=== PATIENT | male | born 1950 | race Caucasian/White ===

== ENCOUNTER 2019-11-25 08:06 | Outpatient (CLI) | payer MEDICARE, OTHER, SELFPAY ==
[2019-11-25 09:06] VITALS: PULSE 99; O2SAT 94
[2019-11-25 09:07] VITALS: PULSE 102; O2SAT 94
[2019-11-25 09:08] VITALS: PULSE 112; O2SAT 95
[2019-11-25 09:14] VITALS: PULSE 98; O2SAT 94
--- NOTE | 2019-11-25 09:48 | HOMEO2EVAL ---
Home Oxygen Evaluation RC: Home Oxygen (O2) Evaluation Start: 11/25/19 09:46 Freq: Status: Active Protocol: RPE Activity Type Activity Date Activity User E-Sign Co-Sign Detail Recorded Client Recorded Date Recorded By Document 11/25/19 09:06 KRM [id number] 11/25/19 09:48 KRM Document 11/25/19 09:07 KRM [id number] 11/25/19 09:48 KRM Document 11/25/19 09:08 KRM [id number] 11/25/19 09:48 KRM Document 11/25/19 09:14 KRM [id number] 11/25/19 09:48 KRM 11/25/19 11/25/19 11/25/19 09:06 09:07 09:08 Home O2 Evaluation Test Phase Resting Exercise Exercise Oxygen Delivery Room Air Room Air Room Air Pulse Oximetry (90-100 %) 94 94 95 Pulse Rate (60-100 beats/min) 99 102 H 112 H Activity Tolerance Fair Fair Ambulation Distance (feet) 250 Home Oxygen Evaluation Comments PT. ALSO WALKED UP AN INCLINE DURING TESTING. Treatment Charges O2 Evaluation 11/25/19 09:14 Home O2 Evaluation Test Phase Resting Oxygen Delivery Room Air Pulse Oximetry (90-100 %) 94 Pulse Rate (60-100 beats/min) 98 Activity Tolerance Ambulation Distance (feet) Home Oxygen Evaluation Comments Treatment Charges
== END 2019-11-25 08:07 | disposition home or self-care (01) ==
PROVIDERS: PCP Family Medicine; Visit Provider Nurse Practitioner Family
DX: R09.02 Hypoxemia (principal)
CPT/HCPCS: 94618

== ENCOUNTER 2020-07-13 02:40 | Outpatient (CLI) | payer MEDICARE, OTHER, SELFPAY ==
[2020-07-13 16:34] LABS: SARS-CoV-2 RNA PCR Negative
== END 2020-07-13 02:41 | disposition home or self-care (01) ==
LOC: ANHCOVIDDT 02:40
PROVIDERS: PCP Family Medicine; Visit Provider Internal Medicine Gastroenterology
DX: Z01.812 Encounter for preprocedural laboratory examination (principal); Z20.828 Contact with and (suspected) exposure to other viral communicable diseases
CPT/HCPCS: 87635; C9803; U0003

== ENCOUNTER 2020-07-15 01:27 | Day surgery (SDC) | payer MEDICARE, OTHER, SELFPAY ==
[2020-07-06 12:58] VITALS: BMI 32.2
[2020-07-15 09:10] VITALS: BP 130/87; PULSE 55; RESP 20; TEMP 36.8; O2SAT 94; BMI 32.3
--- NOTE | 2020-07-15 09:19 | WPDGICN ---
Assessment and Plan Assessment and plan (1) Screen for colon cancer: Code(s): Z12.11 - Encounter for screening for malignant neoplasm of colon Status: Acute Assessment and Plan: Colonoscopy to be performed today last exam was 12 years ago. There is a family history of some unknown intestinal cancer identified in the sister. Colonoscopy report follow separately. (2) Chronic obstructive pulmonary disease: Qualifiers: COPD type: emphysema Emphysema type: other Qualified Code(s): J43.8 - Other emphysema Code(s): J44.9 - Chronic obstructive pulmonary disease, unspecified Status: Acute (3) Constipation due to opioid therapy: Code(s): K59.03 - Drug induced constipation; T40.2X5A - Adverse effect of other opioids, initial encounter Status: Acute GI Consult Note Consult date/time: 07/15/20 09:19 HPI: Porter Fernandez is a 69 year old male seen in evaluation at the request of Dr Des Dupont. Patient presents for screening colon [place] copy. Family history is significant her sister had none known intestinal cancer. Patient did he underwent go colonoscopy in 2006 that was unremarkable. He states his current weight appetite bowel movements are normal. Past medical history is significant for degenerative disc in his neck. He has constipation secondary to opioid therapy. He currently has been treated for a poorly healing ulcer on his foot. Review of Systems Review of Systems: All systems reviewed & are unremarkable except as noted in HPI and below PMFSH Past Medical History Medical History Benign hypertension Changing skin lesion Constipation due to opioid therapy Degenerative, intervertebral disc, cervical Erectile dysfunction Pneumonia due to infectious organism Screen for colon cancer Upper respiratory tract hypersensitivity reaction Social History Social History (Updated 06/19/20 @ 14:33 by Julissa Nagel CMA) Smoking packs per day: 1 Smoking cigarettes per day: 20.0 Smoking status: Former smoker Tobacco type: cigarettes Smoking end date: 10/23/16 Alcohol intake: never Substance use: never Substance use type: does not use Spiritual care concerns: No Meds Home Medications and Allergies Home Medications Medication Instructions Recorded Confirmed Type albuterol sulfate 90 mcg/actuation 2 inhalation INHALATION Q4H PRN 11/13/19 07/15/20 History aerosol inhaler fluticasone fur. 100 mcg-umeclid 1 inhalation INHALATION DAILY 11/13/19 07/15/20 History 62.5 mcg-vilant 25 mcg inhalat.powder ginkgo biloba 60 mg capsule 60 mg PO DAILY 11/13/19 07/15/20 History rivaroxaban 20 mg tablet 20 mg PO DAILY 11/13/19 07/15/20 History testosterone cypionate 200 mg/mL 200 mg IM USEASDIRECTD 11/13/19 07/15/20 History intramuscular kit vitamin E (dl, acetate) 450 mg 1,000 unit PO DAILY 11/13/19 07/15/20 History (1,000 unit) capsule morphine 15 mg immediate release 15 mg PO TID PRN tablet 11/15/19 07/15/20 History tablet diltiazem HCl 360 mg capsule,24 360 mg PO DAILY 05/15/20 07/15/20 History hr,extended release furosemide 40 mg tablet 20 mg PO QAM tablet 05/15/20 07/15/20 History gabapentin 300 mg capsule 300 mg PO BID cap 05/15/20 07/15/20 History ipratropium 0.5 mg-albuterol 3 mg 3 ml INHALATION QID PRN 06/05/20 07/15/20 History (2.5 mg base)/3 mL nebulization soln Coral Calcium 1,500 mg PO BID 07/09/20 07/15/20 History Glucosamine Chondroitin 1,500 mg PO BID 07/09/20 07/15/20 History Tumeric Root Extract 500 mg PO BID 07/09/20 07/15/20 History ascorbic acid (vitamin C) 1 g PO DAILY 07/09/20 07/15/20 History linaclotide [Linzess] 290 mcg PO BID PRN 07/09/20 07/15/20 History morphine 30 mg PO BID 07/09/20 07/15/20 History siyqjhwc-qqj-EQ-lycopen-lutein 1 tablet PO DAILY 07/09/20 07/15/20 History [Centrum Silver] potassium gluconate 300 mg PO DAILY 07/09/20
[2020-07-15] MEDS: LACTATED RINGERS 1,000 ML 150 ML IV CONT (09:27)
--- NOTE | 2020-07-15 09:27 | WPDANESEPPF ---
Anes - Initial Pre Proc Eval Procedure: Operation Date: 07/15/20 09:30 Proposed Procedures p Screening Colonoscopy - Ezequiel Fermin MD Date/Time: 07/15/20 09:27 Surgeon: Ezequiel Fermin MD Pre Op Diagnosis: neoplasm screening Patient Data Age: 69 Gender: M Height: 6 ft 4 in Weight: 120.7 kg Last Vital Signs Temp 98.2 F 07/15/20 09:10 Pulse 55 L 07/15/20 09:10 Resp 20 07/15/20 09:10 BP 130/87 07/15/20 09:10 Pulse Ox 94 07/15/20 09:10 Allergies Allergy/AdvReac Type Severity Reaction Status Date / Time No Known Allergies Allergy Verified 07/15/20 09:03 Home Medications Medication Instructions Recorded Confirmed Type albuterol sulfate 90 mcg/actuation 2 inhalation INHALATION Q4H PRN 11/13/19 07/15/20 History aerosol inhaler fluticasone fur. 100 mcg-umeclid 1 inhalation INHALATION DAILY 11/13/19 07/15/20 History 62.5 mcg-vilant 25 mcg inhalat.powder ginkgo biloba 60 mg capsule 60 mg PO DAILY 11/13/19 07/15/20 History rivaroxaban 20 mg tablet 20 mg PO DAILY 11/13/19 07/15/20 History testosterone cypionate 200 mg/mL 200 mg IM USEASDIRECTD 11/13/19 07/15/20 History intramuscular kit vitamin E (dl, acetate) 450 mg 1,000 unit PO DAILY 11/13/19 07/15/20 History (1,000 unit) capsule morphine 15 mg immediate release 15 mg PO TID PRN tablet 11/15/19 07/15/20 History tablet diltiazem HCl 360 mg capsule,24 360 mg PO DAILY 05/15/20 07/15/20 History hr,extended release furosemide 40 mg tablet 20 mg PO QAM tablet 05/15/20 07/15/20 History gabapentin 300 mg capsule 300 mg PO BID cap 05/15/20 07/15/20 History ipratropium 0.5 mg-albuterol 3 mg 3 ml INHALATION QID PRN 06/05/20 07/15/20 History (2.5 mg base)/3 mL nebulization soln Coral Calcium 1,500 mg PO BID 07/09/20 07/15/20 History Glucosamine Chondroitin 1,500 mg PO BID 07/09/20 07/15/20 History Tumeric Root Extract 500 mg PO BID 07/09/20 07/15/20 History ascorbic acid (vitamin C) 1 g PO DAILY 07/09/20 07/15/20 History linaclotide [Linzess] 290 mcg PO BID PRN 07/09/20 07/15/20 History morphine 30 mg PO BID 07/09/20 07/15/20 History puqbxjze-yyb-DI-lycopen-lutein 1 tablet PO DAILY 07/09/20 07/15/20 History [Centrum Silver] potassium gluconate 300 mg PO DAILY 07/09/20 07/15/20 History tizanidine 4 mg PO BID 07/09/20 07/15/20 History zinc gluconate 25 mg PO DAILY 07/09/20 07/15/20 History Patient hx anesthesia problems: none Family hx anesthesia problems: none PMFSH Past Medical History Medical History Benign hypertension Changing skin lesion Constipation due to opioid therapy Degenerative, intervertebral disc, cervical Erectile dysfunction Pneumonia due to infectious organism Screen for colon cancer Upper respiratory tract hypersensitivity reaction Social History Social History (Updated 06/19/20 @ 14:33 by Julissa Nagel CMA) Smoking packs per day: 1 Smoking cigarettes per day: 20.0 Smoking status: Former smoker Tobacco type: cigarettes Smoking end date: 10/23/16 Alcohol intake: never Substance use: never Substance use type: does not use Spiritual care concerns: No Anes - Eval Final PreProcedure Day of Procedure 07/15/20 09:27 Patient weight: overweight Heart: regular rate and rhythm Lungs: clear to auscultation Airway: Mallampati scale class II Neurological: alert and oriented Last oral intake: >/= 8 hours ASA classification: III Emergent: no Anesthetic plan: proceed Anesthesia type and monitoring: general GIVS and standard monitoring Informed Consent: The patient's anesthetic plan and its attendant risks and benefits were discussed with the patient/family/POA. Questions were solicited and answers provided to the satisfaction of the patient/family/POA.
[2020-07-15 09:52] VITALS: BP 104/70; PULSE 98; RESP 19; O2SAT 92
[2020-07-15 10:02] VITALS: BP 102/63; PULSE 84; RESP 16; O2SAT 92
[2020-07-15 10:11] VITALS: BP 113/66; PULSE 90; RESP 16; O2SAT 93
== END 2020-07-15 10:20 | disposition home or self-care (01) ==
PROVIDERS: PCP Family Medicine; Visit Provider Internal Medicine Gastroenterology
PROC: 0DJD8ZZ Inspection of Lower Intestinal Tract, Via Natural or Artificial Opening Endoscopic (ICD-10-PCS; CPT 45378; principal; 2020-07-15 09:30)
DX: Z12.11 Encounter for screening for malignant neoplasm of colon (principal); K64.8 Other hemorrhoids; J44.9 Chronic obstructive pulmonary disease, unspecified; K59.03 Drug induced constipation; T40.2X5A Adverse effect of other opioids, initial encounter; I10 Essential (primary) hypertension; M50.30 Other cervical disc degeneration, unspecified cervical region; Z87.891 Personal history of nicotine dependence; Z79.01 Long term (current) use of anticoagulants
CPT/HCPCS: G0121; J2001; J2704; J7120

== ENCOUNTER 2020-08-05 01:00 | Outpatient (CLI) | payer MEDICARE, OTHER, SELFPAY ==
[2020-08-05 18:39] LABS: SARS-CoV-2 RNA PCR Negative
== END 2020-08-05 01:01 | disposition home or self-care (01) ==
LOC: ANHCOVIDDT 01:00
PROVIDERS: PCP Family Medicine; Visit Provider Internal Medicine Cardiovascular Disease
DX: Z01.812 Encounter for preprocedural laboratory examination (principal); Z20.828 Contact with and (suspected) exposure to other viral communicable diseases
CPT/HCPCS: 87635; C9803; U0003

== ENCOUNTER 2020-08-07 01:05 | Day surgery (SDC) | payer MEDICARE, OTHER, SELFPAY ==
[2020-08-06 11:45] VITALS: BMI 32.2
[2020-08-07] VITALS (9 sets, daily range): BP systolic 110–129; BP diastolic 62–84; PULSE 71–95; RESP 9–20; TEMP 36.5; O2SAT 89–95; BMI 33.0
--- NOTE | 2020-08-07 06:49 | ECG_ITS ---
Measurements Intervals [place] Rate: 93 P: PA: 0 QRS: 38 QRSD: 106 T: 45 QT: 354 QTc: 441 Interpretive Statements ATRIAL FIBRILLATION CANNOT RULE OUT SEPTAL INFARCT, AGE INDETERMINATE BASELINE WANDER- V4 ABNORMAL ECG Electronically Signed On 08-07-2020 8:24:54 CDT by Kishan Zamora D.O.
--- NOTE | 2020-08-07 07:30 | SUR.PREOP ---
ARRIVES TO [facility] 7 VIA WC W/ CANE AND AT SIDE FOR SCHEDULED CARDIOVERSION W/ DR. LEON. ORIENTED TO ROOM, PLAN OF CARE, PROCEDURE. QUESTIONS ANSWERED. PRE PROCEDURE EKG COMPLETED: SHOWS AFIB. IV STARTED, LABS SENT, VS OBTAINED, CONSENT SIGNED, MEDICATIONS REVIEWED. STATES TOOK XARELTO THIS AM. WILL MONITOR.
[2020-08-07 08:38] LABS: Anion Gap 3 mmol/L (8-16); Blood Urea Nitrogen 17 mg/dL (9-20); Calcium 9.1 mg/dL (8.4-10.2); Carbon Dioxide 34 mmol/L (22-30); Chloride 101 mmol/L (98-107); Estimated CRCL calculation 144 ml/min; Estimated Glomerular Filt Rate > 60; Glucose 106 mg/dL (75-110); Potassium 4.4 mmol/L (3.4-5.0); Sodium 138 mmol/L (137-145)
--- NOTE | 2020-08-07 09:02 | WPDMODSED ---
Moderate Sedation Note-Pt Data Patient Data Diagnosis: Atrial fibrillation Present Complaint: atrial fibrillation Procedure to be performed/Plan: electrical cardioversion Moderate sedation Allergies Allergy/AdvReac Type Severity Reaction Status Date / Time No Known Allergies Allergy Verified 08/07/20 08:29 Home Medications Medication Instructions Recorded Confirmed Type albuterol sulfate 90 mcg/actuation 2 inhalation INHALATION Q4H PRN 11/13/19 08/07/20 History aerosol inhaler fluticasone fur. 100 mcg-umeclid 1 inhalation INHALATION DAILY 11/13/19 08/07/20 History 62.5 mcg-vilant 25 mcg inhalat.powder ginkgo biloba 60 mg capsule 60 mg PO DAILY 11/13/19 08/07/20 History rivaroxaban 20 mg tablet 20 mg PO DAILY 11/13/19 08/07/20 History testosterone cypionate 200 mg/mL 200 mg IM USEASDIRECTD 11/13/19 08/07/20 History intramuscular kit vitamin E (dl, acetate) 450 mg 1,000 unit PO DAILY 11/13/19 08/07/20 History (1,000 unit) capsule morphine 15 mg immediate release 15 mg PO TID PRN tablet 11/15/19 08/07/20 History tablet diltiazem HCl 360 mg capsule,24 360 mg PO DAILY 05/15/20 08/07/20 History hr,extended release furosemide 40 mg tablet 20 mg PO QAM tablet 05/15/20 08/07/20 History gabapentin 300 mg capsule 300 mg PO BID cap 05/15/20 08/07/20 History ipratropium 0.5 mg-albuterol 3 mg 3 ml INHALATION QID PRN 06/05/20 08/07/20 History (2.5 mg base)/3 mL nebulization soln Coral Calcium 1,500 mg PO BID 07/09/20 08/07/20 History Glucosamine Chondroitin 1,500 mg PO BID 07/09/20 08/07/20 History Tumeric Root Extract 500 mg PO BID 07/09/20 08/07/20 History ascorbic acid (vitamin C) 1 g PO DAILY 07/09/20 08/07/20 History linaclotide [Linzess] 290 mcg PO BID PRN 07/09/20 08/07/20 History morphine 30 mg PO BID 07/09/20 08/07/20 History nnxcjydf-hxj-VU-lycopen-lutein 1 tablet PO DAILY 07/09/20 08/07/20 History [Centrum Silver] potassium gluconate 300 mg PO DAILY 07/09/20 08/07/20 History tizanidine 1 mg PO TID 07/09/20 08/07/20 History zinc gluconate 25 mg PO DAILY 07/09/20 08/07/20 History flecainide 100 mg PO Q12H 08/07/20 08/07/20 History Current Medications: Active Medications Sodium Chloride (Normal Saline Iv) 1,000 mls @ 30 mls/hr IV CONT .Q24H LU Sedation/Anesthesia: No previous sedation/anesthesia problems (including family history). [facility] Past Medical History Medical History Benign hypertension Changing skin lesion Constipation due to opioid therapy Degenerative, intervertebral disc, cervical Erectile dysfunction Pneumonia due to infectious organism Screen for colon cancer Upper respiratory tract hypersensitivity reaction Social History Social History Smoking packs per day: 1 Smoking cigarettes per day: 20.0 Smoking status: Former smoker Tobacco type: cigarettes Smoking end date: 10/23/16 Alcohol intake: never Substance use: never Substance use type: does not use Last use: 10/23/2016 Living arrangements: with family Gender identity (if verbalized by the patient): Male Spiritual care concerns: No Mod Sed Physical Exam Physical Exam Pre Procedural Exam: Normal: Appearance, Eyes, Ears, Nose, Neck, Throat, Airway, Lungs, Heart Size, Heart Rate, Neuro Exam and Abdomen and Variation: Heart Rhythm ( irregular irregular) and Skin ( chronic stasis changes noted) Hours since solid foods: 12 Hours since liquid intake: 12 Internal Medicine - PN: Obj Da Vital Signs Vital Signs: Vital Signs - 24 hr 08/07/20 08:00 Temperature 36.5 C Pulse Rate 95 Respiratory Rate 20 Blood Pressure 115/71 Pulse Oximetry 92 Meds/Results Medications: Active Medications Generic Name Dose Route Start Last Admin Trade Name Freq PRN Reason Stop Dose Admin Sodium Chloride 1,000 mls @ 30 mls/hr 08/07/20 06:50 Normal Saline Iv IV CONT .Q24H LU
--- NOTE | 2020-08-07 09:03 | WPDHPUPDATE1 ---
History and Physical Update Update Date/Time: 08/07/20 09:03 patient remains in atrial fibrillation. he has not missed any doses of Xarelto over the past several weeks (greater than 3). He denies any chest pain or shortness of breath. Objective: Irregular irregular rhythm Assessment: Atrial fibrillation Plan: Electrical cardioversion, moderate sedation History and Physical has been reviewed, including an updated exam of the patient. There are NO changes in the patient's condition. Risks, benefits, and alternatives have been discussed and questions answered. Patient agrees to proceed with procedure.
--- NOTE | 2020-08-07 09:20 | WPDCARDVER ---
Cardioversion Cardioversion Date of procedure: 08/07/20 Procedure: electrical cardioversion Moderate sedation Pre-op diagnosis: atrial fibrillation Post-op diagnosis: same Indications: atrial fibrillation Description of procedure: after discussing the risks, benefits alternatives of the procedure the patient agreeable via verbal and written informed consent. Risks discussed included skin irritation or burn, shocking into more problematic heart rhythm, adverse reaction to anesthesia, . Stroke was also discussed as a potential risk. Patient has not missed any doses of Xarelto over the past 3+ weeks. After time-out was taken sedation was initiated. Start time 9:09 a.m. Stop time 9:17 a.m. Complications: None Blood loss: None Medications were administered and patient was monitored by Naomi Alberts RN Sedation: 3 mg of Versed and 25 mcg of fentanyl were given in divided dosages. Findings: Two shocks were needed. First shock was using 125 joules of biphasic synchronized energywhich did not convert AFib. Second shock was using 200 joules of biphasic synchronized energy which did convert atrial fibrillation to sinus rhythm with heart rate in the 70s to 80s. Conclusion: 1. Successful nondenominational of sinus rhythm from atrial fibrillation using 200 joules of synchronized biphasic energy 2. Moderate sedation
--- NOTE | 2020-08-07 09:30 | ECG_ITS ---
Measurements Intervals [place] Rate: 68 P: 59 GA: 211 QRS: 27 QRSD: 115 T: 49 QT: 398 QTc: 425 Interpretive Statements SINUS RHYTHM WITH SINUS ARRHYTHMIA WITH FIRST DEGREE AV BLOCK INTRAVENTRICULAR CONDUCTION DELAY ABNORMAL ECG Electronically Signed On 08-07-2020 9:33:06 CDT by Kishan Zamora D.O.
--- NOTE | 2020-08-07 10:50 | SUR.PHASEII ---
MONITOR REMAINS SR POST CARDIOVERSION. FULLY AWAKE AND ALERT. AT SIDE. REVIEWED DISCHARGE INSTRUCTIONS W/ PT. AND AND FOLLOW UP CARE. QUESTIONS ANSWERED. VOICED UNDERSTANDING OF ALL. COPY OF DISCHARGE INSTRUCTIONS GIVEN. DISCHARGED HOME, OUT VIA WC TO 'S WAITING CAR WITH ALL PERSONAL BELONGINGS AND DISCHARGE PACKET. NO DISTRESS NOTED.
== END 2020-08-07 10:50 | disposition home or self-care (01) ==
PROVIDERS: PCP Family Medicine; Visit Provider Internal Medicine Cardiovascular Disease
PROC: 5A2204Z Restoration of Cardiac Rhythm, Single (ICD-10-PCS; principal; 2020-08-07 08:30)
DX: I48.91 Unspecified atrial fibrillation (principal); I10 Essential (primary) hypertension; Z79.01 Long term (current) use of anticoagulants; Z87.891 Personal history of nicotine dependence
CPT/HCPCS: 36415; 80048; 83735; 92960; 93005; J2250; J3010; J7040

== ENCOUNTER 2020-08-10 10:40 | Outpatient (CLI) | payer MEDICARE, OTHER, SELFPAY ==
--- NOTE | ~2020-08-10 | CT_ITS ---
EXAMINATION:CT lung screening DATE: 08/10/2020 11:14 INDICATION: Personal history of tobacco dependence. Smoker who quit 3 years ago with 50 pack year his tory. TECHNIQUE: Computed tomography (CT) of the chest was performed without intravenous contrast. Automate d exposure control and iterative reconstruction technique were employed. The dose-length product (DLP ) was 308.09 mGy-cm. COMPARISON: Chest CT 07/25/2019 FINDINGS: There is moderate emphysema. There is mild atelectasis bilaterally. Calcified right lung no dules are consistent with old granulomatous disease. No pleural effusion. The heart size is normal. T here are coronary artery calcifications. No pericardial effusion. There is chronic mild mediastinal l ymphadenopathy, likely reactive. There is mild bilateral gynecomastia. There are changes of anterior fusion procedure in cervical spine. There is moderate thoracic spondylosis. IMPRESSION: 1. Lung-RADS category 1: Negative. Continue annual screening with noncontrast low-dose chest CT in 12 months. Reviewed, dictated and finalized at location A. IMPRESSION: 1. Lung-RADS category 1: Negative. Continue annual screening with noncontrast l ow-dose chest CT in 12 months.
== END 2020-08-10 10:41 | disposition home or self-care (01) ==
PROVIDERS: PCP Family Medicine; Visit Provider Nurse Practitioner Family
DX: Z12.2 Encounter for screening for malignant neoplasm of respiratory organs (principal); Z87.891 Personal history of nicotine dependence
CPT/HCPCS: G0297

== ENCOUNTER 2020-09-11 00:30 | Outpatient (CLI) | payer MEDICARE, OTHER, SELFPAY ==
[2020-09-11 19:24] LABS: SARS-CoV-2 RNA PCR Negative
== END 2020-09-11 00:31 | disposition home or self-care (01) ==
LOC: ANHCOVIDDT 00:31
PROVIDERS: PCP Family Medicine; Visit Provider Internal Medicine Cardiovascular Disease
DX: Z20.828 Contact with and (suspected) exposure to other viral communicable diseases (principal)
CPT/HCPCS: 87635; C9803; U0003

== ENCOUNTER 2020-09-14 05:29 | Day surgery (SDC) | payer MEDICARE, OTHER, SELFPAY ==
[2020-09-11 14:30] VITALS: BMI 32.2
[2020-09-14] VITALS (8 sets, daily range): BP systolic 107–150; BP diastolic 60–90; PULSE 63–86; RESP 13–19; TEMP 36.1–36.3; O2SAT 90–100; BMI 30.2
--- NOTE | 2020-09-14 07:00 | ECG_ITS ---
Measurements Intervals [place] Rate: 95 P: NM: 0 QRS: 2 QRSD: 102 T: 44 QT: 344 QTc: 433 Interpretive Statements ATRIAL FIBRILLATION CANNOT RULE OUT SEPTAL INFARCT, AGE INDETERMINATE BASELINE ARTIFACT- V1-V6 ABNORMAL ECG Electronically Signed On 09-14-2020 8:18:34 DOG BEAUTICIAN by Kishan Zamora D.O.
[2020-09-14 08:09] LABS: Anion Gap 5 mmol/L (8-16); Blood Urea Nitrogen 18 mg/dL (9-20); Calcium 9.3 mg/dL (8.4-10.2); Carbon Dioxide 33 mmol/L (22-30); Chloride 101 mmol/L (98-107); Estimated CRCL calculation 107 ml/min; Estimated Glomerular Filt Rate > 60; Glucose 107 mg/dL (75-110); Magnesium 1.9 mg/dL (1.6-2.3); Potassium 4.2 mmol/L (3.4-5.0); Sodium 139 mmol/L (137-145)
--- NOTE | 2020-09-14 08:40 | ECG_ITS ---
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
--- NOTE | 2020-09-14 08:41 | P.HPUP_ITS ---
History and Physical Update Update Date/Time: 09/14/20 08:41 Subjective: Still in atrial fibrillation. No chest pain or shortness Objective: AFib irregular irregular Assessment: AFib Plan: Cardioversion History and Physical has been reviewed, including an updated exam of the patient . There are NO changes in the patient's condition. Risks, benefits, and alternatives have been discussed and questions answered. Patient agrees to proceed with procedure.
--- NOTE | 2020-09-14 08:42 | WPDMODSED ---
Moderate Sedation Note-Pt Data Patient Data Diagnosis: Atrial fibrillation Present Complaint: atrial fibrillation Procedure to be performed/Plan: 1. Electrical cardioversion 2. Moderate sedation Allergies Allergy/AdvReac Type Severity Reaction Status Date / Time No Known Allergies Allergy Verified 09/11/20 14:45 Home Medications Medication Instructions Recorded Confirmed Type albuterol sulfate 90 mcg/actuation 2 inhalation INHALATION Q4H PRN 11/13/19 09/11/20 History aerosol inhaler fluticasone fur. 100 mcg-umeclid 1 inhalation INHALATION DAILY 11/13/19 09/11/20 History 62.5 mcg-vilant 25 mcg inhalat.powder ginkgo biloba 60 mg capsule 60 mg PO DAILY 11/13/19 09/11/20 History rivaroxaban 20 mg tablet 20 mg PO DAILY 11/13/19 09/14/20 History testosterone cypionate 200 mg/mL 200 mg IM USEASDIRECTD 11/13/19 09/11/20 History intramuscular kit vitamin E (dl, acetate) 450 mg 1,000 unit PO DAILY 11/13/19 09/11/20 History (1,000 unit) capsule morphine 15 mg immediate release 15 mg PO TID PRN tablet 11/15/19 09/11/20 History tablet diltiazem HCl 360 mg capsule,24 360 mg PO DAILY 05/15/20 09/11/20 History hr,extended release furosemide 40 mg tablet 20 mg PO QAM tablet 05/15/20 09/11/20 History gabapentin 300 mg capsule 300 mg PO BID cap 05/15/20 09/11/20 History ipratropium 0.5 mg-albuterol 3 mg 3 ml INHALATION QID PRN 06/05/20 09/11/20 History (2.5 mg base)/3 mL nebulization soln Centrum Silver 1 tablet PO DAILY 07/09/20 09/11/20 History Coral Calcium 1,500 mg PO BID 07/09/20 09/11/20 History Glucosamine Chondroitin 1,500 mg PO BID 07/09/20 09/11/20 History Linzess 290 mcg PO BID PRN 07/09/20 09/11/20 History Tumeric Root Extract 500 mg PO BID 07/09/20 09/11/20 History ascorbic acid (vitamin C) 1 g PO DAILY 07/09/20 09/11/20 History morphine 30 mg PO BID 07/09/20 09/11/20 History potassium gluconate 300 mg PO DAILY 07/09/20 09/11/20 History tizanidine 1 mg PO TID 07/09/20 09/11/20 History zinc gluconate 50 mg PO DAILY 07/09/20 09/11/20 History flecainide 100 mg PO Q12H 08/07/20 09/11/20 History sotalol 80 mg PO DAILY 09/11/20 09/14/20 History Current Medications: Active Medications Sodium Chloride (Normal Saline Iv) 1,000 mls @ 30 mls/hr IV CONT .Q24H LU Sedation/Anesthesia: No previous sedation/anesthesia problems (including family history). [facility] Past Medical History Medical History Benign hypertension Changing skin lesion Constipation due to opioid therapy Degenerative, intervertebral disc, cervical Erectile dysfunction Pneumonia due to infectious organism Screen for colon cancer Upper respiratory tract hypersensitivity reaction Social History Social History Smoking packs per day: 1.5 Smoking cigarettes per day: 30.0 Years smoked: 45 Smoking pack-years: 67.50 Smoking status: Former smoker Tobacco type: cigarettes Second hand tobacco smoke exposure: No Smoking end date: 05/30/17 Alcohol intake: unknown Substance use: never Substance use type: does not use Last use: 10/23/2016 Living arrangements: with family Gender identity (if verbalized by the patient): Male Sexual Orientation (if Verbalized by the Patient): Straight or Heterosexual Spiritual care concerns: No Mod Sed Physical Exam Physical Exam Pre Procedural Exam: Normal: Appearance, Eyes, Ears, Nose, Neck, Throat, Airway, Lungs, Heart Size, Heart Rate, Neuro Exam, Abdomen, Extremities and Skin and Variation: Heart Rhythm (Irregular irregular) Hours since solid foods: 12 Hours since liquid intake: 12 Internal Medicine - PN: Obj Da Vital Signs Vital Signs: Vital Signs - 24 hr 09/14/20 07:45 Temperature 36.3 C L Pulse Rate 81 Respiratory Rate 19 Blood Pressure 119/68 Pulse Oximetry 96 Meds/Results Medications: Active Medications Generic Name Dose Route Start Last
--- NOTE | 2020-09-14 08:52 | P.PCNCVR_ITS ---
Cardioversion Cardioversion Date of procedure: 09/14/20 Procedure: 1. Electrical cardioversion 2. Moderate sedation Pre-op diagnosis: Atrial fibrillation Post-op diagnosis: same Indications: AFib Description of procedure: After discussing risks, benefits alternatives of the procedure the patient agreeable via verbal and written informed consent. Risks discussed included stroke, skin irritation or burn, shocking into a more problematic heart rhythm, adverse reaction to anesthesia, . After establishing continuous telemetry monitoring, pulse oxygenation and serial blood pressure assessments, time-out was taken and procedure started. Procedure start time 8:46 a.m. Procedure stop time 8:51 a.m. Medications were administered and patient was monitored by Bernardino Crisostomo RN Blood loss: None Complications: None Sedation: A total 2 mg of Versed and 25 mcg of fentanyl given in divided d osages. Findings: 1. Successful pentecostalism of sinus rhythm from atrial fibrillation using 175 joules of synchronized biphasic energy Conclusion: 1. Successful electrical cardioversion using 175 joules of synchronized biphasic energy 2. Moderate sedation
--- NOTE | 2020-09-14 10:16 | SUR.PHASEII ---
1000-pt given D/C orders and instructions. Questions answered and verbalized understanding. AOx4. PIV removed intact. Taken via wheelchair to waiting vehicle. No distress noted or verbalized at time of departure.
== END 2020-09-14 10:15 | disposition home or self-care (01) ==
PROVIDERS: PCP Family Medicine; Visit Provider Internal Medicine Cardiovascular Disease
PROC: 5A2204Z Restoration of Cardiac Rhythm, Single (ICD-10-PCS; principal; 2020-09-14 08:30)
DX: I48.91 Unspecified atrial fibrillation (principal); I10 Essential (primary) hypertension; N52.9 Male erectile dysfunction, unspecified; Z87.891 Personal history of nicotine dependence
CPT/HCPCS: 36415; 80048; 83735; 92960; 93005; J2250; J3010; J7040

== ENCOUNTER 2021-05-06 14:10 | Outpatient (CLI) | payer MEDICARE, OTHER, SELFPAY ==
--- NOTE | ~2021-05-06 | US_ITS ---
EXAMINATION: US art doppler w marisela URIOSTEGUI EXAM DATE: 05/06/2021 15:01 INDICATION: Discoloration of the skin, calves. Leg edema. TECHNIQUE: Segmental pressures and plethysmographic and Doppler waveforms of the brachial and lower e xtremity arteries were obtained. There is no prior study for comparison. FINDINGS: Right and left brachial artery pressures of 118 mm Hg and 125 mm Hg, respectively, are concordant (no rmal difference <= 30 mmHg). The right and left thigh-brachial pressure indices are XXXRIGHTLEFTLLLL , respectively (normal > 1.2). RIGHT LEG: The ankle-brachial index (YAJAIRA) is 1.26 (normal >= 0.9-1). The great toe-brachial index (TBI) is 1.26 (normal >= 0.65). The lower extremity ratios, segmental pressure gradients as follows; Proximal superficial femoral artery:- Could not obtain ( mmHg). Distal superficial femoral artery: ----- 1.53 (191 mmHg). Popliteal: 1.15 (144 mmHg). Dorsalis pedis: 0.98 (122 mmHg). Posterior tibial: 1.26 (158 mmHg). (Normal gradients <= 20-30 mmHg between adjacent levels on the same leg or the same levels on the two legs). Arterial waveforms are biphasic through popliteal, monophas ic below. LEFT LEG: The ankle-brachial index (YAJAIRA) is 0.92 (normal >= 0.9-1). The great toe-brachial index (TBI) is 0.82 (normal >= 0.65). The lower extremity ratios, segmental pressure gradients as follows; Proximal superficial femoral artery:- Could not obtain ( mmHg). Distal superficial femoral artery: ----- 1.30 (163 mmHg). Popliteal: 0.93 (116 mmHg). Dorsalis pedis: 0.92 (115 mmHg). Posterior tibial: 0.79 (99 mmHg). (Normal gradients <= 20-30 mmHg between adjacent levels on the same leg or the same levels on the two legs). Arterial waveforms are monophasic. IMPRESSION: 1. Right ankle-brachial index 1.26, normal. 2. Left ankle-brachial index 0.92, normal. 3. Segmental pressures as above. Reviewed, dictated and finalized at location B.
== END 2021-05-06 14:11 | disposition home or self-care (01) ==
PROVIDERS: PCP Family Medicine; Visit Provider Internal Medicine Cardiovascular Disease
DX: R60.0 Localized edema (principal); I73.9 Peripheral vascular disease, unspecified
CPT/HCPCS: 93923

== ENCOUNTER 2021-08-18 11:06 | Outpatient (CLI) | payer MEDICARE, OTHER, SELFPAY ==
--- NOTE | ~2021-08-18 | XR_ITS ---
EXAMINATION: XR chest 2V EXAM DATE: 08/18/2021 11:28 INDICATION: R05.9 - Cough, unspecified, HX: HTN. TECHNIQUE: Frontal and lateral projections of the chest obtained and reviewed. Comparison is made to prior examination from 12/31/2018. FINDINGS: The lungs are clear. There are no pleural effusions. The cardiomediastinal silhouette is within normal limits. There is no pneumothorax suspected. The bones and soft tissues are unremarkab le. Cervical fusion hardware. There is no significant interval change. IMPRESSION: No acute cardiopulmonary findings. Reviewed, dictated and finalized at location B.
== END 2021-08-18 11:07 | disposition home or self-care (01) ==
LOC: ANHIMG 11:11
PROVIDERS: PCP Family Medicine; Visit Provider Nurse Practitioner Family
DX: R05.9 Cough, unspecified (principal); I10 Essential (primary) hypertension; F17.200 Nicotine dependence, unspecified, uncomplicated
CPT/HCPCS: 71046

== ENCOUNTER 2021-08-18 11:32 | Outpatient (CLI) | payer MEDICARE, OTHER, SELFPAY ==
[2021-08-18 12:20] LABS: Basophils Absolute Auto 0.1 K/mm3 (0.0-0.1); Basophils Percent Auto 0.7 % (0.2-1.2); Eosinophils Absolute Auto 0.2 K/mm3 (0-0.3); Eosinophils Percent Auto 2.2 % (0-4.4); Hematocrit 51.3 % (42.0-52.0); Immature Granulocyte Absolute 0.04 K/mm3 (0.00-0.031); Immature Granulocyte Percent A 0.4 % (0-0.5); Lymphocytes Absolute Auto 2.75 K/mm3 (0.9-3.2); Lymphocytes Percent Auto 28.6 % (18.3-44.2); Mean Corpuscular HGB Conc 33.1 g/dl (32-36); Mean Corpuscular Hemoglobin 31.4 pg (26-34); Mean Corpuscular Volume 94.8 fl (80-100); Mean Platelet Volume 10.3 fl (7.4-10.4); Monocytes Absolute Auto 0.8 K/mm3 (0.1-0.6); Monocytes Percent Auto 8.5 % (2.6-8.5); Neutrophils Absolute Auto 5.7 K/mm3 (1.3-6.7); Neutrophils Percent Auto 59.6 % (45.5-73.1); Platelet Count Result 182 k/mm3 (150-375); Red Blood Count 5.41 M/mm3 (4.6-6.20); Red Cell Distribution Width 13.2 % (11.5-14.5); White Blood Count 9.6 K/mm3 (4.5-10.0)
[2021-08-18 15:14] LABS: Alanine Aminotransferase 19 U/L (4-50); Alkaline Phosphatase 83 U/L (38-126); Anion Gap 6 mmol/L (8-16); Aspartate Amino Transferase 34 U/L (17-59); Bilirubin,Total 0.4 mg/dL (0.2-1.3); Blood Urea Nitrogen 18 mg/dL (9-20); Calcium 9.2 mg/dL (8.4-10.2); Carbon Dioxide 33 mmol/L (22-30); Chloride 97 mmol/L (98-107); Estimated Glomerular Filt Rate > 60; Glucose 93 mg/dL (65-110); Sodium 136 mmol/L (137-145)
== END 2021-08-18 11:33 | disposition home or self-care (01) ==
LOC: ANHLAB 11:36
PROVIDERS: PCP Family Medicine; Visit Provider Nurse Practitioner Family
DX: E78.5 Hyperlipidemia, unspecified (principal); J20.9 Acute bronchitis, unspecified; R05.9 Cough, unspecified
CPT/HCPCS: 36415; 71046; 80053; 85025

== ENCOUNTER 2021-11-05 08:23 | Outpatient (CLI) | payer MEDICARE, OTHER, SELFPAY ==
--- NOTE | ~2021-11-05 | CT_ITS ---
EXAMINATION: CT lung screening EXAM DATE: 11/05/2021 08:41 INDICATION: Z87.891 - Personal history of nicotine dependence. TECHNIQUE: Spiral low dose CT of the chest without contrast. Axial, coronal and sagittal images were reviewed. The dose-length product (DLP) for this examination was 321.32 mGy-cm. The exposure was t ailored according to patient size (auto mA exposure control), and iterative reconstruction (ASIR) was used as additional dose reduction technique. Comparison is made to prior examination from 08/10/2020 . FINDINGS: Moderate emphysema. Tracheobronchial tree is patent. There is no mediastinal, hilar or axillary lymphadenopathy. There are no pleural or pericardial effusions. There is no pneumothorax . Heart normal in size. There is moderate coronary arterial calcification, arterial sclerosis. Up per abdomen is unremarkable. There is thoracic spondylosis without osteoblastic or osteolytic lesio ns identified. IMPRESSION: Lung-RADS category 1, negative (<1%chance of malignancy); recommend continued LDCT screen ing in 1 year. > Reviewed, dictated and finalized at location A. YOLOGY PROFESSOR IMPRESSION: Lung-RADS category 1, negative (<1%chance of malignancy); recommend continued LDCT screening in 1 year. >
== END 2021-11-05 08:24 | disposition home or self-care (01) ==
LOC: ANHIMG 08:25
PROVIDERS: PCP Family Medicine; Visit Provider Physician Assistant
DX: Z87.891 Personal history of nicotine dependence (principal)
CPT/HCPCS: 71271

== ENCOUNTER 2022-04-22 11:27 | Emergency (ER) | payer MEDICARE, OTHER, SELFPAY ==
--- NOTE | ~2022-04-22 | XR_ITS ---
EXAMINATION: XR chest 2V DATE: 04/22/2022 13:17 INDICATION: Shortness of breath, bilateral lower limb edema TECHNIQUE: AP and lateral views of the chest are obtained. COMPARISON: 08/18/2021 FINDINGS: The lungs are free of acute opacities. No pleural effusion or pneumothorax. The cardiomedia stinal silhouette is normal. There is moderate thoracic spondylosis. IMPRESSION: 1. No acute cardiopulmonary abnormality. Reviewed, dictated and finalized at location F.
[2022-04-22 11:32] VITALS: BP 135/86; PULSE 87; RESP 19; O2SAT 94
[2022-04-22 11:50] LABS: Basophils Absolute Auto 0.1 K/mm3 (0.0-0.1); Basophils Percent Auto 0.6 % (0.2-1.2); Eosinophils Absolute Auto 0.1 K/mm3 (0-0.3); Hematocrit 55.1 % (42.0-52.0); Hemoglobin 18.2 g/dL (14.0-18.0); Immature Granulocyte Absolute 0.11 K/mm3 (0.00-0.031); Immature Granulocyte Percent A 0.9 % (0-0.5); Lymphocytes Absolute Auto 2.74 K/mm3 (0.9-3.2); Lymphocytes Percent Auto 23.4 % (18.3-44.2); Mean Corpuscular Hemoglobin 30.6 pg (26-34); Mean Corpuscular Volume 92.6 fl (80-100); Mean Platelet Volume 9.7 fl (7.4-10.4); Monocytes Absolute Auto 0.9 K/mm3 (0.1-0.6); Neutrophils Absolute Auto 7.7 K/mm3 (1.3-6.7); Neutrophils Percent Auto 66.1 % (45.5-73.1); Platelet Count Result 172 k/mm3 (150-375); Red Blood Count 5.95 M/mm3 (4.6-6.20); Red Cell Distribution Width 15.1 % (11.5-14.5); White Blood Count 11.7 K/mm3 (4.5-10.0)
[2022-04-22 11:59] LABS: INR 1.8; Prothrombin Time 19.9 Seconds (11.1-14.7)
[2022-04-22 12:00] LABS: Partial Thromboplastin Time 42.6 SECONDS (22.3-36.8)
[2022-04-22 12:01] LABS: Alanine Aminotransferase 24 U/L (6-50); Alkaline Phosphatase 77 U/L (38-126); Anion Gap 5 mmol/L (8-16); Aspartate Amino Transferase 29 U/L (17-59); Bilirubin,Total 0.8 mg/dL (0.2-1.3); Blood Urea Nitrogen 22 mg/dL (9-20); Carbon Dioxide 32 mmol/L (22-30); Chloride 97 mmol/L (98-107); Estimated CRCL calculation 121 ml/min; Estimated Glomerular Filt Rate > 60; Glucose 82 mg/dL (65-110); Lipase 106 U/L (23-300); Sodium 134 mmol/L (137-145)
[2022-04-22 12:11] LABS: NT Pro B Type Natriuretic Pept 518 pg/mL (5-100)
[2022-04-22 12:13] LABS: Troponin I < 0.012 ng/mL (0.000-0.034)
[2022-04-22 13:04] LABS: Alveolar/Arterial O2 Gradient 53.9 mmHg; Base Excess ABG 4.2 mEq/l (+/-2.0); Carboxyhemoglobin 6.3 % THb (0-2.0); Fractional Inspired Oxygen 21 %; HCO3 ABG 28.1 mEq/l (22.0-26.0); Methemoglobin ABG 0.3 %THb (0-1.5); Oxygen Content ABG 21.3 %vol (16.0-22.0); PCO2 ABG 39.8 mmHg (35.0-45.0); Reduced Hemoglobin 11.5 %THb (0-5.0); Total Hemoglobin 18.6 g/dL (12.0-18.0); pH ABG 7.467 (7.350-7.450)
[2022-04-22 13:06] LABS: PO2 ABG 48.2 mmHg (80.0-100.0)
[2022-04-22 13:10] LABS: Modified Allen's Test Pass; Oxygen Saturation ABG 86.4 % (95.0-100.0); Oxyhemoglobin 81.9 % THb (90.0-100.0); Site Drawn RIGHT RADIAL
[2022-04-22 13:11] LABS: Device ROOM AIR
--- NOTE | 2022-04-22 13:13 | ED.EXTPRO ---
HPI - Extremity Problem General Chief complaint: Extremity Problem,Nontraumatic Stated complaint: Edema to legs Time Seen by Provider: 04/22/22 12:03 History of Present Illness HPI Narrative: Patient is a 71-year-old male who presents ER with lower extremity edema. Ongoing over the last few days. Reports he began taking increased amounts of Lasix and metolazone. Contacted his surgical specialist Dr. Morillo yesterday to inform him of the issue. He recommended the patient come to the ER to be evaluated and receive IV Lasix. Patient reports today that edema has decreased. Reports he used to have swelling the size of a baseball over the anterior aspect of his right ankle which is no longer present. He has no pain in his lower extremities. No fevers or chills. He did have increased weeping that has since decreased. Of note patient also had bilateral knee injections yesterday and is having no new pain or swelling or redness in those areas. Patient has no new dyspnea. He wears 5 L of oxygen chronically at home but arrived to the ER not wearing any and is currently satting in the upper 80s and low 90s. No chest pain or chest pressure. Denies orthopnea. No new cough. Patient does have compression stockings at home that he is not wearing. Related Data Home Medications Medication Instructions Recorded Confirmed ginkgo biloba 60 mg capsule 60 mg PO DAILY 11/13/19 10/26/21 rivaroxaban 20 mg tablet (Xarelto) 20 mg PO DAILY 11/13/19 10/26/21 testosterone cypionate 200 mg/mL 200 mg IM USEASDIRECTD 11/13/19 10/26/21 intramuscular kit (TestYOHO CIK) vitamin E (dl, acetate) 450 mg 1,000 unit PO DAILY 11/13/19 10/26/21 (1,000 unit) capsule morphine 15 mg immediate release 15 mg PO TID PRN Breakthrough Pain 11/15/19 10/26/21 tablet diltiazem HCl 360 mg capsule,24 360 mg PO DAILY 05/15/20 10/26/21 hr,extended release furosemide 40 mg tablet 20 mg PO QAM 05/15/20 10/26/21 gabapentin 300 mg capsule 300 mg PO BID 05/15/20 10/26/21 Glucosamine Chondroitin 1,500 mg PO BID 07/09/20 10/26/21 ascorbic acid (vitamin C) 1,000 mg 1 g PO DAILY 07/09/20 10/26/21 tablet morphine 30 mg tablet,extended 30 mg PO BID 07/09/20 10/26/21 release gxvxbujv-jws-jonof acid 0.4 1 tablet PO DAILY 07/09/20 10/26/21 mg-lycopene 300 mcg-lutein 250 mcg tablet (Centrum Silver) potassium gluconate 300 mg PO DAILY 07/09/20 10/26/21 tizanidine 4 mg tablet 1 mg PO TID 07/09/20 10/26/21 metoprolol tartrate 25 mg tablet 25 mg PO DAILY 11/23/20 10/26/21 metolazone 5 mg tablet 5 mg PO DAILY 02/25/22 Allergies Allergy/AdvReac Type Severity Reaction Status Date / Time No Known Allergies Allergy Verified 04/07/22 09:30 Review of Systems Review of Systems: All systems reviewed & are unremarkable except as noted in HPI and below Constitutional: Constitutional: Denies chills and Denies fever(s) Cardiovascular: Cardiovascular: Denies chest pain, Denies rapid heart rate and Denies radiating jaw, neck or arm pain Respiratory: Respiratory: Denies cough, Denies dyspnea and Denies wheezing Gastrointestinal: Gastrointestinal: Denies abdominal pain, Denies nausea and Denies vomiting Musculoskeletal: Musculoskeletal: Denies back pain, Denies arthralgias and Denies joint swelling Integumentary/Breasts: Skin/Breast: Denies erythema and Denies rash Comments: Weeping of the lower extremities from edema. [facility] Past Medical History Medical History (Updated 04/22/22 @ 14:05 by Brice Leyva MD) Afib Benign hypertension Changing skin lesion Chronic obstructive pulmonary disease Chronically O2 dependent 5 L Constipation due to opioid therapy Degenerative, intervertebral disc, cervical Erectile dysfunction Hyperlipidemia JULIANNA (obstructive sleep apnea) Tobacco abuse Surgical History Surgical History H/O cervical spine surgery Family History Family History (Reviewed 04/07/22 @ 09:35 by Lluvia Hansen
[2022-04-22 13:25] VITALS: O2SAT 89; O2SAT 97
[2022-04-22 13:26] VITALS: BP 112/73; PULSE 87; RESP 13; O2SAT 97
[2022-04-22 14:23] VITALS: BP 135/86; PULSE 78; RESP 16; O2SAT 97
== END 2022-04-22 14:26 | disposition home or self-care (01) ==
PROVIDERS: Emergency Medicine; Emergency Provider Emergency Medicine; PCP Family Medicine
DX: R60.0 Localized edema (principal); I48.91 Unspecified atrial fibrillation; J44.9 Chronic obstructive pulmonary disease, unspecified; E78.5 Hyperlipidemia, unspecified; I10 Essential (primary) hypertension; F17.290 Nicotine dependence, other tobacco product, uncomplicated; Z79.01 Long term (current) use of anticoagulants; Z99.81 Dependence on supplemental oxygen; Z79.899 Other long term (current) drug therapy
CPT/HCPCS: 36415; 36600; 71046; 80053; 82375; 82805; 83050; 83690; 83880; 84484; 85025; 85610; 85730; 99284

== ENCOUNTER 2022-11-07 09:28 | Outpatient (CLI) | payer MEDICARE, OTHER, SELFPAY ==
--- NOTE | ~2022-11-07 | CT_ITS ---
EXAMINATION: CT lung screening DATE: 11/07/2022 09:52 INDICATION: History of tobacco dependence. Lung cancer screening. TECHNIQUE: Computed tomography (CT) of the chest was performed without intravenous contrast. The dose -length product was 303.50 mGy-cm. Automated exposure control and iterative reconstruction technique were employed. COMPARISON: Comparison to multiple prior studies sequentially, with oldest reviewed study dated 07/23 FINDINGS: Stable mediastinal lymphadenopathy, likely reactive. There is atherosclerosis. Heart size n ormal. No significant pleural or pericardial effusion. There is severe emphysema. No pneumothorax. No focal airspace consolidation. No endobronchial lesions. There is a calcified granuloma of the right upper lobe. There is a small 2 mm fissural nodule on the right, unchanged there is dependent atelecta sis. Moderate thoracic spondylosis. No focal lytic or blastic lesions. IMPRESSION: 1. Lung-RADS category 2: Benign appearance or behavior. Continue annual screening with noncontrast lo w-dose chest CT in 12 months. Reviewed, dictated and finalized at location A. OACTIVITY TECHNICIAN IMPRESSION: 1. Lung-RADS category 2: Benign appearance or behavior. Continue annual screeni ng with noncontrast low-dose chest CT in 12 months.
== END 2022-11-07 09:29 | disposition home or self-care (01) ==
PROVIDERS: PCP Family Medicine; Visit Provider Nurse Practitioner Family
DX: Z12.2 Encounter for screening for malignant neoplasm of respiratory organs (principal); Z87.891 Personal history of nicotine dependence
CPT/HCPCS: 71271

== ENCOUNTER 2023-04-16 13:57 | Inpatient (IN) | payer MEDICARE, OTHER, SELFPAY ==
--- NOTE | ~2023-04-16 | XR_ITS ---
XR wrist RT min 3V DATE: 04/16/2023 14:48 INDICATION: Redness, swelling, pain of right wrist. No injury. TECHNIQUE: 4 views COMPARISON: None FINDINGS: Mild chondrocalcinosis at the wrist and triangular cartilage. No fracture, dislocation, periosteal reaction or bone destruction or erosive change is noted. IMPRESSION: Mild chondrocalcinosis Reviewed, dictated and finalized at location A. IMPRESSION: Mild chondrocalcinosis
[2023-04-16 13:58] VITALS: BP 124/58; PULSE 83; RESP 20; TEMP 36.7; O2SAT 91
[2023-04-16 14:21] LABS: Basophils Absolute Auto 0.1 K/mm3 (0.0-0.1); Basophils Percent Auto 0.4 % (0.2-1.2); Eosinophils Percent Auto 0.3 % (0-4.4); Hemoglobin 17.8 g/dL (14.0-18.0); Immature Granulocyte Absolute 0.06 K/mm3 (0.00-0.031); Immature Granulocyte Percent A 0.4 % (0-0.5); Lymphocytes Absolute Auto 1.77 K/mm3 (0.9-3.2); Lymphocytes Percent Auto 11.7 % (18.3-44.2); Mean Corpuscular Hemoglobin 29.7 pg (26-34); Mean Corpuscular Volume 90.2 fl (80-100); Mean Platelet Volume 10.1 fl (7.4-10.4); Monocytes Percent Auto 6.5 % (2.6-8.5); Neutrophils Absolute Auto 12.2 K/mm3 (1.3-6.7); Neutrophils Percent Auto 80.7 % (45.5-73.1); Platelet Count Result 208 k/mm3 (150-375); Red Blood Count 5.99 M/mm3 (4.6-6.20); Red Cell Distribution Width 14.5 % (11.5-14.5); White Blood Count 15.1 K/mm3 (4.5-10.0)
[2023-04-16 14:33] LABS: Alanine Aminotransferase 20 U/L (6-50); Albumin Level 4.1 g/dL (3.5-5.1); Alkaline Phosphatase 74 U/L (38-126); Aspartate Amino Transferase 29 U/L (17-59); Blood Urea Nitrogen 24 mg/dL (9-20); CRP 6.4 mg/dL (<1.0); Calcium 9.4 mg/dL (8.4-10.2); Carbon Dioxide > 40 mmol/L (22-30); Chloride 90 mmol/L (98-107); Estimated CRCL calculation 108 ml/min; Estimated Glomerular Filt Rate > 60; Glucose 131 mg/dL (65-110); Potassium 3.4 mmol/L (3.4-5.0); Sodium 133 mmol/L (137-145)
[2023-04-16 17:00] VITALS: BP 135/64; PULSE 74; RESP 16; O2SAT 95
--- NOTE | 2023-04-16 17:31 | ED.UPPEXIN ---
HPI - Extremity Injury (Upper) General Chief Complaint: Extremity Injury, Upper <Angeline Rowe PA-C - Last Filed: 04/16/23 19:35> Stated Complaint: hand swelling <Angeline Rowe PA-C - Last Filed: 04/16/23 19:35> Time Seen by Provider: 04/16/23 17:16 <Angeline Rowe PA-C - Last Filed: 04/16/23 19:35> History of Present Illness HPI narrative: 72-year-old male with a history of COPD here for evaluation of right wrist swelling x3 days. Patient states that the pain began about 3 days ago and has progressed in severity since onset. Today the pain acutely worsened, it is worse with any light touch and movement of the wrist, and his wrist became swollen. He denies any fevers, chills, nausea, vomiting or systemic symptoms. He takes morphine for chronic pain but states this has not been helping. <Angeline Rowe PA-C - Last Filed: 04/16/23 19:35> Related Data Home Medications: Home Medications Medication Instructions Recorded Confirmed rivaroxaban 20 mg tablet (Xarelto) 20 mg PO DAILY 11/13/19 04/16/23 morphine 15 mg immediate release 15 mg PO QID PRN Breakthrough Pain 11/15/19 04/16/23 tablet furosemide 40 mg tablet 20 mg PO BID 05/15/20 04/16/23 gabapentin 300 mg capsule 300 mg PO TID 05/15/20 04/16/23 Glucosamine Chondroitin 1,500 mg PO BID 07/09/20 04/16/23 ascorbic acid (vitamin C) 1,000 mg 1 g PO BID 07/09/20 04/16/23 tablet qjrscssb-lco-kmbxi acid 0.4 1 tablet PO DAILY 07/09/20 04/16/23 mg-lycopene 300 mcg-lutein 250 mcg tablet (Centrum Silver) tizanidine 4 mg tablet 1 mg PO TID 07/09/20 04/16/23 metoprolol tartrate 25 mg tablet 25 mg PO BID 11/23/20 04/16/23 metolazone 5 mg tablet See Rx Instructions .Route .COMPLEX 02/25/22 04/16/23 potassium chloride 20 mEq 20 meq PO BID 09/05/22 04/16/23 tablet,extended release(part/cryst) (Klor-Con M) diltiazem HCl 360 mg capsule,24 360 mg PO DAILY 04/16/23 04/16/23 hr,extended release (Tiadylt ER) morphine 15 mg tablet,extended 15 mg PO TID 04/16/23 04/16/23 release tadalafil 20 mg tablet (Cialis) 100 mg PO DAILY PRN sexual activity 04/16/23 04/16/23 trazodone 100 mg tablet 100 mg PO QHS PRN sleep 04/16/23 04/16/23 <Angeline Rowe PA-C - Last Filed: 04/16/23 19:35> Allergies/Adverse Reactions: Allergies Allergy/AdvReac Type Severity Reaction Status Date / Time No Known Allergies Allergy Verified 04/16/23 14:07 <Angeline Rowe PA-C - Last Filed: 04/16/23 19:35> Review of Systems Review of Systems: Gen.: Denies fevers or chills Eyes: Denies eye pain or visual change ENT: Denies congestion Respiratory: Denies shortness of breath or cough CV: Denies chest pain or palpitations GI: Denies abdominal pain nausea, emesis or diarrhea denies burning, urgency, frequency or hematuria Musculoskeletal: Reports right wrist pain Neuro: Denies numbness, tingling, weakness or focal weakness Skin: Denies rash Except as documented, all other systems reviewed and negative <Angeline Rowe PA-C - Last Filed: 04/16/23 19:35> [facility] Past Medical History Medical History: Medical History Afib Benign hypertension Changing skin lesion Chronic obstructive pulmonary disease Chronically O2 dependent 5 L Constipation due to opioid therapy Degenerative, intervertebral disc, cervical Erectile dysfunction Erectile dysfunction Fatigue Hyperlipidemia Hypersomnia Hypoxemia JULIANNA (obstructive sleep apnea) Screening for prostate cancer Tobacco abuse <Angeline Rowe PA-C - Last Filed: 04/16/23 19:35> Surgical History Surgical History: Surgical History H/O cervical spine surgery <Angeline Rowe PA-C - Last Filed: 04/16/23 19:35> Family History Family History: Family History
[2023-04-16] MEDS: INDOMETHACIN 25 MG CAPSULE 50 MG PO (17:59)
[2023-04-16 18:00] VITALS: BP 117/62; PULSE 74; RESP 16; O2SAT 95
[2023-04-16] MEDS: ceFAZolin 1 GM/NS 50 ML 1 GM/50 ML BAG IVPB (19:11)
[2023-04-16 19:15] VITALS: BP 124/68; PULSE 68; RESP 16; O2SAT 94
[2023-04-16 20:00] VITALS: O2SAT 92
[2023-04-16 20:24] VITALS: BP 137/60; PULSE 82; RESP 18; TEMP 37.2; O2SAT 89; BMI 33.5
[2023-04-16] MEDS: VANCOMYCIN 1,250 MG/NS 250 ML 1,250 MG/250 ML BAG 166.67 MG IVPB ×2 (20:24→21:29)
[2023-04-16] MEDS: MORPHINE SULFATE (*CRX) 15 MG TAB IR PO (20:45)
--- NOTE | 2023-04-16 21:40 | PM.IMHP ---
H&P: HPI History of Present Illness Date/Time: 04/16/23 21:40 Chief Complaint: Right hand infection Narrative: This is a 72-year-old male patient who does have a history of COPD and has been complained of having right wrist swelling for 3 days. The patient stated he has had this occur before. The patient stated he felt like maybe he slept on it wrong. The patient's redness and swelling increased over the last 3 days. The patient has pain with minimal touch. His right wrist is swollen. The patient denied any fever chills or any nausea vomiting. The patient takes morphine for chronic pain but it is not been working. The patient was given Indocin, Ancef, vancomycin, and morphine. His white count was 15.1. Sodium 133. Chloride 90 carbon dioxide greater than 40. BUN 24 creatinine is normal. Glucose is 131. Right wrist x-ray shows mild chondrocalcinosis. I assessed the patient the patient had no redness and he just had edema to his right hand. The patient had been resting quietly in his room and was diaphoretic. The patient is being admitted to observation status on the date of service of 04/16/2023. Review of Systems Review of Systems: All systems reviewed & are unremarkable except as noted in HPI and below Constitutional: Constitutional: Reports as per HPI and Reports no additional constitutional complaints Eyes: Eyes: Reports as per HPI and Reports no additional eye complaints ENT: Reports system reviewed and no additional complaints, except as documented and Reports Normal hearing present Cardiovascular: Cardiovascular: Reports no additional cardiovascular complaints Respiratory: Respiratory: Reports no additional respiratory complaints and Reports no additional respiratory complaints Gastrointestinal: Gastrointestinal: Reports as per HPI and Reports no additional gastrointestinal complaints Musculoskeletal: Musculoskeletal: Reports no additional musculoskeletal complaints Integumentary/Breasts: Skin/Breast: Reports system reviewed and no additional complaints, except as docu and Reports as per HPI Neurologic: Reports system reviewed and no additional complaints, except as documented, Reports as per HPI and Reports Normal hearing present Psychiatric: Psychiatric: Reports no additional psychiatric complaints and Reports as per HPI Endocrine: Endocrine: Reports no additional endocrine complaints Hematologic/Lymphatic: Hematologic/Lymphatic: Reports no additional hematologic/lymphatic complaints Allergic/Immunologic: Allergic/Immunologic: Reports no additional allergic/immunologic complaints [facility] Past Medical History Medical History (Updated 04/17/23 @ 00:27 by Glory A. Benhoff, BLANK[employer] CUTTER HAND) Afib Benign hypertension Changing skin lesion Chronic obstructive pulmonary disease Chronically O2 dependent 5 L Constipation due to opioid therapy Degenerative, intervertebral disc, cervical Erectile dysfunction Erectile dysfunction Fatigue Hyperlipidemia Hypersomnia Hypoxemia JULIANNA (obstructive sleep apnea) Screening for prostate cancer Tobacco abuse Surgical History Surgical History (Updated 04/17/23 @ 00:18 by Glory Mena NP) H/O cervical spine surgery History of tonsillectomy and adenoidectomy Family History Family History Mother Depression COVID-19 Sibling Intestinal cancer Thyroid disorder Sibling Depression Heart problem Father No problems noted. Social History Social History (Updated 04/17/23 @ 00:20 by Glory Mena NP) Social History: Smokes 4-5 [employer]/day. Quit cigarettes 2016. He is and lives with his . The patient is retired from [employer]. His is the durable power regulatory attorney for healthcare. Code status full code Years smoked: 45 Smoking status: Current some day smoker Tobacco type: cigars Second hand tobacco smoke exposure: No Smoking end date: 05/30/17 Alc
[2023-04-17] VITALS (9 sets, daily range): BP systolic 116–119; BP diastolic 60–61; PULSE 61–91; RESP 16–18; TEMP 35.9–37.2; O2SAT 91–97; BMI 33.5
[2023-04-17] MEDS: ceFAZolin 1 GM/NS 50 ML 1 GM/50 ML BAG IVPB ×3 (02:17→17:24)
[2023-04-17 06:41] LABS: Alanine Aminotransferase 17 U/L (6-50); Albumin Level 3.4 g/dL (3.5-5.1); Alkaline Phosphatase 70 U/L (38-126); Aspartate Amino Transferase 23 U/L (17-59); Basophils Absolute Auto 0.1 K/mm3 (0.0-0.1); Basophils Percent Auto 0.5 % (0.2-1.2); Bilirubin,Total 0.7 mg/dL (0.2-1.3); Blood Urea Nitrogen 24 mg/dL (9-20); Calcium 8.5 mg/dL (8.4-10.2); Carbon Dioxide > 40 mmol/L (22-30); Chloride 92 mmol/L (98-107); Eosinophils Absolute Auto 0.1 K/mm3 (0-0.3); Eosinophils Percent Auto 1.2 % (0-4.4); Estimated CRCL calculation 122 ml/min; Estimated Glomerular Filt Rate > 60; Glucose 110 mg/dL (65-110); Hematocrit 50.8 % (42.0-52.0); Hemoglobin 16.7 g/dL (14.0-18.0); Immature Granulocyte Absolute 0.08 K/mm3 (0.00-0.031); Immature Granulocyte Percent A 0.8 % (0-0.5); Lymphocytes Absolute Auto 1.64 K/mm3 (0.9-3.2); Lymphocytes Percent Auto 15.4 % (18.3-44.2); Mean Corpuscular HGB Conc 32.9 g/dl (32-36); Mean Corpuscular Hemoglobin 29.9 pg (26-34); Mean Platelet Volume 10.1 fl (7.4-10.4); Monocytes Absolute Auto 0.9 K/mm3 (0.1-0.6); Monocytes Percent Auto 8.5 % (2.6-8.5); Neutrophils Absolute Auto 7.8 K/mm3 (1.3-6.7); Neutrophils Percent Auto 73.6 % (45.5-73.1); Platelet Count Result 175 k/mm3 (150-375); Potassium 2.9 mmol/L (3.4-5.0); Red Blood Count 5.58 M/mm3 (4.6-6.20); Red Cell Distribution Width 14.2 % (11.5-14.5); Sodium 134 mmol/L (137-145); White Blood Count 10.7 K/mm3 (4.5-10.0)
[2023-04-17] MEDS: dilTIAZem HCL CD 180 MG CAP.ER.24H 360 MG PO (08:33)
[2023-04-17] MEDS: ASCORBIC ACID 500 MG TABLET 1000 MG PO ×2 (08:33→17:23)
[2023-04-17] MEDS: MORPHINE SULFATE (*CRX) 15 MG TABCR PO ×3 (08:33→17:23)
[2023-04-17] MEDS: POTASSIUM CHLORIDE 20 MEQ ER TABLET PO (08:33)
[2023-04-17] MEDS: GABAPENTIN 300 MG CAPSULE PO ×3 (08:34→17:22)
[2023-04-17] MEDS: MULTIVITAMINS /C LUTEIN (CENTRUM SILVER) TABLET *BKC 1 TAB PO (08:34)
[2023-04-17] MEDS: FUROSEMIDE 20 MG TABLET PO ×2 (08:34→17:22)
[2023-04-17] MEDS: METOPROLOL TARTRATE 25 MG TABLET PO ×2 (08:34→20:55)
[2023-04-17] MEDS: TIZANIDINE HCL 1 MG TABLET PO ×3 (08:34→17:23)
--- NOTE | 2023-04-17 09:14 | PM.CNOR ---
Assessment and Plan Assessment and plan (1) Soft tissue swelling of wrist joint: Code(s): M25.439 - Effusion, unspecified wrist Status: Acute Assessment and Plan: 72-year-old male with pain and swelling in his right wrist. This appears to be a recurrent issue. Favor diagnosis of gout or pseudogout versus is sepsis. Did receive a dose of Indocin in the emergency room. Is also on IV antibiotics. Clinically is improving so merits observation right now. Thank you for the consultation. History of Present Illness HPI Consult date: 04/17/23 Chief complaint: R Wrist Gout vs Cellulitis Narrative: This document created with [id number] technology and is subject to counselor at law irregularities. 72-year-old male who is admitted yesterday with pain and swelling in his right wrist. Over the course of several days he developed increasing discomfort in his right wrist somewhat so that he came to emergency room. He reports having an episode like this a year ago with that eventually went away after a few days. Does not carry a diagnosis of gout at this point. X-ray obtained yesterday does show chondrocalcinosis in the wrist. No history of diabetes. He is right handed. Review of Systems Constitutional: Constitutional: Reports no additional constitutional complaints Musculoskeletal: Musculoskeletal: Reports as per [facility] Past Medical History Medical History (Updated 04/17/23 @ 00:27 by Glory Mena NP) Afib Benign hypertension Changing skin lesion Chronic obstructive pulmonary disease Chronically O2 dependent 5 L Constipation due to opioid therapy Degenerative, intervertebral disc, cervical Erectile dysfunction Erectile dysfunction Fatigue Hyperlipidemia Hypersomnia Hypoxemia JULIANNA (obstructive sleep apnea) Screening for prostate cancer Tobacco abuse Surgical History Surgical History (Updated 04/17/23 @ 00:18 by Glory Mena NP) H/O cervical spine surgery History of tonsillectomy and adenoidectomy Family History Family History Mother Depression COVID-19 Sibling Intestinal cancer Thyroid disorder Sibling Depression Heart problem Father No problems noted. Social History Social History (Updated 04/17/23 @ 00:20 by Glory Mena NP) Social History: Smokes 4-5 [employer]/day. Quit cigarettes 2016. He is and lives with his . The patient is retired from [employer]. His is the durable power civil attorney for healthcare. Code status full code Years smoked: 45 Smoking status: Current some day smoker Second hand tobacco smoke exposure: No Alcohol intake: never Alcohol use details: socially Substance use: never Substance use type: does not use Last use: 10/23/2016 Lack of Transportation: No Lack of Food: Never True Current Housing: I Have Housing Concerned About Future Housing: No Difficulty Paying Gas/Electric Bills: No Difficulty Paying for Meds: Decline to Answer Currently Unemployed: No Education: Master's Degree or Higher Difficulty w/ Childcare or Family Care: No Living arrangements: with family Occupation/Education: retired 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 Gender identity (if verbalized by the patient): Male Sexual Orientation (if Verbalized by the Patient): Straight or Heterosexual Spiritual care concerns: No Meds Home Medications and Allergies Home Medications Medication Instructions Recorded Confirmed Type rivaroxaban 20 mg tablet (Xarelto) 20 mg PO DAILY 11/13/19 04/16/23 History morphine 15 mg immediate release 15 mg PO QID PRN Breakthrough Pain 11/15/19 04/16/23 History tablet furosemide 40 mg tablet 20 mg PO BID 05/15/20 04/16/23 History gabapentin 300 mg capsule 300 mg PO TID 05/15/20 04/16/23 History Glucosamine Chondroitin 1,500 mg PO BID 07/09/20 04/16/23 History as
[2023-04-17] MEDS: POTASSIUM CHLORIDE 20 MEQ ER TABLET 40 MEQ PO ×2 (09:33→17:23)
--- NOTE | 2023-04-17 11:01 | PM.IMPN ---
Progress Note: A&P Assessment and Plan (1) Soft tissue swelling of wrist joint: Code(s): M25.439 - Effusion, unspecified wrist Status: Acute Assessment and Plan: The patient was started on cefazolin and vancomycin pharmacy to manage. Blood cultures are pending. Appreciate Orthopedic surgery input. Gout versus pseudogout suspected. recommend observation at this time. wrist x-ray - Mild chondrocalcinosis (2) Gout: Code(s): M10.9 - Gout, unspecified Status: Acute Assessment and Plan: The patient was given a dose of indomethacin in the emergency room. (3) Afib: Qualifiers: Atrial fibrillation type: paroxysmal Qualified Code(s): I48.0 - Paroxysmal atrial fibrillation Code(s): I48.91 - Unspecified atrial fibrillation Status: Acute Assessment and Plan: Patient appears to be in sinus rhythm at this time. 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 Continue with nebulizer treatments. (5) Chronic pain: Code(s): G89.29 - Other chronic pain Status: Acute Assessment and Plan: This is related to his neck surgery. Continue with his morphine and Zanaflex Subjective Date/time seen: 04/17/23 11:01 Interval history: Still has pain and tenderness in right hand Review of Systems Constitutional: Constitutional: Reports no additional constitutional complaints Musculoskeletal: Musculoskeletal: Reports as per HPI Exam Const: General: cooperative, healthy appearing, comfortable, no acute distress, well developed, alert, awake, Physically active, average body habitus and well nourished Nutritional Appearance: average body habitus and well nourished Orientation/consciousness: oriented to person, oriented to place, oriented to time and patient oriented x3 Limitations: no limitations HENMT: Head: normal to inspection, No palpable skull fracture present, normocephalic and atraumatic Ears: hearing grossly normal bilaterally and external ears normal Face/Nose/Sinus: Normal external nose present and Normal nares present Eyes: General: appearance normal, both eyes and all related structures Alignment and Position: alignment normal Periorbital: periorbital findings normal Eyelids: eyelids normal Sclera: sclerae normal Pupils: Equal, round and reactive pupils present EOM: EOMs intact bilaterally Neck: Neck: normal visual inspection, full ROM, no lymphadenopathy, trachea midline and supple Chest: Chest palpation & inspection: normal inspection of the chest Resp: Effort & Inspection: normal respiratory effort Auscultation: wheezes Cardio: Palpation: normal PMI Rate: regular rate Rhythm: regular rhythm Heart sounds: S1 normal heart sound present and S2 normal heart sound present Peripheral pulses: Peripheral pulses 2+ throughout GI: Inspection: normal to inspection Auscultation: normal bowel sounds Rectal Exam: deferred Back/Spine/Pelvis: Cervical Spine: cervical ROM normal Skin: General skin exam: normal color Lesions: no lesions Rashes: no rashes Trauma: no lacerations or abrasions Wounds: no wounds Hair: normal Nails: normal Neuro: General: oriented to person, oriented to place, oriented to time and patient oriented x3 Cranial nerves: Yes Equal, round and reactive pupils present and Yes Normal hearing present Cognition (Neuro): normal cognition Speech: normal speech Gait exam (Neuro): Normal gait present Motor exam (neuro): 5/5 motor strength present throughout Sensory Exam: normal sensation Extrem: General: normal to inspection Right upper extremity: normal to inspection and shoulder/upper arm
--- NOTE | 2023-04-17 11:16 | PCCCNOTE ---
On 04/17/23, the student, [Nela Pemberton], provided care and completed [facility] documentation on this patient. I have reviewed the student's documentation and agree with the findings.
[2023-04-17] MEDS: NICOTINE (*PBKC) 21 MG PATCH 1 PATCH TRANSDERM (12:46)
[2023-04-17] MEDS: RIVAROXABAN 20 MG TABLET PO (17:24)
[2023-04-17] MEDS: MORPHINE SULFATE (*CRX) 15 MG TAB IR PO (20:54)
[2023-04-17] MEDS: traZODone HCL 50 MG TABLET 100 MG PO (20:54)
[2023-04-18] MEDS: ceFAZolin 1 GM/NS 50 ML 1 GM/50 ML BAG IVPB (01:42)
[2023-04-18] MEDS: MORPHINE SULFATE (*CRX) 15 MG TAB IR PO (03:45)
[2023-04-18 06:00] VITALS: BP 131/48; PULSE 76; RESP 18; TEMP 35.8; O2SAT 94
[2023-04-18 07:19] LABS: Estimated CRCL calculation 165 ml/min; Estimated Glomerular Filt Rate > 60
[2023-04-18 07:36] LABS: Vancomycin Trough 11.3 ug/mL (10.0-20.0)
[2023-04-18 08:00] VITALS: O2SAT 93
[2023-04-18 08:34] VITALS: PULSE 91
[2023-04-18] MEDS: TIZANIDINE HCL 1 MG TABLET PO (08:34)
[2023-04-18] MEDS: dilTIAZem HCL CD 180 MG CAP.ER.24H 360 MG PO (08:34)
[2023-04-18] MEDS: MORPHINE SULFATE (*CRX) 15 MG TABCR PO (08:34)
[2023-04-18] MEDS: METOPROLOL TARTRATE 25 MG TABLET PO (08:34)
[2023-04-18] MEDS: metOLazone 5 MG TABLET BY MOUTH (08:34)
[2023-04-18] MEDS: ASCORBIC ACID 500 MG TABLET 1000 MG PO (08:35)
[2023-04-18] MEDS: GABAPENTIN 300 MG CAPSULE PO (08:35)
[2023-04-18] MEDS: MULTIVITAMINS /C LUTEIN (CENTRUM SILVER) TABLET *BKC 1 TAB PO (08:36)
[2023-04-18] MEDS: POTASSIUM CHLORIDE 20 MEQ ER TABLET 40 MEQ PO (08:36)
[2023-04-18] MEDS: NICOTINE (*PBKC) 21 MG PATCH 1 PATCH TRANSDERM (08:37)
[2023-04-18] MEDS: ALBUTEROL SULFATE (*SP) AEROSOL 1 PUFF 2 PUFF INHALATION (09:19)
[2023-04-18 09:23] VITALS: O2SAT 92
--- NOTE | 2023-04-18 09:32 | PM.DS ---
DS: Admitting Diagnosis Discharge Date 04/18/23 Admitting Diagnosis pseudogout cellulitis R hand DS: Discharge Diagnosis Discharge Diagnosis (1) Soft tissue swelling of wrist joint: Code(s): M25.439 - Effusion, unspecified wrist Status: Acute (2) Pseudogout: Code(s): M11.20 - Other chondrocalcinosis, unspecified site Status: Acute DS: Summary Hospital Course Hospital Course: Assessment and Plan (1) Soft tissue swelling of wrist joint: ?Code(s): M25.439 - Effusion, unspecified wrist ?Status:?Acute ?Assessment and Plan: The patient was started on cefazolin and vancomycin.? Appreciate Orthopedic surgery input.? Gout versus pseudogout suspected.? recommend observation at this time. wrist x-ray - Mild chondrocalcinosis. Swelling and pain has decreased. At this time patient is clinically stable. All his other home medications were continued. Will discharge the patient home with oral doxycycline along with colchicine for a few days to abort the attack of pseudogout. Patient advised to follow-up with the mechanical applications engineer as an outpatient. Time Spent with Patient Time attestation: Total time spent providing and/or coordinating discharge services: DS: Data Data Completed and Pending Labs on day of discharge: Labs from last 24 hours 04/18/23 07:00 Creatinine 0.50 L Estim Creat Clear Calc 165 Estimated GFR > 60 Vancomycin Trough 11.3 Preliminary micro results at discharge 04/16/23 19:04 Blood Culture - Preliminary Blood 04/16/23 19:04 Blood Culture - Preliminary Blood Discharge Plan Discharge Consulting providers: Phillip Arriaga Discharging Clinician: Trevor Barron Anticipated Discharge Date/Time: 04/18/23 09:29 Patient Disposition: Home, Self-Care Activity: no preference Diet: heart healthy Patient Instructions: Antibiotic Form, How to Stop Smoking (DC) Stand Alone Forms: General Discharge Information Follow-up/Referrals: Des Dupont MD [Primary Care Provider] - Discharge Medications: New colchicine 0.6 mg capsule 0.6 mg PO DAILY Qty: 3 0RF doxycycline hyclate 100 mg capsule 100 mg PO BID Qty: 10 0RF Continued Xarelto 20 mg tablet 20 mg PO DAILY Rx Instructions: must administer with evening meal morphine 15 mg tablet 15 mg PO QID PRN (Reason: Breakthrough Pain) furosemide 40 mg tablet 40 mg PO BID Rx Instructions: alternates every other day with metolazone. gabapentin 300 mg capsule 300 mg PO TID albuterol sulfate [Ventolin HFA] 90 mcg/actuation HFA aerosol inhaler 2 inh INHALATION Q4-6H PRN (Reason: shortness of breath or wheezing) Qty: 8.5 3RF potassium chloride [Klor-Con M20] 20 mEq tablet,ER particles/crystals 20 meq PO BID metoprolol tartrate 25 mg tablet 25 mg PO BID metolazone 5 mg tablet See Rx Instructions .ROUTE .COMPLEX Rx Instructions: 5 mg orally every other day ascorbic acid (vitamin C) 1,000 mg Tablet 1 g PO BID tizanidine 4 mg tablet 1 mg PO TID Centrum Silver 0.4-300-250 mg-mcg-mcg Tablet 1 tablet PO DAILY Glucosamine Chondroitin 1,500 mg PO BID diltiazem HCl [Tiadylt ER] 360 mg capsule,extended release 24 hr 360 mg PO DAILY morphine 15 mg tablet extended release 15 mg PO TID trazodone 100 mg tablet 100 mg PO QHS PRN (Reason: sleep) tadalafil [Cialis] 20 mg tablet 100 mg PO DAILY PRN (Reason: sexual activity) Rx Instructions: administer approximately 30min before sexual activity; do not use more than 1 dose per 24hrs albuterol sulfate 2.5 mg /3 mL (0.083 %) solution for nebulization See Rx Instructions .ROUTE .COMPLEX Qty: 120 11RF Dose Instruction: USE 1 VIAL IN NEBULIZER 4 TIMES DAILY Rx Instructions: USE 1 VIAL IN NEBULIZER QID NEEDED Date of admission: 04/17/23 18:50 Primary Care Provider: Des Dupont Ad
--- NOTE | 2023-04-19 15:13 | PC.NURSE ---
Raegan Fuad [phone] called to say that site where the iv was removed is warm, raised and painful. she states that she is waiting to hear back from Dr. Nguyen's office. I advised her to bring him to the ED to be evaluated if unable to have it looked at by Dr. Dupont today. She verbalized understanding.
== END 2023-04-18 12:15 | disposition home or self-care (01) | DRG 554 ==
LOC: ANHED 17:16 → ANH3MEDSUR 18:53
PROVIDERS: Nurse Practitioner; Preventive Medicine Aerospace Medicine; Admitting Provider Internal Medicine; Emergency Provider Physician Assistant; PCP Family Medicine; Visit Provider Hospitalist
DX: M11.231 Other chondrocalcinosis, right wrist (principal); J44.9 Chronic obstructive pulmonary disease, unspecified; G47.33 Obstructive sleep apnea (adult) (pediatric); I48.0 Paroxysmal atrial fibrillation; E78.5 Hyperlipidemia, unspecified; M50.30 Other cervical disc degeneration, unspecified cervical region; G89.29 Other chronic pain; F17.210 Nicotine dependence, cigarettes, uncomplicated; Z99.81 Dependence on supplemental oxygen
CPT/HCPCS: 36415; 73110; 80053; 80202; 82565; 83605; 83735; 84443; 84550; 85025; 86140; 87040; 94640; 96365; 96366; 96376; 99285; A9270; G0378; J0690; J3370

== ENCOUNTER 2023-04-21 23:09 | Emergency (ER) | payer MEDICARE, OTHER, SELFPAY ==
[2023-04-21 23:13] VITALS: BP 122/58; PULSE 86; RESP 18; TEMP 36.9; O2SAT 92
--- NOTE | 2023-04-21 23:59 | ED.GENADULT ---
HPI - General Adult General Chief complaint: Unspecified <PATEL Abbott Last Filed: 04/22/23 01:33> Stated complaint: brusing to forearm from picc line <PATEL Abbott Last Filed: 04/22/23 01:33> Time Seen by Provider: 04/21/23 23:32 <Jimbo Rojas PA-C - Last Filed: 04/22/23 01:33> Source: patient <PATEL Abbott Last Filed: 04/22/23 01:33> Mode of arrival: ambulatory <PATEL Abbott Last Filed: 04/22/23 01:33> Limitations: no limitations <PATEL Abbott Last Filed: 04/22/23 01:33> History of Present Illness HPI narrative: This is a 72-year-old male with PMH COPD, HLD, A-fib who presents to the ED with chief complaint of left forearm bruising and pain x3 days. Patient states that he was hospitalized recently for cellulitis versus gout of the right wrist. He was discharged 3 days ago and had his PICC line pulled at that time. Reports that he subsequently had bruising the next day and has started to have some pain in the area. States he has been taking his doxycycline as prescribed. He also was given and colchicine prescription for to abort any possible pseudogout. States his symptoms in the right forearm have resolved. Denies fevers, chills, nausea, vomiting, shortness of breath, chest pain, abdominal pain. Patient states that he is on chronic anticoagulation for A-fib. Takes Xarelto daily. <PATEL Abbott Last Filed: 04/22/23 01:33> Related Data Home medications: Home Medications Medication Instructions Recorded Confirmed rivaroxaban 20 mg tablet (Xarelto) 20 mg PO DAILY 11/13/19 04/16/23 morphine 15 mg immediate release 15 mg PO QID PRN Breakthrough Pain 11/15/19 04/16/23 tablet furosemide 40 mg tablet 40 mg PO BID 05/15/20 04/17/23 gabapentin 300 mg capsule 300 mg PO TID 05/15/20 04/16/23 Glucosamine Chondroitin 1,500 mg PO BID 07/09/20 04/16/23 ascorbic acid (vitamin C) 1,000 mg 1 g PO BID 07/09/20 04/16/23 tablet dornjepx-qtr-rthfg acid 0.4 1 tablet PO DAILY 07/09/20 04/16/23 mg-lycopene 300 mcg-lutein 250 mcg tablet (Centrum Silver) tizanidine 4 mg tablet 1 mg PO TID 07/09/20 04/16/23 metoprolol tartrate 25 mg tablet 25 mg PO BID 11/23/20 04/16/23 metolazone 5 mg tablet See Rx Instructions .Route .COMPLEX 02/25/22 04/16/23 potassium chloride 20 mEq 20 meq PO BID 09/05/22 04/16/23 tablet,extended release(part/cryst) (Klor-Con M) diltiazem HCl 360 mg capsule,24 360 mg PO DAILY 04/16/23 04/16/23 hr,extended release (Tiadylt ER) morphine 15 mg tablet,extended 15 mg PO TID 04/16/23 04/16/23 release tadalafil 20 mg tablet (Cialis) 100 mg PO DAILY PRN sexual activity 04/16/23 04/16/23 trazodone 100 mg tablet 100 mg PO QHS PRN sleep 04/16/23 04/16/23 <Jimbo Rojas PA-C - Last Filed: 04/22/23 01:33> Allergies/adverse reactions: Allergies Allergy/AdvReac Type Severity Reaction Status Date / Time No Known Allergies Allergy Verified 04/21/23 23:37 <Jimbo Rojas PA-C - Last Filed: 04/22/23 01:33> [facility] Past Medical History Medical History: Medical History (Updated 04/22/23 @ 00:41 by Jimbo Rojas PA-C) Afib Benign hypertension Changing skin lesion Chronic obstructive pulmonary disease Chronically O2 dependent 5 L Constipation due to opioid therapy Degenerative, intervertebral disc, cervical Erectile dysfunction Erectile dysfunction Fatigue Hyperlipidemia Hypersomnia Hypoxemia JULIANNA (obstructive sleep apnea) Screening for prostate cancer Tobacco abuse <Jimbo Rojas PA-C - Last Filed: 04/22/23 01:33> Surgical History Surgical History: Surgical History (Updated 04/17/23 @ 00:18 by Glory Mena NP) H/O cervical spine surgery History of tonsillectomy and adenoidectomy <Jimbo Rojas PA-C - Last Filed: 04/22/23 01:33> Family History Family History: Family History Mother Depression COVID-19 Sibling
[2023-04-22 00:45] VITALS: BP 122/61; PULSE 71; RESP 15; O2SAT 98
--- NOTE | 2023-04-22 00:47 | PC.NURSE ---
Kerlex and katrina wrap were applied to the pt's left forearm by this RN.
== END 2023-04-22 00:47 | disposition home or self-care (01) ==
PROVIDERS: Emergency Provider Physician Assistant; PCP Family Medicine
DX: T80.1XXA Vascular complications following infusion, transfusion and therapeutic injection, initial encounter (principal); I80.8 Phlebitis and thrombophlebitis of other sites; J44.9 Chronic obstructive pulmonary disease, unspecified; I48.91 Unspecified atrial fibrillation; I10 Essential (primary) hypertension; E78.5 Hyperlipidemia, unspecified; M50.30 Other cervical disc degeneration, unspecified cervical region; G47.33 Obstructive sleep apnea (adult) (pediatric); F17.200 Nicotine dependence, unspecified, uncomplicated; Z99.81 Dependence on supplemental oxygen; Z79.01 Long term (current) use of anticoagulants; Y84.8 Other medical procedures as the cause of abnormal reaction of the patient, or of later complication, without mention of misadventure at the time of the procedure
CPT/HCPCS: 99281

== ENCOUNTER 2023-06-06 08:14 | Outpatient (CLI) | payer MEDICARE, OTHER, SELFPAY ==
[2023-06-06 08:44] VITALS: PULSE 93; O2SAT 91
[2023-06-06 08:47] VITALS: PULSE 102; O2SAT 87
[2023-06-06 08:47] LABS: Alveolar/Arterial O2 Gradient 47.9 mmHg; Base Excess ABG 4.2 mEq/l (+/-2.0); Carboxyhemoglobin 6.6 % THb (0-2.0); Fractional Inspired Oxygen 21 %; HCO3 ABG 28.2 mEq/l (22.0-26.0); Methemoglobin ABG 0.2 %THb (0-1.5); Oxygen Content ABG 21.9 %vol (16.0-22.0); Oxygen Saturation ABG 89.8 % (95.0-100.0); PCO2 ABG 40.1 mmHg (35.0-45.0); PO2 ABG 53.8 mmHg (80.0-100.0); PO2 FiO2 Ratio Arterial Blood 2.56 %; Total Hemoglobin 18.6 g/dL (12.0-18.0); pH ABG 7.465 (7.350-7.450)
[2023-06-06 08:48] VITALS: PULSE 103; O2SAT 88
[2023-06-06 08:50] VITALS: PULSE 100; O2SAT 90
[2023-06-06 08:59] LABS: Device ROOM AIR; Modified Allen's Test Pass; Oxyhemoglobin 84.2 % THb (90.0-100.0); Site Drawn LEFT RADIAL
--- NOTE | 2023-06-06 09:31 | HOMEO2EVAL ---
Evaluation was performed at [facility] Home Oxygen Evaluation RC: Home Oxygen (O2) Evaluation Start: 06/06/23 08:27 Freq: Status: Active Protocol: RPE Activity Type Activity Date Activity User E-sign Co-sign Detail Recorded Client Recorded Date Recorded By Document 06/06/23 08:44 KRM [id number] 06/06/23 09:31 KRM Document 06/06/23 08:47 [email or web address] [email or web address] 06/06/23 09:31 KRM Document 06/06/23 08:48 [email or web address] [email or web address] 06/06/23 09:31 KRM Document 06/06/23 08:50 [email or web address] [email or web address] 06/06/23 09:31 KRM 06/06/23 06/06/23 06/06/23 08:44 08:47 08:48 Home O2 Evaluation [Oxygen] -Test Phase Resting Exercise Exercise -Oxygen Delivery Room Air Room Air Nasal Cannula -Oxygen Flow Rate (L/min) 1 [Pulse Oximetry] -Pulse Oximetry (90-100 %) 91 87 L 88 L [Pulse Rate] -Pulse Rate (60-100 beats/min) 93 102 H 103 H [Evaluation] -Activity Tolerance Fair Fair [Exercise] -Ambulation Distance (feet) -Ambulation Distance (meters) [Comments] -Home Oxygen Evaluation Comments [Charges] -Treatment Charges 06/06/23 08:50 Home O2 Evaluation [Oxygen] -Test Phase Exercise -Oxygen Delivery Nasal Cannula -Oxygen Flow Rate (L/min) 2 [Pulse Oximetry] -Pulse Oximetry (90-100 %) 90 [Pulse Rate] -Pulse Rate (60-100 beats/min) 100 [Evaluation] -Activity Tolerance Fair [Exercise] -Ambulation Distance (feet) 300 -Ambulation Distance (meters) 91.43 [Comments] -Home Oxygen Evaluation Comments 2lpm with activity [Charges] -Treatment Charges O2 Evaluation - Outpatient
--- NOTE | 2023-06-06 11:32 | P.PCNPFT_ITS ---
PFT Procedure Performed PFT Procedure Performed Spirometry with Pre/Post Bronchodilator Plethysmography (Lung Vol) Diffusing Cap (DLCO) Flow Vol Loop PFT Interpretation This is a pulmonary function test with pre and post-bronchodilator spirometry, plethysmography, diffusing capacity, and ABG. The test was performed and results interpreted in accordance with the 2019 and 2005 ATS/ERS Task Force guidelines respectively using the Global Lung Function Initiative-2012 reference equations. Patient demonstrated good effort and cooperation. Reproducibility criteria were met. The quality of the pre bronchodilator spirometry maneuver was Grade A and post bronchodilator spirometry maneuver was Grade A. Findings: Spirometry: There is decreased maximal expiratory airflow at all lung volumes with concave expiratory flow tracing. The contour the inspiratory flow tracing is normal. The pre bronchodilator FVC is 4.12 L, 79% predicted. The pre bronchodilator FEV1 is 1.98 L, 51% predicted. The pre bronchodilator FEV1: FVC ratio is 48%. The post bronchodilator FVC is 4.29 L, representing a 4% increase. The post bronchodilator FEV1 is 2.11 L, representing a 7% increase. The post bronchodilator FEV1: FVC ratio is 49%. Plethysmography: The total lung capacity is 6.77 L, 82% predicted. The functi onal residual capacity is 4.15 L, 93% predicted. The residual volume is 2.66 L, 96% predicted. Diffusing capacity: The diffusing capacity unadjusted for hemoglobin and carboxyhemoglobinIs 15.5, 54% predicted. The diffusing capacity adjusted for alveolar volume is 3.60, 100% predicted. Rest room air blood gas: pH 7.47, PaCO2 40, PaO2 54. In comparison to previous pulmonary function testing performed on 01/31/2019 the post bronchodilator FVC is unchanged from 4.71 L to 4.29 L. The post bronchodilator FEV1 is unchanged from 2.44 L to 2.11 L. The total lung capacity is decreased from 8.04 L to 6.77 L. The functional residual capacity is decreased from 5.19 L to 4.15 L. The residual volume has decreased from 3.62 L to 2.66 L. The diffusing capacity unadjusted for hemoglobin and carboxyhemoglobin is decreased from 20.6 to 15.5. The diffusing capacity adjusted for alveolar volume is unchanged from 4.01 to 3.60. Impression: There is a moderately severe obstructive abnormality without significant improvement after inhaling a single dose of albuterol. The lung volumes are normal. The diffusing capacity unadjusted for hemoglobin and carboxyhemoglobin is moderately decreased and normalizes when adjusted for alveolar volume. The rest room air blood gas demonstrates an uncompensated metabolic alkalosis with hypoxemia. In comparison to previous pulmonary function testing on 01/31/2019 there has been a greater than anticipated time dependent decrease in the total lung capacity, functional residual capacity, residual volume and diffusing capacity unadjusted for hemoglobin and carboxyhemoglobin with no significant change in the FVC, FEV1 or diffusing capacity adjusted for alveolar volume. Clinical correlation is recommended.
== END 2023-06-06 08:15 | disposition home or self-care (01) ==
PROVIDERS: PCP Family Medicine; Visit Provider Nurse Practitioner Family
DX: J43.8 Other emphysema (principal); R06.09 Other forms of dyspnea; R94.2 Abnormal results of pulmonary function studies
CPT/HCPCS: 36600; 82375; 82805; 83050; 94060; 94618; 94726; 94729

== ENCOUNTER 2023-12-15 08:45 | Outpatient (CLI) | payer MEDICARE, OTHER, SELFPAY ==
--- NOTE | ~2023-12-15 | CT_ITS ---
CT Scan of the Chest without Contrast: Clinical Indication: Lung cancer screening, smoking history Technique: Contiguous sections were acquired throughout the chest without intravenous contrast. Dose reduction technique was used on this scan by utilizing automated exposure control and iterative recon struction technique. The dose-length product (DLP) was 312.49 mGy-cm. COMPARISON: 11/07/2022 Findings: There is no evidence of any significant mediastinal, hilar or axillary lymphadenopathy. Coronary sameer ry calcifications are present. There is no evidence of pleural or pericardial effusion. The lungs are clear. No pulmonary nodules or infiltrates are noted. Stable emphysematous change. Images through the upper abdomen reveal no abnormalities. Impression: Lung RADS 2: Benign appearance. 12 month follow-up screening CT advised. Reviewed, dictated and finalized at [facility]. ANESTHESIOLOGY Impression: Lung RADS 2: Benign appearance. 12 month follow-up screening CT advised.
== END 2023-12-15 08:46 | disposition home or self-care (01) ==
PROVIDERS: PCP Family Medicine; Visit Provider Nurse Practitioner Family
DX: Z12.2 Encounter for screening for malignant neoplasm of respiratory organs (principal); Z87.891 Personal history of nicotine dependence
CPT/HCPCS: 71271

== ENCOUNTER 2024-07-24 10:06 | Outpatient (CLI) | payer MEDICARE, OTHER, SELFPAY ==
--- NOTE | ~2024-07-24 | MR_ITS ---
MRI of the cervical spine Clinical History: Cervicalgia Technique: Axial T2-weighted and gradient images, and sagittal T1-weighted, T2-weighted, and STIR norma ges were acquired. Findings: There is anterior fusion from C6 to C7. There is reversal normal cervical lordosis. No frac ture or subluxation seen. No suspicious bone marrow signal abnormality seen. At C2-C3, there is no disc bulge or herniation. No spinal canal stenosis or cord compression. There i s right neural foraminal narrowing with bilateral facet arthropathy, right worse than left. At C3-C4, there is mild disc osteophyte complex. There is mild canal stenosis without cindy cord comp ression. There is bilateral neural foraminal narrowing with prominent bilateral facet arthropathy. At C4-C5, there is mild disc osteophyte complex with mild canal stenosis but no cindy cord compressio n. There is bilateral neural foraminal narrowing, with bilateral facet arthropathy, left worse than r ight. At C5-C6, there is degenerative disc narrowing with mild disc osteophyte complex. No canal stenosis o r cord compression. There is severe bilateral neural foraminal narrowing. At C6-C7, there is mild disc osteophyte complex. No cindy canal stenosis or cord compression. There i s severe bilateral neural foraminal narrowing. No abnormal signal seen in the spinal cord. Paravertebral soft tissues are unremarkable. Impression: Moderate to severe degenerative spondylosis, multilevel neural foraminal narrowing, as detailed above . Reversal of the normal cervical lordosis. Anterior fusion from C6 to C7. Reviewed, dictated and finalized at [facility]. Impression: Moderate to severe degenerative spondylosis, multilevel neural foraminal narrow ing, as detailed above. Reversal of the normal cervical lordosis. Anterior fusion from C6 to C7.
== END 2024-07-24 10:07 | disposition home or self-care (01) ==
LOC: MICIMG 10:07
PROVIDERS: PCP Family Medicine; Visit Provider Nurse Practitioner Family
DX: M47.892 Other spondylosis, cervical region (principal); M43.8X2 Other specified deforming dorsopathies, cervical region; Z98.1 Arthrodesis status
CPT/HCPCS: 72141

== ENCOUNTER 2024-12-16 13:28 | Outpatient (CLI) | payer MEDICARE, OTHER, SELFPAY ==
--- NOTE | ~2024-12-16 | CT_ITS ---
CT Scan of the Chest without Contrast: Clinical Indication: Lung cancer screening, nicotine dependence Technique: Contiguous sections were acquired throughout the chest without intravenous contrast. Dose reduction technique was used on this scan by utilizing automated exposure control and iterative recon struction technique. The dose-length product (DLP) was 293.05 mGy-cm. COMPARISON: 12/15/2023 Findings: There is no evidence of any significant mediastinal, hilar or axillary lymphadenopathy. The mediastin al soft tissues appear normal. There is no evidence of pleural or pericardial effusion. Moderate to advanced emphysema again present. There is a new 3.7 x 3.4 cm pulmonary nodule, pleural-b ased, the left upper lobe (axial image 37). Images through the upper abdomen reveal no abnormalities. There is degenerative spondylosis in the sp ine. Impression: Lung RADS 4B: Very suspicious. Tissue sampling recommended to establish histologic diagnosis regardin g the 3.7 cm left upper lobe pulmonary nodule. Case discussed with Dr. De Dios at the time of this reading. Reviewed, dictated and finalized at location . Y OPERATOR Impression: Lung RADS 4B: Very suspicious. Tissue sampling recommended to establish histolo gic diagnosis regarding the 3.7 cm left upper lobe pulmonary nodule. Case discussed with Dr. De Dios at the time of this reading.
--- OUTSIDE RECORDS SUMMARY | 2024-12-16 15:27 | XMS_ITS | Referral Summary ---
Author Organization [facility] [address] [facility] [address] Address [address] [place] [address] Care Team Providers Care News Commentator Name Role Phone Des Dupont MD Primary Care Provider [phone] Encounters Date Type Department Care Team Description 10/08/2024 10:30 AM HVAC PROJECT MANAGER Office Visit [facility] Cardiology [address] [place] [address] [address] [place] [address] Yoly Jones NP Persistent atrial fibrillation (HCC) (Primary Dx); Chronic anticoagulation; HTN (hypertension), benign; Bilateral lower extremity edema from Last 3 Months Allergies No known active allergies Medications morphine (MSIR) 15 mg tablet Take 1 tablet (15 mg total) by mouth 3 (three) times a day as needed for pain 06/28/20 17 Active gabapentin (NEURONTIN) 300 mg capsule Take 1 capsule (300 mg total) by mouth 2 (two) times a day 06/28/20 17 Active GLUCOSAMINE/CHOND ROITIN SULF A (GLUCOSAMINE-KESHAWN DROITIN ORAL) Take 1 Caplet by mouth 2 (two) times a day Active CALCIUM CARBONATE (CORAL CALCIUM ORAL) Take 1,500 mg by mouth 2 (two) times a day Active ascorbic acid (VITAMIN C) 1,000 mg tablet Take 1 tablet (1,000 mg total) by mouth daily Active turmeric root extract 500 mg capsule Take 1 capsule by mouth 2 (two) times a day Active fluticasone-umecl idin-vilanter (TRELEGY ELLIPTA) 100-62.5-25 mcg inhaler Inhale 1 puff daily Active ipratropium-albut marianna (DUO-NEB) 0.5-2.5 mg/3 mL nebulizer solutionIndicatio ns:Chronic Obstructive Pulmonary Disease with Bronchospasms Take by nebulization every 6 (six) hours Active albuterol HFA (PROVENTIL HFA,VENTOLIN HFA,PROAIR HFA) 90 mcg/actuation inhaler Inhale 2 puffs 4 (four) times a day as needed for wheezing (pt. uses when nebulizer is not available) Active testosterone cypionate (DEPO-TESTOTERONE ) 200 mg/mL injection 0 06/27/20 19 Active tiZANidine (ZANAFLEX) 4 mg tablet 0.5 tablets (2 mg total) 01/22/20 20 Active morphine ER (MS CONTIN) 30 mg 12 hr tablet Take 1 tablet (30 mg total) by mouth 2 (two) times a day 05/13/20 20 Active psyllium, aspartame, SF (METAMUCIL SF) 3.4 gram packet Take 1 packet by mouth daily Active Xarelto 20 mg tablet TAKE 1 TABLET BY MOUTH EVERY DAY 90 tablet 1 02/08/20 22 Active metOLazone (ZAROXOLYN) 2.5 mg tabletIndications :PAF (paroxysmal atrial fibrillation) (CMS/HCC) ([facility]) TAKE 1 TABLET BY MOUTH EVERY DAY 30 tablet 1 06/15/20 22 Active traZODone (DESYREL) 100 mg tablet Take 1 tablet (100 mg total) by mouth nightly 03/07/20 23 Active Klor-Con M20 20 mEq CR tablet TAKE 4 TABLETS BY MOUTH TODAY, THEN 2 TABLETS DAILY THERE AFTER 184 tablet 4 11/10/19 24 Active Additional Information Patient taking differently: 20 mEq oral 2 times daily, Reported on 10/08/2024 Tiadylt ER 360 mg 24 hr capsuleIndication s:PAF (paroxysmal atrial fibrillation) (CMS/HCC) ([facility]) TAKE 1 CAPSULE BY MOUTH EVERY DAY 90 capsule 3 01/22/20 24 Active furosemide (LASIX) 40 mg tablet TAKE 1 TABLET BY MOUTH TWICE A DAY 180 tablet 3 07/15/20 24 Active metoprolol tartrate (LOPRESSOR) 25 mg immediate release tablet TAKE 1 TABLET BY MOUTH TWICE A DAY 180 tablet 3 10/21/20 24 Active Active Problems Problem Noted Date Diagnosed Date Nonrheumatic aortic valve stenosis 11/04/2022 Bilateral lower extremity edema 04/28/2021 Claudication 04/28/2021 Atrial flutter ([facility]) 02/28/2019 Overview (02/28/2019): Added automatically from request for surgery [id number] PAF (paroxysmal atrial fibrillation) ([facility]/HCC) 0 10/25/2017 PFO (patent foramen ovale) 10/25/2017 Chronic anticoagulation 10/25/2017 HTN (hypertension), benign 10/25/2017 Resolved Problems Problem Noted Date Diagnosed Date Resolved Date Chronic obstructive pulmonary disease 10/25/2017 04/28/2021 Social History Tobacco Use Types Packs/Day Years Used Date Smoking Tobacco: Former Cigarettes 1.5 45 0 05/30/1972 - 05/30/2017 Smokeless Tobacco: Never Tobacco Cessation:Counseling Given: Not Answered Comments:smoked occasionally Alcohol Use Standard Drinks/Week Comments Yes 0 (1 standard drink = 0.6 oz pur e alcohol) ocassionally AUDIT-C Answer Date Recorded Q1: How often do you have a drink containing alc ohol? Never 09/20/2021 Average Number of Drinks Not on file 021 Frequency of Binge Drinking Not on file 08/24 Sex and Gender Information Value Date Recorded Sex Assigned at Not on file Legal Sex Male 1:56 PM CDT Gender Identity Not on file Sexual Orientation Not on file Last Filed Vital Signs Vital Sign Reading Time Taken Comments Blood Pressure 104/54 10/08/2024 10:44 AM HVAC PROJECT MANAGER Pulse 69 10/08/2024 10:44 AM HVAC PROJECT MANAGER Temperature 35.9 C (96.6 F) 09/20/2021 1:23 PM HVAC PROJECT MANAGER Respiratory Rate 24 04/01/2019 12:1 7 PM CDT Simultaneous filing. User may not have seen previous data. Oxygen Saturation 88% 10/08/2024 10: 44 AM HVAC PROJECT MANAGER Inhaled Oxygen Concentration - - Weight 120.7 kg (266 lb) 10/08/2024 10: 44 AM HVAC PROJECT MANAGER Height 193 cm (6' 4 ) 10/08/2024 10:44 AM HVAC PROJECT MANAGER Body Mass Index 32.38 10/08/2024 10:44 AM HVAC PROJECT MANAGER Plan of Treatment Not on file Insurance [employer] MEDICARE MEDICARE [employer] MEDICARE PHYSICIANS [facility] INS [place] Care Teams News Commentator Relationship Specialty Start Date End Date Des Dupont MD [address] [place] [address] PCP - General Family Medicine 04/23/24
--- OUTSIDE RECORDS SUMMARY | 2024-12-16 15:27 | XMS_ITS | Continuity of Care Document ---
Author Organization [email or web address] Address [address] [place] [address] Phone Care Team Providers Care Affiliate Marketing Specialist Name Role Phone Ronald John MD Unavailable Unavailable Advance Directives Directive Yes / No Effective Date File Name No Information Encounters Encounter Description Practice Location Reason(s) For Visit Diagnoses Date Provider Providers Copied on Encounter [email or web address], [address], [place], [place], [id number], [place] tel:[phone] No Information Alvaro Cardenas. [address] [place] [address], [id number], [place]. tel:[phone] Family History Family Member Type Diagnosis Age At Onset No Information Payers Payer name Insurance type Covered republican ID Authorjovania sarah(s) MEDICARE [id number] [employer] [id number] Social History Type Description Quantity Date Captured Comments Sex Male Smoking Status No Information Chief Complaint And Reason For Visit No Information Reason For Referral Reason For Referral No Information History Of Present Illness Encounter Date Complaint History Of Prese nt Illness No Information Functional Status Date Functional Assessmen t No Information Instructions Date Instruction Additional Infor mation No Information Assessments Type Assessment Date No Information Patient Care Teams Name Effective Dates (start - stop) Status Members No Information
--- OUTSIDE RECORDS SUMMARY | 2024-12-16 15:27 | XMS_ITS | Patient Health Summary ---
Author Organization [facility] Address [address] [place] [address] Care Team Providers Care Saxophone Teacher Name Role Phone Unavailable Primary Care Provider Unavailabl e Note from [facility],non-owned Affiliates and Associated Physician Practices is amultiple site organization consisting of ambulatory clinics and hospital sitesin [place], [place], [place] and [place]. This disclosure is being madepursuant to the Care Everywhere program and may not contain all information available regarding this patient. Last updated 18.[facility] Social History Tobacco Use Types Packs/Day Years Used Date Smoking Tobacco: Never Assessed Sex and Gender Information Value Date Recorded Sex Assigned at Not on file Gender Identity Not on file Sexual Orientation Not on file Procedures * DERMATOPATHOLOGY(Performed 08/29/2023) * DERMATOPATHOLOGY(Performed 09/24/2020) * DERMATOPATHOLOGY(Performed 07/16/2020) Results * DERMATOPATHOLOGY (08/29/2023 12:00 AM RESOLUTION SPECIALIST) Only the most recent of3 resultswithin the time period is included. Case Report Dermatopathology Report Case: [id number] Authorizing Provider: Naga Boswell MD Collected: 08/29/2023 12:00 AM Ordering Location: [facility] DermPath Lab Received: 08/30/2023 07:05 AM Pathologist: Hernesto Sargent MD Specimen: Skin, right thigh 3 3:45 PM RESOLUTION SPECIALIST DERMATOPATHOLOGY LABORATORY Final Diagnosis Specimen A. SKIN, right thigh: BENIGN VERRUCOUS KERATOSIS, INFLAMED (L82.1) 3 3:45 PM RESOLUTION SPECIALIST DERMATOPATHOLOGY LABORATORY Clinical History Prurigo vs BCC vs SCC. Path#[id number] 3 3:45 PM RESOLUTION SPECIALIST DERMATOPATHOLOGY LABORATORY Gross Description Specimen A: Received is one formalin filled container labeled with the patient's name and designated right thigh. The specimen consists of a shave biopsy measuring 7x6x1 mm. Jar 0. 3:45 PM [facility] DERMATOPATHOLOGY LABORATORY Microscopic Description Specimen A. SKIN, right thigh: Sections show hyperkeratosis, papillomatosis, hypergranulosis, and acanthosis. Inflammatory cells are present within the dermis. These histological findings can be seen in a verruca vulgaris or a seborrheic keratosis. 3 3:45 PM [facility] DERMATOPATHOLOGY LABORATORY Disclaimer An external and internal positive and negative controls are appropriate for the histochemical, immunohistochemical and immunofluorescence stain(s) in this case (if any), except where stated explicitly. The performance characteristics of the stain(s) cited in this report were developed and its performance characteristic determined by the Dermatopathology Laboratory at [facility], directed by Dr. Hodan Sargent. These tests need not be, and therefore are not, approved by the [place] Food and Drug Administration. The tests are used for clinical purposes. Billing Codes Specimen Charges Stain Charges 09319 1 3 3:45 PM [facility] DERMATOPATHOLOGY LABORATORY Embedded Images 3 3:45 PM [facility] DERMATOPATHOLOGY LABORATORY Pathology/Cytolog y TISSUE SPECIMEN FROM SKIN / Unknown 08/29/2023 08/30/2023 7:05 AM [facility] Naga Boswell MD LAB - PATHOLOGY/CYTO LOGY ORDERABLES DERMATOPATHOLOGY LABORATORY [facility] - Department of Dermatology [address] [phone]
--- OUTSIDE RECORDS SUMMARY | 2024-12-16 15:27 | XMS_ITS | Clinical Summary ---
Author Organization [facility] Address [address] [place] [address] Care Team Providers Care Nurse Intern Name Role Phone Unavailable Primary Care Provider Unavailabl e Source Comments [facility],non-owned Affiliates and Associated Physician Practices is amultiple site organization consisting of ambulatory clinics and hospital sitesin [place], [place], [place] and [place]. This disclosure is being madepursuant to the Care Everywhere program and may not contain all information available regarding this patient. Last updated 18.[facility] Social History Tobacco Use Types Packs/Day Years Used Date Smoking Tobacco: Never Assessed Sex and Gender Information Value Date Recorded Sex Assigned at Not on file Gender Identity Not on file Sexual Orientation Not on file Plan of Treatment Health Maintenance Due Date Last Done Comments COLOGUARD (AGES 45-75) - COL ON CA SCREENING 1952 COLON MONITORING 1952 COLONOSCOPY - COLON CA SCREENING 1952 CT COLONOGRAPHY - COLON CA SCREENING 1952 Colorectal Cancer Screening 1952 FIT - COLON CA SCREENING 1952 FLEX SIG - COLON CA SCREENING 1952 LIPID TESTING 1952 MEDICARE AWV 12 MONTHS 1952 HEPATITIS C SCREENING 10/10/1970 DTAP/TDAP/TD VACCINES (1 - Tdap) 1971 PNEUMOCOCCAL VACCINE 50+ (1 of 1 - PCV) 2002 ZOSTER VACCINE (1 of 2) 2002 COVID-19 VACCINE ( - 2023-2 5 season) 2024 INFLUENZA VACCINE (#1) 2024 DEPRESSION SCREENING 10/23/2024 Respiratory Syncytial Virus (RSV) Vaccine Pt: or over 60 yrs (1 - 1-dose 75+ series) 2027 HEPATITIS B VACCINE Aged Out No longe r eligible based on patient's age to complete this topic HIB VACCINE Aged Out No longer eligi ble based on patient's age to complete this topic HPV VACCINE Aged Out No longer eligi ble based on patient's age to complete this topic MENINGOCOCCAL (Group B) VACCINE Aged Out No longer eligible based on patient's age to complete this topic MENINGOCOCCAL VACCINE Aged Out No alan reg eligible based on patient's age to complete this topic
--- OUTSIDE RECORDS SUMMARY | 2024-12-16 15:27 | XMS_ITS | Clinical Summary ---
Author Organization [facility] Address [address] [facility] [place] [address] Phone Care Team Providers Care Oven Worker Name Role Phone Des Dupont MD Primary Care Provider [phone] Allergies No known active allergies Medications albuterol 108 (90 Base) MCG/ACT Aerosol Solution take 2 Puffs by inhalation. Active dilTIAZem HCl (DILT-XR PO) 360 mg. 0 Active furosemide (LASIX) 40 MG Tablet Take 40 mg by mouth daily. 0 Active gabapentin (NEURONTIN) 300 MG Capsule TAKE 1 CAPSULE BY MOUTH 3 TIMES A DAY 0 Active ipratropium-albu terol (DUO-NEB) 0.5-2.5 (3) MG/3ML Solution take by inhalation. Active linaclotide (LINZESS) 290 MCG Capsule Take 290 mcg by mouth. 0 Active morphine IMMEDIATE RELEASE (MS IR) 15 MG Tablet Take 15 mg by mouth. 7 Active morphine (MS CONTIN) 30 MG Tablet Controlled Release TAKE 1 TABLET BY MOUTH TWICE A DAY 0 Active testosterone cypionate (DEPO-TESTOSTERO NE) 200 MG/ML Solution INJECT 1ML EVERY 2 WEEKS 0 Active tiZANidine (ZANAFLEX) 4 MG Tablet TAKE 1 TABLET BY MOUTH TWICE A DAY 0 Active Fluticasone-Umec lidin-Vilant 100-62.5-25 MCG/INH AEROSOL POWDER, BREATH ACTIVATED take 1 Puff by inhalation. Active rivaroxaban (Xarelto) 20 MG Tablet TAKE 1 TABLET BY MOUTH EVERY DAY 10/16/201 9 Active Multiple Vitamins-Mineral s (CENTRUM SILVER 50+MEN PO) Take 1 Tab by mouth. Active calcium carbonate (OS-DAYTON) 1250 (500 Ca) MG Tablet Take 1,500 mg by mouth. Active Ginkgo Biloba Extract (Ginkgo Biloba Memory Enhancer) 60 MG Capsule Take 120 mg by mouth. Active Potassium Gluconate 550 MG Tablet Take 550 mg by mouth. Active Turmeric Curcumin 500 MG Capsule Take 1 Cap by mouth. Active Ascorbic Acid (Vitamin C) 1000 MG Tablet Take 1,000 mg by mouth. Active vitamin E (TOCOPHEROL) 1000 UNIT Capsule Take 1,000 Units by mouth. Active zinc gluconate 50 MG Tablet Take 50 mg by mouth. Active OXYGEN CONCENTRATOR by Does not apply route. Use as directed Active flecainide (TAMBOCOR) 100 MG Tablet 0 Active Glucosamine-Vidal droit-Vit C-Mn (GLUCOSAMINE CHONDR 1500 COMPLX PO) Take by mouth. Acti ve Psyllium (METAMUCIL PO) Take by mouth. Active clobetasol (TEMOVATE) 0.05 % Ointment APPLY TO AFFECTED AREA ON LEGS DAILY DIRECTED 1 Active fluticasone (FLONASE) 50 MCG/ACT Suspension USE 2 SPRAYS IN EACH NOSTRIL EVERY 12 HOURS 1 Active Senexon-S 8.6-50 MG Tablet TAKE 1 2 TABLETS BY MOUTH EVERY 4 6 HOURS NEEDED FOR CONSTIPATION 1 Active ketorolac, ophth, (ACULAR) 0.5 % Solution 1 Active Active Problems No known active problems Immunizations Immunization Administration Dates Next Due Covid-19, Mrna, Lnp-s, PF, 1 00 mcg/0.5 mL Dose (Moderna) 01/11/2021 Influenza Vaccine greater than 3 yrs 08/15/2020 Influenza, Seasonal, Injectable, Undefined 08/15 Influenza, high-dose, trivalent, PF 08/15/2020,1 11/05/2017 Pneumococcal Vaccine - 13 Valent 09/05/2018 Pneumococcal Vaccine Adult - 23 Valent 0 Family History Medical History Relation Name Comments Diabetes Mother Cancer Sister Relation Name Status Comments Mother Sister Social History Tobacco Use Types Packs/Day Years Used Date Smoking Tobacco: Former Cigarettes Q uit: 2017 Smokeless Tobacco: Never Tobacco Cessation:Counseling Given: No Alcohol Use Standard Drinks/Week Comments Not Currently 0 (1 standard drink = 0.6 oz pur e alcohol) Sexually Active Control Partners Comments Not Currently Sex and Gender Information Value Date Recorded Sex Assigned at Not on file Legal Sex Male 1:05 PM CDT Gender Identity Not on file Sexual Orientation Not on file Last Filed Vital Signs Vital Sign Reading Time Taken Comments Blood Pressure 120/70 06/17/2021 9:28 AM CDT Pulse 84 06/17/2021 9:28 AM CDT Temperature 36.7 C (98.1 F) 06/17/2021 9:28 AM CDT Respiratory Rate 16 06/17/2021 9:28 AM CDT Oxygen Saturation 94% 06/17/2021 9:28 AM CDT Inhaled Oxygen Concentration - - Weight 132.5 kg (292 lb) 06/17/2021 9:28 AM CDT Height 193 cm (6' 4 ) 06/17/2021 9:28 AM CDT Body Mass Index 35.54 06/17/2021 9:28 AM CDT Plan of Treatment Health Maintenance Due Date Last Done Comments Hepatitis C Virus (HCV) Screening 1952 TdaP Immunization 1952 Colonoscopy 1997 Colorectal Cancer Screening 1997 Cologuard 2002 Immunochemical Fecal Occult Blood 2002 Zoster Immunization (1 of 2) 2002 Influenza Immunization (#1) 06/23/202407/24, 08/15/2020, 09/05/2018 SARS-COV-2 Immunization ( season) 2024 01/25/2022, 09/04/2021, 01/11/2021, Additional history exists Respiratory Syncytial Virus (RSV) Immunization (Adult) (1 - 1-dose 75+ series) 2027 Pneumococcal Immunization (50+ years) Completed 08/15/2020, 09/05/2018 Pneumococcal Immunization Combined Discontinued 08/15/2020, 09/05/2018 Hepatitis B Immunization Aged Out No longer eligible based on patient's age to complete this topic Meningococcal Immunization (ACWY) Aged Out No longer eligible based on patient's age to complete this topic Rotavirus Immunization Aged Out No lo nger eligible based on patient's age to complete this topic Insurance MEDICARE [employer] Care Teams Oven Worker Relationship Specialty Start Date End Date Des Dupont MD [address] [address] PCP - General Family Medicine 05/07/20
--- OUTSIDE RECORDS SUMMARY | 2024-12-16 15:27 | XMS_ITS | Encounter Summary ---
Author Organization [facility] Address [address] [place] [address] Care Team Providers Care Veterinary Practice Manager Name Role Phone Unavailable Primary Care Provider Unavailabl e Encounter Details Date Type Department Care Team (Late st Contact Info) Description 08/29/[address] [facility] - DermPath Lab [address] [place] [phone] Naga Boswell MD [address] [place] [address] Social History Tobacco Use Types Packs/Day Years Used Date Smoking Tobacco: Never Assessed Sex and Gender Information Value Date Recorded Sex Assigned at Not on file Gender Identity Not on file Sexual Orientation Not on file documented as of this encounter Plan of Treatment Not on file documented as of this encounter Procedures Procedure Name Priority Date/Time Associated Diagnosis Comments DERMATOPATHOLOGY Routine 08/29/2023 12:0 0 AM SUPERVISOR SILVERING DEPARTMENT documented in this encounter Results * DERMATOPATHOLOGY (08/29/2023 12:00 AM SUPERVISOR SILVERING DEPARTMENT) Case Report Dermatopathology Report Case: [id number] Authorizing Provider: Naga Boswell MD Collected: 08/29/2023 12:00 AM Ordering Location: [facility] DermPath Lab Received: 08/30/2023 07:05 AM Pathologist: Hernesto Sargent MD Specimen: Skin, right thigh 3 3:45 PM SUPERVISOR SILVERING DEPARTMENT DERMATOPATHOLOGY LABORATORY Final Diagnosis Specimen A. SKIN, right thigh: BENIGN VERRUCOUS KERATOSIS, INFLAMED (L82.1) 3 3:45 PM SUPERVISOR SILVERING DEPARTMENT DERMATOPATHOLOGY LABORATORY Clinical History Prurigo vs BCC vs SCC. Path#[id number] 3 3:45 PM [facility] DERMATOPATHOLOGY LABORATORY Gross Description Specimen A: Received is one formalin filled container labeled with the patient's name and designated right thigh. The specimen consists of a shave biopsy measuring 7x6x1 mm. Jar 0. 3:45 PM [facility] DERMATOPATHOLOGY LABORATORY Microscopic Description Specimen A. SKIN, right thigh: Sections show hyperkeratosis, papillomatosis, hypergranulosis, and acanthosis. Inflammatory cells are present within the dermis. These histological findings can be seen in a verruca vulgaris or a seborrheic keratosis. 3 3:45 PM [facility] DERMATOPATHOLOGY LABORATORY Disclaimer An external and internal positive and negative controls are appropriate for the histochemical, immunohistochemical and immunofluorescence stain(s) in this case (if any), except where stated explicitly. The performance characteristics of the stain(s) cited in this report were developed and its performance characteristic determined by the Dermatopathology Laboratory at [facility], directed by Dr. Hodan Sargent. These tests need not be, and therefore are not, approved by the [place] Food and Drug Administration. The tests are used for clinical purposes. Billing Codes Specimen Charges Stain Charges 87077 1 3 3:45 PM [facility] DERMATOPATHOLOGY LABORATORY Embedded Images 3 3:45 PM [facility] DERMATOPATHOLOGY LABORATORY Pathology/Cytolog y TISSUE SPECIMEN FROM SKIN / Unknown 08/29/2023 08/30/2023 7:05 AM SUPERVISOR SILVERING DEPARTMENT Naga Boswell MD LAB - PATHOLOGY/CYTO LOGY ORDERABLES DERMATOPATHOLOGY LABORATORY [facility] - Department of Dermatology [address] [phone] documented in this encounter Visit Diagnoses Not on filedocumented in this encounter
--- OUTSIDE RECORDS SUMMARY | 2024-12-16 15:27 | XMS_ITS | Clinical Summary ---
Author Organization [facility] Address [address] [place] [address] Care Team Providers Care Pneudraulic Systems Mechanic Name Role Phone Unavailable Primary Care Provider Unavailabl e Social History Tobacco Use Types Packs/Day Years Used Date Smoking Tobacco: Never Assessed Sex and Gender Information Value Date Recorded Sex Assigned at Not on file Legal Sex Male 7:24 PM SPECIALTY COOK Gender Identity Not on file Sexual Orientation Not on file Plan of Treatment Health Maintenance Due Date Last Done Comments DTAP/TDAP/TD VACCINES (1 - Tdap) 1971 COLORECTAL SCREENING 1997 Colorectal Cancer Screening 1997 FIT-DNA Q 3 years 1997 FIT/FOBT Q 1 year 1997 Flex Sig/CT Colonography Q 5 years 1997 RSV VACCINE (60+ or ) (1 - Risk 60-74 years 1-dose series) 2012 INFLUENZA VACCINE (#1) 2024 , 08/15/2020, 09/05/2018 COVID-19 Vaccine (6 - 2023-2 5 season) 2024 07/10/2022, 01/25/2022, 09/04/2021, Additional history exists PNEUMOCOCCAL VACCINE 65+ YEARS Completed 08/15/2020 , 09/05/2018 ZOSTER VACCINE Completed 09/06/2022, 06/02/2022 Insurance MEDICARE PART A AND B GENERIC PAYOR
--- OUTSIDE RECORDS SUMMARY | 2024-12-16 15:27 | XMS_ITS | Encounter Summary ---
Author Organization [facility] Address [address] [facility] [place] [address] Care Team Providers Care Cabin Cleaner Name Role Phone Unavailable Primary Care Provider Unavailabl e Encounter Details Date Type Department Care Team (Late st Contact Info) Description 07/20/2020 Lab Requisition [facility] DermPath Lab [address] [facility] [facility], [place] [id number] Naga Boswell MD [address] [place] [address] Social History Tobacco Use Types Packs/Day Years Used Date Smoking Tobacco: Never Assessed Sex and Gender Information Value Date Recorded Sex Assigned at Not on file Gender Identity Not on file Sexual Orientation Not on file documented as of this encounter Plan of Treatment Not on file documented as of this encounter Procedures Procedure Name Priority Date/Time Associated Diagnosis Comments DERMATOPATHOLOGY Routine 07/16/2020 12:0 0 AM CDT documented in this encounter Results * DERMATOPATHOLOGY (07/16/2020 12:00 AM CDT) Case Report Dermatopathology Report Case: [id number] Authorizing Provider: Naga Boswell MD Collected: 07/16/2020 12:00 AM Ordering Location: [facility] DermPath Lab Received: 07/20/2020 06:35 AM Pathologist: Hernesto Sargent MD Specimen: Skin, left abdomen 0 1:38 PM CDT DERMATOPATHOLOGY LABORATORY Final Diagnosis Specimen A. SKIN, left abdomen: LICHEN PLANUS-LIKE KERATOSIS (BENIGN LICHENOID KERATOSIS) (L82.1) 0 1:38 PM CDT DERMATOPATHOLOGY LABORATORY Clinical History BCCA vs SCCA vs SK. 0 1:38 PM CDT DERMATOPATHOLOGY LABORATORY Gross Description Specimen A: Received is one formalin filled container labeled with the patient's name and designated left abdomen. The specimen consists of a shave biopsy measuring [id number]. Jar 0. 0 1:38 PM CDT DERMATOPATHOLOGY LABORATORY Microscopic Description Specimen A. SKIN, left abdomen: The epidermis is mildly acanthotic. There is a lichenoid infiltrate with vacuolar changes of basilar keratinocytes and scattered necrotic keratinocytes. 0 1:38 PM CDT DERMATOPATHOLOGY LABORATORY Disclaimer An external and internal positive and negative controls are appropriate for the histochemical, immunohistochemical and immunofluorescence stain(s) in this case (if any), except where stated explicitly. The performance characteristics of the stain(s) cited in this report were developed and its performance characteristic determined by the Dermatopathology Laboratory at [facility], directed by Dr. Hodan Sargent. These tests need not be, and therefore are not, approved by the [place] Food and Drug Administration. The tests are used for clinical purposes. Billing Codes Specimen Charges Stain Charges 41157 1 0 1:38 PM CDT DERMATOPATHOLOGY LABORATORY Embedded Images 0 1:38 PM CDT DERMATOPATHOLOGY LABORATORY Pathology/Cytolog y TISSUE SPECIMEN FROM SKIN / Unknown 07/16/2020 07/20/2020 6:35 AM CDT Naga Boswell MD LAB - PATHOLOGY/CYTO LOGY ORDERABLES DERMATOPATHOLOGY LABORATORY [facility] - Department of Dermatology [address] Floor [address] [phone] documented in this encounter Visit Diagnoses Not on filedocumented in this encounter
--- OUTSIDE RECORDS SUMMARY | 2024-12-16 15:27 | XMS_ITS | Encounter Summary ---
Author Organization [facility] Address [address] [place] [place] [address] Care Team Providers Care Enterprise Business Architect Name Role Phone Unavailable Primary Care Provider Unavailabl e Encounter Details Date Type Department Care Team (Late st Contact Info) Description 09/25/2020 Lab Requisition [facility] DermPath Lab [address] [facility] [place] [phone] Naga Boswell MD [address] [place] [address] Social History Tobacco Use Types [...] Priority Date/Time Associated Diagnosis Comments DERMATOPATHOLOGY Routine 09/24/2020 12:0 0 AM TACTICAL/MOBILE WATCH OFFICER documented in this encounter Results * DERMATOPATHOLOGY (09/24/2020 12:00 AM TACTICAL/MOBILE WATCH OFFICER) Case Report Dermatopathology Report Case: [id number] Authorizing Provider: Naga Boswell MD Collected: 09/24/2020 12:00 AM Ordering Location: [facility] DermPath Lab Received: 09/25/2020 06:41 AM Pathologist: Manju Figueroa MD Specimens: A) - Skin, right upper post auricular B) - Skin, right lower post auricular 0 1:35 PM TACTICAL/MOBILE WATCH OFFICER DERMATOPATHOLOGY LABORATORY Final Diagnosis Specimen A. SKIN, right upper post auricular: EPIDERMOID CYST (L72.0) NOT PRESENT AT SAMPLED MARGIN Specimen B. SKIN, right lower post auricular: EPIDERMOID CYST (L72.0) NOT PRESENT AT SAMPLED MARGIN 0 1:35 PM TACTICAL/MOBILE WATCH OFFICER DERMATOPATHOLOGY LABORATORY Clinical History A: E cyst. Path # [id number]. Check margins. B: E cyst. Path # [id number]. 0 1:35 PM [facility] DERMATOPATHOLOGY LABORATORY Gross Description Specimen A: Received is one formalin filled container labeled with the patient's name and designated right upper post auricular. The specimen consists of a [id number] excision, bisected. The margin is inked green. Jar 0. Specimen B: Received is one formalin filled container labeled with the patient's name and designated right lower post auricular. The specimen consists of a [id number] excision, bisected. The margin is inked green. Jar 0. 0 1:35 PM [facility] DERMATOPATHOLOGY LABORATORY Microscopic Description Specimen A. SKIN, right upper post auricular: Within the dermis, there is a space lined by epithelium that resembles normal epidermis and the infundibular portion of the hair follicle. This lesion is not present at the sampled margin of the specimen. Specimen B. SKIN, right lower post auricular: Within the dermis, there is a space lined by epithelium that resembles normal epidermis and the infundibular portion of the hair follicle. This lesion is not present at the sampled margin of the specimen. 0 1:35 PM [facility] DERMATOPATHOLOGY LABORATORY Disclaimer An external and internal positive and negative controls are appropriate for the histochemical, immunohistochemical and immunofluorescence stain(s) in this case (if any), except where stated explicitly. The performance characteristics of the stain(s) cited in this report were developed and its performance characteristic determined by the Dermatopathology Laboratory at [facility], directed by Dr. Hodan Sargent. These tests need not be, and therefore are not, approved by the [place] Food and Drug Administration. The tests are used for clinical purposes. Billing Codes Specimen Charges Stain Charges 04876 98113 1 1 0 1:35 PM [facility] DERMATOPATHOLOGY LABORATORY Embedded Images 0 1:35 PM [facility] DERMATOPATHOLOGY LABORATORY Pathology/Cytology TISSUE SPECIMEN FROM SKIN / Unknown 09/24/2020 09/25/2020 6:41 AM TACTICAL/MOBILE WATCH OFFICER Miscellaneous samples (specimen) TISSUE SPECIMEN FROM SKIN / Unknown 09/24/2020 09/25/2020 6:41 AM TACTICAL/MOBILE WATCH OFFICER Naga Boswell MD LAB - PATHOLOGY/CYTO LOGY ORDERABLES DERMATOPATHOLOGY LABORATORY [facility] - Department of Dermatology [facility] Medicine [address] [place] [address], [address] Floor [address] [phone] documented in this encounter Visit Diagnoses Not on filedocumented in this encounter
--- OUTSIDE RECORDS SUMMARY | 2024-12-16 15:27 | XMS_ITS | Clinical Summary ---
Author Organization [facility] [address] Address [address] [place] [address] Care Team Providers Care Route Delivery Clerk Name Role Phone Des Dupont MD Primary Care Provider [phone] Allergies No known active allergies Medications morphine [...] mg tabletIndications :PAF (paroxysmal atrial fibrillation) (CMS/HCC) ([facility]) TAKE 1 TABLET BY MOUTH EVERY DAY [...] hr capsuleIndication s:PAF (paroxysmal atrial fibrillation) (CMS/HCC) ([facility]) TAKE 1 CAPSULE BY MOUTH EVERY DAY [...] extremity edema 04/28/2021 Claudication 04/28/2021 Atrial flutter (CMS/HCC) 02/28/2019 Overview (02/28/2019): Added automatically from request for surgery [id number] PAF (paroxysmal atrial fibrillation) (CMS/HCC) 0 10/25/2017 PFO (patent foramen ovale) 10/25/2017 Chronic anticoagulation 10/25/2017 HTN (hypertension), benign 10/25/2017 Resolved Problems Problem Noted Date Diagnosed Date Resolved Date Chronic obstructive pulmonary disease 10/25/2017 04/28/2021 Encounters Date Type Department Care Team Description 10/08/2024 10:30 AM TRANSLATOR INTERPRETER Office Visit [facility] Cardiology [address] [place] [address] Yoly Jones NP Persistent atrial fibrillation (HCC) (Primary Dx); Chronic anticoagulation; HTN (hypertension), benign; Bilateral lower extremity edema from Last 3 Months Surgical History Surgery Date Site/Laterality Comments NECK SURGERY TONSILLECTOMY Medical History Medical History Date Comments Atrial fibrillation (CMS/HCC) (HCC) Sleep apnea Shortness of breath Family History Medical History Relation Name Comments Heart attack Brother Cancer Sister Relation Name Status Comments Brother Father Mother Alive Sister Social History Tobacco Use Types Packs/Day [...] on file Sexual Orientation Not on file Obstetrics History Last Filed Vital Signs Vital Sign Reading Time Taken Comments Blood Pressure 104/54 10/08/2024 10:44 AM TRANSLATOR INTERPRETER Pulse 69 10/08/2024 10:44 AM TRANSLATOR INTERPRETER Temperature 35.9 C (96.6 F) 09/20/2021 1:23 PM TRANSLATOR INTERPRETER Respiratory Rate 24 04/01/2019 12:1 7 PM CDT Simultaneous filing. User may not have seen previous data. Oxygen Saturation 88% 10/08/2024 10: 44 AM TRANSLATOR INTERPRETER Inhaled Oxygen Concentration - - Weight 120.7 kg (266 lb) 10/08/2024 10: 44 AM TRANSLATOR INTERPRETER Height 193 cm (6' 4 ) 10/08/2024 10:44 AM TRANSLATOR INTERPRETER Body Mass Index 32.38 10/08/2024 10:44 AM TRANSLATOR INTERPRETER Plan of Treatment Health Maintenance Due Date Last Done Comments Colon Cancer Screening-Colonoscopy 1950 Depression Screening 1950 Hepatitis C Screening 1950 DTaP/Tdap/Td Vaccine (1 - Tdap) 1963 Hepatitis B Screening 1970 Lung Cancer Screening 2002 Zoster Vaccine (1 of 2) 2002 Abdominal Aortic Aneurysm (AAA) Screen 2017 Well Visit 65+ 2017 Fall Risk Assessment 07/31/2021 07/31/2020, 03/26/20 20 Covid-19 Vaccine ( - season) 2024 Influenza Vaccine (#1) 2024 08/15/2020, 2017 Pneumococcal vaccine 65+ Completed 08/15/2020, 08/23 Insurance [employer] [facility] [place] MEDICARE MEDICARE [employer] MEDICARE [employer] Care Teams Route Delivery Clerk Relationship Specialty Start Date End Date Des Dupont MD [address] [address] PCP - General Family Medicine 04/23/24
--- OUTSIDE RECORDS SUMMARY | 2024-12-16 15:27 | XMS_ITS | CONTINUITY OF CARE DOCUMENT ---
Author Name austyn zaman Address Unknown Organization [facility] Address [address] [address] Phone [phone] Care Team Providers Care Forms Builder Name Role Phone Johanne LEYVA, Angel Unavailable [phone] Jagjit Romero DPM Unavailable LOLA LEYVA, ROCÍO Christel Unavailable [phone] PROBLEMS Condition Status Date Provider Notes Cardiology examination active Anegl Whiting MD AFIB active Angel Whiting MD Venous insufficiency, chronic active Angel Whiting MD Foot pain, left active Angel Whiting MD ENCOUNTERS Date Type Provider Location Encounter Diag nosis - In-person encounter Office Visit Angel Whiting MD [facility] Cardiology examinationAFIBVenous insufficiency, chronicFoot pain, left VITAL SIGNS Date Observation Value Provider Body Mass Index (Ratio) 33.98 kg/m2 Bereket Whiting MD blood pressure, diastolic 70 mm[Hg] Linda nkLogteressa blood pressure, systolic 107 mm[Hg] Berna Jacobs pulse rate 91 /min Roxy Mendez blood pressure, cuff size large Ta balwinder Mendez respiratory rate E&M 18 /min Roxy Mendez oxygen saturation, oximetry 98 % Royx Mendez blood pressure, diastolic 70 mm[Hg] Bran britt Andrea blood pressure, systolic 107 mm[Hg] Jr curran Andrea weight E&M 279.2 [lb_av] Roxy Andrea height E&M 76 [in_i] Roxy Andrea HISTORY OF MEDICATION USE Medication Status Instructions Dates Provider Indications Com ments metoprolol tartrate 25 mg tablet active Angel Whiting MD Xarelto 20 mg tablet active Angel Whiting MD furosemide 40 mg tablet active Angel Whiting MD gabapentin 300 mg capsule active Angel Whiting MD SOCIAL HISTORY Date Observation Value Provider social history E&M S moking History: Lori oswald is a former smoker. Angel Whiting MD social history reviewed E&M revi ewed - no changes required Angel Whiting MD smoking history, total pack/day 1.5 Roxy Mendez smoking, year quit 2016 Roxy aldrich cigarette use yes Roxy Andrea smoking status Former smoker Roxy Andrea INSURANCE PROVIDERS Payer name Policy type / Coverage type [employer] party ID [employer] Other 1 [id number] [place] Medicare [id number] ADVANCE DIRECTIVES Name Date DISCUSSED - NO DECISION MADE TREATMENT PLAN Date Name Performer [id number],S, Angel Whiting MD [id number],C,Manage by Dr. Morillo. Angel Whiting MD [id number],C,W ill check YAJAIRA, Sensilase, for the obvious venous insufficiency will be checking a standing venous. Angel Whiting MD Cardiology Angel Whiting MD Cardiology:Manage by Dr. Morillo. Angel Whiting MD Cardiology:Will chec k YAJAIRA, Sensilase, for the obvious venous insufficiency will be checking a standing venous. Angel Whiting MD Date Name Arterial Duplex Bi-L ower EX Venous Doppler Bilat eral LE - Reflux Arterial - SENSILASE HISTORY OF PROCEDURES Procedure Date Procedure Name Provider Procedure Notes S tatus EKG Angel Whiting MD completed
--- OUTSIDE RECORDS SUMMARY | 2024-12-16 15:27 | XMS_ITS | Referral Summary ---
Author Organization [facility] Address [address] [facility] [place] [address] Care Team Providers Care Gas Scrubber Operator Name Role Phone Unavailable Primary Care Provider Unavailabl e Source Comments [facility],non-owned Affiliates and Associated Physician Practices is amultiple site organization consisting of ambulatory clinics and hospital sitesin [place], [place], [place] and [place]. This disclosure is being madepursuant to the Care Everywhere program and may not contain all information available regarding this patient. Last updated 18.[facility] Social History Tobacco Use Types Packs/Day Years Used Date Smoking Tobacco: Never Assessed Sex and Gender Information Value Date Recorded Sex Assigned at Not on file Gender Identity Not on file Sexual Orientation Not on file Plan of Treatment Not on file
--- OUTSIDE RECORDS SUMMARY | 2024-12-16 15:27 | XMS_ITS | Encounter Summary ---
Author Organization [facility] Healthcare Address [address] [place] [address] Care Team Providers Care Technical Illustrations Map Inker Name Role Phone Des Dupont MD Primary Care Provider [phone] Tessa Pantoja MD Primary Care Provider [phone] Des Dupont MD Primary Care Provider + [phone] Encounter Details Date Type Department Care Team (Late st Contact Info) Description 12/30/2017 Orders Only [facility] Health Information Management [address] [place] [address] Scanning, Provider Social History Tobacco Use Types Packs/Day Years Used Date Smoking Tobacco: Light Smoker Smokeless Tobacco: Never Comments:smoked occasionally Alcohol Use Standard Drinks/Week Comments Yes 0 (1 standard drink = 0.6 oz pur e alcohol) ocassionally Sex and Gender Information Value Date Recorded Sex Assigned at Not on file Legal Sex Male 1:56 PM CDT Gender Identity Not on file Sexual Orientation Not on file documented as of this encounter Plan of Treatment Not on file documented as of this encounter Procedures Procedure Name Priority Date/Time Associated Diagnosis Comments SCAN - LABS 12/30/2017 1:20 AM AUTOMOTIVE SERVICE PORTER documented in this encounter Results * SCAN - LABS (12/30/2017 1:20 AM AUTOMOTIVE SERVICE PORTER) us Provider Scanning Final Result documented in this encounter Visit Diagnoses Not on filedocumented in this encounter Care Teams Technical Illustrations Map Inker Relationship Specialty Start Date End Date Des Dupont MD PCP - General Family Medicine 07/13/17 08/17/23 Tessa Pantoja MD [address] [place] [address] PCP - General Family Medicine 08/18/23 04/22/24 Des Dupont MD [address] [place] [address] PCP - General Family Medicine 04/23/24 documented as of this encounter
== END 2024-12-16 13:29 | disposition home or self-care (01) ==
PROVIDERS: PCP Family Medicine; Visit Provider Nurse Practitioner Family
DX: Z12.2 Encounter for screening for malignant neoplasm of respiratory organs (principal); Z87.891 Personal history of nicotine dependence; R91.8 Other nonspecific abnormal finding of lung field
CPT/HCPCS: 71271

== ENCOUNTER 2025-01-19 13:45 | Emergency (ER) | payer MEDICARE, OTHER, SELFPAY ==
[2025-01-19] VITALS (49 sets, daily range): BP systolic 98–116; BP diastolic 43–87; PULSE 56–93; RESP 12–23; TEMP 36.4–36.8; O2SAT 82–100
--- NOTE | ~2025-01-19 | CT_ITS ---
EXAMINATION: CTA chest PE abdomen pel DATE: 01/19/2025 20:59 INDICATION: sob, hypoxia, recent lung CA dx TECHNIQUE: Computed tomography angiography (CTA) of the chest was performed with 100 mL Omnipaque-350 intravenous contrast timed to evaluate the pulmonary arteries, followed by portal venous phase imagi ng of the abdomen and pelvis. Coronal maximum intensity projection 3D-reconstructions were created by the technologist. The dose-length product (DLP) was 2479.75 mGy-cm. Automated exposure control and i terative reconstruction technique were employed. COMPARISON: CT lung screening 12/16/2024. FINDINGS: CHEST: Lung parenchyma and airways: Bibasilar dependent atelectasis/consolidation. Lobulated 5.2 cm left upp er lobe mass. Emphysematous change. 5 mm right upper lobe nodule. Airway debris in right lower lobe b ronchi.. Pleura: Unremarkable. Thoracic inlet, axillae and chest wall: No thyroid or soft tissue mass. Thoracic aorta: No significant dilation. No dissection. Mild atherosclerotic calcification. Mediastinum: Enlarged bilateral hilar, pretracheal, and AP window nodes. Heart and pericardium: Cardiomegaly. Aortic valve and mitral calcification. Coronary artery calcifications: Moderate. Thoracic bones: No acute osseous finding. Pulmonary arteries: Study quality: Adequate. No pulmonary emboli detected. ABDOMEN/PELVIS: Liver: Normal. Biliary/Gallbladder: Gallbladder is normal. No bile duct dilation. Pancreas: No mass or duct dilation. Spleen: Normal. Adrenals:No mass. Kidneys: No suspicious mass, obstructing stone, or hydronephrosis. GI tract: No small or large bowel dilation. Normal appendix. Mesentery/Peritoneum: No mass or free air. There is hyperdense heterogeneous perihepatic fluid, with a small focus of hyperdense blush along the surface of the right lobe of the liver likely representin g active extravasation (axial 42-44/245). Small volume hyperdense perisplenic fluid with fluid tracki ng down the bilateral paracolic gutters. Retroperitoneum: No mass. Atherosclerotic calcifications of intra-abdominal arterial vessels. Pelvis: Distended urinary bladder, without wall thickening. Normal sized prostate. Small volume free pelvic fluid.. Soft Tissues: Soft tissues and body wall unremarkable. Abdominopelvic bones: No acute osseous finding. IMPRESSION: No CT evidence of acute pulmonary embolus. 5.2 cm left upper lobe mass. New 5 mm right upper lobe pulmonary nodule. The additional nodular opacities and apparent pleural thickening present in the prior radiograph were artifactual. Airway debris in right lower lobe bronchi may be secondary to mucous plugging or aspiration. Mediastinal and bilateral hilar lymphadenopathy. Small focus of active venous extravasation from the surface of the liver. Multiple heterogeneously enhancing liver masses, likely represent hepatic metastases. Moderate volume hemoperitoneum. Results reported telephonically to Sweta Vegas PA-C by Dr. Mendoza at 9:50 PM on 01/19/2025. Reviewed, dictated and finalized at location K. IMPRESSION: No CT evidence of acute pulmonary embolus. 5.2 cm left upper lobe mass. New 5 mm right upper lobe pulmonary nodule. The additional nodular opacities and apparent pleural thickening present in the prior radiograph were artifactual. Airway debris in right lower lobe bronchi may be secondary to mucous plugging o r aspiration. Mediastinal and bilateral hilar lymphadenopathy. Small focus of active venous extravasation from the surface of the liver. Multiple heterogeneously enhancing liver masses, likely represent hepatic metas tases. Moderate volume hemoperitoneum. Results reported telephonically to Sweta Vegas PA-C by Dr. Mendoza at 9:5 0 PM on 01/19/2025.
--- NOTE | ~2025-01-19 | XR_ITS ---
EXAMINATION: XR chest 1V portable Exam Date/Time: 01/19/2025 18:55 CDT HISTORY: sob Comparison: 04/22/2022; CT lung screening 12/16/2024. RESULT: Lines, tubes, and devices: Partially visualized cervical hardware. Lungs and pleura: Emphysematous change. Left basilar scar/atelectasis. Multiple nodular opacities in the left hemithorax, measuring up to 5.7 cm. Soft tissue density thickening peripherally on the left , may represent pleural thickening Mild left costophrenic angle blunting. Cardiomediastinal silhouette: Stable. Other: No acute osseous or upper abdominal finding. IMPRESSION: Multiple left nodules/masses, measuring up to 5.7 cm. Apparent left pleural thickening and possible small left pleural effusion. Chronic emphysematous change with left basilar atelectasis/scarring. Reviewed, dictated and finalized at [facility].
--- OUTSIDE RECORDS SUMMARY | 2025-01-19 13:48 | XMS_ITS | Referral Summary ---
Author Organization [facility] [address] [facility] [address] Address [address] [place] [address] Care Team Providers Care Graining Press Operator Name Role Phone Des Dupont MD Primary Care Provider [phone] Encounters Date Type Department Care Team Description 12/27/2024 Telephone [facility] Medical Group Cardiology [address] [facility] [address] [place] [address] Bartolo Morillo MD from Last 3 Months Allergies No known [...] 2.5 mg tabletIndications :PAF (paroxysmal atrial fibrillation) ([facility]) TAKE 1 TABLET BY MOUTH EVERY DAY [...] 24 hr capsuleIndication s:PAF (paroxysmal atrial fibrillation) (HCC) TAKE 1 CAPSULE BY MOUTH EVERY DAY [...] extremity edema 04/28/2021 Claudication 04/28/2021 Atrial flutter 02/28/2019 Overview (02/28/2019): Added automatically from request for surgery [id number] PAF (paroxysmal atrial fibrillation) 10/25/2017 PFO (patent foramen ovale) 10/25/2017 Chronic [...] Comments Blood Pressure 104/54 10/08/2024 10:44 AM INSTALLER INSPECTOR FINAL Pulse 69 10/08/2024 10:44 AM INSTALLER INSPECTOR FINAL Temperature 35.9 C (96.6 F) 09/20/2021 1:23 PM INSTALLER INSPECTOR FINAL Respiratory Rate 24 04/01/2019 12:1 7 PM CDT Simultaneous filing. User may not have seen previous data. Oxygen Saturation 88% 10/08/2024 10: 44 AM INSTALLER INSPECTOR FINAL Inhaled Oxygen Concentration - - Weight 120.7 kg (266 lb) 10/08/2024 10: 44 AM INSTALLER INSPECTOR FINAL Height 193 cm (6' 4 ) 10/08/2024 10:44 AM INSTALLER INSPECTOR FINAL Body Mass Index 32.38 10/08/2024 10:44 AM INSTALLER INSPECTOR FINAL Plan of Treatment Not on file Insurance [employer] MEDICARE MEDICARE [facility] MEDICARE [facility] [facility] [employer] Care Teams Graining Press Operator Relationship Specialty Start Date End Date Des Dupont MD [address] [place] [address] PCP - General Family Medicine 04/23/24
--- OUTSIDE RECORDS SUMMARY | 2025-01-19 13:48 | XMS_ITS | Clinical Summary ---
Author Organization [facility] Address [address] [facility] [place] [address] Phone Care Team Providers Care House Sitter Name Role Phone Des Dupont MD Primary Care Provider [phone] Allergies No known active allergies Medications albuterol [...] 2) 2002 Influenza Immunization (#1) 06/23/202407/24, 08/15/2020, 08/15/2020, Additional history exists SARS-COV-2 Immunization ( season) 2024 01/25/2022, 09/04/2021, [...] topic Insurance MEDICARE [employer] Care Teams House Sitter Relationship Specialty Start Date End Date Des Dupont MD [address] [address] PCP - General Family Medicine 05/07/20
--- OUTSIDE RECORDS SUMMARY | 2025-01-19 13:48 | XMS_ITS | Encounter Summary ---
Author Organization [facility] Healthcare Address [address] [place] [address] Care Team Providers Care Centerpuncher Name Role Phone Des Dupont MD Primary Care Provider Encounter Details Date Type Department Care Team (Late st Contact Info) Description 12/27/2024 Telephone [facility] Medical Group Cardiology [address] [place] [address] Bartolo Morillo MD [address] [place] [id number] Social History Tobacco Use Types Packs/Day Years Used Date Smoking Tobacco: Former Cigarettes 1.5 45 0 05/30/1972 - 05/30/2017 Smokeless Tobacco: Never Comments:smoked occasionally Alcohol Use [...] on file documented as of this encounter Miscellaneous Notes * Telephone Encounter - Ann Stanley RN - 12/27/2024 10:20 AM NUCLEAR OFFICER Spoke with pt, requested he have the surgeon fax us clearance for provider to address. Provided ourfax number. EAR OFFICER * Telephone Encounter - Sal[place] Ting - 12/27/2024 10:14 AM CST Pt is scheduled for a biopsy at [facility] on 01/02. He is wanting to know if he needs to hold any meds. States he is unsure if they faxed a cardiac clearance request. Contact: EAR OFFICER documented in this encounter Plan of Treatment Not on file documented as of this encounter Visit Diagnoses Not on filedocumented in this encounter Care Teams Centerpuncher Relationship Specialty Start Date End Date Des Dupont MD [address] [place] [address] PCP - General Family Medicine 04/23/24 documented as of this encounter
--- OUTSIDE RECORDS SUMMARY | 2025-01-19 13:48 | XMS_ITS | Clinical Summary ---
Author Organization [facility] Address [address] [place] [address] Care Team Providers Care Patient Services Representative Name Role Phone Des Dupont MD Primary Care Provider [phone] Allergies No known active allergies Medications rivaroxaban (XARELTO) 20 mg Tablet Take 20 mg by mouth daily with supper. Active dilTIAZem (CARDIZEM CD) 360 mg Controlled Delivery 24 hour capsule Take 360 mg by mouth daily. Active morphine (MS IR) 15 mg tablet Take 15 mg by mouth every 6 hours as needed for Pain. Active morphine (MS CONTIN) 15 mg Controlled Release tablet Take 15 mg by mouth 3 times daily. Active metoprolol tartrate (LOPRESSOR) 25 mg tablet Take 25 mg by mouth 2 times daily. Active tiZANidine (ZANAFLEX) 4 mg Tablet Take 4 mg by mouth every 12 hours. Active gabapentin (NEURONTIN) 300 mg capsule Take 300 mg by mouth 3 times daily. Active furosemide (LASIX) 40 mg tablet Take 40 mg by mouth daily. 2 times every other day, and 1 time a day other days Active metOLazone (ZAROXOLYN) 2.5 mg tablet Take 2.5 mg by mouth daily. Every other day Active potassium CHLORIDE (KLOR-CON M20) 20 mEq Extended Release tablet Take 40 mEq by mouth daily. Active sennosides-docus ate sodium (Senexon-S) 8.6-50 mg tablet Take 1 Tablet by mouth every 6 hours. Active Active Problems No known active problems Encounters Date Type Department Care Team Description 01/17/2025 7:48 AM CDT - 01/17/2025 11:59 PM CDT Hospital Encounter [facility] Pulmonary Function [facility] [place] [address] [place] [address] [place] [phone] Kenny Khalil MD Discharge Disposition: Home or Self Care 01/14/2025 9:30 AM CDT Office Visit [facility] [address] [place] [phone] Kenny Khalil MD Malignant neoplasm of upper lobe of left lung (CMS/HCC) (Primary Dx) 01/07/2025 External Device Data STL ABSTRACTION Provider, Abstract 01/07/2025 Chart Note [facility] Oncology Patient Navigation [address] [place] [address] Meg Ridley RN Nurse Navigation (Establish Care) 01/02/2025 9:01 AM CDT - 01/02/2025 1:53 PM CDT [facility] [address] [place] [address] Robinson De Dios NP 6, [facility] [address] Lung mass Discharge Disposition: Home or Self Care from Last 3 Months Family History Medical History Relation Name Comments No Known Problems Brother 1 No Known Problems Brother 2 No Known Problems Brother 3 No Known Problems Brother 4 No Known Problems Father No Known Problems Mother Colon Cancer Sister 1 Pt stated inte stinal cancer No Known Problems Sister 2 No Known Problems Son Relation Name Status Comments Brother 1 Brother 2 Alive Brother 3 Alive Brother 4 Alive Father Mother Sister 1 Sister 2 Alive Son Alive Social History Tobacco Use Types Packs/Day Years Used Date Smoking Tobacco: Some Days Cigarettes Cigars Smokeless Tobacco: Never Tobacco Cessation:Ready to Q uit: Not Asked; Counseling Given: Not Answered Alcohol Use Standard Drinks/Week Comments Not Currently 0 (1 standard drink = 0.6 oz pur e alcohol) Sex and Gender Information Value Date Recorded Sex Assigned at Not on file 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 Gender Identity Not on file Sexual Orientation Not on file Last Filed Vital Signs Vital Sign Reading Time Taken Comments Blood Pressure 105/54 01/14/2025 9:35 AM CDT Pulse 76 01/14/2025 9:35 AM CDT Temperature 36 C (96.8 F) 01/14/2025 9:35 AM CDT Respiratory Rate 14 01/14/2025 9:35 AM CDT Oxygen Saturation 88% 01/14/2025 9:35 AM CDT Inhaled Oxygen Concentration - - Weight 119.5 kg (263 lb 6.4 oz) 01/14/2025 9:35 AM CDT Height 188 cm (6' 2 ) 01/14/2025 9:35 AM CDT Body Mass Index 33.82 01/14/2025 9:35 AM CDT Plan of Treatment Upcoming Encounters Date Type Department Care Team (Late st Contact Info) Description 01/22/2025 9:45 AM CDT Appointment [facility] Nuclear Medicine [address] [place] [phone] [id number] Kenny Khalil MD [address] [place] [phone] 01/24/2025 12:30 PM CDT Office Visit [facility] at [facility] [address] [facility] [id number] [place] [address] Wesley Kwok MD [address] [facility] [address] [place] [address] 01/24/2025 2:15 PM CDT Appointment [facility] [address] [facility] [address] [place] [phone] 02/04/2025 4:00 PM CDT Telephone Check Up [facility] - [place] [address] [facility] [address] [place] [address] Kenny Khalil MD [address] [place] [phone] Health Maintenance Due Date Last Done Comments DTAP/TDAP/TD VACCINES (1 - Tdap) 1971 Traditional Medicare (ACO) A nnual Wellness Visit 1971 COLORECTAL SCREENING 1997 Colorectal Cancer Screening 1997 FIT-DNA Q 3 years 1997 FIT/FOBT Q 1 year 1997 Flex Sig/CT Colonography Q 5 years 1997 RSV VACCINE (60+ or ) (1 - Risk 60-74 years 1-dose series) 2012 Abdominal Aortic Aneurysm (A AA) Screening 2017 INFLUENZA VACCINE (#1) 2024 , 08/15/2020, 09/05/2018 COVID-19 Vaccine ( - 2023-2 5 season) 2024 07/10/2022, 01/25/2022, 09/04/2021, Additional history exists PNEUMOCOCCAL VACCINE 50+ YEARS Completed 08/15/2020 , 09/05/2018 ZOSTER VACCINE Completed 09/06/2022, 06/02/2022 Procedures Procedure Name Priority Date/Time Associated Diagnosis Comments PULMONARY FUNCTION TEST Routine 01/17/2025 8:11 AM CDT Procedure Note - 01/17/2025 8:11 AM CDTThis note is in progress. 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 No pneumothorax. 2. Left upper lobe lung mass with adjacent small amount of postbiopsy hemorrhage. DICTATION LOCATION: Location [address] [place] [address] Narrative 01/02/2025 1:55 PM CDT EXAM: XR CHEST PA OR AP 1 VW DATE: 01/02/2025 1:48 PM HISTORY: Left upper lobe lung mass biopsy COMPARISON: Outside hospital chest CT dated 12/16/2024 FINDINGS: No pneumothorax. Known left upper lobe lung mass is redemonstrated and better evaluated on prior chest CT. Adjacent airspace opacities inferior to the mass likely representing small volume postbiopsy hemorrhage. Severe emphysema. No pleural effusion. Aortic atherosclerosis. Normal heart size. Cervical spinal fusion hardware. Procedure Note Kushal Dominguez MD - 01/02/2025 EXAM: XR CHEST PA OR AP 1 VW DATE: 01/02/2025 1:48 PM HISTORY: Left upper lobe lung mass biopsy COMPARISON: Outside hospital chest CT dated 12/16/2024 FINDINGS: No pneumothorax. Known left upper lobe lung mass is redemonstrated and better evaluated on prior chest CT. Adjacent airspace opacities inferior to the mass likely representing small volume postbiopsy hemorrhage. Severe emphysema. No pleural effusion. Aortic atherosclerosis. Normal heart size. Cervical spinal fusion hardware. IMPRESSION: 1. No pneumothorax. 2. Left upper lobe lung mass with adjacent small amount of postbiopsy hemorrhage. DICTATION LOCATION: Location [address] [place] [address] [place] Kushal Dominguez MD DIAGNOSTIC IMAGING ORDERABLES F inal Result * CT BIOPSY LUNG LEFT (01/02/2025 11:28 AM CDT) Anatomical Region Laterality Modality Chest Computed Tomogra phy 01/02/2025 11:0 3 AM CDT Impressions 01/02/2025 4:10 PM CDT Impression: CT-guided biopsy of a left upper lobe lung mass, as described above. DICTATION LOCATION: Location 1 - [facility] Narrative 01/02/2025 4:10 PM CDT Procedure: CT-guided biopsy of left upper lobe lung mass History: 74-year-old male with 3.6 cm left upper lobe lung mass IR: Kushal Dominguez MD Anesthesia: Local Procedure in detail: The procedure and possible complications were explained to the patient in detail, and informed consent was obtained. The patient was placed in a supine position on the CT table. Limited non-contrast CT examination of the chest demonstrated the known left upper lobe lung mass. A site was marked in the left lateral chest. The marked site and skin around the region was prepped and draped in a sterile fashion. Local anesthesia was provided with 1% Lidocaine. A 19 gauge co-axial needle system was advanced to the left upper lobe lung mass under CT guidance. Subsequently, multiple core samples were acquired with a 20 gauge biopsy device. As the needle was removed, small volume of Gelfoam slurry was injected along the biopsy tract. A dressing was applied. Final post-biopsy imaging did not show any immediate complication. The patient tolerated the procedure well and was transferred to the holding area in stable condition. Procedure Note Kushal Dominguez MD - 01/02/2025 Procedure: CT-guided biopsy of left upper lobe lung mass History: 74-year-old male with 3.6 cm left upper lobe lung mass IR: Kushal Dominguez MD Anesthesia: Local Procedure in detail: The procedure and possible complications were explained to the patient in detail, and informed consent was obtained. The patient was placed in a supine position on the CT table. Limited non-contrast CT examination of the chest demonstrated the known left upper lobe lung mass. A site was marked in the left lateral chest. The marked site and skin around the region was prepped and draped in a sterile fashion. Local anesthesia was provided with 1% Lidocaine. A 19 gauge co-axial needle system was advanced to the left upper lobe lung mass under CT guidance. Subsequently, multiple core samples were acquired with a 20 gauge biopsy device. As the needle was removed, small volume of Gelfoam slurry was injected along the biopsy tract. A dressing was applied. Final post-biopsy imaging did not show any immediate complication. The patient tolerated the procedure well and was transferred to the holding area in stable condition. Impression: CT-guided biopsy of a left upper lobe lung mass, as described above. DICTATION LOCATION: Location 1 - [facility] Robinson De Dios WELD[employer] [address] ORDERABLES Final Result * PATHOLOGY (01/02/2025 11:19 AM CDT) CASE REPORT Surgical Pathology Report Case: [id number] Authorizing Provider: Kushal Dominguez MD Collected: 01/02/2025 11:19 AM Ordering Location: [facility] Received: 01/02/2025 01:07 PM Francis Pathologist: Ashley Cho MD Specimen: Lung, left 4:41 PM T [facility] FINAL DIAGNOSIS Lung, left lung mass, biopsy: - Non-small cell carcinoma, poorly differentiated, favor squamous cell carcinoma. 4:41 PM [facility] at 1641 CDT DIAGNOSIS COMMENT Ancillary testing will be performed upon request. 4:41 PM [facility] GROSS DESCRIPTION Received in one container labeled Kushal Fernandez and left lung are 9 pieces of pink-feng tissue ranging from 0.1 to 0.5 cm in length and each measuring less than 0.1 cm in diameter. The tissue is entirely submitted in cassettes A1 and A2. [facility] 4:41 PM [facility] MICROSCOPIC DESCRIPTION The slides are labeled [id number] and Kushal Fernandez. Sections of the left lung biopsy reveal a poorly differentiated non-small cell carcinoma. The tumor cells display marked pleomorphism, characterized by large, irregular nuclei and prominent nucleoli. Frequent mitotic figures are noted, along with areas of tumor necrosis. Immunohistochemical staining of the lesional cells shows the following profile: Positive: CK7, p40. Negative: CK5/6, TTF-1, Synaptophysin, Chromogranin. The immunohistochemical profile supports the above diagnosis. 4:41 PM T [facility] [employer] [facility] CLINICAL INFORMATION No Dx found. 4:41 PM [facility] COMMENT Special stain, immunohistochemical, and/or in situ hybridization results are interpreted with controls that demonstrate appropriate staining reactions. Note on use of immunohistochemistry reagents and in situ hybridization probes: These tests were developed and their performance characteristics determined by [facility] Department of Laboratory Medicine. It has not been cleared or approved by the U.S. Food and Drug Administration. The FDA has determined that such clearance or approval is not necessary. The test is used for clinical purposes. It should not be regarded as investigational or for research. This laboratory is certified to perform high complexity testing. Frozen section/operating room consultation, gross examination and dissection, and case sign out may have been performed in part or completely in the following laboratories: [facility], CLIA #[id number] [address] [place] [address] [facility], CLIA #[id number] [address] [place] [address] [facility], CLIA #[id number] [address] [place] [address] This report was created with the [email or web address] voice-activated dictation system. Inherent to this system is the possibility of syntax, grammar, punctuation and other errors that could impact the interpretation of the report. If there are interpretative questions about aspects of this report, please contact the performing pathologist. 4:41 PM CDT [facility] Tissue SPECIMEN FROM LUNG / Unknown Collection / Unknown 01/02/2025 11:19 AM CDT 01/02/2025 1:07 PM CDT Kushal Dominguez MD PATHOLOGY/CYTOLOGY ORDERABLES F inal Result [facility] CLIA# [id number] [facility] [place] [address] * (ABNORMAL) CBC WITH DIFFERENTIAL (01/02/2025 9:20 AM CDT) WBC 10.3(H) 4.0 - 9.8 K/uL 01/02/2025 9:57 AM CDT [facility] RBC 6.27(H) 4.50 - 5.40 M/uL 01/02/2025 9:57 AM CDT [facility] - [facility] HEMOGLOBIN 17.3(H) 13.6 - 16.5 g/dL 01/02/2025 9:57 AM CDT [facility] - . [facility] HEMATOCRIT 54.2(H) 40.0 - 48.0 % 01/02/2025 9:57 AM CDT [facility] - . [facility] MCV 86.4 82.0 - 99.0 fL 01/02/2025 9:57 AM CDT [facility] - . [facility] MCH 27.6 27.2 - 32.6 pg 01/02/2025 9:57 AM CDT [facility] - . [facility] MCHC 31.9 31.5 - 35.5 g/dL 01/02/2025 9:57 AM CDT [facility] - . [facility] RDW 19.2(H) 11.5 - 14.5 % 01/02/2025 9:57 AM CDT [facility] - [facility] RDW-STDEV 56.7(H) 37.1 - 48.7 fL 01/02/2025 9:57 AM CDT [facility] - [facility] PLATELETS 207 140 - 350 K/uL 01/02/2025 9:57 AM CDT [facility] - . [facility] MPV 10.2 9.3 - 12.4 fL 01/02/2025 9:57 AM CDT [facility] - . [facility] NEUTROPHILS 67 % 01/02/2025 9:57 AM CDT [facility] - . [facility] LYMPHOCYTES 23 % 01/02/2025 9:57 AM CDT [facility] - . [facility] MONOCYTES 8 % 01/02/2025 9:57 AM CDT [facility] - . [facility] EOSINOPHILS 1 % 01/02/2025 9:57 AM CDT [facility] - . [facility] BASOPHILS 1 % 01/02/2025 9:57 AM CDT [facility] - . [facility] IMMATURE GRANULOCYTES 1 % 01/02/2025 9:57 AM CDT [facility] - . [facility] Comment:IG (Immature Granulo cyte) count includes Metamyelocytes, Myelocytes, and Promyelocytes NEUTROPHIL ABSOLUTE 6.93 1.90 - 7.00 K/uL 01/02/2025 9:57 AM CDT [facility] - [facility] LYMPHOCYTE ABSOLUTE 2.34 0.70 - 4.50 K/uL 01/02/2025 9:57 AM CDT [facility] MONOCYTE ABSOLUTE 0.82 0.10 - 1.30 K/uL 01/02/2025 9:57 AM CDT [facility] . [facility] EOSINOPHIL ABSOLUTE 0.09 0.00 - 0.70 K/uL 01/02/2025 9:57 AM CDT [facility] - . [facility] BASOPHILS ABSOLUTE 0.06 0.00 - 0.20 K/uL 01/02/2025 9:57 AM CDT [facility] - . [facility] IMMATURE GRANULOCYTES ABSOLUTE 0.06(H) 0.00 - 0.03 K/uL 01/02/2025 9:57 AM CDT [facility] - [facility] Blood Venipuncture / Unknown 01/02/2025 9:20 AM CDT 01/02/2025 9:38 AM CDT us Anthony Fraser MD HEMATOLOGY ORDERABLES F inal Result [facility] CLIA# [id number] [address] [facility] [place] [address] from Last 3 Months Insurance MEDICARE PART A AND B GENERIC PAYOR MEDICARE PART A AND B GENERIC PAYOR MEDICARE PART A AND B GENERIC PAYOR Care Teams Patient Services Representative Relationship Specialty Start Date End Date Des Dupont MD [address] [place] [phone] PCP - General Family Practice 01/14/25
--- OUTSIDE RECORDS SUMMARY | 2025-01-19 13:48 | XMS_ITS | Clinical Summary ---
Author Organization [facility] [employer] Address [address] [place] [address] Care Team Providers Care Environmental Manager Name Role Phone Unavailable Primary Care Provider Unavailabl e Source Comments [facility] [employer],non-owned Affiliates and Associated Physician Practices is amultiple site organization consisting of ambulatory clinics and hospital sitesin [place], [place], [place] and [place]. This disclosure is being madepursuant to the Care Everywhere program and may not contain all information available regarding this patient. Last updated 18.[facility] [employer] Social History Tobacco Use Types Packs/Day Years [...] to complete this topic MENINGOCOCCAL (Group B) VACC INE SHARED DECISION-MAKING Aged Out No longer eligibl e based on patient's age to complete this topic MENINGOCOCCAL GROUPS A/C/Y/W VACCINE Aged Out No longer eligible b ased on patient's age to complete this topic
--- OUTSIDE RECORDS SUMMARY | 2025-01-19 13:48 | XMS_ITS | Encounter Summary ---
Author Organization [facility] Address [address] [place] [address] Care Team Providers Care Senior Principal Process Engineer Name Role Phone Des Dupont MD Primary Care Provider Reason for Visit * Respiratory (Routine) - Closed Specialty Diagnoses / Procedures Referred By Contac t Referred To Contact Diagnoses Malignant neoplasm of upper lobe of left lung (CMS/HCC) Procedures PULMONARY FUNCTION TEST DE SPMTRY W/VC EXPIRATORY CLIVE W/WO MXML VOL VNTJ DE CO DIFFUSING CAPACITY DE PLETHYSMOGRAPHY LUNG VOLUMES W/WO AIRWAY RESIST Kenny Khalil MD [address] [place] [phone] Phone: tel: fax: [facility] Pulmonary Function [facility] A [address] [facility] [address] [place] [phone] Phone: tel: fax: Referral ID Status Reason Start Date Expiration Date V isits Requested Visits Authorized [id number] Closed CRS to Schedule 01/14/2025 02/14/2026 1 1 Encounter Details Date Type Department Care Team (Late st Contact Info) Description 01/17/2025 7:48 AM CDT - 01/17/2025 11:59 PM CDT Hospital Encounter [facility] Pulmonary Function [facility] A [address] [facility] [address] [place] [phone] Kenny Khalil MD [address] [facility] [address] [place] [phone] Discharge Disposition: Home or Self Care Social History Tobacco Use Types Packs/Day Years Used Date Smoking Tobacco: Some Days Cigarettes Cigars Smokeless Tobacco: Never Alcohol Use Standard Drinks/Week Comments Not Currently 0 (1 standard drink = 0.6 oz pur e alcohol) Sex and Gender Information Value Date Recorded Sex Assigned at Not on file Legal Sex Male 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 dilTIAZem (CARDIZEM CD) 360 mg Controlled Delivery 24 hour capsule Take 360 mg by mouth daily. morphine (MS IR) 15 mg tablet Take 15 mg by mouth every 6 hours as needed for Pain. morphine (MS CONTIN) 15 mg Controlled Release tablet Take 15 mg by mouth 3 times daily. metoprolol tartrate (LOPRESSOR) 25 mg tablet Take 25 mg by mouth 2 times daily. tiZANidine (ZANAFLEX) 4 mg Tablet Take 4 mg by mouth every 12 hours. gabapentin (NEURONTIN) 300 mg capsule Take 300 mg by mouth 3 times daily. furosemide (LASIX) 40 mg tablet Take 40 mg by mouth daily. 2 times every other day, and 1 time a day other days metOLazone (ZAROXOLYN) 2.5 mg tablet Take 2.5 mg by mouth daily. Every other day potassium CHLORIDE (KLOR-CON M20) 20 mEq Extended Release tablet Take 40 mEq by mouth daily. sennosides-docusa te sodium (Senexon-S) 8.6-50 mg tablet Take 1 Tablet by mouth every 6 hours. documented as of this encounter Progress Notes * Opal Ellington, INFORMATION TECHNOLOGY SECURITY ANALYST - 01/17/2025 8:45 AM CDT Images from the original note were not included. STL PFT Albuterol or Levalbuteral Protocol [facility] Approved by: [facility] - Medical Executive Committee Approval Date: 05/09/2024 ORDERS ARE ENTERED ???PER PROTOCOL?? Enter the protocol in the patient's electronic health record using smartphrase: .pulmonaryfunctionlabuseofalbuterolorlevalbuterolprotocol Respiratory Therapy Orders: Patients must meet one of the criteria outlined below for administration. If the patient meets criteria, the credentialed Respiratory Therapist will enter an order for albuterol or levalbuterol into the EHR. Order from credentialed provider specifying bronchodilation during pulmonary function testing. If the order is in script form, the order will be scanned into EHR. All initial diagnostic pulmonary function testing, defined as the absence of any previously documented PFT in the EHR. According to the results of PFT testing FEV1/FVC <= LLN (lower limit of normal) AND/OR RV >= ULN (upper limit of normal) IN CASE OF RESPIRATORY DISTRESS: ALLERGIC REACTION Place a 911 and 'Code Blue' call. When transfer is advisable, patient is transported to the emergency room. Notify the patient's primary provider. Medication Orders: Administer albuterol 0.5 mL (2.5 mg) in 2.5 mL 0.9% sodium chloride or equivalent albuterol unit dose (2.5 mg/3 mL) by inhalation via nebulizer one time only Levalbuterol may be substituted if patient has current home order for levalbuterol or substituted by a melter operator on a dtdf-ds-bhjp basis. If so, administer levalbuterol 0.5 mL (1.25 mg) in 2.5 mL0.9% sodium chloride or equivalent levalbuterol unit dose (1.25 mg/3 mL) by inhalation via nebulizer one time only. * Opal Ellington RCP - 01/17/2025 8:45 AM CDT Images from the original note were not included. STL PFT Hemoglobin Determination Protocol [facility] Approved by: [facility] - Medical Executive Committee Approval Date: 04/11/2024 ORDERS ARE ENTERED ??? PER PROTOCOL?? Enter the protocol in the patient's electronic health record using smartphrase: .pulmonaryfunctionvenousblooddrawhgbprotocol Respiratory Therapy Orders: Diffusion Capacity (DLCO) TESTING: If a current serum hemoglobin is available, within 3 months of testing and without history of active bleeding, the serum hemoglobin is used. If a current serum hemoglobin is not available, hemoglobin is obtained indirectly through pulse technology. If the perfusion index of the measurement is acceptable (PI>1.0), and if the SpHb = 10 gm/dl or greater, but not greater than 15 gm/dl, the indirect measurement is used. If the above criteria are not met, or there is any question of the accuracy of the measurement, a fingerstick will be performed and hemoglobin will be measured with the HemoCue HB 201 Analyzer, as outlined in the [facility] policy: [facility] HemoCue Hemoglobin Procedure documented in this encounter Plan of Treatment Upcoming Encounters Date Type Department Care Team (Late st Contact Info) Description 01/22/2025 9:45 AM CDT Appointment [facility] Nuclear Medicine [address] [place] [phone] Kenny Khalil MD [address] [facility] [address] [place] [address] 01/24/2025 12:30 PM CDT Office Visit [facility] Cardiovas and Thor Surg at [facility] Heart Hosp [address] [facility] [address] [place] [address] Wesley Kwok MD [address] [facility] [address] [place] [address] 01/24/2025 2:15 PM CDT Appointment [facility] [address] [place] [phone] 02/04/2025 4:00 PM CDT Telephone Check Up [facility] Oncology and Hematology - [place] [address] [facility] [address] [place] [address] Kenny Khalil MD [address] [place] [phone] Pending Results Name Type Priority Associated Diagnoses Date /Time PULMONARY FUNCTION TEST PFT Routine 0 01/17/2025 8:11 AM CDT documented as of this encounter Procedures Procedure Name Priority Date/Time Associated Diagnosis Comments PULMONARY FUNCTION TEST Routine 01/17/2025 8:11 AM CDT Procedure Note - 01/17/2025 8:11 AM CDTThis note is in progress. [facility] [address] [facility], [place] [address] Test Date: 2025-01-17 Pat Name: KUSHAL ABEL Department: Room: Gender: Male Hazardous Materials Analyst: : 1950 Requested By: KENNY Eric Order Number: [id number] Salvatore MD: Interpretive Statements 4.19 documented in this encounter Visit Diagnoses Not on filedocumented in this encounter Administered Medications Inactive Administered Medications - up to 3 most recent administrations Medication Order MAR Action Action Date Dose Rate Site albuterol (PROVENTIL,VENTOLIN) 2.5 mg /3 mL (0.083 %) inhalation solution 2.5 mg 2.5 mg, Inhalation, ONE TIME ONLY RESPIRATORY, 1 dose, On Mon01/17/25 at 0915, Routine Given 01/17/2025 9:15 AM CDT 2.5 mg documented in this encounter Care Teams Senior Principal Process Engineer Relationship Specialty Start Date End Date Des Dupont MD [address] [place] [phone] PCP - General Family Practice 01/14/25 documented as of this encounter
--- OUTSIDE RECORDS SUMMARY | 2025-01-19 13:48 | XMS_ITS | Encounter Summary ---
Author Organization [facility] Address [address] [facility] [place] [address] Care Team Providers Care Bore Miner Operator Name Role Phone Unavailable Primary Care Provider Unavailabl e Encounter Details Date Type Department Care Team (Late st Contact Info) Description 08/29/2023 Lab Requisition [facility] - DermPath Lab [address] [facility] [place] [phone] Naga Boswell MD [address] [address] Social History Tobacco Use Types Packs/Day Years [...] Comments DERMATOPATHOLOGY Routine 08/29/2023 12:0 0 AM DRAFTING TEACHER documented in this encounter Results * DERMATOPATHOLOGY (08/29/2023 12:00 AM DRAFTING TEACHER) Case Report Dermatopathology Report Case: [id number] Authorizing Provider: Naga Boswell MD Collected: 08/29/2023 12:00 AM Ordering Location: [facility] DermPath Lab Received: 08/30/2023 07:05 AM Pathologist: Hernesto Sargent MD Specimen: Skin, right thigh 3 3:45 PM DRAFTING TEACHER DERMATOPATHOLOGY LABORATORY Final Diagnosis Specimen A. SKIN, right thigh: BENIGN VERRUCOUS KERATOSIS, INFLAMED (L82.1) 3 3:45 PM DRAFTING TEACHER DERMATOPATHOLOGY LABORATORY Clinical History Prurigo vs BCC vs SCC. Path#[id number] 3 3:45 PM [facility] DERMATOPATHOLOGY LABORATORY Gross Description Specimen A: Received is one formalin filled container labeled with the patient's name and designated right thigh. The specimen consists of a shave biopsy measuring 7x6x1 mm. Jar 0. 3:45 PM [facility] DERMATOPATHOLOGY LABORATORY Microscopic Description Specimen A. SKIN, right thigh: Sections show hyperkeratosis, papillomatosis, hypergranulosis, and acanthosis. Inflammatory cells are present within the dermis. These histological findings can be seen in a verruca vulgaris or a seborrheic keratosis. 3 3:45 PM [facility] DERMATOPATHOLOGY LABORATORY Disclaimer An external and internal positive and negative controls are appropriate for the histochemical, immunohistochemical and immunofluorescence stain(s) in this case (if any), except where stated explicitly. The performance characteristics of the stain(s) cited in this report were developed and its performance characteristic determined by the Dermatopathology Laboratory at [facility], directed by Dr. Hodan Sargent. These tests need not be, and therefore are not, approved by the [place] Food and Drug Administration. The tests are used for clinical purposes. Billing Codes Specimen Charges Stain Charges 53077 1 3 3:45 PM [facility] DERMATOPATHOLOGY LABORATORY Embedded Images 3 3:45 PM [facility] DERMATOPATHOLOGY LABORATORY Pathology/Cytolog y TISSUE SPECIMEN FROM SKIN / Unknown 08/29/2023 08/30/2023 7:05 AM DRAFTING TEACHER Naga Boswell MD LAB - PATHOLOGY/CYTO LOGY ORDERABLES DERMATOPATHOLOGY LABORATORY [facility] - Department of Dermatology [address], [address] [phone] documented in this encounter Visit Diagnoses Not on filedocumented in this encounter
--- OUTSIDE RECORDS SUMMARY | 2025-01-19 13:48 | XMS_ITS | CONTINUITY OF CARE DOCUMENT ---
Author Name austyn zaman Address Unknown Organization [facility] Address [address] [address] Phone [phone] Care Team Providers Care Drug Enforcement Agent Name Role Phone Johanne LEYVA, Angel Unavailable [phone] Jagjit Romero DPM Unavailable LOLA LEYVA, ROCÍO Christel Unavailable PROBLEMS Condition Status Date Provider Notes Cardiology examination active Angel Whiting MD AFIB active Angel Whiting MD Venous insufficiency, chronic active Angel Whiting MD Foot pain, left active Angel Whiting MD ENCOUNTERS Date Type Provider Location Encounter Diag nosis - In-person encounter Office Visit Angel Whiting MD [facility] Cardiology examinationAFIBVenous insufficiency, chronicFoot pain, left VITAL SIGNS Date Observation Value Provider Body Mass Index (Ratio) 33.98 kg/m2 Bereket Whiting MD blood pressure, diastolic 70 mm[Hg] Linda nkLogteressa blood pressure, systolic 107 mm[Hg] Berna Jacobs pulse rate 91 /min Roxy Mendez blood pressure, cuff size large Ta balwinder Mendez respiratory rate E&M 18 /min Roxy Mendez oxygen saturation, oximetry 98 % Roxy Mendez blood pressure, diastolic 70 mm[Hg] Bran [...] Payer name Policy type / Coverage type [place] [employer] party ID [employer] Other 1 [id number] [place] Medicare [id number] ADVANCE DIRECTIVES Name Date DISCUSSED - NO DECISION MADE TREATMENT PLAN Date Name Performer [id number],S, Angel Whiting MD [id number],C,Manage by Dr. Morillo. Angel Whiting MD [id number],C,W ill check YAJAIRA, Sensilase, for the obvious [...]
--- OUTSIDE RECORDS SUMMARY | 2025-01-19 13:48 | XMS_ITS | Encounter Summary ---
Author Organization [facility] Address [address] [facility] [place] [address] Care Team Providers Care Information Receptionist Name Role Phone Unavailable Primary Care Provider Unavailabl e Encounter Details Date Type Department Care Team (Late st Contact Info) Description 09/25/2020 Lab Requisition [facility] DermPath Lab [address] [place] [phone] Naga Boswell MD [address] [place] [address] Social History Tobacco Use Types [...] Comments DERMATOPATHOLOGY Routine 09/24/2020 12:0 0 AM PUBLIC HEALTH DIETITIAN documented in this encounter Results * DERMATOPATHOLOGY (09/24/2020 12:00 AM PUBLIC HEALTH DIETITIAN) Case Report Dermatopathology Report Case: [id number] Authorizing Provider: Naga Boswell MD Collected: 09/24/2020 12:00 AM Ordering Location: [facility] DermPath Lab Received: 09/25/2020 06:41 AM Pathologist: Manju Figueroa MD Specimens: A) - Skin, right upper post auricular B) - Skin, right lower post auricular 0 1:35 PM PUBLIC HEALTH DIETITIAN DERMATOPATHOLOGY LABORATORY Final Diagnosis Specimen A. SKIN, right upper post auricular: EPIDERMOID CYST (L72.0) NOT PRESENT AT SAMPLED MARGIN Specimen B. SKIN, right lower post auricular: EPIDERMOID CYST (L72.0) NOT PRESENT AT SAMPLED MARGIN 0 1:35 PM PUBLIC HEALTH DIETITIAN DERMATOPATHOLOGY LABORATORY Clinical History A: E cyst. Path # [id number]. Check margins. B: E cyst. Path # [id number]. 0 1:35 PM [facility] DERMATOPATHOLOGY LABORATORY Gross Description Specimen A: Received is one formalin filled container labeled with the patient's name and designated right upper post auricular. The specimen consists of a 38y1r7bw excision, bisected. The margin is inked green. Jar 0. Specimen B: Received is one formalin filled container labeled with the patient's name and designated right lower post auricular. The specimen consists of a 31x4v8ov excision, bisected. The margin is inked green. Jar 0. 0 1:35 PM [facility] DERMATOPATHOLOGY LABORATORY Microscopic Description Specimen A. SKIN, [...] margin of the specimen. 0 1:35 PM [facility] DERMATOPATHOLOGY LABORATORY Disclaimer An external and internal positive and negative controls are appropriate for the histochemical, immunohistochemical and immunofluorescence stain(s) in this case (if any), except where stated explicitly. The performance characteristics of the stain(s) cited in this report were developed and its performance characteristic determined by the Dermatopathology Laboratory at [facility], directed by Dr. Hodan Sargent. These tests need not be, and therefore are not, approved by the [place] Food and Drug Administration. The tests are used for clinical purposes. Billing Codes Specimen Charges Stain Charges 79836 53186 1 1 0 1:35 PM [facility] DERMATOPATHOLOGY LABORATORY Embedded Images 0 1:35 PM [facility] DERMATOPATHOLOGY LABORATORY Pathology/Cytology TISSUE SPECIMEN FROM SKIN / Unknown 09/24/2020 09/25/2020 6:41 AM PUBLIC HEALTH DIETITIAN Miscellaneous samples (specimen) TISSUE SPECIMEN FROM SKIN / Unknown 09/24/2020 09/25/2020 6:41 AM PUBLIC HEALTH DIETITIAN Naga Boswell MD LAB - PATHOLOGY/CYTO LOGY ORDERABLES DERMATOPATHOLOGY LABORATORY [facility] - Department of Dermatology [facility] Medicine [address] [place] [address], [address] [phone] documented in this encounter Visit Diagnoses Not on filedocumented in this encounter
--- OUTSIDE RECORDS SUMMARY | 2025-01-19 13:48 | XMS_ITS | Encounter Summary ---
Author Organization [facility] Address [address] [place] [address] Care Team Providers Care Type Bar And Segment Assembler Name Role Phone Des Dupont MD Primary Care Provider [phone] Tessa Pantoja MD Primary Care Provider [phone] Des Dupont MD Primary Care Provider + [phone] Encounter Details Date Type Department Care Team (Late st Contact Info) Description 12/30/2017 Orders Only [facility] Health Information Management [address] [place] [address] Scanning, Provider Social History Tobacco Use [...] Comments SCAN - LABS 12/30/2017 1:20 AM FOAM MOLDER documented in this encounter Results * SCAN - LABS (12/30/2017 1:20 AM FOAM MOLDER) us Provider Scanning Final Result documented in this encounter Visit Diagnoses Not on filedocumented in this encounter Care Teams Type Bar And Segment Assembler Relationship Specialty Start Date End Date Des Dupont MD PCP - General Family Medicine 07/13/17 08/17/23 Tessa Pantoja MD [address] [place] [address] PCP - General Family Medicine 08/18/23 04/22/24 Des Dupont MD [address] [place] [address] PCP - General Family Medicine 04/23/24 documented as of this encounter
--- OUTSIDE RECORDS SUMMARY | 2025-01-19 13:48 | XMS_ITS | Clinical Summary ---
Author Organization [facility] [address] Address [address] [place] [address] Care Team Providers Care Precinct Police Lieutenant Name Role Phone Des Dupont MD Primary Care Provider [phone] Allergies No known active allergies Medications morphine [...] tablet 0.5 tablets (2 mg total) 01/22/20 Active morphine ER (MS CONTIN) 30 mg [...] 2.5 mg tabletIndications :PAF (paroxysmal atrial fibrillation) ([facility]) TAKE 1 TABLET BY MOUTH EVERY DAY [...] 24 hr capsuleIndication s:PAF (paroxysmal atrial fibrillation) ([facility]) TAKE 1 CAPSULE BY MOUTH EVERY DAY [...] (02/28/2019): Added automatically from request for surgery [id number] PAF (paroxysmal atrial fibrillation) 10/25/2017 PFO (patent foramen ovale) 10/25/2017 Chronic anticoagulation 10/25/2017 HTN (hypertension), benign 10/25/2017 Resolved Problems Problem Noted Date Diagnosed Date Resolved Date Chronic obstructive pulmonary disease 10/25/2017 04/28/2021 Encounters Date Type Department Care Team Description 12/27/2024 Telephone [facility] Cardiology [address] [place] [address] Bartolo Morillo MD from Last 3 Months Surgical History Surgery Date Site/Laterality Comments NECK SURGERY TONSILLECTOMY Medical History Medical History Date Comments Atrial fibrillation (HCC) Sleep apnea Shortness of breath Family [...] Comments Blood Pressure 104/54 10/08/2024 10:44 AM ANESTHESIA ASSISTANT Pulse 69 10/08/2024 10:44 AM ANESTHESIA ASSISTANT Temperature 35.9 C (96.6 F) 09/20/2021 1:23 PM ANESTHESIA ASSISTANT Respiratory Rate 24 04/01/2019 12:1 7 PM CDT Simultaneous filing. User may not have seen previous data. Oxygen Saturation 88% 10/08/2024 10: 44 AM ANESTHESIA ASSISTANT Inhaled Oxygen Concentration - - Weight 120.7 kg (266 lb) 10/08/2024 10: 44 AM ANESTHESIA ASSISTANT Height 193 cm (6' 4 ) 10/08/2024 10:44 AM ANESTHESIA ASSISTANT Body Mass Index 32.38 10/08/2024 10:44 AM ANESTHESIA ASSISTANT Plan of Treatment Health Maintenance Due Date Last Done Comments Colon Cancer Screening-Colonoscopy 1950 Depression Screening 1950 Hepatitis C Screening 1950 DTaP/Tdap/Td Vaccine (1 - Tdap) 1963 Hepatitis B Screening 1970 Lung Cancer Screening 2002 Zoster Vaccine (1 of 2) 2002 Abdominal Aortic Aneurysm (AAA) Screen 2017 Well Visit 65+ 2017 Fall Risk Assessment 07/31/2021 07/31/2020, 03/26/20 20 Covid-19 Vaccine (2 - season) 2024 Influenza Vaccine (#1) 2024 08/15/2020, 2017 Pneumococcal vaccine 65+ Completed 08/15/2020, 08/23 Insurance [employer] [facility] MEDICARE MEDICARE [employer] [place] MEDICARE [employer] Care Teams Precinct Police Lieutenant Relationship Specialty Start Date End Date Des Dupont MD [address] [place] [address] PCP - General Family Medicine 04/23/24
--- OUTSIDE RECORDS SUMMARY | 2025-01-19 13:48 | XMS_ITS | Encounter Summary ---
Author Organization [facility] Address [address] [facility] [place] [address] Care Team Providers Care Odd Job Worker Name Role Phone Unavailable Primary Care Provider Unavailabl e Encounter Details Date Type Department Care Team (Late st Contact Info) Description 07/20/2020 Lab Requisition [facility] DermPath Lab [address] [facility] [place] [phone] Naga Boswell MD [address] [place] [address] Social History Tobacco Use Types [...] AM CDT) Case Report Dermatopathology Report Case: [id number] Authorizing Provider: Naga Boswell MD Collected: 07/16/2020 12:00 AM Ordering Location: [facility] DermPath Lab Received: 07/20/2020 06:35 AM [...] specimen consists of a shave biopsy measuring 1x6j5hc. Jar 0. 0 1:38 PM CDT DERMATOPATHOLOGY [...] characteristic determined by the Dermatopathology Laboratory at [facility], directed by Dr. Hodan Sargent. These tests need not be, and therefore are not, approved by the [place] Food and Drug Administration. The tests are used for clinical purposes. Billing Codes Specimen Charges Stain Charges 53273 1 0 1:38 PM CDT DERMATOPATHOLOGY LABORATORY Embedded Images 0 1:38 PM CDT DERMATOPATHOLOGY LABORATORY Pathology/Cytolog y TISSUE SPECIMEN FROM SKIN / Unknown 07/16/2020 07/20/2020 6:35 AM CDT Naga Boswell MD LAB - PATHOLOGY/CYTO LOGY ORDERABLES DERMATOPATHOLOGY LABORATORY [facility] - Department of Dermatology [address] [phone] documented in this encounter Visit Diagnoses Not on filedocumented in this encounter
--- OUTSIDE RECORDS SUMMARY | 2025-01-19 16:31 | XMS_ITS | Referral Summary ---
Author Organization [facility] [address] [facility] [address] Address [address] [place] [address] Care Team Providers Care Medical Record Transcriber Name Role Phone Des Dupont MD Primary Care Provider Encounters Date Type Department Care Team Description 12/27/2024 Telephone [facility] Medical [facility] Cardiology [address] [facility] [address] [place] [address] Bartolo Morillo MD from Last [...] 2.5 mg tabletIndications :PAF (paroxysmal atrial fibrillation) (FORMERLY [facility]) TAKE 1 TABLET BY MOUTH EVERY DAY [...] (02/28/2019): Added automatically from request for surgery [id number] PAF (paroxysmal atrial fibrillation) 10/25/2017 PFO (patent [...] Comments Blood Pressure 104/54 10/08/2024 10:44 AM TIP SCOURER Pulse 69 10/08/2024 10:44 AM TIP SCOURER Temperature 35.9 C (96.6 F) 09/20/2021 1:23 PM TIP SCOURER Respiratory Rate 24 04/01/2019 12:1 7 PM CDT Simultaneous filing. User may not have seen previous data. Oxygen Saturation 88% 10/08/2024 10: 44 AM TIP SCOURER Inhaled Oxygen Concentration - - Weight 120.7 kg (266 lb) 10/08/2024 10: 44 AM TIP SCOURER Height 193 cm (6' 4 ) 10/08/2024 10:44 AM TIP SCOURER Body Mass Index 32.38 10/08/2024 10:44 AM TIP SCOURER Plan of Treatment Not on file Insurance [employer] MEDICARE MEDICARE PHYSICIANS [facility] INS CO MEDICARE PHYSICIANS [facility] INS CO Care Teams Medical Record Transcriber Relationship Specialty Start Date End Date Des Dupont MD [address] [place] [address] PCP - General Family Medicine 04/23/24
--- OUTSIDE RECORDS SUMMARY | 2025-01-19 16:31 | XMS_ITS | CONTINUITY OF CARE DOCUMENT ---
Author Name austyn zaman Address Unknown Organization [facility] Address [address] [address] Phone [phone] Care Team Providers Care Stencil Typist Name Role Phone Johanne LEYVA, Angel Unavailable Jagjit Romero DPM Unavailable LOLA LEYVA, ROCÍO Christel Unavailable [phone] PROBLEMS Condition Status Date Provider Notes Cardiology examination active Angel Whiting MD AFIB active Angel Whiting MD Venous insufficiency, chronic active Angel Whiting MD Foot pain, left active Angel Whiting MD ENCOUNTERS Date Type Provider Location Encounter Diag nosis - In-person encounter Office Visit Angel Whiting MD [facility] Cardiology examinationAFIBVenous insufficiency, chronicFoot pain, left [...] History: Lori oswald is a former smoker. Agnel Whiting MD social history reviewed E&M revi ewed - no changes required Angel Whiting MD smoking history, total pack/day 1.5 Roxy Mendez smoking, year quit 2016 Roxy aldrich cigarette use yes Roxy Andrea smoking status Former smoker Roxy Andrea INSURANCE PROVIDERS Payer name Policy type / Coverage type [place] red democrat ID [employer] Other 1 [id number] [place] Medicare [id number] ADVANCE DIRECTIVES Name Date DISCUSSED - NO DECISION MADE TREATMENT PLAN Date Name Performer [id number],S, Angel Whiting MD [id number],C,Manage by Dr. Morillo. Angel Whiting MD [id number],C,W ill check YAJAIRA, Sensilase, for the obvious [...]
--- OUTSIDE RECORDS SUMMARY | 2025-01-19 16:31 | XMS_ITS | Clinical Summary ---
Author Organization [facility] Address [address] [place] [address] Care Team Providers Care Foundry Finisher Name Role Phone Des Dupont MD Primary Care Provider [phone] Allergies No known active allergies Medications rivaroxaban [...] - 01/17/2025 11:59 PM CDT Hospital Encounter [facility] Pulmonary Function [facility] [address] [facility] [address] [place] [address] Kenny Khalil MD Discharge Disposition: Home or Self Care 01/14/2025 9:30 AM CDT Office Visit [facility] Oncology and Hematology [facility] [address] [place] [phone] Kenny Khalil MD Malignant neoplasm of upper lobe of left lung (CMS/HCC) (Primary Dx) 01/07/2025 External Device Data STL ABSTRACTION Provider, Abstract 01/07/2025 Chart Note [facility] Oncology Patient Navigation [address] [place] [address] Meg Ridley RN Nurse Navigation (Establish Care) 01/02/2025 9:01 AM CDT - 01/02/2025 1:53 PM CDT [facility] [address] [place] [address] Robinson De Dios NP 6, [...] on file 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 Hosp [address] [facility] [address] [place] [address] Wesley Kwok MD [address] [facility] [address] [place] [address] 01/24/2025 2:15 PM CDT Appointment [facility] [address] [place] [phone] 02/04/2025 4:00 PM CDT Telephone Check Up [facility] Oncology and Hematology - [place] [address] [facility] [address] [place] [address] Kenny Khalil MD [address] [place] [address] Health Maintenance Due Date Last Done [...] 8:11 AM CDTThis note is in progress. [facility] [address] [place] [address] Test Date: 2025-01-17 Pat Name: KUSHAL FERNANDEZ Department: Room: Gender: Male Embroidery Operator: : 1950 Requested By: KENNY Eric Order Number: [id number] Salvatore MD: Interpretive Statements 4.19 XR CHEST [...] amount of postbiopsy hemorrhage. DICTATION LOCATION: Location [address] [place] [address] Narrative 01/02/2025 1:55 PM CDT EXAM: XR [...] amount of postbiopsy hemorrhage. DICTATION LOCATION: Location [address] [place] [address] us Kushal Dominguez MD DIAGNOSTIC IMAGING ORDERABLES F inal Result * CT BIOPSY LUNG LEFT (01/02/2025 11:28 AM CDT) Anatomical Region Laterality Modality Chest Computed Tomogra phy 01/02/2025 11:0 3 AM CDT Impressions 01/02/2025 4:10 PM CDT Impression: CT-guided biopsy of a left upper lobe lung mass, as described above. DICTATION LOCATION: Location 1 - [facility] Narrative 01/02/2025 4:10 PM CDT Procedure: CT-guided [...] described above. DICTATION LOCATION: Location 1 - [facility] Robinson De Dios STUNNER ANIMAL CT ORDERABLES Final Result * PATHOLOGY (01/02/2025 11:19 AM CDT) CASE REPORT Surgical Pathology Report Case: [id number] Authorizing Provider: Kushal Dominguez MD Collected: 01/02/2025 11:19 AM Ordering Location: [facility] Received: 01/02/2025 01:07 PM Francis Pathologist: Ashley Cho MD Specimen: Lung, left 4:41 PM T [facility] FINAL DIAGNOSIS Lung, left lung mass, biopsy: - Non-small cell carcinoma, poorly differentiated, favor squamous cell carcinoma. 4:41 PM [facility] at 1641 CDT DIAGNOSIS COMMENT Ancillary testing will be performed upon request. 4:41 PM [facility] GROSS DESCRIPTION Received in one container labeled Kushal Fernadnez and left lung are 9 pieces of pink-feng tissue ranging from 0.1 to 0.5 cm in length and each measuring less than 0.1 cm in diameter. The tissue is entirely submitted in cassettes A1 and A2. [facility] 4:41 PM [facility] MICROSCOPIC DESCRIPTION The slides are labeled [id number] and Kushal Fernandez. Sections of the left [...] supports the above diagnosis. 4:41 PM T [facility] spigit [facility] CLINICAL INFORMATION No Dx found. 4:41 PM [facility] COMMENT Special stain, immunohistochemical, and/or in situ hybridization results are interpreted with controls that demonstrate appropriate staining reactions. Note on use of immunohistochemistry reagents and in situ hybridization probes: These tests were developed and their performance characteristics determined by [facility] Department of Laboratory Medicine. It has not [...] part or completely in the following laboratories: [facility], CLIA #[id number] [address] [place] [address] [facility], CLIA #[id number] [address] [place] [address] [facility], CLIA #[id number] [address] [place] [address] This report was created with the [employer] voice-activated dictation system. Inherent to this system is the possibility of syntax, grammar, punctuation and other errors that could impact the interpretation of the report. If there are interpretative questions about aspects of this report, please contact the performing pathologist. 4:41 PM CDT [facility] Tissue SPECIMEN FROM LUNG / Unknown Collection / Unknown 01/02/2025 11:19 AM CDT 01/02/2025 1:07 PM CDT Kushal Dominguez MD PATHOLOGY/CYTOLOGY ORDERABLES F inal Result [facility] CLIA# [id number] [address] [facility] [place] [address] * (ABNORMAL) CBC WITH DIFFERENTIAL (01/02/2025 9:20 AM CDT) WBC 10.3(H) 4.0 - 9.8 K/uL 01/02/2025 9:57 AM CDT [facility] RBC 6.27(H) 4.50 - 5.40 M/uL 01/02/2025 9:57 AM CDT [employer] LABORATORY SERVICES - [facility] HEMOGLOBIN 17.3(H) 13.6 - 16.5 g/dL 01/02/2025 9:57 AM CDT [employer] [facility] - . [facility] HEMATOCRIT 54.2(H) 40.0 - 48.0 % 01/02/2025 9:57 AM CDT [employer] LAB[facility] SERVICES - . [facility] MCV 86.4 82.0 - 99.0 fL 01/02/2025 9:57 AM CDT [employer] LABOR[facility]ORY SERVICES - . [facility] MCH 27.6 27.2 - 32.6 pg 01/02/2025 9:57 AM CDT [employer] LABOR[facility]ORY SERVICES - . [facility] MCHC 31.9 31.5 - 35.5 g/dL 01/02/2025 9:57 AM CDT [employer] LABORATORY SERVICES - . [facility] RDW 19.2(H) 11.5 - 14.5 % 01/02/2025 9:57 AM CDT [employer] LABORATORY SERVICES - [facility] RDW-STDEV 56.7(H) 37.1 - 48.7 fL 01/02/2025 9:57 AM CDT [employer] LABORATORY SERVICES - [facility] PLATELETS 207 140 - 350 K/uL 01/02/2025 9:57 AM CDT [employer] LABORATORY SERVICES - . [facility] MPV 10.2 9.3 - 12.4 fL 01/02/2025 9:57 AM CDT [employer] LABORATORY SERVICES - . [facility] NEUTROPHILS 67 % 01/02/2025 9:57 AM CDT [employer] LABORATORY SERVICES - . [facility] LYMPHOCYTES 23 % 01/02/2025 9:57 AM CDT [employer] LABORATORY SERVICES - . [facility] MONOCYTES 8 % 01/02/2025 9:57 AM CDT [employer] [facility]ATORY SERVICES - . [facility] EOSINOPHILS 1 % 01/02/2025 9:57 AM CDT [employer] [facility]ATORY SERVICES - . [facility] BASOPHILS 1 % 01/02/2025 9:57 AM CDT [employer] LABORATORY SERVICES - . [facility] IMMATURE GRANULOCYTES 1 % 01/02/2025 9:57 AM CDT [employer] LABORATORY SERVICES - . [facility] Comment:IG (Immature Granulo cyte) count includes Metamyelocytes, Myelocytes, and Promyelocytes NEUTROPHIL ABSOLUTE 6.93 1.90 - 7.00 K/uL 01/02/2025 9:57 AM CDT [employer] [facility] - [facility] LYMPHOCYTE ABSOLUTE 2.34 0.70 - 4.50 K/uL 01/02/2025 9:57 AM CDT [facility] - . [facility] MONOCYTE ABSOLUTE 0.82 0.10 - 1.30 K/uL 01/02/2025 9:57 AM CDT [facility] . [facility] EOSINOPHIL ABSOLUTE 0.09 0.00 - 0.70 K/uL 01/02/2025 9:57 AM CDT [facility] - . [facility] BASOPHILS ABSOLUTE 0.06 0.00 - 0.20 K/uL 01/02/2025 9:57 AM CDT [employer] [facility]ORY SERVICES - . [facility] IMMATURE GRANULOCYTES ABSOLUTE 0.06(H) 0.00 - 0.03 K/uL 01/02/2025 9:57 AM CDT [employer] LABORATORY SERVICES - [facility] Blood Venipuncture / Unknown 01/02/2025 9:20 AM CDT 01/02/2025 9:38 AM CDT us Anthony Fraser MD HEMATOLOGY ORDERABLES F inal Result [facility] LABORATORY SERVICES [facility] CLIA# [id number] [address] [facility] [place] [address] from Last 3 Months Insurance MEDICARE PART A AND B GENERIC PAYOR MEDICARE PART A AND B GENERIC PAYOR MEDICARE PART A AND B GENERIC PAYOR Care Teams Foundry Finisher Relationship Specialty Start Date End Date Des Dupont MD [address] [place] [phone] PCP - General Family Practice 01/14/25
--- OUTSIDE RECORDS SUMMARY | 2025-01-19 16:31 | XMS_ITS | Encounter Summary ---
Author Organization [facility] Address [address] [place] [address] Care Team Providers Care Power Generation Technician Name Role Phone Des Dupont MD Primary Care Provider [phone] Reason for Visit * Respiratory (Routine) - Closed Specialty Diagnoses / Procedures Referred By Contac t Referred To Contact Diagnoses Malignant neoplasm of upper lobe of left lung (CMS/HCC) Procedures PULMONARY FUNCTION TEST VA SPMTRY W/VC EXPIRATORY CLIVE W/WO MXML VOL VNTJ VA CO DIFFUSING CAPACITY VA PLETHYSMOGRAPHY LUNG VOLUMES W/WO AIRWAY RESIST Kenny Khalil MD [address] [place] [address] Phone: tel: fax: [facility] Pulmonary Function [facility] A [address] [facility] [address] [place] [address] Phone: tel: fax: Referral ID Status Reason Start Date Expiration Date V isits Requested Visits Authorized [id number] Closed CRS to Schedule 01/14/2025 02/14/2026 1 1 Encounter Details Date Type Department Care Team (Late st Contact Info) Description 01/17/2025 7:48 AM CDT - 01/17/2025 11:59 PM CDT Hospital Encounter [facility] Pulmonary Function [facility] A [address] [facility] [address] [place] [address] Kenny Khalil MD [address] 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 [facility] PFT Albuterol or Levalbuteral Protocol [facility] Approved by: [facility] - Medical Executive Committee Approval Date: 05/09/2024 [...] order for levalbuterol or substituted by a warehouse traffic supervisor on a cnqm-up-nofn basis. If so, administer levalbuterol 0.5 mL (1.25 mg) in 2.5 mL0.9% sodium chloride or equivalent levalbuterol unit dose (1.25 mg/3 mL) by inhalation via nebulizer one time only. * Opal Ellington RCP - 01/17/2025 8:45 AM CDT Images from the original note were not included. STL PFT Hemoglobin Determination Protocol [facility] Approved by: [facility] - Medical Executive Committee Approval Date: 04/11/2024 [...] HB 201 Analyzer, as outlined in the [facility] policy: [facility] HemoCue Hemoglobin Procedure documented in this encounter Plan of Treatment Upcoming Encounters Date Type Department Care Team (Late st Contact Info) Description 01/22/2025 9:45 AM CDT Appointment [facility] Nuclear Medicine [address] [place] [phone] [id number] Kenny Khalil MD [address] [facility] [address] [place] [address] 01/24/2025 12:30 PM CDT Office Visit [facility] Cardiovas and Thor Surg at [facility] Heart Hosp [address] [facility] [address] [place] [address] Wesley Kwok MD [address] [facility] [address] [place] [address] 01/24/2025 2:15 PM CDT Appointment [facility] [address] [place] [phone] 02/04/2025 4:00 PM CDT Telephone Check Up [facility] Oncology and Hematology - [place] [address] [facility] [address] [place] [address] Kenny Khalil MD [address] [place] [address] Pending Results Name Type Priority Associated Diagnoses Date /Time PULMONARY FUNCTION TEST PFT Routine 0 01/17/2025 8:11 AM CDT documented as of this encounter Procedures Procedure Name Priority Date/Time Associated Diagnosis Comments PULMONARY FUNCTION TEST Routine 01/17/2025 8:11 AM CDT Procedure Note - 01/17/2025 8:11 AM CDTThis note is in progress. 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 [address] PCP - General Family Practice 01/14/25 documented as of this encounter
--- OUTSIDE RECORDS SUMMARY | 2025-01-19 16:31 | XMS_ITS | Clinical Summary ---
Author Organization [facility] [employer] Address [address] [place] [address] Care Team Providers Care Semi Conductor Assembler Name Role Phone Unavailable Primary Care Provider Unavailabl e Source Comments [facility] [employer],non-owned Affiliates and Associated Physician Practices is amultiple site organization consisting of ambulatory clinics and hospital sitesin [place], [place], [place] and [place]. This disclosure is being madepursuant to the Care Everywhere program and may not contain all information available regarding this patient. Last updated 18.[facility] [employer] Social History Tobacco Use Types Packs/Day Years [...]
--- OUTSIDE RECORDS SUMMARY | 2025-01-19 16:31 | XMS_ITS | Encounter Summary ---
Author Organization [facility] Healthcare Address [address] [place] [address] Care Team Providers Care Lockstitch Lining Maker Name Role Phone Des Dupont MD Primary Care Provider [phone] Tessa Pantoja MD Primary Care Provider [phone] Des Dupont MD Primary Care Provider [phone] Encounter Details Date Type Department Care Team (Late st Contact Info) Description 12/30/2017 Orders Only [facility] Health Information Management [address] [place] [address] Scanning, Provider Social History Tobacco Use [...] Comments SCAN - LABS 12/30/2017 1:20 AM AIR AND HYDRONIC BALANCING TECHNICIAN documented in this encounter Results * SCAN - LABS (12/30/2017 1:20 AM AIR AND HYDRONIC BALANCING TECHNICIAN) us Provider Scanning Final Result documented in this encounter Visit Diagnoses Not on filedocumented in this encounter Care Teams Lockstitch Lining Maker Relationship Specialty Start Date End Date Des Dupont MD PCP - General Family Medicine 07/13/17 08/17/23 Tessa Pantoja MD [address] [place] [address] PCP - General Family Medicine 08/18/23 04/22/24 Des Dupont MD [address] [address] PCP - General Family Medicine 04/23/24 documented as of this encounter
--- OUTSIDE RECORDS SUMMARY | 2025-01-19 16:31 | XMS_ITS | Clinical Summary ---
Author Organization [facility] [address] Address [address] [place] [address] Care Team Providers Care Drafter Name Role Phone Des Dupont MD Primary Care Provider [phone] Allergies No known active allergies Medications morphine [...] 2.5 mg tabletIndications :PAF (paroxysmal atrial fibrillation) ([facility]) TAKE 1 TABLET BY MOUTH [...] 24 hr capsuleIndication s:PAF (paroxysmal atrial fibrillation) ([facility]) TAKE 1 CAPSULE BY MOUTH [...] (02/28/2019): Added automatically from request for surgery [id number] PAF (paroxysmal atrial fibrillation) 10/25/2017 PFO (patent foramen ovale) 10/25/2017 Chronic anticoagulation 10/25/2017 HTN (hypertension), benign 10/25/2017 Resolved Problems Problem Noted Date Diagnosed Date Resolved Date Chronic obstructive pulmonary disease 10/25/2017 04/28/2021 Encounters Date Type Department Care Team Description 12/27/2024 Telephone [facility] Medical Group Cardiology [address] [place] [address] Bartolo Morillo MD from Last [...] Comments Blood Pressure 104/54 10/08/2024 10:44 AM TYPE ROLLING MACHINE OPERATOR Pulse 69 10/08/2024 10:44 AM TYPE ROLLING MACHINE OPERATOR Temperature 35.9 C (96.6 F) 09/20/2021 1:23 PM TYPE ROLLING MACHINE OPERATOR Respiratory Rate 24 04/01/2019 12:1 7 PM CDT Simultaneous filing. User may not have seen previous data. Oxygen Saturation 88% 10/08/2024 10: 44 AM TYPE ROLLING MACHINE OPERATOR Inhaled Oxygen Concentration - - Weight 120.7 kg (266 lb) 10/08/2024 10: 44 AM TYPE ROLLING MACHINE OPERATOR Height 193 cm (6' 4 ) 10/08/2024 10:44 AM TYPE ROLLING MACHINE OPERATOR Body Mass Index 32.38 10/08/2024 10:44 AM TYPE ROLLING MACHINE OPERATOR Plan of Treatment Health Maintenance Due Date [...] vaccine 65+ Completed 08/15/2020, 08/23 Insurance [facility] [place] MEDICARE MEDICARE [employer] [place] MEDICARE [employer] [place] Care Teams Drafter Relationship Specialty Start Date End Date Des Dupont MD [address] [place] [address] PCP - General Family Medicine 04/23/24
--- OUTSIDE RECORDS SUMMARY | 2025-01-19 16:31 | XMS_ITS | Encounter Summary ---
Author Organization [facility] Healthcare Address [address] [place] [address] Care Team Providers Care Die Maker Apprentice Name Role Phone Des Dupont MD Primary Care Provider Encounter Details Date Type Department Care Team (Late st Contact Info) Description 12/27/2024 Telephone [facility] Medical Group Cardiology [address] [place] [address] Bartolo Morillo MD [address] [place] [phone] Social History Tobacco Use Types Packs/Day Years [...] Ann Stanley RN - 12/27/2024 10:20 AM STAGE PRODUCER Spoke with pt, requested he have the surgeon fax us clearance for provider to address. Provided ourfax number. E PRODUCER * Telephone Encounter - [place] T[place] - 12/27/2024 10:14 AM CST Pt is scheduled for a biopsy at [facility] on 01/02. He is wanting to know if he needs to hold any meds. States he is unsure if they faxed a cardiac clearance request. Contact: E PRODUCER documented in this encounter Plan of Treatment Not on file documented as of this encounter Visit Diagnoses Not on filedocumented in this encounter Care Teams Die Maker Apprentice Relationship Specialty Start Date End Date Des Dupont MD [address] [place] [address] PCP - General Family Medicine 04/23/24 documented as of this encounter
--- OUTSIDE RECORDS SUMMARY | 2025-01-19 16:31 | XMS_ITS | Encounter Summary ---
Author Organization [facility] Address [address] [place] [address] Care Team Providers Care Labor Crew Supervisor Name Role Phone Unavailable Primary Care Provider Unavailabl e Encounter Details Date Type Department Care Team (Late st Contact Info) Description 09/25/2020 Lab Requisition [facility] DermPath Lab [address] [facility], [place] [phone] Naga Boswell MD [address] [place] [address] Social History Tobacco Use Types [...] Comments DERMATOPATHOLOGY Routine 09/24/2020 12:0 0 AM JAVA PROGRAMMER documented in this encounter Results * DERMATOPATHOLOGY (09/24/2020 12:00 AM JAVA PROGRAMMER) Case Report Dermatopathology Report Case: [id number] Authorizing Provider: Naga Boswell MD Collected: 09/24/2020 12:00 AM Ordering Location: [facility] D[facility] Received: 09/25/2020 06:41 AM Pathologist: Manju Figueroa MD Specimens: A) - Skin, right upper post auricular B) - Skin, right lower post auricular 0 1:35 PM JAVA PROGRAMMER DERMATOPATHOLOGY LABORATORY Final Diagnosis Specimen A. SKIN, right upper post auricular: EPIDERMOID CYST (L72.0) NOT PRESENT AT SAMPLED MARGIN Specimen B. SKIN, right lower post auricular: EPIDERMOID CYST (L72.0) NOT PRESENT AT SAMPLED MARGIN 0 1:35 PM JAVA PROGRAMMER DERMATOPATHOLOGY LABORATORY Clinical History A: E cyst. Path # [id number]. Check margins. B: E cyst. Path # [id number]. 0 1:35 PM [facility] DERMATOPATHOLOGY LABORATORY Gross Description Specimen A: Received is one formalin filled container labeled with the patient's name and designated right upper post auricular. The specimen consists of a [id number] excision, bisected. The margin is inked green. Jar 0. Specimen B: Received is one formalin filled container labeled with the patient's name and designated right lower post auricular. The specimen consists of a [id number] excision, bisected. The margin is inked green. Jar 0. 0 1:35 PM [facility] DERMATOPATHOLOGY LABORATORY Microscopic Description Specimen [...] margin of the specimen. 0 1:35 PM [facility] DERMATOPATHOLOGY LABORATORY Disclaimer An external and internal positive and negative controls are appropriate for the histochemical, immunohistochemical and immunofluorescence stain(s) in this case (if any), except where stated explicitly. The performance characteristics of the stain(s) cited in this report were developed and its performance characteristic determined by the Dermatopathology Laboratory at [facility], directed by Dr. Hodan Sargent. These tests need not be, and therefore are not, approved by the [place] Food and Drug Administration. The tests are used for clinical purposes. Billing Codes Specimen Charges Stain Charges 56536 97333 1 1 0 1:35 PM [facility] DERMATOPATHOLOGY LABORATORY Embedded Images 0 1:35 PM [facility] DERMATOPATHOLOGY LABORATORY Pathology/Cytology TISSUE SPECIMEN FROM SKIN / Unknown 09/24/2020 09/25/2020 6:41 AM JAVA PROGRAMMER Miscellaneous samples (specimen) TISSUE SPECIMEN FROM SKIN / Unknown 09/24/2020 09/25/2020 6:41 AM JAVA PROGRAMMER Naga Boswell MD LAB - PATHOLOGY/CYTO LOGY ORDERABLES DERMATOPATHOLOGY LABORATORY [facility] - Department of Dermatology [facility] Medicine [address] [place] [address], [address] [phone] documented in this encounter Visit Diagnoses Not on filedocumented in this encounter
--- OUTSIDE RECORDS SUMMARY | 2025-01-19 16:31 | XMS_ITS | Encounter Summary ---
Author Organization [facility] Address [address] [facility] [place] [address] Care Team Providers Care Cement Based Materials Pump Tender Name Role Phone Unavailable Primary Care Provider Unavailabl e Encounter Details Date Type Department Care Team (Late st Contact Info) Description 07/20/2020 Lab Requisition [facility] DermPath Lab [address] [facility], [place] [phone] Naga Boswell MD [address] [place] [address] Social History Tobacco Use Types [...] AM CDT) Case Report Dermatopathology Report Case: [id number] Authorizing Provider: Naga Boswell MD Collected: 07/16/2020 12:00 AM Ordering Location: [facility] DermPath Lab Received: 07/20/2020 06:35 AM [...] specimen consists of a shave biopsy measuring [id number]. Jar 0. 0 1:38 PM CDT DERMATOPATHOLOGY [...] determined by the Dermatopathology Laboratory at [facility], directed by Dr. Hodan Sargent. These tests need not be, and therefore are not, approved by the [place] Food and Drug Administration. The tests are used for clinical purposes. Billing Codes Specimen Charges Stain Charges 72520 1 0 1:38 PM CDT DERMATOPATHOLOGY LABORATORY Embedded Images 0 1:38 PM CDT DERMATOPATHOLOGY LABORATORY Pathology/Cytolog y TISSUE SPECIMEN FROM SKIN / Unknown 07/16/2020 07/20/2020 6:35 AM CDT Naga Boswell MD LAB - PATHOLOGY/CYTO LOGY ORDERABLES DERMATOPATHOLOGY LABORATORY [facility] - Department of Dermatology [address] [phone] documented in this encounter Visit Diagnoses Not on filedocumented in this encounter
--- OUTSIDE RECORDS SUMMARY | 2025-01-19 16:31 | XMS_ITS | Encounter Summary ---
Author Organization [facility] Address [address] [facility] [place] [address] Care Team Providers Care Learning Support Aide Name Role Phone Unavailable Primary Care Provider Unavailabl e Encounter Details Date Type Department Care Team (Late st Contact Info) Description 08/29/2023 Lab Requisition [facility] - DermPath Lab [address] [facility], [place] [phone] Naga Boswell MD [address] [place] [address] Social History Tobacco Use Types Packs/Day Years [...] Comments DERMATOPATHOLOGY Routine 08/29/2023 12:0 0 AM VENEER TAPING MACHINE OPERATOR documented in this encounter Results * DERMATOPATHOLOGY (08/29/2023 12:00 AM VENEER TAPING MACHINE OPERATOR) Case Report Dermatopathology Report Case: [id number] Authorizing Provider: Naga Boswell MD Collected: 08/29/2023 12:00 AM Ordering Location: [facility] Derm[facility] Lab Received: 08/30/2023 07:05 AM Pathologist: Hernesto Sargent MD Specimen: Skin, right thigh 3 3:45 PM VENEER TAPING MACHINE OPERATOR DERMATOPATHOLOGY LABORATORY Final Diagnosis Specimen A. SKIN, right thigh: BENIGN VERRUCOUS KERATOSIS, INFLAMED (L82.1) 3 3:45 PM VENEER TAPING MACHINE OPERATOR DERMATOPATHOLOGY LABORATORY Clinical History Prurigo vs BCC vs SCC. Path#[id number] 3 3:45 PM [facility] DERMATOPATHOLOGY LABORATORY Gross Description Specimen A: Received is one formalin filled container labeled with the patient's name and designated right thigh. The specimen consists of a shave biopsy measuring 7x6x1 mm. Jar 0. 3:45 PM [facility] DERMATOPATHOLOGY LABORATORY Microscopic Description Specimen A. SKIN, right thigh: Sections show hyperkeratosis, papillomatosis, hypergranulosis, and acanthosis. Inflammatory cells are present within the dermis. These histological findings can be seen in a verruca vulgaris or a seborrheic keratosis. 3 3:45 PM [facility] DERMATOPATHOLOGY LABORATORY Disclaimer An external and internal positive and negative controls are appropriate for the histochemical, immunohistochemical and immunofluorescence stain(s) in this case (if any), except where stated explicitly. The performance characteristics of the stain(s) cited in this report were developed and its performance characteristic determined by the Dermatopathology Laboratory at [facility], directed by Dr. Hodan Sargent. These tests need not be, and therefore are not, approved by the [place] Food and Drug Administration. The tests are used for clinical purposes. Billing Codes Specimen Charges Stain Charges 39044 1 3 3:45 PM [facility] DERMATOPATHOLOGY LABORATORY Embedded Images 3 3:45 PM [facility] DERMATOPATHOLOGY LABORATORY Pathology/Cytolog y TISSUE SPECIMEN FROM SKIN / Unknown 08/29/2023 08/30/2023 7:05 AM VENEER TAPING MACHINE OPERATOR Naga Boswell MD LAB - PATHOLOGY/CYTO LOGY ORDERABLES DERMATOPATHOLOGY LABORATORY [facility] - Department of Dermatology [address], [address] [phone] documented in this encounter Visit Diagnoses Not on filedocumented in this encounter
--- OUTSIDE RECORDS SUMMARY | 2025-01-19 16:31 | XMS_ITS | Clinical Summary ---
Author Organization [facility] Address [address] [facility], [place] [address] Phone Care Team Providers Care Fingerprint Clerk Name Role Phone Des Dupont MD Primary Care Provider [phone] Allergies No known active allergies Medications albuterol [...] topic Insurance [employer] Care Teams Fingerprint Clerk Relationship Specialty Start Date End Date Des Dupont MD [address] [address] PCP - General Family Medicine 05/07/20
--- NOTE | 2025-01-19 17:05 | PC.NURSE ---
Pt stating he does not want to change into gown
--- NOTE | 2025-01-19 17:54 | ECG_ITS ---
Test Date: 2025-01-19 18:12:33 Measurements Intervals [place] Rate: 66 P: 0 NM: 0 QRS: 25 QRSD: 102 T: 25 QT: 386 QTc: 405 Interpretive Statements ATRIAL FIBRILLATION ABNORMAL ECG No previous ECG available for comparison Electronically Signed On 01-20-2025 06:49:47 CDT by Bartolo Morillo M.D.
[2025-01-19] MEDS: IPRATROPIUM 0.5 MG/ALBUTEROL SULFATE 2.5 MG AMPUL.NEB 3 ML INHALATION (18:14)
--- NOTE | 2025-01-19 18:17 | PC.NURSE ---
EDP aware of pt current vitals, no new orders
[2025-01-19 18:24] LABS: Basophils Absolute Auto 0.1 K/mm3 (0.0-0.1); Basophils Percent Auto 0.4 % (0.2-1.2); Eosinophils Absolute Auto 0.1 K/mm3 (0-0.3); Hematocrit 35.3 % (42.0-52.0); Hemoglobin 11.2 g/dL (14.0-18.0); Immature Granulocyte Absolute 0.11 K/mm3 (0.00-0.031); Immature Granulocyte Percent A 0.9 % (0-0.5); Lymphocytes Percent Auto 13.9 % (18.3-44.2); Mean Corpuscular HGB Conc 31.7 g/dl (32-36); Mean Corpuscular Hemoglobin 27.4 pg (26-34); Mean Corpuscular Volume 86.3 fl (80-100); Mean Platelet Volume 10.2 fl (7.4-10.4); Monocytes Percent Auto 8.2 % (2.6-8.5); Neutrophils Absolute Auto 9.3 K/mm3 (1.3-6.7); Neutrophils Percent Auto 75.6 % (45.5-73.1); Platelet Count Result 280 k/mm3 (150-375); Red Blood Count 4.09 M/mm3 (4.6-6.20); Red Cell Distribution Width 18.7 % (11.5-14.5); White Blood Count 12.3 K/mm3 (4.5-10.0)
[2025-01-19 18:30] LABS: Lactic Acid Reflex 0.9 mmol/L (0.7-2.0)
[2025-01-19 18:31] LABS: Alanine Aminotransferase 56 U/L (6-50); Albumin Level 3.4 g/dL (3.5-5.1); Alkaline Phosphatase 97 U/L (38-126); Anion Gap 5 mmol/L (4-12); Aspartate Amino Transferase 80 U/L (17-59); Bilirubin,Total 0.8 mg/dL (0.2-1.3); Blood Urea Nitrogen 54 mg/dL (9-20); Calcium 8.8 mg/dL (8.4-10.2); Carbon Dioxide 38 mmol/L (22-30); Chloride 89 mmol/L (98-107); Estimated CRCL calculation 76 ml/min; Estimated Glomerular Filt Rate > 60; Glucose 123 mg/dL (65-110); Potassium 3.6 mmol/L (3.4-5.0); Sodium 132 mmol/L (137-145)
[2025-01-19 18:31] LABS: Add Urine Microscopic? YES; Appearance Urine Clear (Clear); Bilirubin Urine Negative (Negative); Blood Urine Negative (Negative); Color Urine Dark Yellow (Yellow); Glucose Urine UA Negative (Negative); Ketones Urine Negative (Negative); Leukocyte Esterase Ur Negative LEU/UL (Negative); Nitrate Urine Negative (Negative); Protein Urine Negative (Negative); pH Urine 5.5 (5.0-9.0)
[2025-01-19 18:35] LABS: Base Excess ABG 9.7 mEq/l (+/-2.0); Carboxyhemoglobin 4.5 % THb (0-2.0); Fractional Inspired Oxygen 40 %; HCO3 ABG 36.1 mEq/l (22.0-26.0); Methemoglobin ABG 0.2 %THb (0-1.5); Oxygen Content ABG 13.7 %vol (16.0-22.0); Oxygen Saturation ABG 88.4 % (95.0-100.0); PCO2 ABG 57.4 mmHg (35.0-45.0); PO2 ABG 55.2 mmHg (80.0-100.0); PO2 FiO2 Ratio Arterial Blood 1.38 %; Reduced Hemoglobin 11.9 %THb (0-5.0); Total Hemoglobin 11.7 g/dL (12.0-18.0); pH ABG 7.416 (7.350-7.450)
[2025-01-19 18:37] LABS: INR 3.8; Prothrombin Time 38.3 Seconds (11.1-14.7)
[2025-01-19 18:38] LABS: Partial Thromboplastin Time 61.8 Seconds (22.3-36.8)
[2025-01-19 18:40] LABS: Device NASAL CANNULA; Oxyhemoglobin 83.4 % THb (90.0-100.0); Site Drawn LEFT BRACHIAL
[2025-01-19 18:42] LABS: NT Pro B Type Natriuretic Pept 2370 pg/mL (19.9-100); Troponin I < 0.012 ng/mL (0.000-0.034)
--- NOTE | 2025-01-19 19:38 | ED.ABDPAIN ---
HPI - Abdominal Pain General Chief Complaint: Abdominal Pain Stated Complaint: Constipation x 4-5 days, OTC meds not working Time Seen by Provider: 01/19/25 16:10 Source: patient Mode of arrival: ambulatory Limitations: no limitations History of Present Illness HPI narrative: Patient is a 74-year-old male, with PMH of AFib on Xarelto, chronic opioid therapy, COPD on chronic home 5L O2, who presents to the ED with multiple complaints. Patient reports over the last 3-4 days he has been having pain in his right upper quadrant. Pain is worse with movement, deep breathing, coughing. He has been constipated. Reports he has been taking MiraLax and suppositories at home with only minimal relief. Last substantial bowel movement was several days ago. He is on chronic opioid therapy and states constipation is not uncommon for him. He also reports having increased shortness of breath. Has not required increase in his oxygen requirement. Over the last few weeks, he has been worked up for a mass in his left upper lung. He recently underwent biopsy at [facility] and was diagnosed with non-small cell lung cancer. Is scheduled to undergo PET scan this week. Is scheduled to follow-up with Dr. Khalil for oncologic care. Denies fevers. Denies chest pain. Denies cough or cold symptoms. Denies pain or swelling in legs. He also mentions having difficulty urinating, described as frequency with small void urines. Related Data Home Medications ?Medication ?Instructions ?Recorded ?Confirmed ?Last Taken ?Type rivaroxaban 20 mg tablet (Xarelto) 20 mg PO DAILY 11/13/19 12/19/24 04/16/23 History morphine 15 mg immediate release 15 mg PO QID PRN Breakthrough Pain 11/15/19 12/19/24 04/16/23 History tablet furosemide 40 mg tablet 40 mg PO BID 05/15/20 12/19/24 04/16/23 History gabapentin 300 mg capsule 300 mg PO TID 05/15/20 12/19/24 04/16/23 History ascorbic acid (vitamin C) 1,000 mg 1 g PO BID 07/09/20 12/19/24 04/16/23 History tablet rdbweqav-ysg-jdexe acid 0.4 1 tablet PO DAILY 07/09/20 12/19/24 04/16/23 History mg-lycopene 300 mcg-lutein 250 mcg tablet (Centrum Silver) metoprolol tartrate 25 mg tablet 25 mg PO BID 11/23/20 12/19/24 04/16/23 History metolazone 5 mg tablet See Rx Instructions .Route .COMPLEX 02/25/22 12/19/24 04/16/23 History potassium chloride 20 mEq 20 meq PO BID 09/05/22 12/19/24 04/16/23 History tablet,extended release(part/cryst) (Klor-Con M) diltiazem HCl 360 mg capsule,24 360 mg PO DAILY 04/16/23 12/19/24 04/16/23 History hr,extended release (Tiadylt ER) morphine 15 mg tablet,extended 15 mg PO TID 04/16/23 12/19/24 04/16/23 History release tadalafil 20 mg tablet (Cialis) 100 mg PO DAILY PRN sexual activity 04/16/23 12/19/24 Unknown History glucosamine HCl 1,500 mg tablet 1,500 mg PO DAILY 11/14/24 12/19/24 Unknown History tizanidine 4 mg tablet 4 mg PO TID 11/14/24 12/19/24 Unknown History Allergies Allergy/AdvReac Type Severity Reaction Status Date / Time No Known Allergies Allergy Verified 01/19/25 13:47 Review of Systems Review of Systems: All systems reviewed & are unremarkable except as noted in HPI. All systems reviewed & are unremarkable except as noted in HPI and below PMFSH Past Medical History Medical History Degenerative disk disease Screening for prostate cancer Fatigue Erectile dysfunction Hyperlipidemia Changing skin lesion Constipation due to opioid therapy Erectile dysfunction Degenerative, intervertebral disc, cervical Afib Benign hypertension Chronic obstructive pulmonary disease Chronically O2 dependent 5 L Hypersomnia Hypoxemia JULIANNA (obstructive sleep apnea) Tobacco abuse Surgical History Surgical History History of tonsillectomy and adenoidectomy H/O cervical spine surgery Family History Family History Mother Depression COVID-19 Sibling Intestinal cancer Thyroid disorder Sibling Depression Heart problem Father No problems noted. Social History Social History Social History: Smokes 4-5 Benjamin Sweets/day. Quit cigarettes 2017. He is and lives with his . The patient is retired from [employer]. His is the durable power privacy attorney for healthcare. Code status full code Years smoked: 45 Smoking status: Current some day smoker Tobacco type: cigars (occasional) Second hand tobacco smoke exposure: No Alcohol intake: current Alcohol use details: socially Substance use: never Substance use type: does not use Last use: 10/23/2016 Lack of Transportation: No Lack of Food: Never True Current Housing: I Have Housing Concerned About Future Housing: No Difficulty Paying Gas/Electric Bills: No Difficulty Paying for Meds: Decline to Answer Currently Unemployed: No Education: Master's Degree or Higher Difficulty w/ Childcare or Family Care: No Living arrangements: with family Occupation/Education: retired 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 HEAD: Normocephalic, atraumatic. RESPIRATORY: Airway patent, respirations mildly labored. Scattered wheezing bilaterally. Decreased lung sounds L upper lung zone. CARDIOVASCULAR: Regular rate with irregular rhythm without murmurs, rubs, or gallops. ABDOMINAL: Abdomen is somewhat protuberant, diffusely tender throughout lower abdomen, periumbilical region, and right upper quadrant. Somewhat hyperactive BS. MUSCULOSKELETAL: Moves all extremities. No gross deformities. SKIN: Warm, dry, normal color. NEURO: A&O X3. Speech clear. Cranial nerves II-XII grossly intact. Steady gait. No ataxic movements. PSYCHIATRIC: Appropriate mood and affect. Normal interaction. Course Vital Signs Vital signs: Vital Signs Temperature 98.2 F 01/19/25 14:32 Pulse Rate 82 01/19/25 14:32 Respiratory Rate 16 01/19/25 14:32 Blood Pressure 108/54 L 01/19/25 14:32 Pulse Oximetry 91 01/19/25 14:32 Oxygen Delivery Nasal Cannula 01/19/25 14:32 Oxygen Flow Rate 4 01/19/25 14:32 Temperature 97.7 F 01/20/25 01:09 Pulse Rate 96 01/20/25 01:09 Respiratory Rate 16 01/20/25 01:09 Blood Pressure 116/62 01/20/25 01:09 Pulse Oximetry 98 01/20/25 01:09 Oxygen Delivery High Flow Therapy with Nasal Cannula 01/19/25 23:00 Oxygen Flow Rate 60 01/19/25 23:00 Fraction of Inspired Oxygen 75 01/19/25 23:00 MDM - Abdominal Pain MDM Narrative Medical decision making narrative: Patient presented to ED with multiple complaints, reporting right upper quadrant abdominal pain over the last few days, constipation, increased shortness of breath, difficulty urinating. History of COPD, on chronic 5 L nasal cannula. Vital signs initially stable upon arrival, however patient's oxygen borderline on his home O2. He did fairly consistently drop his oxygen saturations down into the upper 80s on his oxygen. He does admit to noncompliance with oxygen therapy at home. ABG was obtained and does show some CO2 retention with pCO2 of 57. PH is stable at 7.416. Oxygen saturation 88% on his 5 L. Discussed with respiratory therapy placing patient on BiPAP. Patient doing much better with this. EKG showing AFib, no concerning ST changes. Patient is denying chest pain. CBC with white blood cell count of 12.3. Hemoglobin is 11.2. No recent records to compare to. Records in 2022 show hemoglobin in the 16 range. Platelets are stable. CMP fairly unremarkable. BUN elevated to 54. Creatinine stable 1.04. Lactic acid within normal range at 0.9. Minimal transaminitis. AST 80, ALT 56. Total bilirubin and alk-phos within normal range. Troponin undetectable. UA is clear. CTA of chest with abdomen/pelvis was obtained and unfortunately showing multiple liver metastases with an area of active venous extravasation from the surface of the liver causing moderate volume hemoperitoneum. No PE. There may be some mucous plugging and or aspiration in right lower lobe bronchi. Shows left upper lobe mass. Discussed lab and imaging findings with patient, serious nature of CT findings. Patient is on Xarelto. Kcentra given for reversal of anticoagulation. Coags are abnormal. PTT 38.3. INR 3.8. PTT is 61.8. Will additionally transfuse 2 units of packed red blood cells. Hemoglobin today is 11.2. This does appear to be decreased from previous records though records are from 2022 (hgb 16-17) at that time. Patient was transitioned from BiPAP to high-flow nasal cannula. Tolerating this well. Blood pressures remained stable. Overall hemodynamically stable at this time, but will need transfer for further management of intra-abdominal bleeding. Patient has had recent oncologic workup/biopsies performed at [facility]. Discussed case with [facility] transfer center who spoke to Dr. Castañeda, trauma/general surgery @ [facility], advised or transferred to [facility] or location with hepatobiliary specialist. Discussed case with Dr. Tovar, hepatobiliary @ [facility], recommended ED-ED transfer for acute care surgery service/IR. Discussed case with Dr. Agustin Keating, acute care surgery @ [facility], accepted to surgical ICU. Patient states a bed at [facility]. Transportation being arranged. Patient family are in agreement with plan and transfer. Remains hemodynamically stable at time of transport. Blood pressure 116/62. Medical Records Attestation: I reviewed the patient's medical records. Lab Data Attestation: I reviewed the patient's lab results. 01/19/25 18:13 01/19/25 18:13 Labs: Lab Results 01/19/25 01/19/25 01/19/25 Range/Units 18:13 18:13 18:13 WBC 12.3 H (4.5-10.0) K/mm3 RBC 4.09 L (4.6-6.20) M/mm3 Hgb 11.2 L D (14.0-18.0) g/dL Hct 35.3 L (42.0-52.0) % MCV 86.3 (80-100) fl MCH 27.4 (26-34) pg MCHC 31.7 L (32-36) g/dl RDW 18.7 H (11.5-14.5) % Plt Count 280 D (150-375) k/mm3 MPV 10.2 (7.4-10.4) fl Immature Gran % (Auto) 0.9 H (0-0.5) % Neut % (Auto) 75.6 H (45.5-73.1) % Lymph % (Auto) 13.9 L (18.3-44.2) % [place] % (Auto) 8.2 (2.6-8.5) % Eos % (Auto) 1.0 (0-4.4) % Baso % (Auto) 0.4 (0.2-1.2) % Lymph # (Auto) 1.70 (0.9-3.2) K/mm3 [place]a # (Auto) 1.0 H (0.1-0.6) K/mm3 Eos # (Auto) 0.1 (0-0.3) K/mm3 Baso # (Auto) 0.1 (0.0-0.1) K/mm3 Abs Immat Gran (auto) 0.11 H (0.00-0.031) K/mm3 Absolute Neuts (auto) 9.3 H (1.3-6.7) K/mm3 Absolute Nucleated RBC 0.000 (0.0-0.012) K/mm3 Nucleated RBC % 0.0 (0.0-0.2) % PT 38.3 H (11.1-14.7) Seconds INR 3.8 APTT 61.8 H (22.3-36.8) Seconds Methemoglobin (0-1.5) %THb Sodium Cancelled 132 L Potassium Cancelled 3.6 Chloride Cancelled Carbon Dioxide Anion Gap BUN Creatinine Estim Creat Clear Calc Estimated GFR Glucose Lactic Acid (0.7-2.0) mmol/L Calcium Total Bilirubin AST ALT Alkaline Phosphatase Troponin I (0.000-0.034) ng/mL NT-Pro-B Natriuret Pep (19.9-100) pg/mL Total Protein Albumin Urine Color (Yellow) Urine Appearance (Clear) Urine pH (5.0-9.0) Ur Specific [place] (1.001-1.035) Urine Protein (Negative) mg/dL Urine Glucose (UA) (Negative) mg/dL Urine Ketones (Negative) mg/dL Ur Blood (Man) (Negative) Urine Nitrate (Negative) Urine Bilirubin (Negative) Urine Urobilinogen (<2.0) mg/dL Leukocyte Esterase Rfl (Negative) DEVIKA/UL Blood Type Antibody Screen Crossmatch 01/19/25 01/19/25 01/19/25 Range/Units 18:13 18:13 18:13 WBC (4.5-10.0) K/mm3 RBC (4.6-6.20) M/mm3 Hgb (14.0-18.0) g/dL Hct (42.0-52.0) % MCV (80-100) fl MCH (26-34) pg MCHC (32-36) g/dl RDW (11.5-14.5) % Plt Count (150-375) k/mm3 MPV (7.4-10.4) fl Immature Gran % (Auto) (0-0.5) % Neut % (Auto) (45.5-73.1) % Lymph % (Auto) (18.3-44.2) % Louisa % (Auto) (2.6-8.5) % Eos % (Auto) (0-4.4) % Baso % (Auto) (0.2-1.2) % Lymph # (Auto) (0.9-3.2) K/mm3 [place]a # (Auto) (0.1-0.6) K/mm3 Eos # (Auto) (0-0.3) K/mm3 Baso # (Auto) (0.0-0.1) K/mm3 Abs Immat Gran (auto) (0.00-0.031) K/mm3 Absolute Neuts (auto) (1.3-6.7) K/mm3 Absolute Nucleated RBC (0.0-0.012) K/mm3 Nucleated RBC % (0.0-0.2) % PT (11.1-14.7) Seconds INR APTT (22.3-36.8) Seconds Methemoglobin (0-1.5) %THb Sodium Potassium Chloride 89 L Carbon Dioxide Cancelled 38 H Anion Gap Cancelled 5 BUN Cancelled Creatinine Estim Creat Clear Calc Estimated GFR Glucose Lactic Acid (0.7-2.0) mmol/L Calcium Total Bilirubin AST ALT Alkaline Phosphatase Troponin I (0.000-0.034) ng/mL NT-Pro-B Natriuret Pep (19.9-100) pg/mL Total Protein Albumin Urine Color (Yellow) Urine Appearance (Clear) Urine pH (5.0-9.0) Ur Specific [place] (1.001-1.035) Urine Protein (Negative) mg/dL Urine Glucose (UA) (Negative) mg/dL Urine Ketones (Negative) mg/dL Ur Blood (Man) (Negative) Urine Nitrate (Negative) Urine Bilirubin (Negative) Urine Urobilinogen (<2.0) mg/dL Leukocyte Esterase Rfl (Negative) DEVIKA/UL Blood Type Antibody Screen Crossmatch 01/19/25 01/19/25 01/19/25 Range/Units 18:13 18:13 18:13 WBC (4.5-10.0) K/mm3 RBC (4.6-6.20) M/mm3 Hgb (14.0-18.0) g/dL Hct (42.0-52.0) % MCV (80-100) fl MCH (26-34) pg MCHC (32-36) g/dl RDW (11.5-14.5) % Plt Count (150-375) k/mm3 MPV (7.4-10.4) fl Immature Gran % (Auto) (0-0.5) % Neut % (Auto) (45.5-73.1) % Lymph % (Auto) (18.3-44.2) % Louisa % (Auto) (2.6-8.5) % Eos % (Auto) (0-4.4) % Baso % (Auto) (0.2-1.2) % Lymph # (Auto) (0.9-3.2) K/mm3 [place] # (Auto) (0.1-0.6) K/mm3 Eos # (Auto) (0-0.3) K/mm3 Baso # (Auto) (0.0-0.1) K/mm3 Abs Immat Gran (auto) (0.00-0.031) K/mm3 Absolute Neuts (auto) (1.3-6.7) K/mm3 Absolute Nucleated RBC (0.0-0.012) K/mm3 Nucleated RBC % (0.0-0.2) % PT (11.1-14.7) Seconds INR APTT (22.3-36.8) Seconds Methemoglobin (0-1.5) %THb Sodium Potassium Chloride Carbon Dioxide Anion Gap BUN 54 H D Creatinine Cancelled 1.04 Estim Creat Clear Calc Cancelled 76 Estimated GFR Cancelled Glucose Lactic Acid (0.7-2.0) mmol/L Calcium Total Bilirubin AST ALT Alkaline Phosphatase Troponin I (0.000-0.034) ng/mL NT-Pro-B Natriuret Pep (19.9-100) pg/mL Total Protein Albumin Urine Color (Yellow) Urine Appearance (Clear) Urine pH (5.0-9.0) Ur Specific [place] (1.001-1.035) Urine Protein (Negative) mg/dL Urine Glucose (UA) (Negative) mg/dL Urine Ketones (Negative) mg/dL Ur Blood (Man) (Negative) Urine Nitrate (Negative) Urine Bilirubin (Negative) Urine Urobilinogen (<2.0) mg/dL Leukocyte Esterase Rfl (Negative) DEVIKA/UL Blood Type Antibody Screen Crossmatch 01/19/25 01/19/25 01/19/25 Range/Units 18:13 18:13 18:13 WBC (4.5-10.0) K/mm3 RBC (4.6-6.20) M/mm3 Hgb (14.0-18.0) g/dL Hct (42.0-52.0) % MCV (80-100) fl MCH (26-34) pg MCHC (32-36) g/dl RDW (11.5-14.5) % Plt Count (150-375) k/mm3 MPV (7.4-10.4) fl Immature Gran % (Auto) (0-0.5) % Neut % (Auto) (45.5-73.1) % Lymph % (Auto) (18.3-44.2) % Louisa % (Auto) (2.6-8.5) % Eos % (Auto) (0-4.4) % Baso % (Auto) (0.2-1.2) % Lymph # (Auto) (0.9-3.2) K/mm3 [place]a # (Auto) (0.1-0.6) K/mm3 Eos # (Auto) (0-0.3) K/mm3 Baso # (Auto) (0.0-0.1) K/mm3 Abs Immat Gran (auto) (0.00-0.031) K/mm3 Absolute Neuts (auto) (1.3-6.7) K/mm3 Absolute Nucleated RBC (0.0-0.012) K/mm3 Nucleated RBC % (0.0-0.2) % PT (11.1-14.7) Seconds INR APTT (22.3-36.8) Seconds Methemoglobin (0-1.5) %THb Sodium Potassium Chloride Carbon Dioxide Anion Gap BUN Creatinine Estim Creat Clear Calc Estimated GFR > 60 Glucose Cancelled 123 H Lactic Acid 0.9 (0.7-2.0) mmol/L Calcium Cancelled 8.8 Total Bilirubin Cancelled AST ALT Alkaline Phosphatase Troponin I (0.000-0.034) ng/mL NT-Pro-B Natriuret Pep (19.9-100) pg/mL Total Protein Albumin Urine Color (Yellow) Urine Appearance (Clear) Urine pH (5.0-9.0) Ur Specific [place] (1.001-1.035) Urine Protein (Negative) mg/dL Urine Glucose (UA) (Negative) mg/dL Urine Ketones (Negative) mg/dL Ur Blood (Man) (Negative) Urine Nitrate (Negative) Urine Bilirubin (Negative) Urine Urobilinogen (<2.0) mg/dL Leukocyte Esterase Rfl (Negative) DEVIKA/UL Blood Type Antibody Screen Crossmatch 01/19/25 01/19/25 01/19/25 Range/Units 18:13 18:13 18:13 WBC (4.5-10.0) K/mm3 RBC (4.6-6.20) M/mm3 Hgb (14.0-18.0) g/dL Hct (42.0-52.0) % MCV (80-100) fl MCH (26-34) pg MCHC (32-36) g/dl RDW (11.5-14.5) % Plt Count (150-375) k/mm3 MPV (7.4-10.4) fl Immature Gran % (Auto) (0-0.5) % Neut % (Auto) (45.5-73.1) % Lymph % (Auto) (18.3-44.2) % Louisa % (Auto) (2.6-8.5) % Eos % (Auto) (0-4.4) % Baso % (Auto) (0.2-1.2) % Lymph # (Auto) (0.9-3.2) K/mm3 [place] # (Auto) (0.1-0.6) K/mm3 Eos # (Auto) (0-0.3) K/mm3 Baso # (Auto) (0.0-0.1) K/mm3 Abs Immat Gran (auto) (0.00-0.031) K/mm3 Absolute Neuts (auto) (1.3-6.7) K/mm3 Absolute Nucleated RBC (0.0-0.012) K/mm3 Nucleated RBC % (0.0-0.2) % PT (11.1-14.7) Seconds INR APTT (22.3-36.8) Seconds Methemoglobin (0-1.5) %THb Sodium Potassium Chloride Carbon Dioxide Anion Gap BUN Creatinine Estim Creat Clear Calc Estimated GFR Glucose Lactic Acid (0.7-2.0) mmol/L Calcium Total Bilirubin 0.8 AST Cancelled 80 H ALT Cancelled 56 H Alkaline Phosphatase Cancelled Troponin I (0.000-0.034) ng/mL NT-Pro-B Natriuret Pep (19.9-100) pg/mL Total Protein Albumin Urine Color (Yellow) Urine Appearance (Clear) Urine pH (5.0-9.0) Ur Specific [place] (1.001-1.035) Urine Protein (Negative) mg/dL Urine Glucose (UA) (Negative) mg/dL Urine Ketones (Negative) mg/dL Ur Blood (Man) (Negative) Urine Nitrate (Negative) Urine Bilirubin (Negative) Urine Urobilinogen (<2.0) mg/dL Leukocyte Esterase Rfl (Negative) DEVIKA/UL Blood Type Antibody Screen Crossmatch 01/19/25 01/19/25 01/19/25 Range/Units 18:13 18:13 18:13 WBC (4.5-10.0) K/mm3 RBC (4.6-6.20) M/mm3 Hgb (14.0-18.0) g/dL Hct (42.0-52.0) % MCV (80-100) fl MCH (26-34) pg MCHC (32-36) g/dl RDW (11.5-14.5) % Plt Count (150-375) k/mm3 MPV (7.4-10.4) fl Immature Gran % (Auto) (0-0.5) % Neut % (Auto) (45.5-73.1) % Lymph % (Auto) (18.3-44.2) % [place] % (Auto) (2.6-8.5) % Eos % (Auto) (0-4.4) % Baso % (Auto) (0.2-1.2) % Lymph # (Auto) (0.9-3.2) K/mm3 [place] # (Auto) (0.1-0.6) K/mm3 Eos # (Auto) (0-0.3) K/mm3 Baso # (Auto) (0.0-0.1) K/mm3 Abs Immat Gran (auto) (0.00-0.031) K/mm3 Absolute Neuts (auto) (1.3-6.7) K/mm3 Absolute Nucleated RBC (0.0-0.012) K/mm3 Nucleated RBC % (0.0-0.2) % PT (11.1-14.7) Seconds INR APTT (22.3-36.8) Seconds Methemoglobin (0-1.5) %THb Sodium Potassium Chloride Carbon Dioxide Anion Gap BUN Creatinine Estim Creat Clear Calc Estimated GFR Glucose Lactic Acid (0.7-2.0) mmol/L Calcium Total Bilirubin AST ALT Alkaline Phosphatase 97 Troponin I < 0.012 (0.000-0.034) ng/mL NT-Pro-B Natriuret Pep 2370 H (19.9-100) pg/mL Total Protein Cancelled 7.0 Albumin Cancelled 3.4 L Urine Color (Yellow) Urine Appearance (Clear) Urine pH (5.0-9.0) Ur Specific [place] (1.001-1.035) Urine Protein (Negative) mg/dL Urine Glucose (UA) (Negative) mg/dL Urine Ketones (Negative) mg/dL Ur Blood (Man) (Negative) Urine Nitrate (Negative) Urine Bilirubin (Negative) Urine Urobilinogen (<2.0) mg/dL Leukocyte Esterase Rfl (Negative) DEVIKA/UL Blood Type Antibody Screen Crossmatch 01/19/25 01/19/25 01/19/25 Range/Units 18:19 18:29 22:13 WBC (4.5-10.0) K/mm3 RBC (4.6-6.20) M/mm3 Hgb (14.0-18.0) g/dL Hct (42.0-52.0) % MCV (80-100) fl MCH (26-34) pg MCHC (32-36) g/dl RDW (11.5-14.5) % Plt Count (150-375) k/mm3 MPV (7.4-10.4) fl Immature Gran % (Auto) (0-0.5) % Neut % (Auto) (45.5-73.1) % Lymph % (Auto) (18.3-44.2) % [place] % (Auto) (2.6-8.5) % Eos % (Auto) (0-4.4) % Baso % (Auto) (0.2-1.2) % Lymph # (Auto) (0.9-3.2) K/mm3 [place] # (Auto) (0.1-0.6) K/mm3 Eos # (Auto) (0-0.3) K/mm3 Baso # (Auto) (0.0-0.1) K/mm3 Abs Immat Gran (auto) (0.00-0.031) K/mm3 Absolute Neuts (auto) (1.3-6.7) K/mm3 Absolute Nucleated RBC (0.0-0.012) K/mm3 Nucleated RBC % (0.0-0.2) % PT (11.1-14.7) Seconds INR APTT (22.3-36.8) Seconds Methemoglobin 0.2 (0-1.5) %THb Sodium Potassium Chloride Carbon Dioxide Anion Gap BUN Creatinine Estim Creat Clear Calc Estimated GFR Glucose Lactic Acid (0.7-2.0) mmol/L Calcium Total Bilirubin AST ALT Alkaline Phosphatase Troponin I (0.000-0.034) ng/mL NT-Pro-B Natriuret Pep (19.9-100) pg/mL Total Protein Albumin Urine Color Dark yellow (Yellow) Urine Appearance Clear (Clear) Urine pH 5.5 (5.0-9.0) Ur Specific [place] 1.020 (1.001-1.035) Urine Protein Negative (Negative) mg/dL Urine Glucose (UA) Negative (Negative) mg/dL Urine Ketones Negative (Negative) mg/dL Ur Blood (Man) Negative (Negative) Urine Nitrate Negative (Negative) Urine Bilirubin Negative (Negative) Urine Urobilinogen 1.0 (<2.0) mg/dL Leukocyte Esterase Rfl Negative (Negative) DEVIKA/UL Blood Type B Positive Antibody Screen Negative Crossmatch See Detail 01/19/25 Range/Units 22:13 WBC (4.5-10.0) K/mm3 RBC (4.6-6.20) M/mm3 Hgb (14.0-18.0) g/dL Hct (42.0-52.0) % MCV (80-100) fl MCH (26-34) pg MCHC (32-36) g/dl RDW (11.5-14.5) % Plt Count (150-375) k/mm3 MPV (7.4-10.4) fl Immature Gran % (Auto) (0-0.5) % Neut % (Auto) (45.5-73.1) % Lymph % (Auto) (18.3-44.2) % [place] % (Auto) (2.6-8.5) % Eos % (Auto) (0-4.4) % Baso % (Auto) (0.2-1.2) % Lymph # (Auto) (0.9-3.2) K/mm3 [place] # (Auto) (0.1-0.6) K/mm3 Eos # (Auto) (0-0.3) K/mm3 Baso # (Auto) (0.0-0.1) K/mm3 Abs Immat Gran (auto) (0.00-0.031) K/mm3 Absolute Neuts (auto) (1.3-6.7) K/mm3 Absolute Nucleated RBC (0.0-0.012) K/mm3 Nucleated RBC % (0.0-0.2) % PT (11.1-14.7) Seconds INR APTT (22.3-36.8) Seconds Methemoglobin (0-1.5) %THb Sodium Potassium Chloride Carbon Dioxide Anion Gap BUN Creatinine Estim Creat Clear Calc Estimated GFR Glucose Lactic Acid (0.7-2.0) mmol/L Calcium Total Bilirubin AST ALT Alkaline Phosphatase Troponin I (0.000-0.034) ng/mL NT-Pro-B Natriuret Pep (19.9-100) pg/mL Total Protein Albumin Urine Color (Yellow) Urine Appearance (Clear) Urine pH (5.0-9.0) Ur Specific [place] (1.001-1.035) Urine Protein (Negative) mg/dL Urine Glucose (UA) (Negative) mg/dL Urine Ketones (Negative) mg/dL Ur Blood (Man) (Negative) Urine Nitrate (Negative) Urine Bilirubin (Negative) Urine Urobilinogen (<2.0) mg/dL Leukocyte Esterase Rfl (Negative) DEVIKA/UL Blood Type Antibody Screen Crossmatch See Detail ABG Data ABG results: 01/19/25 18:29 Puncture Site Left brachial ABG pH 7.416 ABG pCO2 57.4 H ABG pO2 55.2 L ABG PO2/FiO2 Ratio 1.38 ABG HCO3 36.1 H ABG O2 Saturation 88.4 L ABG O2 Content 13.7 L ABG Base Excess 9.7 A-a Gradient 164.0 Oxyhemoglobin 83.4 L* Carboxyhemoglobin 4.5 H Reduced Hemoglobin 11.9 H Total Hemoglobin 11.7 L O2 Delivery Device Nasal cannula O2 Liters/Min 5.0 FiO2 40 Attestation: I personally reviewed and interpreted this ABG as follows: Imaging Data Attestation: I personally reviewed and interpreted this imaging study as follows: Radiologist's impression: ITS Impressions Chest X-Ray 01/19/25 19:39 IMPRESSION: Multiple left nodules/masses, measuring up to 5.7 cm. Apparent left pleural thickening and possible small left pleural effusion. Chronic emphysematous change with left basilar atelectasis/scarring. Chest/Abdomen/Pelvis CTA 01/19/25 21:33 IMPRESSION: No CT evidence of acute pulmonary embolus. 5.2 cm left upper lobe mass. New 5 mm right upper lobe pulmonary nodule. The additional nodular opacities and apparent pleural thickening present in the prior radiograph were artifactual. Airway debris in right lower lobe bronchi may be secondary to mucous plugging or aspiration. Mediastinal and bilateral hilar lymphadenopathy. Small focus of active venous extravasation from the surface of the liver. Multiple heterogeneously enhancing liver masses, likely represent hepatic metastases. Moderate volume hemoperitoneum. Results reported telephonically to Sweta Vegas PA-C by Dr. Mendoza at 9:50 PM on 01/19/2025. ECG Data EKG #1: Attestation: I personally reviewed and interpreted this ECG as follows: ECG completion date: 01/19/25 ECG completion time: 18:12 normal rate (66), atrial fibrillation, non-specific ST changes and other (baseline artifact) Discharge Plan Discharge Clinical Impression: Hemoperitoneum, Non-small cell lung cancer metastatic to liver, Acute on chronic hypoxic respiratory failure, Chronic anticoagulation Patient Disposition: Acute Care Hospital Condition: Serious Patient Language: Latvian Prescriptions: No Action Xarelto 20 mg tablet 20 mg PO DAILY Rx Instructions: must administer with evening meal morphine 15 mg tablet 15 mg PO QID PRN (Reason: Breakthrough Pain) furosemide 40 mg tablet 40 mg PO BID Rx Instructions: alternates every other day with metolazone. gabapentin 300 mg capsule 300 mg PO TID albuterol sulfate [Ventolin HFA] 90 mcg/actuation HFA aerosol inhaler 2 inh INHALATION Q4-6H PRN (Reason: shortness of breath or wheezing) Qty: 8.5 3RF potassium chloride [Klor-Con M20] 20 mEq tablet,ER particles/crystals 20 meq PO BID metoprolol tartrate 25 mg tablet 25 mg PO BID metolazone 5 mg tablet See Rx Instructions .ROUTE .COMPLEX Rx Instructions: 5 mg orally every other day Stiolto Respimat 2.5-2.5 mcg/actuation mist 2 puff inhalation DAILY Qty: 4 11RF albuterol sulfate 2.5 mg /3 mL (0.083 %) solution for nebulization 2.5 mg inhalation Q6H PRN (Reason: shortness of breath or wheezing) Qty: 360 5RF glucosamine HCl 1,500 mg tablet 1,500 mg PO DAILY Rx Instructions: administer with a meal tizanidine 4 mg tablet 4 mg PO TID ascorbic acid (vitamin C) 1,000 mg Tablet 1 g PO BID Centrum Silver 0.4-300-250 mg-mcg-mcg Tablet 1 tablet PO DAILY diltiazem HCl [Tiadylt ER] 360 mg capsule,extended release 24 hr 360 mg PO DAILY morphine 15 mg tablet extended release 15 mg PO TID tadalafil [Cialis] 20 mg tablet 100 mg PO DAILY PRN (Reason: sexual activity) Rx Instructions: administer approximately 30min before sexual activity; do not use more than 1 dose per 24hrs trazodone 100 mg tablet 100 mg PO QHS PRN (Reason: sleep) Qty: 90 1RF Follow-up/Referrals: Des Dupont MD [Primary Care Provider] -
--- NOTE | 2025-01-19 22:11 | PC.NURSE ---
cassandra Sol at bedside to update pt with current results.
[2025-01-19] MEDS: HUMAN PROTHROMBIN COMPLEX(PCC) 3,000 UNITS in PREMIXIV 0 ML 504 UNITS IV CONT (22:23)
[2025-01-19] MEDS: TUBING, BLOOD SET 1 EACH XX (23:19)
[2025-01-19] MEDS: SODIUM CHLORIDE 0.9% IV 250 ML 30 ML IV CONT (23:19)
[2025-01-19] MEDS: TUBING, BLOOD PLUM PUMP TUBING 1 EACH XX (23:19)
[2025-01-19] MEDS: SODIUM CHLORIDE 0.9% IV 250 ML (23:20)
--- NOTE | 2025-01-19 23:27 | PC.NURSE ---
Spoke with transfer center and gave triage information. States they do have a bed and will call back with it once released.
[2025-01-20] VITALS (15 sets, daily range): BP systolic 100–123; BP diastolic 59–67; PULSE 79–96; RESP 13–26; TEMP 36.5; O2SAT 97–98
== END 2025-01-20 01:25 | disposition short-term general hospital (02) ==
PROVIDERS: Emergency Provider Physician Assistant; PCP Family Medicine
DX: K66.1 Hemoperitoneum (principal); C34.90 Malignant neoplasm of unspecified part of unspecified bronchus or lung; C78.7 Secondary malignant neoplasm of liver and intrahepatic bile duct; J44.9 Chronic obstructive pulmonary disease, unspecified; Z99.81 Dependence on supplemental oxygen; I48.91 Unspecified atrial fibrillation; E78.5 Hyperlipidemia, unspecified; G47.33 Obstructive sleep apnea (adult) (pediatric); J96.21 Acute and chronic respiratory failure with hypoxia; Z87.891 Personal history of nicotine dependence; Z79.01 Long term (current) use of anticoagulants; Z79.891 Long term (current) use of opiate analgesic
CPT/HCPCS: 36415; 36430; 36600; 71045; 71275; 74177; 80053; 81001; 82375; 82805; 83050; 83605; 83880; 84484; 85018; 85025; 85610; 85730; 86850; 86900; 86901; 86920; 93005; 94640; 96360; 96361; 99285; J7050; J7168; P9016; Q9967

== ENCOUNTER 2025-02-01 13:25 | Emergency (ER) | payer MEDICARE, OTHER, SELFPAY ==
--- OUTSIDE RECORDS SUMMARY | 2025-02-01 13:27 | XMS_ITS | Encounter Summary ---
Author Organization [facility] Healthcare Address [address] [place] [address] Care Team Providers Care Project Admin Name Role Phone Des Dupont MD Primary Care Provider + [phone] Stephanie Villarreal MD PhD Unavailable [phone] Encounter Details Date Type Department Care Team (Late st Contact Info) Description 01/30/2025 Telephone [facility] Cardiology [address] [place] [address] Bartolo Morillo MD [address] [id number] Social History Tobacco Use Types Packs/Day Years [...] of Binge Drinking Not on file 08/24 Personal Safety Answer Date Recorded Have you ever been in or are you currently in a harmful physical or emotional relationship or is someone making you feel afraid or unsafe? Denies 01/20/2025 Sex and Gender Information Value Date Recorded Sex Assigned at Not on file Legal Sex Male 1:56 PM CDT Gender Identity Male 01/27/2025 12:54 PM CDT Sexual Orientation Not on file documented as of this encounter Miscellaneous Notes * Telephone Encounter - Ann Stanley RN - 01/30/2025 12:52 PM CDT Spoke with pt, scheduled him for a hospital f/u appt with [facility] on Monday. * Telephone Encounter - Millicent Bauer - 01/30/2025 11:56 AM CDT Pt requesting a call back to discuss his medications. Pt was hospitalized for about a week started at and then was transferred to [facility] while at [facility] they changed his medications and took him off metOLazone (ZAROXOLYN) tablet 2.5 mg and furosemide (LASIX) tablet 40 mg which he said is causinghis legs to swell badly. Please advise. Thank you. Contact: documented in this encounter Plan of Treatment Not on file documented as of this encounter Visit Diagnoses Not on filedocumented in this encounter Care Teams Project Admin Relationship Specialty Start Date End Date Des Dupont MD [address] [place] [address] PCP - General Family Medicine 04/23/24 Stephanie Villarreal MD PhD [address] [facility] MEDICAL ONCOLOGY, [address] [place] [address] Consulting Physician Medical Oncology 01/23/25 documented as of this encounter
--- OUTSIDE RECORDS SUMMARY | 2025-02-01 13:27 | XMS_ITS ---
Author Organization [facility] [address] Address [address] [place] [address] Care Team Providers Care Mingler Operator Name Role Phone Des Dupont MD Primary Care Provider + [phone] Stephanie Villarreal MD PhD Unavailable [phone] Active Problems Problem Noted Date Diagnosed Date Chronic neck pain 01/23/2025 Assessment & Plan (01/23/2025 4:30 PM CDT): Hx of neck surgery. On chronic opioids for pain -continue pain control Acute on chronic respiratory failure with hypoxe irma 01/21/2025 Assessment & Plan (01/23/2025 4:29 PM CDT): Baseline O2 2-4L at home (tries to limit to 2-3L) in a background of COPD and a SETH SCC. Bibasilar atelectasis on chest imaging with possible mucus plugging. Increased productive cough over the last week or so. Reports taking shallow breaths due to R rib pain (which he attributes to tumor/intra-abdominal bleeding). 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 His increased oxygen requirement is likely mostly driven by his lung cancer in setting of severe underlying emphysema. Currently on 8-10L nasal cannula. On his CT, there is surrounding ground glass around the tumor which likely represents hemorrhage. There is no pulmonary embolism. There is some mild bibasilar atelectasis likely from mucus plugging. There may be some component of COPD exacerbation given his increased productive cough in the last week. Blood gas shows a compensated respiratory acidosis. Repeat RVP was negative. Recommendations: -continue scheduled duonebs, likely could be discharged on longer acting agent -Out of bed as much as possible -treated for COPD exacerbation with prednisone 40mg x 5d and azithromycin 500mg x3 days. - discussed with patient that he should wear his oxygen as prescribed at rest and with exertion. -treatement of lung cancer per oncology. Lung cancer, primary, with m etastasis from lung to other site, left 01/20/2025 Assessment & Plan (01/24/2025 1:45 PM CDT): Had been getting workup at OSH ([facility]). Would like to transfer care to [facility] system. Metastatic disease to liver. -MRI brain negative for brain mets -PET scan: left upper lobe necrotic lung mass, multiple necrotic hepatic Mets. - Oncology c/s, plan for outpatient follow up to determine treatment plan Intra abdominal hemorrhage 01/20/2025 Assessment & Plan (01/23/2025 4:28 PM CDT): Related to metastatic disease in the liver, with associated RUQ/R lower anterior chest wall pain. Liver enzymes stably elevated. Hgb stable at 11-12 - Hold therapeutic anticoagulation; seems to be OK with Lovenox ppx for now - Trend H/H - Pain contro as followsl: - Sharps 10-325 q4 PRN (with additional dose available for uncontrolled pain - IV Dilaudid 0.5 mg q3 PRN - Zanaflex 2 mg TID PRN - Gabapentin 300 mg TID - Lidocaine patch - Heat/ice PRN Assessment & Plan (01/21/2025 1:40 PM CDT): # CTA with evidence of likely liver metastases with area of active extravasation and hemoperitoneum - s/p Kcentra for Afib reversal, 2U pRBCs -> HDS on arrival - 01/20: remained hemodynamically stable. No need for IVF boluses or pressors overnight. H.6 (11.2). Holding DVT PPX and home xarelto. Received 1x KCENTRA this AM. Transfer to medicine recommended given no plan for OR from surgery perspective. Consider consulting IR for embolization if Hg drop/signs of bleeding - 01/21: H.5 (10.8) Diet: RD Bowel regimen: miralax, senna, docusate Nonrheumatic aortic valve stenosis 11/04/2022 Bilateral lower extremity edema 04/28/2021 Claudication 04/28/2021 Atrial flutter 02/28/2019 Overview (02/28/2019): Added automatically from request for surgery [id number] PAF (paroxysmal atrial fibrillation) 10/25/2017 Assessment & Plan (01/24/2025 1:43 PM CDT): Home Xarelto on hold given intra-abd hemorrhage. Appears stable on lovenox ppx - Hold home Xarelto: Discussed risk versus benefits of Xarelto. Patient has been on Xarelto for many years. He had abdominal bleed requiring blood transfusion and anticoagulation reversal. He agrees to stop xarelto at this time given high bleed risk. Will follow up pcp outpatient to consider anticoagulation in the future. - continue vte ppx - Continue metoprolol tartrate 25 BID with hold parameters - Continue home diltiazem 90 mg QID PFO (patent foramen ovale) 10/25/2017 Chronic anticoagulation 10/25/2017 HTN (hypertension), benign 10/25/2017 Assessment & Plan (01/22/2025 6:14 PM CDT): At home takes lasix, metoprolol, metolazone, dilt - Hold metolazone given low-normal BP currently - Diuresis described elsewhere - Metop and dilt discussed under afib COPD (chronic obstructive pulmonary disease) 12/2017 Assessment & Plan (01/24/2025 1:45 PM CDT): VBG 7.42/60, calculated HCO3 40 consistent with chronic respiratory acidosis with metabolic compensation + possible additional primary metabolic alkalosis. - pulmonary following PLan - pred 40 x 5d, azithro 500 x 3d for possible COPD exacerbation - goal saturation > 88%, wean o2 - walk test today. Was on home o2 NC 3-4L Assessment & Plan (01/21/2025 1:40 PM CDT): #Acute Respiratory Failure #COPD - duo nebs - SPO2>88 - at home with chronic 5L NC - 01/20: on 8L NC this AM, satting well. - 01/21: Increased O2 requirements, on 12L HFNC Current Treatment and Therapy Plans No current plan information found. Past Treatment and Therapy Plans No past plan information found. Lifetime Dose Tracking * Chemical Lifetime Dose Automatic Entry Manual Entr y Air kerma at the reference point (Ka,r) 41 mGy 0 mGy 41 mGy
--- OUTSIDE RECORDS SUMMARY | 2025-02-01 13:27 | XMS_ITS | Encounter Summary ---
Author Organization [facility] Address [address] [place] [address] Phone Care Team Providers Care Firebrick And Refractory Tile Repairer Name Role Phone Des Dupont MD Primary Care Provider + [phone] Stephanie Villarreal MD PhD Unavailable [phone] Lisa Barrow RN Unavailable [phone] Encounter Details Date Type Department Care Team (Late st Contact Info) Description 01/27/2025 Orders Only [facility] Pulmonary [address] [facility] 8th [place] [address] [place] [address] Phillip Nick Social History Tobacco Use Types Packs/Day Years [...] on filedocumented in this encounter Care Teams Firebrick And Refractory Tile Repairer Relationship Specialty Start Date End Date Des Dupont MD [address] [place] [address] PCP - General Family Medicine 04/23/24 Stephanie Villarreal MD PhD [address] [facility], [address] [place] [address] Consulting Physician Medical Oncology 01/23/25 Lisa Barrow, RN [address] [facility] [address] [place] [address] SHOP Outpatient Label Printing Machinist 01/27/25 01/29/25 documented as of this encounter
--- OUTSIDE RECORDS SUMMARY | 2025-02-01 13:28 | XMS_ITS | Encounter Summary ---
Author Organization [facility] Address [address] [facility] [place] [address] Care Team Providers Care Finish Repair Worker Name Role Phone Unavailable Primary Care Provider Unavailabl e Encounter Details Date Type Department Care Team (Late st Contact Info) Description 09/25/2020 Lab Requisition [facility] DermPath Lab [address] [facility] [place] [address] Naga Boswell MD [address] [place] [address] Social History Tobacco Use Types Packs/Day Years Used Date Smoking Tobacco: Never Assessed Sex and Gender Information Value Date Recorded Sex Assigned at Not on file Legal Sex Male 3:24 PM CDT Gender Identity Not on file Sexual Orientation Not on file documented as of this encounter Plan of Treatment Not on file documented as of this encounter Procedures Procedure Name Priority Date/Time Associated Diagnosis Comments DERMATOPATHOLOGY Routine 09/24/2020 12:0 0 AM ARROW POINT ATTACHER documented in this encounter Results * DERMATOPATHOLOGY (09/24/2020 12:00 AM ARROW POINT ATTACHER) Case Report Dermatopathology Report Case: [id number] Authorizing Provider: Naga Boswell MD Collected: 09/24/2020 12:00 AM Ordering Location: [facility] DermPath Lab Received: 09/25/2020 06:41 AM Pathologist: Manju Figueroa MD Specimens: A) - Skin, right upper post auricular B) - Skin, right lower post auricular 0 1:35 PM ARROW POINT ATTACHER DERMATOPATHOLOGY LABORATORY Final Diagnosis Specimen A. SKIN, right upper post auricular: EPIDERMOID CYST (L72.0) NOT PRESENT AT SAMPLED MARGIN Specimen B. SKIN, right lower post auricular: EPIDERMOID CYST (L72.0) NOT PRESENT AT SAMPLED MARGIN 0 1:35 PM ARROW POINT ATTACHER DERMATOPATHOLOGY LABORATORY Clinical History A: E cyst. Path # [id number]. Check margins. B: E cyst. Path # [id number]. 0 1:35 PM [facility] DERMATOPATHOLOGY LABORATORY Gross Description Specimen A: Received is one formalin filled container labeled with the patient's name and designated right upper post auricular. The specimen consists of a [id number] excision, bisected. The margin is inked green. Jar 0. Specimen B: Received is one formalin filled container labeled with the patient's name and designated right lower post auricular. The specimen consists of a [id number] excision, bisected. The margin is inked green. Jar 0. 0 1:35 PM [facility] DERMATOPATHOLOGY LABORATORY Microscopic Description Specimen A. [...] margin of the specimen. 0 1:35 PM [facility] DERMATOPATHOLOGY LABORATORY Disclaimer An external and internal positive and negative controls are appropriate for the histochemical, immunohistochemical and immunofluorescence stain(s) in this case (if any), except where stated explicitly. The performance characteristics of the stain(s) cited in this report were developed and its performance characteristic determined by the Dermatopathology Laboratory at [facility], directed by Dr. Hodan Sargent. These tests need not be, and therefore are not, approved by the [place] Food and Drug Administration. The tests are used for clinical purposes. Billing Codes Specimen Charges Stain Charges 91412 60093 1 1 0 1:35 PM [facility] DERMATOPATHOLOGY LABORATORY Embedded Images 0 1:35 PM [facility] DERMATOPATHOLOGY LABORATORY Pathology/Cytology TISSUE SPECIMEN FROM SKIN / Unknown 09/24/2020 09/25/2020 6:41 AM [facility] Miscellaneous samples (specimen) TISSUE SPECIMEN FROM SKIN / Unknown 09/24/2020 09/25/2020 6:41 AM ARROW POINT ATTACHER us Naga Boswell MD LAB - PATHOLOGY/CYTOLOGY ORDER STEFANIE Final Result DERMATOPATHOLOGY LABORATORY [facility] - Department of Dermatology [facility] Medicine [address] [place] [address], [address]rd Floor [address] [phone] documented in this encounter Visit Diagnoses Not on filedocumented in this encounter
--- OUTSIDE RECORDS SUMMARY | 2025-02-01 13:28 | XMS_ITS | Encounter Summary ---
Author Organization [facility] Address [address] [place] [address] Phone Care Team Providers Care Forensic Anthropologist Name Role Phone Des Dupont MD Primary Care Provider [phone] Stephanie Villarreal MD PhD Unavailable [phone] Encounter Details Date Type Department Care Team (Late st Contact Info) Description 01/31/2025 Orders Only [facility] Oncology [address] [facility] [address] [place] [address] Stephanie Villarreal MD PhD [address] [place] [address] Social History Tobacco Use Types Packs/Day Years [...] on filedocumented in this encounter Care Teams Forensic Anthropologist Relationship Specialty Start Date End Date Des Dupont MD [address] [place] [address] PCP - General Family Medicine 04/23/24 Stephanie Villarreal MD PhD [address] [facility], [facility] [address] [place] [address] Consulting Physician Medical Oncology 01/23/25 documented as of this encounter
--- OUTSIDE RECORDS SUMMARY | 2025-02-01 13:28 | XMS_ITS | Encounter Summary ---
Author Organization [facility] Healthcare Address [address] [place] [address] Care Team Providers Care Family Living Educator Name Role Phone Des Dupont MD Primary Care Provider + [phone] Tessa Pantoja MD Primary Care Provider [phone] Des Dupont MD Primary Care Provider + [phone] Stephanie Villarreal MD PhD Unavailable [phone] Lisa Barrow RN Unavailable [phone] Encounter Details Date Type Department Care Team (Late st Contact Info) Description 12/30/2017 Orders Only [facility] Health Information Management [address] [place] [address] Scanning, Provider Social History Tobacco Use [...] Comments SCAN - LABS 12/30/2017 1:20 AM HR COORDINATOR documented in this encounter Results * SCAN - LABS (12/30/2017 1:20 AM HR COORDINATOR) us Provider Scanning Final Result documented in this encounter Visit Diagnoses Not on filedocumented in this encounter Additional Health Concerns Infection Onset Date Last Indicated Resolved Time Ring Surveillance Comment:This flag is used to identify patient who are in house who are being monitored by Infection Prevention. If the patient is discharged and a swab has not been collected, if patient returns to hospital within 7 days a surveillance swab is to be collected (Reach out to IP for order) Patient does NOT need isolation, patient can travel off the floor. C auris [id number] 01/23/2025 01/23/2025 01/25/2025 8:33 AM C DT documented as of this encounter Care Teams Family Living Educator Relationship Specialty Start Date End Date Des Dupont MD PCP - General Family Medicine 07/13/17 08/17/23 Tessa Pantoja MD [address] [place] [address] PCP - General Family Medicine 08/18/23 04/22/24 Des Dupont MD [address] [place] [address] PCP - General Family Medicine 04/23/24 Stephanie Villarreal MD PhD [address] [facility] IM MEDICAL ONCOLOGY, [address] [place] [address] Consulting Physician Medical Oncology 01/23/25 Lisa Barrow, RN [address] [place] [address] SHOP Outpatient Actuary Manager 01/27/25 01/29/25 documented as of this encounter
--- OUTSIDE RECORDS SUMMARY | 2025-02-01 13:28 | XMS_ITS | Referral Summary ---
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 Name Role Phone Des Dupont MD Primary Care Provider [phone] Stephanie Villarreal MD PhD Unavailable [phone] Encounters Date Type Department Care Team Description 01/31/2025 Orders Only [facility] [address] [facility] Floor 5 [place] [address] Stephanie Villarreal MD PhD 01/30/2025 SHOP/CHAP Initial Outreach [facility] OP CASE MANAGEMENT 1 [place] [id number] Lisa Barrow RN 01/30/2025 Telephone [facility] [address] [place] [phone] Ynes Hurd, YAMIL 01/30/2025 Telephone [facility] Cardiology [address] [place] [address] Bartolo Morillo MD 01/28/2025 Documentation [facility] [address] [facility] Floor 5 [place] [address] Edith Aguilar CMA 01/28/2025 Orders Only [facility] [address] [facility] Floor 5 [place] [address] Stephanie Villarreal MD PhD Lung cancer, primary, 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, left (HCC) (Primary Dx) 01/28/2025 SHOP/CHAP Initial Outreach [facility] OP CASE MANAGEMENT 1 [place] [address] Lisa Barrow RN 01/28/2025 12:15 PM CDT Lab [facility] - Lab Collection [address] [facility] Floor 5 [place] [address] Lung cancer, primary, 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, left (HCC) 01/28/2025 10:00 AM CDT Office Visit [facility] [address] [facility] Floor 5 [place] [phone] Stephanie Villarreal MD PhD Lung cancer, primary, 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, left (HCC) (Primary Dx); Cancer related pain 01/27/2025 Orders Only [facility] [address] [place] [address] 8th [place] [address] [place] [address] Arnol Lira MD COPD exacerbation (HCC) (Primary Dx) 01/27/2025 SHOP/CHAP Initial Outreach [facility] OP CASE MANAGEMENT 1 [place] [address] Lisa Barrow RN 01/27/2025 SHOP/CHAP Initial Eligibility Review [facility] OP CASE MANAGEMENT 1 [place] [address] Lisa Barrow RN 01/27/2025 Orders Only [facility] Counts include 234 beds at the [facility] Advanced Medicine 8th [place] [address] [place] [address] Jt Meredith MD COPD exacerbation (HCC) (Primary Dx) 01/27/2025 Orders Only [facility] Counts include 234 beds at the [facility] 8th [place] [address] [place] [address] Phillip Nick 01/20/2025 1:57 AM CDT - 01/24/2025 5:31 PM CDT Hospital Encounter [facility] 1 [place] [address] Agustin Okeefe MD Knittel, MD Bhavesh Saunders, Martha Ragland MD Lung cancer, primary, 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, left (HCC) (Primary Dx); PAF (paroxysmal atrial fibrillation) (HCC) Discharge Disposition: Discharge to home or self care 12/27/2024 Telephone [facility] Medical [facility] Cardiology [address] [place] [address] Bartolo Morillo MD from Last 3 Months Allergies No known active allergies Medications GLUCOSAMINE/KESHAWN DROITIN SULF A (GLUCOSAMINE-CHO NDROITIN ORAL) Take 1 Caplet by mouth 2 (two) times a day Active CALCIUM CARBONATE (CORAL CALCIUM ORAL) Take 1,500 mg by mouth 2 (two) times a day Active ascorbic acid (VITAMIN C) 1,000 mg tablet Take 1 tablet (1,000 mg total) by mouth daily Active fluticasone-umec lidin-vilanter (TRELEGY ELLIPTA) 100-62.5-25 mcg inhaler Inhale 1 puff daily Active albuterol HFA (PROVENTIL HFA,VENTOLIN HFA,PROAIR HFA) 90 mcg/actuation inhaler Inhale 2 puffs 4 (four) times a day as needed for wheezing (pt. uses when nebulizer is not available) Active gabapentin (NEURONTIN) 300 mg capsule Take 1 capsule (300 mg total) by mouth 3 (three) times a day 90 capsule 025 2024 Active metoprolol tartrate (LOPRESSOR) 25 mg immediate release tablet Take 1 tablet (25 mg total) by mouth 2 (two) times a day 60 tablet 025 2024 Active famotidine (PEPCID) 20 mg tablet Take 1 tablet (20 mg total) by mouth daily for 5 days 5 tablet Active polyethylene glycol (MIRALAX) 17 gram packetIndication s:constipation Take 1 packet (17 g total) by mouth daily 30 packet 025 2024 Active senna-docusate (PERICOLACE) 8.6-50 mg Take 1 tablet by mouth 2 (two) times a day 60 tablet 2024 Active morphine ER (MS CONTIN) 30 mg 12 hr tablet Take 1 tablet (30 mg total) by mouth 2 (two) times a day for 7 days 14 tablet Active tiZANidine (ZANAFLEX) 2 mg tablet Take 1 tablet (2 mg total) by mouth 3 (three) times a day as needed for muscle spasms 30 tablet 2024 Active traZODone (DESYREL) 50 mg tablet Take 1 tablet (50 mg total) by mouth nightly as needed for sleep 30 tablet 2024 Active ipratropium-albu teroL (DUO-NEB) 0.5-2.5 mg/3 mL nebulizer solutionIndicati ons:disorder of respiratory system Take 3 mL by nebulization every 6 (six) hours as needed for wheezing or shortness of breath 180 mL Active naloxone (NARCAN) 4 mg/actuation spray,non-aeroso l Administer 1 spray into affected nostril(s) as needed for opioid reversal or respiratory depression Call 911. Administer a single spray in one nostril. Repeat every 3 minutes as needed if no or minimal response. 10 each 2024 Active diltiazem (Tiadylt ER) 360 mg 24 hr capsuleIndicatio ns:PAF (paroxysmal atrial fibrillation) (HCC) Take 1 capsule (360 mg total) by mouth daily 90 capsule 2024 Active docusate sodium (COLACE) 100 mg capsule Take 1 capsule (100 mg total) by mouth Active senna (SENOKOT) 8.6 mg tablet Take 1 tablet by mouth daily Active sildenafiL (VIAGRA) 100 mg tablet Take 1 tablet (100 mg total) by mouth Active lidocaine (LIDODERM) 5 %Indications:Geo g cancer, primary, 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, left (HCC),Cancer related pain Place 1 patch on the skin daily for 12 hours Remove & discard patch within 12 hours or as directed by . 30 patch 3 2024 Active morphine (MSIR) 15 mg tablet Take 1 tablet (15 mg total) by mouth 3 (three) times a day as needed for pain 017 2024 Discontinued(S top Taking at Discharge) gabapentin (NEURONTIN) 300 mg capsule Take 1 capsule (300 mg total) by mouth 2 (two) times a day 017 2024 Discontinued(S top Taking at Discharge) turmeric root extract 500 mg capsule Take 1 capsule by mouth 2 (two) times a day 2024 Discontinued(S top Taking at Discharge) ipratropium-albu terol (DUO-NEB) 0.5-2.5 mg/3 mL nebulizer solutionIndicati ons:Chronic Obstructive Pulmonary Disease with Bronchospasms Take by nebulization every 6 (six) hours 2024 Discontinued(S top Taking at Discharge) testosterone cypionate (DEPO-TESTOTERON E) 200 mg/mL injection 0 019 2024 Discontinued(S top Taking at Discharge) tiZANidine (ZANAFLEX) 4 mg tablet 0.5 tablets (2 mg total) 020 2024 Discontinued(S top Taking at Discharge) morphine ER (MS CONTIN) 30 mg 12 hr tablet Take 1 tablet (30 mg total) by mouth 2 (two) times a day 020 2024 Discontinued psyllium, aspartame, SF (METAMUCIL SF) 3.4 gram packet Take 1 packet by mouth daily 2024 Discontinued(S top Taking at Discharge) Xarelto 20 mg tablet TAKE 1 TABLET BY MOUTH EVERY DAY 90 tablet 1 022 2024 Discontinued(S top Taking at Discharge) metOLazone (ZAROXOLYN) 2.5 mg tabletIndication s:PAF (paroxysmal atrial fibrillation) ([facility]) TAKE 1 TABLET BY MOUTH EVERY DAY 30 tablet 1 022 2024 Discontinued(S top Taking at Discharge) traZODone (DESYREL) 100 mg tablet Take 1 tablet (100 mg total) by mouth nightly 023 2024 Discontinued(S top Taking at Discharge) Klor-Con M20 20 mEq CR tablet TAKE 4 TABLETS BY MOUTH TODAY, THEN 2 TABLETS DAILY THERE AFTER 184 tablet 4 024 2024 Discontinued(S top Taking at Discharge) Tiadylt ER 360 mg 24 hr capsuleIndicatio ns:PAF (paroxysmal atrial fibrillation) (HCC) TAKE 1 CAPSULE BY MOUTH EVERY DAY 90 capsule 3 024 2024 Discontinued furosemide (LASIX) 40 mg tablet TAKE 1 TABLET BY MOUTH TWICE A DAY 180 tablet 3 024 2024 Discontinued(S top Taking at Discharge) metoprolol tartrate (LOPRESSOR) 25 mg immediate release tablet TAKE 1 TABLET BY MOUTH TWICE A DAY 180 tablet 3 024 2024 Discontinued(S top Taking at Discharge) dilTIAZem (CARDIZEM) 90 mg tablet Take 1 tablet (90 mg total) by mouth 4 (four) times a day 120 tablet 025 2024 Discontinued(S top Taking at Discharge) HYDROcodone-acet aminophen (NORCO) 10-325 mg per tabletIndication s:Pain Take 1 tablet by mouth every 6 (six) hours as needed for pain for up to 5 days 20 tablet 025 2024 predniSONE (DELTASONE) 20 mg tablet Take 2 tablets (40 mg) by mouth daily for 1 dose 2 tablet 025 2024 furosemide (LASIX) 40 mg tablet Take 1 tablet (40 mg total) by mouth daily 30 tablet 025 2024 Discontinued furosemide (LASIX) 40 mg tabletIndication s:Lung cancer, primary, 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, left (HCC) Take 1 tablet (40 mg total) by mouth daily 30 tablet 025 2024 Discontinued furosemide (LASIX) 40 mg tablet Take 1 tablet (40 mg total) by mouth 2 (two) times a day 180 tablet 3 025 2024 Active Problems Problem Noted Date Diagnosed Date [...] CDT): Had been getting workup at OSH ([facility]). Would like to transfer care to [facility] system. Metastatic disease to liver. -MRI brain [...] H/H - Pain contro as followsl: - [place] 10-325 q4 PRN (with additional dose available [...] (02/28/2019): Added automatically from request for surgery [id number] PAF (paroxysmal atrial fibrillation) 10/25/2017 Assessment & [...] 01/21: Increased O2 requirements, on 12L HFNC Immunizations Immunization Administration Dates Next Due Influenza, Quadrivalent, Hig h Dose, Preservative Free, Intrr 08/15/2020 Influenza, Trivalent, High D ose, Split, Preservative Free, Intramuscular 08/15/2020,09/05/2018 Influenza, Unspecified 07/02/2023,09/02/2021 Moderna SARS-CoV-2 Monovalen t Vaccination (12+ YRS) 01/25/2022,09/04/2021,12/03/2020 Pfizer Sars-Cov-2 Bivalent V accination (12+ YRS) 07/10/2022 Pneumococcal Conjugate PCV 13 09/05/2018 Pneumococcal Polysaccharide PPV23 08/15/2020 ZOSTER Recombinant 09/06/2022,06/02/2022 Social History Tobacco Use Types Packs/Day Years [...] PM CDT Sexual Orientation Not on file Last Filed Vital Signs Vital Sign Reading Time Taken Comments Blood Pressure 117/69 01/28/2025 10:04 AM CDT Pulse 85 01/28/2025 10:04 AM CDT Temperature 36.6 C (97.8 F) 01/28/2025 10:04 AM CDT Respiratory Rate 20 01/28/2025 10:0 4 AM CDT Oxygen Saturation 92% 01/28/2025 10: 04 AM CDT Inhaled Oxygen Concentration - - Weight 123.7 kg (272 lb 9.6 oz) 025 10:04 AM CDT Height 180.2 cm (5' 10.95 ) 01/28/2025 10:04 AM CDT Body Mass Index 38.08 01/28/2025 10:04 AM CDT Plan of Treatment Not on file Procedures Procedure Name Priority Date/Time Associated Diagnosis Comments EGFR Routine 01/28/2025 12:19 PM CDT Lung cancer, primary, 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, left (HCC) COMPREHENSIVE METABOLIC PANEL Routine 01/28/2025 12:19 PM CDT Lung cancer, primary, 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, left (HCC) DIFFERENTIAL AUTO Routine 01/28/2025 12: 09 PM CDT Lung cancer, primary, 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, left (HCC) CBC WITH AUTO DIFFERENTIAL Routine 01/28/2025 12:09 PM CDT Lung cancer, primary, 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, left (HCC) PET/CT FDG WHOLE BODY IP Routine 01/24/2025 11:14 AM CDT EGFR Routine 01/23/2025 8:45 PM CDT COMPREHENSIVE METABOLIC PANEL Routine 01/23/2025 8:45 PM CDT CBC WITHOUT DIFFERENTIAL Routine 01/23/2025 8:45 PM CDT PHOSPHORUS Routine 01/23/2025 8:45 PM CDT MAGNESIUM Routine 01/23/2025 8:45 PM CDT MRI BRAIN W WO CONTRAST IP Routine 01/23/2025 3:10 PM CDT INFECTION PREVENTION CLEOPATRA AURIS PCR, SURVEILLANCE Routine 01/23/2025 1:17 PM CDT EGFR Routine 01/22/2025 11:42 PM CDT TYPE AND SCREEN Timed 01/22/2025 11:42 PM CDT COMPREHENSIVE METABOLIC PANEL Routine 01/22/2025 11:42 PM CDT CBC WITHOUT DIFFERENTIAL Routine 01/22/2025 11:42 PM CDT PHOSPHORUS Routine 01/22/2025 11:42 PM CDT MAGNESIUM Routine 01/22/2025 11:42 PM CDT XR TIBIA FIBULA RIGHT 1 VIEW IP Routine 01/22/2025 9:45 PM CDT XR TIBIA FIBULA LEFT 1 VIEW IP Routine 01/22/2025 9:45 PM CDT PEP THERAPY Routine 01/22/2025 4:00 PM CDT XR SPINE CERVICAL 2 OR 3 VIEWS IP Routine 01/22/2025 12:55 PM CDT CRITICAL CARE Routine 01/22/2025 11:06 AM CDT Lung cancer, primary, 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, left (HCC) BLOOD GAS, VENOUS Routine 01/22/2025 8:5 2 AM CDT PEP THERAPY Routine 01/22/2025 8:01 AM CDT PEP THERAPY Routine 01/22/2025 6:24 AM CDT POCT GLUCOSE DEVICE Routine 01/22/2025 3 :20 AM CDT COMPREHENSIVE METABOLIC PANEL Routine 01/21/2025 8:44 PM CDT EGFR Routine 01/21/2025 8:44 PM CDT CBC WITHOUT DIFFERENTIAL Routine 01/21/2025 8:44 PM CDT PHOSPHORUS Routine 01/21/2025 8:44 PM CDT MAGNESIUM Routine 01/21/2025 8:44 PM CDT CRITICAL CARE Routine 01/21/2025 6:32 PM CDT Lung cancer, primary, 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, left (HCC) RESPIRATORY PATHOGEN PANEL Routine 01/21/2025 4:57 PM CDT CRITICAL CARE Routine 01/21/2025 8:31 AM CDT Lung cancer, primary, 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, left (HCC) POCT GLUCOSE DEVICE Routine 01/21/2025 7 :09 AM CDT LIPID PANEL Routine 01/20/2025 8:11 PM CDT EGFR Routine 01/20/2025 8:11 PM CDT CBC WITHOUT DIFFERENTIAL Routine 01/20/2025 8:11 PM CDT PHOSPHORUS Routine 01/20/2025 8:11 PM CDT MAGNESIUM Routine 01/20/2025 8:11 PM CDT BASIC METABOLIC PANEL Routine 01/20/2025 8:11 PM CDT CRITICAL CARE Routine 01/20/2025 7:42 PM CDT Lung cancer, primary, 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, left (HCC) POCT GLUCOSE DEVICE Routine 01/20/2025 7 :22 PM CDT XR CHEST 1 VIEW IP Routine 01/20/2025 6:47 PM CDT POCT GLUCOSE DEVICE Routine 01/20/2025 2 :59 PM CDT BLOOD GAS, VENOUS Routine 01/20/2025 1:1 8 PM CDT POCT GLUCOSE DEVICE Routine 01/20/2025 1 1:27 AM CDT CRITICAL CARE Routine 01/20/2025 8:12 AM CDT Lung cancer, primary, 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, left (HCC) DIFFERENTIAL AUTO STAT 01/20/2025 8:0 7 AM CDT CBC WITH AUTO DIFFERENTIAL STAT 01/20/2025 8:07 AM CDT POCT GLUCOSE DEVICE Routine 01/20/2025 7 :10 AM CDT XR TRANSFER OF OUTSIDE FILMS Routine 01/20/2025 3:[address] BODY OUTSIDE CONSULT Routine 01/20/2025 3:55 AM CDT B CHECK SAMPLE STAT 01/20/2025 3:29 AM CDT CRITICAL RESULT CALLBACK HEMATOLOGY STAT 01/20/2025 2:37 AM CDT HEPARIN ANTI FACTOR XA ACTIVITY STAT 01/20/2025 2:37 AM CDT EGFR STAT 01/20/2025 2:37 AM CDT DIFFERENTIAL AUTO STAT 01/20/2025 2:3 7 AM CDT PROTIME-INR STAT 01/20/2025 2:37 AM CDT APTT STAT 01/20/2025 2:37 AM CDT TYPE AND SCREEN Timed 01/20/2025 2:37 AM CDT CBC WITH AUTO DIFFERENTIAL STAT 01/20/2025 2:37 AM CDT LACTATE STAT 01/20/2025 2:37 AM CDT PHOSPHORUS STAT 01/20/2025 2:37 AM CDT MAGNESIUM STAT 01/20/2025 2:37 AM CDT COMPREHENSIVE METABOLIC PANEL STAT 01/20/2025 2:37 AM CDT POCT GLUCOSE DEVICE Routine 01/20/2025 2 :15 AM CDT from Last 3 Months Results * eGFR (01/28/2025 12:19 PM CDT) eGFR >90 >=60 mL/min/1. 73 m2 Comment: Interpretive Data Reference Interval Normal >/= 90 mL/min/1.73m2 Mildly decreased* 60 - 89 mL/min/1.73m2 Mildly to moderately decreased 45 - 59 mL/min/1.73m2 Moderately to severely decreased 30 - 44 mL/min/1.73m2 Severely decreased 15 - 29 mL/min/1.73m2 Kidney Failure < 15 mL/min/1.73m2 *Relative to young adult level Estimated glomerular filtration rate is determined by the 2020 CKD-EPI equation recommended by the National Kidney Foundation (A Unifying Approach to GFR Estimation: Recommendations of the NKF-ASK Task Force on Reassessing the Inclusion of Race in Diagnosing Kidney Disease, JASN 2020). The CKD-EPI equation should not be used for patients with unstable renal function and has not been validated in children and those over 70. Current interpretive data was last reviewed 2021. Blood 01/28/2025 12:1 9 PM CDT 01/28/2025 12:25 PM CDT us Stephanie Villarreal MD PhD LAB BLOOD ORDERABLES Final Result [facility] Department [place] [address] * (ABNORMAL) Comprehensive metabolic panel (01/28/2025 12:19 PM CDT) Sodium 138 135 - 145 mmol/L Potassium, pl 4.3 3.3 - 4.9 mmol/L [facility] Chloride 99 97 - 110 mmol/L [facility] CO2 32 22 - 32 mmol/L [facility] Anion gap 7 2 - 15 mmol/L [facility] BUN 22 6 - 25 mg/dL [facility] Creatinine 0.76(L) 0.80 - 1.30 mg/dL [facility] Glucose 102 70 - 199 mg/dL [facility] Comment: Interpretive Data Fasting glucose >/= 126 mg/dl is diagnostic for diabetes. Fasting is defined as no caloric intake for at least 8 hours. Fasting glucose between 100 mg/dl to 125 mg/dl is diagnostic of prediabetes. In a patient with classic symptoms of hyperglycemia or hyperglycemic crisis, a random glucose >/= 200 mg/dl is diagnostic for diabetes. In the absence of unequivocal hyperglycemia, results should be confirmed by repeat testing. The classification and Diagnosis of Diabetes Diabetes Care 2021; 46: S19-S40. Current interpretive data was last revised 2022. Calcium 9.3 8.5 - 10.3 mg/dL [facility] Bilirubin, total 0.6 0.1 - 1.2 mg/dL [facility] Protein, pl 6.6 6.5 - 8.5 g/dL [facility] Albumin 3.2(L) 3.5 - 5.0 g/dL [facility] Alk phos 101 40 - 130 Units/L [facility] ALT 19 7 - 55 Units/L [facility] AST 29 10 - 50 Units/L [facility] Blood 01/28/2025 12:1 9 PM CDT 01/28/2025 12:25 PM CDT us Stephanie Villarreal MD PhD LAB BLOOD ORDERABLES Final Result [facility] Department [place] [address] * (ABNORMAL) Differential, auto (01/28/2025 12:09 PM CDT) Neutrophil abs 12.01(H) 1.50 - 6.50 K/cumm Comment:Testing performed by : [facility], [address] [place] [phone] Lymphocyte abs 2.50 0.80 - 3.30 K/cumm [facility] Comment:Testing performed by : [facility], [address] [place] [phone] Monocyte abs 1.10(H) 0.20 - 0.80 K/cumm [facility] Comment:Testing performed by : [facility], [address] [place] [phone] Eosinophil abs 0.18 0.00 - 0.50 K/cumm [facility] Comment:Testing performed by : [facility], [address] [place] [phone] Basophil abs 0.10 0.00 - 0.10 K/cumm [facility] Comment:Testing performed by : [facility], [address] [place] [phone] Neutrophil pct 75.6 % [facility] Comment: Interpretive Data Percent cell count reference ranges are not reported, since discordance with absolute values may lead to misinterpretation of CBC data. Current Interpretive Data was last revised on 2018. Testing performed by: [facility], [address] [place] [phone] Lymphocyte pct 15.7 % [facility] Comment: Interpretive Data Percent cell count reference ranges are not reported, since discordance with absolute values may lead to misinterpretation of CBC data. Current Interpretive Data was last revised on 2018. Testing performed by: [facility], [address] [place] [phone] Monocyte pct 6.9 % [facility] Comment: Interpretive Data Percent cell count reference ranges are not reported, since discordance with absolute values may lead to misinterpretation of CBC data. Current Interpretive Data was last revised on 2018. Testing performed by: [facility], [address] [place] [phone] Eosinophil pct 1.1 % [facility] Comment: Interpretive Data Percent cell count reference ranges are not reported, since discordance with absolute values may lead to misinterpretation of CBC data. Current Interpretive Data was last revised on 2018. Testing performed by: [facility], [address] [place] [phone] Basophil pct 0.6 % [facility] Comment: Interpretive Data Percent cell count reference ranges are not reported, since discordance with absolute values may lead to misinterpretation of CBC data. Current Interpretive Data was last revised on 2018. Testing performed by: [facility], [address] [place] [address] Blood 01/28/2025 12:0 9 PM CDT 01/28/2025 12:23 PM CDT us Stephanie Villarreal MD PhD LAB BLOOD ORDERABLES Final Result [facility] Department [place] [address] * (ABNORMAL) CBC with auto differential (01/28/2025 12:09 PM CDT) WBC 15.89(H) 3.80 - 9.90 K/cumm Comment:Testing performed by : [facility], [address] [place] [address] Hgb 12.4(L) 13.0 - 17.5 g/dL [facility] Comment:Testing performed by : [facility], [address] [place] [address] Hct 39.0 38.9 - 50.3 % [facility] Comment:Testing performed by : [facility], [address] [place] [address] Plt 409(H) 150 - 400 K/cumm CERSUGEY BJ Comment:Testing performed by : [facility], [address] [place] [address] MPV 8.0 6.8 - 10.4 fL [facility] Comment:Testing performed by : [facility], [address] [place] [address] RBC 4.70 4.30 - 5.80 M/cumm [facility]ER [facility] Comment:Testing performed by : [facility], [address] [place] [address] MCV 83.0 81.3 - 96.4 fL [facility] Comment:Testing performed by : [facility], [address] [place] [phone] MCH 26.5(L) 27.1 - 33.3 pg SUKHDEEP OSMAN Comment:Testing performed by : [facility], [address] [place], [place] [phone] MCHC 31.9(L) 32.3 - 35.7 g/dL SUKHDEEP OSMAN Comment:Testing performed by : [facility], [address] [place], [place] [phone] RDW CV 20.0(H) 11.1 - 14.9 % SUKHDEEP [facility] Comment:Testing performed by : [facility], [address] [place], [place] [phone] NRBC abs 0.00 0.00 - 0.01 K/cumm SUKHDEEP OSMAN Comment:Testing performed by : [facility], [address] [place], [place] [phone] Blood 01/28/2025 12:0 9 PM CDT 01/28/2025 12:23 PM CDT us Stephanie Villarreal MD PhD LAB BLOOD ORDERABLES Final Result SUKHDEEP [facility] Department [place] [address] * PET/CT FDG Whole Body (01/24/2025 11:14 AM CDT) Anatomical Region Laterality Modality Body N/A Positron Emissio n Tomography (PET) 01/24/2025 1:18 PM CDT Impressions 01/24/2025 1:42 PM CDT 1. Left upper lobe subpleural necrotic mass which is moderately hypermetabolic along the margins, stable in size compared to 01/19/2025. 2. Multiple necrotic hepatic metastases throughout the liver, with moderate peripheral hypermetabolism. 3. Mild FDG uptake involving mediastinal and left hilar lymph nodes, suspicious for jassi metastatic disease. 4. Indeterminate 9 mm pulmonary nodule in the right lower lobe, either infectious/inflammatory or representing a site of malignancy. Attention on follow-up imaging. 5. Markedly avid left iliac wing bone metastasis, without metastatic disease. Dictated by: Leonel Conley MD, Ph.D The radiology attending physician has personally reviewed this study, and had reviewed and/or edited this written report and agrees with it. Electronically signed by: Andrae Hill MD, Ph.D Narrative 01/24/2025 1:42 PM CDT EXAMINATION: TUMOR FDG-PET/CT IMAGING DATE OF STUDY: 01/24/2025 SCANNER: [facility] [employer] (NV1). This is a high-resolution scanner, which can result in higher SUVs (and even detection of previously unrecognized small lesions) compared to older scanners. RADIOPHARMACEUTICAL: 19.72 mCi F-18 Fluorodeoxyglucose (FDG) i.v. Injection site: Right forearm HISTORY: 74-year-old man with non-small cell lung cancer, with metastasis to the liver. The study is requested for initial staging. Initial treatment strategy. TECHNIQUE: The patient's fasting blood glucose level, measured by glucometer before injection of FDG, was 92 mg/dL. After intravenous administration of FDG, noncontrast CT images were obtained for attenuation correction and for fusion with emission PET images to allow for anatomical localization of PET findings. Emission PET images were then obtained. The study was interpreted on the [employer] workstation. The mean liver SUV (reported for design quality engineer purposes) is 2.6. The total scanned area was skull vertex to toes. Images of the body were obtained starting 52 minutes after injection of tracer. All reported SUVs are maximum SUVs, unless otherwise specified. COMPARISON: CT chest abdomen pelvis 01/19/2025 DESCRIPTORS OF LESION FDG AVIDITY: Minimal: <= blood pool Mild: > blood pool and <= liver Moderate: > liver and <= 2x SUVmax liver Moderate to marked: >2x SUVmax liver and <= 3x SUVmax liver Marked: > 3x SUVmax liver FINDINGS: Liver SUV maximum background of 3.7. Centrally photopenic 4.5 cm mass in the periphery of the left upper lobe abutting the pleura, with moderately hypermetabolic rim, SUV maximum of 7.3 (image 132). There is an additional moderately avid focus in the right lower lobe (SUV maximum of 6.0, axial image 136), with misregistration between CT and PET images, likely correlating to an 8 mm pulmonary nodule (series 4, image 140), with surrounding atelectasis. This is nonspecific and may represent an infectious/inflammatory process, additional follow-up imaging. Mild to moderately avid mediastinal and left hilar lymph nodes, including a right paratracheal lymph node with a maximum SUV of 3.8 (image 119), and a left hilar lymph node maximum SUV of 3.8 (axial image 132) There are numerous centrally photopenic lesions scattered throughout the entirety of the liver, some of which demonstrate moderate FDG avidity along the margins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 filtration rate is determined by the 2020 CKD-EPI equation recommended by the National Kidney Foundation (A Unifying Approach to GFR Estimation: Recommendations of the NKF-ASK Task Force on Reassessing the Inclusion of Race in Diagnosing Kidney Disease, JASN 2020). The CKD-EPI equation should not be used for patients with unstable renal function and has not been validated in children and those over 70. Current interpretive data was last reviewed 2021. Blood 01/21/2025 8:44 PM CDT 01/21/2025 9:59 PM CDT Agustin Okeefe MD LAB BLOOD ORDERABLES Natividad l Result Performing Organization Address [facility] Co de Phone Number [facility] [place] [address] * (ABNORMAL) CBC without differential (01/21/2025 8:44 PM CDT) WBC 14.55(H) 3.80 - 9.90 K/cumm Hgb 11.7(L) 13.0 - 17.5 g/dL [facility] Hct 36.6(L) 38.9 - 50.3 % [facility] Plt 294 150 - 400 K/cumm [facility] MPV 10.5 9.1 - 12.3 fL [facility] RBC 4.33 4.30 - 5.80 M/cumm [facility] MCV 84.5 81.3 - 96.4 fL [facility] MCH 27.0(L) 27.1 - 33.3 pg [facility] MCHC 32.0(L) 32.3 - 35.7 g/dL [facility] RDW CV 18.3(H) 11.1 - 14.9 % [facility] RDW SD 57.1(H) 35.7 - 48.1 fL [facility] NRBC abs 0.00 0.00 - 0.01 K/cumm [facility] Blood 01/21/2025 8:44 PM CDT 01/21/2025 9:56 PM CDT Christiano Ibrahim NP LAB BLOOD ORDERABLES F inal Result Performing Organization Address [facility] Co de Phone Number [facility] [place] [address] * (ABNORMAL) Phosphorus (01/21/2025 8:44 PM CDT) [facility] Phosphorus, pl 1.9(L) 2.3 - 4.5 mg/dL Blood 01/21/2025 8:44 PM CDT 01/21/2025 9:50 PM CDT Christiano Ibrahim DIRECTOR INFORMATION SECURITY LAB BLOOD ORDERABLES F inal Result Performing Organization Address [facility] de Phone Number [facility] Department [place] [address] * Magnesium (01/21/2025 8:44 PM CDT) [facility] Magnesium 1.9 1.4 - 2.5 mg/dL Blood 01/21/2025 8:44 PM CDT 01/21/2025 9:50 PM CDT Christiano Ibrahim DIRECTOR INFORMATION SECURITY LAB BLOOD ORDERABLES F inal Result Performing Organization Address [facility] de Phone Number [facility] [place] [employer] [place] [address] * (ABNORMAL) Comprehensive metabolic panel (01/21/2025 8:44 PM CDT) [facility] Sodium 136 135 - 145 mmol/L Potassium, pl 4.1 3.3 - 4.9 mmol/L [facility] Chloride 91(L) 97 - 110 mmol/L [facility] CO2 35(H) 22 - 32 mmol/L [facility] Anion gap 10 2 - 15 mmol/L [facility] BUN 24 6 - 25 mg/dL [facility] Creatinine 0.81 0.80 - 1.30 mg/dL [facility] Glucose 211(H) 70 - 199 mg/dL [facility] Comment: Interpretive Data Fasting glucose >/= 126 mg/dl is diagnostic for diabetes. Fasting is defined as no caloric intake for at least 8 hours. Fasting glucose between 100 mg/dl to 125 mg/dl is diagnostic of prediabetes. In a patient with classic symptoms of hyperglycemia or hyperglycemic crisis, a random glucose >/= 200 mg/dl is diagnostic for diabetes. In the absence of unequivocal hyperglycemia, results should be confirmed by repeat testing. The classification and Diagnosis of Diabetes Diabetes Care 202; 46: S19-S40. Current interpretive data was last revised 2022. Calcium 8.7 8.5 - 10.3 mg/dL [facility] Bilirubin, total 0.7 0.1 - 1.2 mg/dL [facility] Protein, pl 6.7 6.5 - 8.5 g/dL [facility] Albumin 2.8(L) 3.5 - 5.0 g/dL [facility] Alk phos 115 40 - 130 Units/L [facility] ALT 62(H) 7 - 55 Units/L [facility] AST 98(H) 10 - 50 Units/L [facility] Blood 01/21/2025 8:44 PM CDT 01/21/2025 9:50 PM CDT Agustin Okeefe MD LAB BLOOD ORDERABLES Natividad l Result [facility] Department [place] [address] * Critical Care (01/21/2025 6:32 PM CDT) Narrative Ezequiel Fonseca MD - 01/21/2025 6:32 PM CDT Ezequiel Fonseca MD 01/22/2025 6:21 AM Critical Care Performed by: Ezequiel Fonseca MD Authorized by: Ezequiel Fonseca MD CRITICAL CARE: Team: SICU RED Shift: PM Level of Billing: Critical Care My time spent with this patient was 30 minutes: Critical Provider Statement: I have seen and examined the patient on this day of service. I have reviewed and confirmed the history, physical exam, laboratory and radiologic data as documented in the signed ICU note. I have reviewed and discussed my treatment plan with the ICU team and other medical/systems consultant staff, making frequent assessments and decisions regarding this patient's complex medical care. Critical Care time was exclusive of time spent performing separately billed procedures, treating other patients, and teaching. This time was in addition to and separate from critical care provided by other practitioners in my group on this day of service. Critical Care was necessary to treat or prevent imminent or life-threatening deterioration of the following conditions: Ezequiel Fonseca MD IN CLINIC/BEDSIDE CODY RAYO Final Result * Respiratory pathogen panel Nasopharyngeal (01/21/2025 4:57 PM CDT) Pathologist [facility] Influenza A RNA Not Detected Not Detected Influenza B RNA Not Detected Not Detected [facility] RSV RNA Not Detected Not Detected [facility] COVID-19 RNA Not Detected Not Detected [facility] Coronavirus 229E RNA Not Detected Not Detected [facility] Coronavirus HKU1 RNA Not Detected Not Detected [facility] Coronavirus NL63 RNA Not Detected Not Detected [facility] Coronavirus OC43 RNA Not Detected Not Detected [facility] Adenovirus DNA Not Detected Not Detected [facility] Metapneumovirus RNA Not Detected Not Detected [facility] Rhinovirus/Enterov irus RNA Not Detected Not Detected [facility] Parainfluenza 1 RNA Not Detected Not Detected [facility] Parainfluenza 2 RNA Not Detected Not Detected [facility] Parainfluenza 3 RNA Not Detected Not Detected [facility] Parainfluenza 4 RNA Not Detected Not Detected [facility] B. pertussis DNA Not Detected Not Detected [facility] B. parapertussis DNA Not Detected Not Detected [facility] C. pneumoniae DNA Not Detected Not Detected [facility] M. pneumoniae DNA Not Detected Not Detected [facility] Nasopharyngeal 01/21/2025 4: 57 PM CDT 01/21/2025 5:12 PM CDT Narrative [facility] - 01/21/2025 6:18 PM CDT Is the Patient experiencing symptoms consistent with COVID?->No Surveillance testing for transplant patient?->No Interpretive Data The [employer] FilmArray Respiratory Panel (RP2.1) assay is a multiplexed real-time PCR based nucleic acid test capable of simultaneous qualitative detection and identification of multiple respiratory viral and bacterial nucleic acids, including SARS Coronavirus 2 (the causative agent of COVID-19). The following bacteria, viruses and virus subtypes can be identified using the FilmArray RP2.1 assay: Bordetella pertussis, Bordetella parapertussis, Chlamydia pneumoniae, Mycoplasma pneumoniae, Adenovirus, SARS Coronavirus 2, seasonal coronaviruses (Coronavirus HKU1, Coronavirus NL63, Coronavirus 229E, and Coronavirus OC43), Influenza A, Influenza A subtype H1, Influenza A subtype H3, Influenza A subtype 2009 H1, Influenza B, Metapneumovirus, Parainfluenza 1, Parainfluenza 2, Parainfluenza 3, Parainfluenza 4, RSV, Rhinovirus/Enterovirus. Due to the genetic similarity between human Rhinovirus and Enterovirus, the FilmArray RP2.1 assay cannot reliably differentiate them. Coronavirus OC43 may cross-react with some isolates of Coronavirus HKU1. A dual positive result may be due to cross-reactivity or may indicate a co- infection. The detection and identification of specific viral and bacterial nucleic acids from individuals exhibiting signs and symptoms of a respiratory infection aids in the diagnosis of respiratory infection if used in conjunction with other clinical and epidemiological information. The results of this test should not be used as the sole basis for diagnosis, treatment, or other management decisions. Negative results in the setting of a respiratory illness may be due to infection with pathogens that are not detected by this test. Positive results do not rule out infection/co-infection with other organisms. The agent(s) detected by the FilmArray RP2.1 may not be the definite cause of disease. Additional testing (lab, imaging, etc.) may be necessary when evaluating a patient with possible respiratory tract infection. The FilmArray RP2.1 assay has FDA clearance for testing of DIRECTOR INFORMATION SECURITY swabs. The performance of additional specimen types has been assessed by the performing laboratory. The performance characteristics of this assay have been determined by [facility]. Current interpretive data was last revised on 22. us Agustin Okeefe MD LAB MICROBIOLOGY - GENERA L ORDERABLES Final Result [facility] Department [place] [address] * Critical Care (01/21/2025 8:31 AM CDT) Mik Gaspar MD - 01/21/2025 8:31 AM CDT Mik Hearn MD 01/21/2025 3:56 PM Critical Care Performed by: Mik Hearn MD Authorized by: Mik Hearn MD CRITICAL CARE: Team: SICU RED Shift: AM Level of Billing: Critical Care My time spent with this patient was 45 minutes: Critical Provider Statement: I have seen and examined the patient on this day of service. I have reviewed and confirmed the history, physical exam, laboratory and radiologic data as documented in the signed ICU note. I have reviewed and discussed my treatment plan with the ICU team and other medical/systems consultant staff, making frequent assessments and decisions regarding this patient's complex medical care. Critical Care time was exclusive of time spent performing separately billed procedures, treating other patients, and teaching. This time was in addition to and separate from critical care provided by other practitioners in my group on this day of service. Critical Care was necessary to treat or prevent imminent or life-threatening deterioration of the following conditions: Atrial fibrillation with rapid ventricular rate Lung CA with mets COPD with acute exacerbation and Acute respiratory insufficiency This time was spent by me doing the following: Acute pain control Initiation/active titration of anti-arrhythmic or rate controlling agent Active and frequent reassessment of respiratory status and oxygen requirements, Incentive spirometry, pulmonary toilet and Frequent bronchodilator treatments Active and frequent monitoring of intake/output and volumen status I spent time reviewing and interpreting data from bedside monitors, laboratory results, and imaging, I spent time discussing the management of this critically ill patient with consultants and the medical staff and I spent time documenting in the medical record us Mik Hearn MD IN CLINIC/BEDSIDE ORDER STEFANIE Final Result * POCT glucose (01/21/2025 7:09 AM CDT) Glucose, POC 130 70 - 199 mg/dL Blood 01/21/2025 7:09 AM CDT 01/21/2025 7:09 AM CDT us Mik Hearn MD LAB POCT ORDERABLES - D EVICE Final Result [facility] Department [place] [address] * eGFR (01/20/2025 8:11 PM CDT) [facility] eGFR >90 >=60 mL/min/1. 73 m2 Comment: Interpretive Data Reference Interval Normal >/= 90 mL/min/1.73m2 Mildly decreased* 60 - 89 mL/min/1.73m2 Mildly to moderately decreased 45 - 59 mL/min/1.73m2 Moderately to severely decreased 30 - 44 mL/min/1.73m2 Severely decreased 15 - 29 mL/min/1.73m2 Kidney Failure < 15 mL/min/1.73m2 *Relative to young adult level Estimated glomerular filtration rate is determined by the 2020 CKD-EPI equation recommended by the National Kidney Foundation (A Unifying Approach to GFR Estimation: Recommendations of the NKF-ASK Task Force on Reassessing the Inclusion of Race in Diagnosing Kidney Disease, JASN 2020). The CKD-EPI equation should not be used for patients with unstable renal function and has not been validated in children and those over 70. Current interpretive data was last reviewed 2021. Blood 01/20/2025 8:11 PM CDT 01/20/2025 8:20 PM CDT Christiano Ibrahim NP LAB BLOOD ORDERABLES F inal Result [facility] Department [place] [address] * (ABNORMAL) CBC without differential (01/20/2025 8:11 PM CDT) [facility] WBC 12.1(H) 3.8 - 9.9 K/cumm Hgb 11.5(L) 13.0 - 17.5 g/dL [facility] Hct 36.1(L) 38.9 - 50.3 % [facility] Plt 275 150 - 400 K/cumm [facility] MPV 10.4 9.1 - 12.3 fL [facility] RBC 4.28(L) 4.30 - 5.80 M/cumm [facility] MCV 84.3 81.3 - 96.4 fL [facility] MCH 26.9(L) 27.1 - 33.3 pg [facility] MCHC 31.9(L) 32.3 - 35.7 g/dL [facility] RDW CV 19.0(H) 11.1 - 14.9 % [facility] RDW SD 57.2(H) 35.7 - 48.1 fL [facility] NRBC abs 0.00 0.00 - 0.01 K/cumm [facility] Blood 01/20/2025 8:11 PM CDT 01/20/2025 8:20 PM CDT Christiano Ibrahim DIRECTOR INFORMATION SECURITY LAB BLOOD ORDERABLES F inal Result Performing Organization Address [facility] de Phone Number [facility] Department [place] [address] * Phosphorus (01/20/2025 8:11 PM CDT) Phosphorus, pl 2.5 2.3 - 4.5 mg/dL Blood 01/20/2025 8:11 PM CDT 01/20/2025 8:20 PM CDT Christiano Ibrahim DIRECTOR INFORMATION SECURITY LAB BLOOD ORDERABLES F inal Result Performing Organization Address [facility] de Phone Number [facility] Department [place] [address] * Magnesium (01/20/2025 8:11 PM CDT) Magnesium 2.2 1.4 - 2.5 mg/dL Blood 01/20/2025 8:11 PM CDT 01/20/2025 8:20 PM CDT Christiano Ibrahim DIRECTOR INFORMATION SECURITY LAB BLOOD ORDERABLES F inal Result [facility] Department [place] [address] * (ABNORMAL) Lipid panel (01/20/2025 8:11 PM CDT) Cholesterol 158 30 - 199 mg/dL Comment: Interpretive Data Ages < or = 19 years Acceptable: <170 mg/dL Borderline high: 170-199 mg/dL High: >or= 200 mg/dL Ages > or = 20 years Desirable: <200 mg/dL Borderline high: 200-239 mg/dL High: >or= 240 mg/dL Literature References: 1. Expert Panel on Integrated Guidelines for Cardiovascular Health and Risk Reduction in Children and Adolescents. Pediatrics 2011;128:S213 2. NCEP Expert Panel. Circulation 2004;110:227 Current Interpretive Data was last revised on 2018. Triglycerides 100 <=149 mg/dL [facility] Comment: Interpretive Data Ages < or = 9 years Acceptable: <75 mg/dL Borderline high: 75-99 mg/dL High: >or= 100 mg/dL Ages 10 to 20 years Acceptable: <90 mg/dL Borderline high: 90-129 mg/dL High: >or= 130 mg/dL Ages > or = 20 years Desirable: <150 mg/dL Borderline high: 150-199 mg/dL High: 200-499 mg/dL Very high: >or= 499 mg/dL Literature References: 1. Expert Panel on Integrated Guidelines for Cardiovascular Health and Risk Reduction in Children and Adolescents. Pediatrics 2011;128:S213 2. NCEP Expert Panel. Circulation 2004;110:227 Current Interpretive Data was last revised on 2018. HDL 24(L) >=40 mg/dL [facility] Comment: Interpretive Data Ages < or = 19 years Acceptable: >45 mg/dL Borderline low: 40-45 mg/dL Low: <40 mg/dL Ages > or = 20 years Desirable: >or= 60 mg/dL Low: <40 mg/dL Literature References: 1. Expert Panel on Integrated Guidelines for Cardiovascular Health and Risk Reduction in Children and Adolescents. Pediatrics 2011;128:S213 2. NCEP Expert Panel. Circulation 2004;110:227 Current Interpretive Data was last revised on 2018. LDL, calculated 115 <=129 mg/dL [facility] Comment: Interpretive Data Ages < or = 19 years Acceptable: <110 mg/dL Borderline high: 110-129 mg/dL High: >or= 130 mg/dL Ages > or = 20 years Optimal: <100 mg/dL Near optimal: 100-129 mg/dL Borderline high: 130-159 mg/dL High: >160 mg/dL Calculated using the Esa LDL-C estimating equation. This equation was implemented on 2024. Prior to this date LDL-C was estimated using the Friedewald equation. Literature References: 1. Expert Panel on Integrated Guidelines for Cardiovascular Health and Risk Reduction in Children and Adolescents. Pediatrics 2011;128:S213 2. NCEP Expert Panel. Circulation 2004;110:227 3. Esa Eric et al. [employer] Cardiol. 2019February 20;5(5):540-548. doi: [email or web address] Current Interpretive Data was last revised on 2024. Non-HDL Cholesterol 134 mg/dL [facility] Comment: Interpretive Data Ages < or = 19 years Acceptable: <120 mg/dL Borderline high: 120-144 mg/dL High: >145 mg/dL Ages > or = 20 years When triglycerides are >200 mg/dL, Non-HDL cholesterol is a secondary target of therapy with treatment goals that are 30 mg/dL greater than the LDL cholesterol target. Literature References: 1. Expert Panel on Integrated Guidelines for Cardiovascular Health and Risk Reduction in Children and Adolescents. Pediatrics 2011;128:S213 2. NCEP Expert Panel. Circulation 2004;110:227 Current Interpretive Data was last revised on 2018. Chol/HDL ratio 7 [facility] Blood 01/20/2025 8:11 PM CDT 01/20/2025 8:20 PM CDT us Agustin Okeefe MD LAB BLOOD ORDERABLES Natividad madrid Result [facility] Department [place] [address] * (ABNORMAL) Basic metabolic panel (01/20/2025 8:11 PM CDT) Sodium 136 135 - 145 mmol/L Potassium, pl 4.5 3.3 - 4.9 mmol/L [facility] Comment:Hemolyzed; Potassium value may be falsely elevated by as much as 1.1-1.6 mmol/L. Suggest redraw and reanalysis. Chloride 91(L) 97 - 110 mmol/L [facility] CO2 38(H) 22 - 32 mmol/L [facility] Anion gap 7 2 - 15 mmol/L [facility] BUN 21 6 - 25 mg/dL [facility] Creatinine 0.67(L) 0.80 - 1.30 mg/dL [facility] Glucose 159 70 - 199 mg/dL [facility] Comment: Interpretive Data Fasting glucose >/= 126 mg/dl is diagnostic for diabetes. Fasting is defined as no caloric intake for at least 8 hours. Fasting glucose between 100 mg/dl to 125 mg/dl is diagnostic of prediabetes. In a patient with classic symptoms of hyperglycemia or hyperglycemic crisis, a random glucose >/= 200 mg/dl is diagnostic for diabetes. In the absence of unequivocal hyperglycemia, results should be confirmed by repeat testing. The classification and Diagnosis of Diabetes Diabetes Care 2021; 46: S19-S40. Current interpretive data was last revised 2022. Calcium 8.9 8.5 - 10.3 mg/dL [facility] Blood 01/20/2025 8:11 PM CDT 01/20/2025 8:20 PM CDT Christiano Ibrahim DIRECTOR INFORMATION SECURITY LAB BLOOD ORDERABLES F inal Result [facility] [place] [address] * Critical Care (01/20/2025 7:42 PM CDT) Narrative Ezequiel Fonseca MD - 01/20/2025 7:42 PM CDT Ezequiel Fonseca MD 01/21/2025 4:50 AM Critical Care Performed by: Ezequiel Fonseca MD Authorized by: Ezequiel Fonseca MD CRITICAL CARE: Team: SICU RED Shift: PM Level of Billing: Critical Care My time spent with this patient was 30 minutes: Critical Provider Statement: I have seen and examined the patient on this day of service. I have reviewed and confirmed the history, physical exam, laboratory and radiologic data as documented in the signed ICU note. I have reviewed and discussed my treatment plan with the ICU team and other medical/systems consultant staff, making frequent assessments and decisions regarding this patient's complex medical care. Critical Care time was exclusive of time spent performing separately billed procedures, treating other patients, and teaching. This time was in addition to and separate from critical care provided by other practitioners in my group on this day of service. Critical Care was necessary to treat or prevent imminent or life-threatening deterioration of the following conditions: us Ezequiel Fonseca MD IN CLINIC/BEDSIDE CODY GIRMA Final Result * POCT glucose (01/20/2025 7:22 PM CDT) Glucose, POC 136 70 - 199 mg/dL Blood 01/20/2025 7:22 PM CDT 01/20/2025 7:22 PM CDT us Agustin Okeefe MD LAB POCT ORDERABLES - DEV ICE Final Result [facility] Department [place] [address] * XR Chest 1 View (01/20/2025 6:47 PM CDT) Anatomical Region Laterality Modality Body, Chest N/A Computed Radiogr aphy 01/21/2025 9:16 AM CDT Impressions 01/21/2025 9:35 AM CDT Comparison is made to CT dated 01/19/2025. There is a large left upper lobe mass, better characterized on the CT, compatible with known primary lung malignancy. Changes of emphysema throughout both lungs, most prominent at the lung apices. Streaky left greater than right basilar atelectasis. No definite pleural effusion. No pneumothorax. Heart and mediastinal contours are normal. Changes of anterior cervical spinal fusion. Dictated by: Raven Espinal MD The radiology attending physician has personally reviewed this study, and had reviewed and/or edited this written report and agrees with it. Electronically signed by: Perry Raymond M.D. Narrative 01/21/2025 9:35 AM CDT EXAMINATION: 1 view chest radiograph Procedure Note Perry Raymond MD - 01/21/2025 EXAMINATION: 1 view chest radiograph IMPRESSION: Comparison is made to CT dated 01/19/2025. There is a large left upper lobe mass, better characterized on the CT, compatible with known primary lung malignancy. Changes of emphysema throughout both lungs, most prominent at the lung apices. Streaky left greater than right basilar atelectasis. No definite pleural effusion. No pneumothorax. Heart and mediastinal contours are normal. Changes of anterior cervical spinal fusion. Dictated by: Raven Espinal MD The radiology attending physician has personally reviewed this study, and had reviewed and/or edited this written report and agrees with it. Electronically signed by: Perry Raymond M.D. Agustin Okeefe MD IMG XR PROCEDURES Final R esult * POCT glucose (01/20/2025 2:59 PM CDT) Glucose, POC 102 70 - 199 mg/dL Blood 01/20/2025 2:59 PM CDT 01/20/2025 2:59 PM CDT Agustin Okeefe MD LAB POCT ORDERABLES - DEV ICE Final Result SUKHDEEP STEWART [facility] [place] [address] * (ABNORMAL) Blood gas, venous (01/20/2025 1:18 PM CDT) pH, Venous 7.40 7.32 - 7.43 PCO2, Venous 61(H) 40 - 50 mmHg [facility] PO2, Venous 41 mmHg [facility] Comment: Interpretive Data No Reference Range Established Current Interpretive Data was last revised on 2018. HCO3 Venous, Calculated 39(H) 20 - 30 mmol/L [facility] BE, venous 10 mmol/L [facility] Comment: Interpretive Data No Reference Range Established Current Interpretive Data was last revised on 2018. Blood 01/20/2025 1:18 PM CDT 01/20/2025 1:23 PM CDT Agustin Okeefe MD LAB BLOOD ORDERABLES Natividad l Result Performing Organization Address City/[facility]/ZIP Co de Phone Number [facility] Department [place] [address] * POCT glucose (01/20/2025 11:27 AM CDT) Glucose, POC 110 70 - 199 mg/dL Blood 01/20/2025 11:2 7 AM CDT 01/20/2025 11:27 AM CDT Agustin Okeefe MD LAB POCT ORDERABLES - DEV ICE Final Result Performing Organization Address [facility] Co de Phone Number [facility] Department [place] [address] * Critical Care (01/20/2025 8:12 AM CDT) Narrative Mik Hearn MD - 01/20/2025 8:12 AM CDT Mik Hearn MD 01/20/2025 4:25 PM Critical Care Performed by: Mki Hearn MD Authorized by: Mik Hearn MD CRITICAL CARE: Team: SICU RED Shift: AM Level of Billing: Critical Care My time spent with this patient was 45 minutes: Critical Provider Statement: I have seen and examined the patient on this day of service. I have reviewed and confirmed the history, physical exam, laboratory and radiologic data as documented in the signed ICU note. I have reviewed and discussed my treatment plan with the ICU team and other medical/systems consultant staff, making frequent assessments and decisions regarding this patient's complex medical care. Critical Care time was exclusive of time spent performing separately billed procedures, treating other patients, and teaching. This time was in addition to and separate from critical care provided by other practitioners in my group on this day of service. Critical Care was necessary to treat or prevent imminent or life-threatening deterioration of the following conditions: Acute pain/acute postoperative pain Lung cancer with mets Acute respiratory insufficiency Acute blood loss anemia This time was spent by me doing the following: Acute pain control Active and frequent reassessment of respiratory status and oxygen requirements and Incentive spirometry, pulmonary toilet Active and frequent monitoring of intake/output and volumen status I spent time reviewing and interpreting data from bedside monitors, laboratory results, and imaging, I spent time discussing the management of this critically ill patient with consultants and the medical staff and I spent time documenting in the medical record us Mik Hearn MD IN CLINIC/BEDSIDE ORDER STEFANIE Final Result * (ABNORMAL) Differential, auto (01/20/2025 8:07 AM CDT) Neutrophil abs 9.1(H) 1.5 - 6.5 K/cumm Imm gran abs 0.1 0.0 - 0.1 K/cumm [facility] Lymphocyte abs 1.5 0.8 - 3.3 K/cumm [facility] Monocyte abs 0.9(H) 0.2 - 0.8 K/cumm [facility] Eosinophil abs 0.1 0.0 - 0.5 K/cumm [facility] Basophil abs 0.0 0.0 - 0.1 K/cumm [facility] Neutrophil pct 78.0 % [facility] Comment: Interpretive Data Percent cell count reference ranges are not reported, since discordance with absolute values may lead to misinterpretation of CBC data. Current Interpretive Data was last revised on 2018. Imm gran pct 0.7 % [facility] Comment: Interpretive Data Percent cell count reference ranges are not reported, since discordance with absolute values may lead to misinterpretation of CBC data. Current Interpretive Data was last revised on 2018. Lymphocyte pct 12.7 % [facility] Comment: Interpretive Data Percent cell count reference ranges are not reported, since discordance with absolute values may lead to misinterpretation of CBC data. Current Interpretive Data was last revised on 2018. Monocyte pct 7.7 % [facility] Comment: Interpretive Data Percent cell count reference ranges are not reported, since discordance with absolute values may lead to misinterpretation of CBC data. Current Interpretive Data was last revised on 2018. Eosinophil pct 0.6 % [facility] Comment: Interpretive Data Percent cell count reference ranges are not reported, since discordance with absolute values may lead to misinterpretation of CBC data. Current Interpretive Data was last revised on 2018. Basophil pct 0.3 % [facility] Comment: Interpretive Data Percent cell count reference ranges are not reported, since discordance with absolute values may lead to misinterpretation of CBC data. Current Interpretive Data was last revised on 2018. Blood 01/20/2025 8:07 AM CDT 01/20/2025 8:15 AM CDT Agustin Okeefe MD LAB BLOOD ORDERABLES Natividad madrid Result [facility] Department [place] [address] * (ABNORMAL) CBC with auto differential (01/20/2025 8:07 AM CDT) WBC 11.6(H) 3.8 - 9.9 K/cumm Hgb 10.8(L) 13.0 - 17.5 g/dL [facility] Hct 33.6(L) 38.9 - 50.3 % [facility] Plt 242 150 - 400 K/cumm [facility] MPV 9.8 9.1 - 12.3 fL [facility] RBC 3.98(L) 4.30 - 5.80 M/cumm [facility] MCV 84.4 81.3 - 96.4 fL [facility] MCH 27.1 27.1 - 33.3 pg [facility] MCHC 32.1(L) 32.3 - 35.7 g/dL [facility] RDW CV 18.7(H) 11.1 - 14.9 % [facility] RDW SD 57.3(H) 35.7 - 48.1 fL [facility] NRBC abs 0.00 0.00 - 0.01 K/cumm [facility] Blood 01/20/2025 8:07 AM CDT 01/20/2025 8:15 AM CDT Agustin Okeefe MD LAB BLOOD ORDERABLES Natividad l Result Performing Organization Address [facility] Co de Phone Number [facility] Department [place] [address] * POCT glucose (01/20/2025 7:10 AM CDT) [facility] Signature Glucose, POC 118 70 - 199 mg/dL Blood 01/20/2025 7:10 AM CDT 01/20/2025 7:10 AM CDT Agustin Okeefe MD LAB POCT ORDERABLES - DEV ICE Final Result Performing Organization Address [facility] de Phone Number [facility] Department [place] [address] * XR Outside Reference (01/20/2025 3:58 AM CDT) Impressions RAD_PACS_[facility] - 01/20/2025 3:58 AM CDT These images are for Reference purposes only and have not been reviewed by [facility]. There will be no report generated by a [facility]iologist. Narrative RAD_PACS_[facility] - 01/20/2025 3:58 AM CDT EXAMINATION: Images For Reference Purposes Only Herrera Keys MD IMG XR PROCEDURES Final Result Performing Organization Address [facility] Co de Phone Number RAD_PACS_[facility] * CT Body Outside Consult (01/20/2025 3:55 AM CDT) Anatomical Region Laterality Modality Body N/A Computed Tomogra phy 01/20/2025 5:04 PM CDT Impressions 01/20/2025 6:49 PM CDT 1. No pulmonary embolism. 2. Left upper lobe mass abutting the pleura, compatible with known primary malignancy, with enlarged hilar and mediastinal nodes as well as indeterminate pulmonary nodules which are suspicious for metastatic disease. 3. Small volume hemoperitoneum likely due to rupture and hemorrhage of one of the numerous hepatic metastases. The findings, conclusions and recommendations within this report do not replace the initial findings, conclusions and recommendations made at the facility where the study was performed based upon the imaging and clinical condition at that time. Comparison with the prior report and clinical history is necessary. The provided images may or may not represent the sycuan source data set and thus may contain changes that may lower the accuracy of this second-opinion interpretation. Dictated by: Isac Ruiz M.D. The radiology attending physician has personally reviewed this study, and had reviewed and/or edited this written report and agrees with it. Electronically signed by: José José MD, PHD Narrative 01/20/2025 6:49 PM CDT EXAMINATION: RADIOLOGY CONSULTATION ON OUTSIDE IMAGING STUDY STUDY INITIALLY PERFORMED: 01/19/2025 at [facility]. TYPE OF STUDY: Multiple CT images of the chest, abdomen, and pelvis with intravenous contrast are provided at the time of this interpretation. CONTRAST ROUTE: Contrast was administered via the intravenous route. The protocol was adequate to address the clinical question. The outside final report was not available at the time of this second opinion interpretation. TYPE OF CONSULTATION: Consult on outside imaging study with images submitted through Outside Image Sharing Service DATE OF CONSULTATION: 01/20/2025 3:57 PM HISTORY: 74-year-old male with lung cancer COMPARISON: None available. FINDINGS: CHEST: No pulmonary embolism. No supraclavicular or axillary lymphadenopathy. Left hilar and mediastinal lymphadenopathy with the largest node measuring approximately 1.3 cm. Mildly enlarged heart. Coronary artery and aortic valve calcification. No pericardial effusion. The main pulmonary artery is mildly dilated measuring up to 3.3 cm. No pleural effusion or pneumothorax. There is severe centrilobular emphysema bilaterally. Bilateral lower lobe mucous plugging with atelectasis in the lung bases. A solid mass in the left upper lobe abutting the pleura measures approximately 4.8 x 4.1 cm with mild surrounding ground glass which may represent eduard-lesional hemorrhage. Solid 4 mm nodule in the right middle lobe (series 4 image 156) and a solid 4 mm nodule (series 4 image 81) in the right upper lobe are indeterminate. ABDOMEN/PELVIS: Hypoattenuating metastases throughout the liver with perihepatic blood, likely due to rupture hemorrhage of one of these metastases. No biliary ductal dilatation. The gallbladder is decompressed. The spleen, pancreas, and adrenal glands are normal. The kidneys enhance symmetrically. No hydronephrosis. Normal urinary bladder. The prostate is present. Small volume hemoperitoneum tracking along the anterior liver surface, left subphrenic space, left paracolic gutter, and pelvis. No colonic wall thickening no bowel obstruction. No retroperitoneal, mesenteric, or pelvic lymphadenopathy. Normal caliber abdominal aorta. Partially imaged anterior cervical fusion hardware. No suspicious osseous lesion. Procedure Note José José MD PhD - 01/20/2025 EXAMINATION: RADIOLOGY CONSULTATION ON OUTSIDE IMAGING STUDY STUDY INITIALLY PERFORMED: 01/19/2025 at [facility]. TYPE OF STUDY: Multiple CT images of the chest, abdomen, and pelvis with intravenous contrast are provided at the time of this interpretation. CONTRAST ROUTE: Contrast was administered via the intravenous route. The protocol was adequate to address the clinical question. The outside final report was not available at the time of this second opinion interpretation. TYPE OF CONSULTATION: Consult on outside imaging study with images submitted through Outside Image Sharing Service DATE OF CONSULTATION: 01/20/2025 3:57 PM HISTORY: 74-year-old male with lung cancer COMPARISON: None available. FINDINGS: CHEST: No pulmonary embolism. No supraclavicular or axillary lymphadenopathy. Left hilar and mediastinal lymphadenopathy with the largest node measuring approximately 1.3 cm. Mildly enlarged heart. Coronary artery and aortic valve calcification. No pericardial effusion. The main pulmonary artery is mildly dilated measuring up to 3.3 cm. No pleural effusion or pneumothorax. There is severe centrilobular emphysema bilaterally. Bilateral lower lobe mucous plugging with atelectasis in the lung bases. A solid mass in the left upper lobe abutting the pleura measures approximately 4.8 x 4.1 cm with mild surrounding ground glass which may represent eduard-lesional hemorrhage. Solid 4 mm nodule in the right middle lobe (series 4 image 156) and a solid 4 mm nodule (series 4 image 81) in the right upper lobe are indeterminate. ABDOMEN/PELVIS: Hypoattenuating metastases throughout the liver with perihepatic blood, likely due to rupture hemorrhage of one of these metastases. No biliary ductal dilatation. The gallbladder is decompressed. The spleen, pancreas, and adrenal glands are normal. The kidneys enhance symmetrically. No hydronephrosis. Normal urinary bladder. The prostate is present. Small volume hemoperitoneum tracking along the anterior liver surface, left subphrenic space, left paracolic gutter, and pelvis. No colonic wall thickening no bowel obstruction. No retroperitoneal, mesenteric, or pelvic lymphadenopathy. Normal caliber abdominal aorta. Partially imaged anterior cervical fusion hardware. No suspicious osseous lesion. IMPRESSION: 1. No pulmonary embolism. 2. Left upper lobe mass abutting the pleura, compatible with known primary malignancy, with enlarged hilar and mediastinal nodes as well as indeterminate pulmonary nodules which are suspicious for metastatic disease. 3. Small volume hemoperitoneum likely due to rupture and hemorrhage of one of the numerous hepatic metastases. The findings, conclusions and recommendations within this report do not replace the initial findings, conclusions and recommendations made at the facility where the study was performed based upon the imaging and clinical condition at that time. Comparison with the prior report and clinical history is necessary. The provided images may or may not represent the sycuan source data set and thus may contain changes that may lower the accuracy of this second-opinion interpretation. Dictated by: Isac Ruiz M.D. The radiology attending physician has personally reviewed this study, and had reviewed and/or edited this written report and agrees with it. Electronically signed by: José José MD, PHD Herrera Keys MD [facility] CT PROCEDURES Final Result * Check Sample (01/20/2025 3:29 AM CDT) ABO Rh B Positive [facility] OTHER 01/20/2025 3:29 AM CDT 01/20/2025 3:43 AM CDT Agustin Okeefe MD LAB BLOOD ORDERABLES Natividad l Result [facility] [place] [address] [facility] * Lactate (01/20/2025 2:37 AM CDT) Lactate 0.8 0.7 - 2.0 mmol/L Blood 01/20/2025 2:37 AM CDT 01/20/2025 2:52 AM CDT Agustin Okeefe MD LAB BLOOD ORDERABLES Natividad l Result Performing Organization Address [facility] de Phone Number [facility] [place] [address] * eGFR (01/20/2025 2:37 AM CDT) eGFR >90 >=60 mL/min/1. 73 m2 Comment: Interpretive Data Reference Interval Normal >/= 90 mL/min/1.73m2 Mildly decreased* 60 - 89 mL/min/1.73m2 Mildly to moderately decreased 45 - 59 mL/min/1.73m2 Moderately to severely decreased 30 - 44 mL/min/1.73m2 Severely decreased 15 - 29 mL/min/1.73m2 Kidney Failure < 15 mL/min/1.73m2 *Relative to young adult level Estimated glomerular filtration rate is determined by the 2020 CKD-EPI equation recommended by the National Kid[employer] (A Unifying Approach to GFR Estimation: Recommendations of the NKF-ASK Task Force on Reassessing the Inclusion of Race in Diagnosing Kidney Disease, JASN 2020). The CKD-EPI equation should not be used for patients with unstable renal function and has not been validated in children and those over 70. Current interpretive data was last reviewed 2021. Blood 01/20/2025 2:37 AM CDT 01/20/2025 2:52 AM CDT us Agustin Okeefe MD LAB BLOOD ORDERABLES Natividad madrid Result [facility] [place] [address] * (ABNORMAL) Differential, auto (01/20/2025 2:37 AM CDT) Neutrophil abs 10.4(H) 1.5 - 6.5 K/cumm Imm gran abs 0.1 0.0 - 0.1 K/cumm [facility] Lymphocyte abs 1.4 0.8 - 3.3 K/cumm [facility] Monocyte abs 1.0(H) 0.2 - 0.8 K/cumm [facility] Eosinophil abs 0.1 0.0 - 0.5 K/cumm [facility] Basophil abs 0.0 0.0 - 0.1 K/cumm [facility] Neutrophil pct 79.9 % [facility] Comment: Interpretive Data Percent cell count reference ranges are not reported, since discordance with absolute values may lead to misinterpretation of CBC data. Current Interpretive Data was last revised on 2018. Imm gran pct 1.0 % [facility] Comment: Interpretive Data Percent cell count reference ranges are not reported, since discordance with absolute values may lead to misinterpretation of CBC data. Current Interpretive Data was last revised on 2018. Lymphocyte pct 10.6 % [facility] Comment: Interpretive Data Percent cell count reference ranges are not reported, since discordance with absolute values may lead to misinterpretation of CBC data. Current Interpretive Data was last revised on 2018. Monocyte pct 7.7 % [facility] Comment: Interpretive Data Percent cell count reference ranges are not reported, since discordance with absolute values may lead to misinterpretation of CBC data. Current Interpretive Data was last revised on 2018. Eosinophil pct 0.6 % [facility] Comment: Interpretive Data Percent cell count reference ranges are not reported, since discordance with absolute values may lead to misinterpretation of CBC data. Current Interpretive Data was last revised on 2018. Basophil pct 0.2 % [facility] Comment: Interpretive Data Percent cell count reference ranges are not reported, since discordance with absolute values may lead to misinterpretation of CBC data. Current Interpretive Data was last revised on 2018. Blood 01/20/2025 2:37 AM CDT 01/20/2025 2:52 AM CDT Agustin Okeefe MD LAB BLOOD ORDERABLES Natividad l Result Performing Organization Address [facility] de Phone Number [facility] Department [place] [address] * Critical Result Callback Hematology (01/20/2025 2:37 AM CDT) Date Notified [id number] Time Notified 503 [address] [facility] TestName Anti Factor Xa SKUHDEEP OSMAN Called/Read Back Ban TARANGO [facility] Credentials RN SUKHDEEP [facility] Called By SUKHDEEP [facility] Blood 01/20/2025 2:37 AM CDT 01/20/2025 2:53 AM CDT Agustin Okeefe MD LAB BLOOD ORDERABLES Natividad l Result Performing Organization Address [facility] de Phone Number [facility] [place] [address] * (ABNORMAL) Heparin anti factor Xa activity (01/20/2025 2:37 AM CDT) Anti Factor Xa >2.00(C) IUnits/mL Comment: No clot detected in sample Repeated and verified - [id number] - 01/20/25, 5:00 AM Interpretive Data Enoxaparin therapeutic range (peak): VTE treatment, Q12hr dosin.60-1.00 IUnits/mL VTE treatment, Q24hr dosin.00-2.00 IUnits/mL Q24hr dosing for renal impairment (CrCl <30 mL/min): 0.60-1.00 IUnits/mL VTE prevention: 0.10-0.40 IUnits/mL - Anti-Xa therapeutic ranges apply to blood samples drawn 4 hours after last dose (peak). - Unfractionated heparin (UFH) therapeutic range: 0.30-0.70 IUnits/mL - Direct factor Xa inhibitors (rivaroxaban, apixaban): Results must be interpreted qualitatively. No activity detected suggests little anticoagulant activity. - In severe antithrombin deficiency, anti-Xa measurement may be inaccurate. - Interpretive guidelines developed in adult populations. Interpretive guidelines for pediatric patients have not been rigorously defined. - Current interpretive data was last revised on 2019. Blood 01/20/2025 2:37 AM CDT 01/20/2025 2:53 AM CDT Agustin Okeefe MD LAB BLOOD ORDERABLES Natividad madrid Result [facility] Department [place] [address] * (ABNORMAL) CBC with auto differential (01/20/2025 2:37 AM CDT) WBC 13.0(H) 3.8 - 9.9 K/cumm Hgb 11.6(L) 13.0 - 17.5 g/dL [facility] Hct 35.4(L) 38.9 - 50.3 % [facility] Plt 285 150 - 400 K/cumm [facility] MPV 10.6 9.1 - 12.3 fL [facility] RBC 4.26(L) 4.30 - 5.80 M/cumm [facility] MCV 83.1 81.3 - 96.4 fL [facility] MCH 27.2 27.1 - 33.3 pg [facility] MCHC 32.8 32.3 - 35.7 g/dL [facility] RDW CV 18.6(H) 11.1 - 14.9 % [facility] RDW SD 55.4(H) 35.7 - 48.1 fL [facility] NRBC abs 0.00 0.00 - 0.01 K/cumm [facility] Blood 01/20/2025 2:37 AM CDT 01/20/2025 2:52 AM CDT Result [facility] Agustin Okeefe MD LAB BLOOD ORDERABLES Natividad l Result Performing Organization Address [facility] Co de Phone Number [facility] [employer] [place] [address] * aPTT (01/20/2025 2:37 AM CDT) aPTT 36 28 - 38 sec Comment: Interpretive Data Heparin therapeutic range: 66.0 - 100.0 seconds. Range based on correlation with therapeutic heparin activity range of 0.3 - 0.7 Units/mL. Current interpretive data was last revised on 2023. Blood 01/20/2025 2:37 AM CDT 01/20/2025 2:53 AM CDT Result [facility] Agustin Okeefe MD LAB BLOOD ORDERABLES Natividad l Result Performing Organization Address [facility] [place] [address] * (ABNORMAL) Protime-INR (01/20/2025 2:37 AM CDT) PT 27.0(H) 9.7 - 13.0 sec INR 2.45(H) 0.90 - 1.20 [facility] Comment: Interpretive data Oral anticoagulant therapeutic ranges: Venous thromboembolism prophylaxis or treatment: 2.0-3.0 CARDIOLOGY Standard range: 2.0-3.0 High-intensity range: 2.5-3.5 Refer to indication-specific guidelines for appropriate target ranges for prosthetic heart valve replacement. Current interpretive data was last revised on 2019. Blood 01/20/2025 2:37 AM CDT 01/20/2025 2:53 AM CDT Result [facility] Agustin Okeefe MD LAB BLOOD ORDERABLES Natividad l Result Performing Organization Address [facility] [place] [address] * Type and screen (01/20/2025 2:37 AM CDT) Heather, indirect Negative ABO Rh B Positive [facility] Blood 01/20/2025 2:37 AM CDT 01/20/2025 2:58 AM CDT Narrative [facility] - 01/20/2025 4:09 AM CDT Has the patient had Daratumumab or Isatuximab in the past 6 months?->Unknown Agustin Okeefe MD LAB BLOOD BANK TEST ORDER STEFANIE Final Result Performing Organization Address [facility] [place] [address] * Phosphorus (01/20/2025 2:37 AM CDT) Phosphorus, pl 3.2 2.3 - 4.5 mg/dL Blood 01/20/2025 2:37 AM CDT 01/20/2025 2:52 AM CDT Agustin Okeefe MD LAB BLOOD ORDERABLES Natividad l Result Performing Organization Address [facility] [place] [address] * Magnesium (01/20/2025 2:37 AM CDT) Pathologist [facility] Magnesium 2.2 1.4 - 2.5 mg/dL Blood 01/20/2025 2:37 AM CDT 01/20/2025 2:52 AM CDT Agustin Okeefe MD LAB BLOOD ORDERABLES Natividad l Result [facility] Department [place] [address] * (ABNORMAL) Comprehensive metabolic panel (01/20/2025 2:37 AM CDT) Sodium 137 135 - 145 mmol/L Potassium, pl 3.4 3.3 - 4.9 mmol/L [facility] Chloride 94(L) 97 - 110 mmol/L [facility] CO2 35(H) 22 - 32 mmol/L [facility] Anion gap 8 2 - 15 mmol/L [facility] BUN 38(H) 6 - 25 mg/dL [facility] Creatinine 0.89 0.80 - 1.30 mg/dL [facility] Glucose 118 70 - 199 mg/dL [facility] Comment: Interpretive Data Fasting glucose >/= 126 mg/dl is diagnostic for diabetes. Fasting is defined as no caloric intake for at least 8 hours. Fasting glucose between 100 mg/dl to 125 mg/dl is diagnostic of prediabetes. In a patient with classic symptoms of hyperglycemia or hyperglycemic crisis, a random glucose >/= 200 mg/dl is diagnostic for diabetes. In the absence of unequivocal hyperglycemia, results should be confirmed by repeat testing. The classification and Diagnosis of Diabetes Diabetes Care 202; 46: S19-S40. Current interpretive data was last revised 2022. Calcium 9.0 8.5 - 10.3 mg/dL [facility] Bilirubin, total 1.4(H) 0.1 - 1.2 mg/dL [facility] Protein, pl 7.0 6.5 - 8.5 g/dL [facility] Albumin 3.5 3.5 - 5.0 g/dL [facility] Alk phos 92 40 - 130 Units/L [facility] ALT 55 7 - 55 Units/L [facility] AST 96(H) 10 - 50 Units/L [facility] Blood 01/20/2025 2:37 AM CDT 01/20/2025 2:52 AM CDT Agustin Okeefe MD LAB BLOOD ORDERABLES Natividad l Result SUKHDEEP OSMAN [facility] Department [place] [address] * POCT glucose (01/20/2025 2:15 AM CDT) Glucose, POC 124 70 - 199 mg/dL Blood 01/20/2025 2:15 AM CDT 01/20/2025 2:15 AM CDT us Agustin Okeefe MD LAB POCT ORDERABLES - DEV ICE Final Result Performing Organization Address [facility] Co de Phone Number SUKHDEEP [facility] [place] [address] from Last 3 Months Insurance [employer] [facility] [employer] MEDICARE MEDICARE [employer] MEDICARE [employer] Advance Directives For more information, please contact: [phone] * Full Code (Latest Code Status on File) Date Activated Date Inactivated Comments 01/20/2025 2:31 AM 01/24/2025 9:36 PM Care Teams Export Freight Specialist Relationship Specialty Start Date End Date Des Dupont MD [address] [place] [address] PCP - General Family Medicine 04/23/24 Stephanie Villarreal MD PhD [address] [place] [address] DIV MEDICAL [facility]OGY, [facility] [address], [address] [place] [address] Consulting Physician Medical Oncology 01/23/25
--- OUTSIDE RECORDS SUMMARY | 2025-02-01 13:28 | XMS_ITS | Encounter Summary ---
Author Organization [facility] Address [address] [place] [address] Phone Care Team Providers Care Tank Welder Name Role Phone Des Dupont MD Primary Care Provider + [phone] Stephanie Villarreal MD PhD Unavailable [phone] Lisa Barrow RN Unavailable [phone] Encounter Details Date Type Department Care Team (Late st Contact Info) Description 01/28/2025 Orders Only [facility] On[facility] [address] [facility] Floor [address] [place] [address] Stephanie Villarreal MD PhD [address] [place] [address] Lung cancer, primary, 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, left (HCC) (Primary Dx) Social History Tobacco Use Types Packs/Day Years [...] as of this encounter Plan of Treatment Scheduled Orders Name Type Priority Associated Diagnoses Orde r Schedule Surgical pathology Pathology and Cytology Routine Lung cancer, primary, 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, left (HCC) Expected: 01/28/2025, Expires: 01/28/2026 documented as of this encounter Visit Diagnoses Diagnosis Lung cancer, primary, 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, left (HCC)- Primary documented in this encounter Care Teams Tank Welder Relationship Specialty Start Date End Date Des Dupont MD [address] [place] [address] PCP - General Family Medicine 04/23/24 Stephanie Villarreal MD PhD [address] [facility] DIV MEDICAL ONCOLOGY, [address] [place] [address] Consulting Physician Medical Oncology 01/23/25 Lisa Barrow, YAMIL [address] [place] [address] [facility]OP Outpatient Unix Engineer 01/27/25 01/29/25 documented as of this encounter
--- OUTSIDE RECORDS SUMMARY | 2025-02-01 13:28 | XMS_ITS | Encounter Summary ---
Author Organization [facility] Address [address] [place] [place] [address] Care Team Providers Care Pharmacovigilance Safety Expert Name Role Phone Unavailable Primary Care Provider Unavailabl e Encounter Details Date Type Department Care Team (Late st Contact Info) Description 07/20/2020 Lab Requisition [facility] [address] [facility], [place] [id number] Naga Boswell MD [address] [place] [address] Social History Tobacco Use Types [...] AM CDT) Case Report Dermatopathology Report Case: [id number] Authorizing Provider: Naga Boswell MD Collected: 07/16/2020 12:00 AM Ordering Location: [facility] Received: 07/20/2020 06:35 AM Pathologist: [...] specimen consists of a shave biopsy measuring [id number]. Jar 0. 0 1:38 PM CDT DERMATOPATHOLOGY [...] characteristic determined by the Dermatopathology Laboratory at [facility], directed by Dr. Hodan Sargent. These tests need not be, and therefore are not, approved by the [place] Food and Drug Administration. The tests are used for clinical purposes. Billing Codes Specimen Charges Stain Charges 12705 1 0 1:38 PM CDT DERMATOPATHOLOGY LABORATORY Embedded Images 0 1:38 PM CDT DERMATOPATHOLOGY LABORATORY Pathology/Cytolog y TISSUE SPECIMEN FROM SKIN / Unknown 07/16/2020 07/20/2020 6:35 AM CDT Naga Boswell MD LAB - PATHOLOGY/CYTOLOGY ORDER STEFANIE Final Result DERMATOPATHOLOGY LABORATORY [facility] - Department of Dermatology [address], [address] [phone] documented in this encounter Visit Diagnoses Not on filedocumented in this encounter
--- OUTSIDE RECORDS SUMMARY | 2025-02-01 13:28 | XMS_ITS | CONTINUITY OF CARE DOCUMENT ---
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 Name Role Phone Johanne LEYVA, Angel Unavailable Jagjit Romero DPM Unavailable LOLA LEYVA, ROCÍO Christel Unavailable PROBLEMS Condition Status Date Provider Notes Cardiology examination active Angel Whiting MD AFIB active Angel Whiting MD Venous insufficiency, chronic active Angel Whiting MD Foot pain, left active Angel Whiting MD ENCOUNTERS Date Type Provider Location Encounter Diag nosis - In-person encounter Office Visit Angel Whiting MD [facility] Cardiology examinationAFIBVenous insufficiency, chronicFoot pain, left VITAL SIGNS Date Observation Value Provider Body Mass Index (Ratio) 33.98 kg/m2 Bereket Whiting MD blood pressure, diastolic 70 mm[Hg] Linda nkLogteressa blood pressure, systolic 107 mm[Hg] Berna Jacobs pulse rate 91 /min Rxoy Mendez blood pressure, cuff size large Ta [...] Payer name Policy type / Coverage type [employer] red green party ID [employer] Other 1 [id number] [place] Medicare [id number] ADVANCE DIRECTIVES Name Date DISCUSSED - NO DECISION MADE TREATMENT PLAN Date Name Performer [id number],S, Angel Whiting MD [id number],C,Manage by Dr. Morillo. Angel Whiting MD [id number],C,W ill check YAJAIRA, Sensilase, for the obvious [...]
--- OUTSIDE RECORDS SUMMARY | 2025-02-01 13:28 | XMS_ITS | Clinical Summary ---
Author Organization [facility] [address] Address [address] [place] [address] Care Team Providers Care Senior Web Engineer Name Role Phone Des Dupont MD Primary Care Provider + [phone] Stephanie Villarreal MD PhD Unavailable [phone] Allergies No known active allergies Medications GLUCOSAMINE/KESHAWN [...] (two) times a day 60 tablet 025 05/04/ 2025 Active famotidine (PEPCID) 20 mg tablet Take 1 tablet (20 mg total) by mouth daily for 5 days 5 tablet Active polyethylene glycol (MIRALAX) 17 gram packetIndication s:constipation Take 1 packet (17 g total) by mouth daily 30 packet 2024 Active senna-docusate (PERICOLACE) 8.6-50 mg Take [...] as directed by . 30 patch 3 025 2024 Active morphine (MSIR) 15 mg tablet [...] 2.5 mg tabletIndication s:PAF (paroxysmal atrial fibrillation) ([facility]) TAKE 1 TABLET BY MOUTH [...] 24 hr capsuleIndicatio ns:PAF (paroxysmal atrial fibrillation) ([facility]) TAKE 1 CAPSULE BY MOUTH EVERY DAY [...] CDT): Had been getting workup at OSH ([facility]). Would like to transfer care to [facility] system. Metastatic disease to liver. [...] H/H - Pain contro as followsl: - [place] 10-325 q4 PRN (with additional dose available [...] (02/28/2019): Added automatically from request for surgery [id number] PAF (paroxysmal atrial fibrillation) 10/25/2017 Assessment & [...] 8L NC this AM, satting well. - 4/1: Increased O2 requirements, on 12L HFNC Encounters Date Type Department Care Team Description 01/31/2025 Orders Only [facility] Oncology [address] [place] [address] Floor 5 [place] [address] Stephanie Villarreal MD PhD 01/30/2025 SHOP/CHAP Initial Outreach [facility] OP CASE MANAGEMENT [address] [place] [address] Lisa Barrow, YAMIL 01/30/2025 Telephone [facility] Oncology [address] [place] [address] Ynes Hurd RN 01/30/2025 Telephone [facility] Medical Group Cardiology [address] [place] [address] Bartolo Morillo MD 01/28/2025 12:15 PM CDT Lab [facility] - Lab Collection [address] [place] [address] Floor 5 [place] [address] Lung cancer, primary, 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, left (HCC) 01/28/2025 10:00 AM CDT Office Visit [facility] Oncology [address] [place] [address] 5 [place] [address] Stephanie Villarreal MD PhD Lung cancer, primary, 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, left (HCC) (Primary Dx); Cancer related pain 01/28/2025 Documentation [facility] Oncology [address] [place] [address] 5 [place] [address] Edith Aguilar CMA 01/28/2025 Orders Only [facility] Oncology [address] [place] [address] Floor 5 [place] [address] Stephanie Villarreal MD PhD Lung cancer, primary, 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, left (HCC) (Primary Dx) 01/28/2025 SHOP/CHAP Initial Outreach [facility] OP CASE MANAGEMENT [address] [place] [address] Lisa Barrow, YAMIL 01/27/2025 Orders Only [facility] Pulmonary [address] [place] [address] [place] [address] Arnol Lira MD COPD exacerbation (HCC) (Primary Dx) 01/27/2025 SHOP/CHAP Initial Outreach [facility] OP CASE MANAGEMENT [address] [place] [address] Lisa Barrow, YAMIL 01/27/2025 SHOP/CHAP Initial Eligibility Review [facility] OP CASE MANAGEMENT [address] [place] [address] Lisa Barrow, YAMIL 01/27/2025 Orders Only [facility] Pulmonary [address] [place] [address] [place] [address] Jt Meredith MD COPD exacerbation (HCC) (Primary Dx) 01/27/2025 Orders Only [facility] Pulmonary [address] [place] [address] [place] [address] Phillip Nick 01/20/2025 1:57 AM CDT - 01/24/2025 5:31 PM CDT Hospital Encounter [facility] [address] [place] [address] Agustin Okeefe MD Knittel, MD Bhavesh Saunders, Martha Ragland MD Lung cancer, primary, 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, left (HCC) (Primary Dx); PAF (paroxysmal atrial fibrillation) (HCC) Discharge Disposition: Discharge to home or self care 12/27/2024 Telephone [facility] Medical Group Cardiology [address] [place] [address] Bartolo Morillo MD from Last 3 Months Immunizations Immunization Administration Dates Next Due Influenza, Quadrivalent, Hig h Dose, Preservative Free, Intrr 08/15/2020 Influenza, Trivalent, High D ose, Split, Preservative Free, Intramuscular 08/15/2020,09/05/2018 Influenza, Unspecified 07/02/2023,09/02/2021 Moderna SARS-CoV-2 Monovalen t Vaccination (12+ YRS) 01/25/2022,09/04/2021,12/03/2020 Pfizer Sars-Cov-2 Bivalent V accination (12+ YRS) 07/10/2022 Pneumococcal Conjugate PCV 13 09/05/2018 Pneumococcal Polysaccharide PPV23 08/15/2020 ZOSTER Recombinant 09/06/2022,06/02/2022 Surgical History Surgery Date Site/Laterality Comments NECK [...] PM CDT Sexual Orientation Not on file Obstetrics History [...] 01/28/2025 10:04 AM CDT Plan of Treatment Health Maintenance Due Date Last Done Comments Colon Cancer Screening-Colonoscopy 1950 Depression Screening 1950 Hepatitis C Screening 1950 DTaP/Tdap/Td Vaccine (1 - Tdap) 1963 Hepatitis B Screening 1970 Abdominal Aortic Aneurysm (A AA) Screen 2017 Well Visit 65+ 2017 Covid-19 Vaccine (6 2023-2 5 season) 2024 07/10/2022, 01/25/2022, 09/04/2021, Additional history exists Influenza Vaccine (Season Ended) 2025 07/02/2023, 09/02/2021, 08/15/2020, Additional history exists Fall Risk Assessment 01/24/2026 01/24/2025, 07/31/2020, 03/26/2020 Pneumococcal vaccine 65+ Completed 08/15/2020, 08/23 Zoster Vaccine Completed 09/06/2022, 06/02/2022 Procedures Procedure Name Priority [...] MD PhD LAB BLOOD ORDERABLES Final Result [facility] One [facility] Department [place] [address] * (ABNORMAL) Comprehensive metabolic panel (01/28/2025 12:19 PM CDT) Sodium 138 135 - 145 mmol/L Potassium, pl 4.3 3.3 - 4.9 mmol/L [facility] Chloride 99 97 - 110 mmol/L [facility] CO2 32 22 - 32 mmol/L [facility] Anion gap 7 2 - 15 mmol/L [facility] BUN 22 6 - 25 mg/dL [facility] Creatinine 0.76(L) 0.80 - 1.30 mg/dL [facility] Glucose 102 70 - 199 mg/dL [facility] Comment: Interpretive Data Fasting glucose >/= 126 [...] 2022. Calcium 9.3 8.5 - 10.3 mg/dL [facility] Bilirubin, total 0.6 0.1 - 1.2 mg/dL [facility] Protein, pl 6.6 6.5 - 8.5 g/dL [facility] Albumin 3.2(L) 3.5 - 5.0 g/dL [facility] Alk phos 101 40 - 130 Units/L [facility] ALT 19 7 - 55 Units/L [facility] AST 29 10 - 50 Units/L [facility] Blood 01/28/2025 12:1 9 PM CDT 01/28/2025 12:25 PM CDT Stephanie Villarreal MD PhD LAB BLOOD ORDERABLES Final Result [facility] One [facility] Department [place] [address] * (ABNORMAL) Differential, auto (01/28/2025 12:09 PM CDT) Neutrophil abs 12.01(H) 1.50 - 6.50 K/cumm Comment:Testing performed by : [facility], [address] [place] [address] Lymphocyte abs 2.50 0.80 - 3.30 K/cumm [facility] Comment:Testing performed by : [facility], [address] [place] [address] Monocyte abs 1.10(H) 0.20 - 0.80 K/cumm [facility] Comment:Testing performed by : [facility], [address] [place] [address] Eosinophil abs 0.18 0.00 - 0.50 K/cumm [facility] Comment:Testing performed by : [facility], [address] [place] [address] Basophil abs 0.10 0.00 - 0.10 K/cumm [facility] Comment:Testing performed by : [facility], [address] [place] [address] Neutrophil pct 75.6 % [facility] Comment: Interpretive Data Percent cell count reference ranges are not reported, since discordance with absolute values may lead to misinterpretation of CBC data. Current Interpretive Data was last revised on 2018. Testing performed by: [facility], [address] [place], [place] [id number] Lymphocyte pct 15.7 % [facility] Comment: Interpretive Data Percent cell count reference ranges are not reported, since discordance with absolute values may lead to misinterpretation of CBC data. Current Interpretive Data was last revised on 2018. Testing performed by: [facility], [address] [place] [phone] Monocyte pct 6.9 % [facility] Comment: Interpretive Data Percent cell count reference ranges are not reported, since discordance with absolute values may lead to misinterpretation of CBC data. Current Interpretive Data was last revised on 2018. Testing performed by: [facility], [address] [place] [phone] Eosinophil pct 1.1 % [facility] Comment: Interpretive Data Percent cell count reference ranges are not reported, since discordance with absolute values may lead to misinterpretation of CBC data. Current Interpretive Data was last revised on 2018. Testing performed by: [facility], [address] [place] [phone] Basophil pct 0.6 % [facility] Comment: Interpretive Data Percent cell count reference ranges are not reported, since discordance with absolute values may lead to misinterpretation of CBC data. Current Interpretive Data was last revised on 2018. Testing performed by: [facility], [address] [place] [phone] Blood 01/28/2025 12:0 9 PM CDT 01/28/2025 12:23 PM CDT us Stephanie Villarreal MD PhD LAB BLOOD ORDERABLES Final Result [facility] One [facility] Department [place] [address] * (ABNORMAL) CBC with auto differential (01/28/2025 12:09 PM CDT) WBC 15.89(H) 3.80 - 9.90 K/cumm Comment:Testing performed by : [facility], [address] [place] [phone] Hgb 12.4(L) 13.0 - 17.5 g/dL [facility] Comment:Testing performed by : [facility], [address] [place], [place] [phone] Hct 39.0 38.9 - 50.3 % [facility] Comment:Testing performed by : [facility], [address] [place], [place] [phone] Plt 409(H) 150 - 400 K/cumm [facility] Comment:Testing performed by : [facility], [address] [place], [place] [phone] MPV 8.0 6.8 - 10.4 fL [facility] Comment:Testing performed by : [facility], [address] [place], [place] [phone] RBC 4.70 4.30 - 5.80 M/cumm [facility] Comment:Testing performed by : [facility], [address] [place], [place] [phone] MCV 83.0 81.3 - 96.4 fL [facility] Comment:Testing performed by : [facility], [address] [place], [place] [phone] MCH 26.5(L) 27.1 - 33.3 pg [facility] Comment:Testing performed by : [facility], [address] [place] [address] MCHC 31.9(L) 32.3 - 35.7 g/dL [facility] Comment:Testing performed by : [facility], [address] [place], [place] [phone] RDW CV 20.0(H) 11.1 - 14.9 % [facility] Comment:Testing performed by : [facility], [address] [place], [place] [phone] NRBC abs 0.00 0.00 - 0.01 K/cumm [facility] Comment:Testing performed by : [facility], [address] [place] [address] Blood 01/28/2025 12:0 9 PM CDT 01/28/2025 12:23 PM CDT us Stephanie Villarreal MD PhD LAB BLOOD ORDERABLES Final Result [facility] Department [place] [address] * PET/CT FDG Whole Body (01/24/2025 11:14 [...] FDG-PET/CT IMAGING DATE OF STUDY: 01/24/2025 SCANNER: [facility] N PET Vision (NV1). This is a high-resolution scanner, which [...] obtained. The study was interpreted on the [employer] workstation. The mean liver SUV (reported for senior manager quality assurance purposes) is 2.6. The total scanned area [...] FDG-PET/CT IMAGING DATE OF STUDY: 01/24/2025 SCANNER: [facility] [email or web address] (NV1). This is a high-resolution scanner, which [...] obtained. The study was interpreted on the [employer] workstation. The mean liver SUV (reported for senior manager quality assurance purposes) is 2.6. The total scanned area [...] MD LAB BLOOD ORDERABLES Natividad madrid Result [facility] One [facility] Department [place] [address] * (ABNORMAL) CBC without differential (01/23/2025 8:45 PM CDT) WBC 14.68(H) 3.80 - 9.90 K/cumm Hgb 11.9(L) 13.0 - 17.5 g/dL [facility] Hct 38.6(L) 38.9 - 50.3 % [facility] Plt 381 150 - 400 K/cumm [facility] MPV 10.4 9.1 - 12.3 fL [facility] RBC 4.46 4.30 - 5.80 M/cumm [facility] MCV 86.5 81.3 - 96.4 fL [facility] MCH 26.7(L) 27.1 - 33.3 pg [facility] MCHC 30.8(L) 32.3 - 35.7 g/dL [facility] RDW CV 18.7(H) 11.1 - 14.9 % [facility] RDW SD 58.8(H) 35.7 - 48.1 fL [facility] NRBC abs 0.00 0.00 - 0.01 K/cumm [facility] Blood 01/23/2025 8:45 PM CDT 01/23/2025 9:20 PM CDT Christiano Ibrahim ZOO CARETAKER LAB BLOOD ORDERABLES F inal Result Performing Organization Address [facility] de Phone Number [facility] [place] [address] * Phosphorus (01/23/2025 8:45 PM CDT) [facility] Phosphorus, pl 2.3 2.3 - 4.5 mg/dL Blood 01/23/2025 8:45 PM CDT 01/23/2025 9:22 PM CDT Christiano Ibrahim ZOO CARETAKER LAB BLOOD ORDERABLES F inal Result Performing Organization Address [facility] de Phone Number [facility] Department [place] [address] * Magnesium (01/23/2025 8:45 PM CDT) [facility] Magnesium 2.0 1.4 - 2.5 mg/dL Blood 01/23/2025 8:45 PM CDT 01/23/2025 9:22 PM CDT Christiano Ibrahim ZOO CARETAKER LAB BLOOD ORDERABLES F inal Result Performing Organization Address [facility] [place] [address] * (ABNORMAL) Comprehensive metabolic panel (01/23/2025 8:45 PM CDT) [facility] Sodium 141 135 - 145 mmol/L Potassium, pl 4.8 3.3 - 4.9 mmol/L [facility] Chloride 94(L) 97 - 110 mmol/L [facility] CO2 37(H) 22 - 32 mmol/L [facility] Anion gap 10 2 - 15 mmol/L [facility] BUN 30(H) 6 - 25 mg/dL [facility] Creatinine 1.02 0.80 - 1.30 mg/dL [facility] Glucose 130 70 - 199 mg/dL [facility] Comment: Interpretive Data Fasting glucose >/= 126 [...] 2022. Calcium 9.2 8.5 - 10.3 mg/dL [facility] Bilirubin, total 0.6 0.1 - 1.2 mg/dL [facility] Protein, pl 6.9 6.5 - 8.5 g/dL [facility] Albumin 3.1(L) 3.5 - 5.0 g/dL [facility] Alk phos 109 40 - 130 Units/L [facility] ALT 52 7 - 55 Units/L [facility] AST 55(H) 10 - 50 Units/L [facility] Blood 01/23/2025 8:45 PM CDT 01/23/2025 9:22 PM CDT Agustin Okeefe MD LAB BLOOD ORDERABLES Natividad madrid Result [facility] One [facility] [place] [address] * MRI Brain W WO Contrast (01/23/2025 [...] Cleopatra auris DNA Not Detected Not Detected [facility] Comment: Interpretive Data Testing performed by [facility] Molecular Infectious Disease Laboratory using the [employer] an[employer] 6800 Cleopatra auris assay. This assay detects DNA from Cleopatra auris using Real-Time PCR. This assay is laboratory developed and is not cleared by the [facility] Food and Drug Administration. The performance characteristics have been verified by the [facility] Molecular Infectious Disease Laboratory. Axilla/Groin 01/23/2025 1:17 PM CDT 01/23/2025 2:12 PM CDT Leonel Kwon MD LAB MICROBIOLOGY - GENERAL ORDER STEFANIE Final Result [facility] One [facility] Department [place] [address] [facility] * eGFR (01/22/2025 11:42 PM CDT) eGFR >90 >=60 mL/min/1. 73 [...] ORDERABLES Natividad l Result Performing Organization Address [facility] Co de Phone Number [facility] Department [place] [address] * (ABNORMAL) CBC without differential (01/22/2025 11:42 PM CDT) WBC 16.16(H) 3.80 - 9.90 K/cumm Hgb 10.7(L) 13.0 - 17.5 g/dL [facility] Hct 34.4(L) 38.9 - 50.3 % [facility] Plt 301 150 - 400 K/cumm [facility] MPV 10.2 9.1 - 12.3 fL [facility] RBC 4.04(L) 4.30 - 5.80 M/cumm [facility] MCV 85.1 81.3 - 96.4 fL [facility] MCH 26.5(L) 27.1 - 33.3 pg [facility] MCHC 31.1(L) 32.3 - 35.7 g/dL [facility] RDW CV 18.6(H) 11.1 - 14.9 % [facility] RDW SD 57.8(H) 35.7 - 48.1 fL [facility] NRBC abs 0.00 0.00 - 0.01 K/cumm [facility] Blood 01/22/2025 11:4 2 PM CDT 01/23/2025 12:21 AM CDT Christiano Ibrahim NP LAB BLOOD ORDERABLES F inal Result Performing Organization Address [facility]/ZIP Co de Phone Number [facility] [place] [address] * Type and screen (01/22/2025 11:42 PM CDT) ABO Rh B Positive Heather, indirect Negative [facility] Blood 01/22/2025 11:4 2 PM CDT 01/23/2025 12:23 AM CDT Narrative [facility] - 01/23/2025 1:07 AM CDT Has the patient had Daratumumab or Isatuximab in the past 6 months?->Unknown Agustin Okeefe MD LAB BLOOD BANK TEST ORDER STEFANIE Final Result [facility] Department [place] [address] * Phosphorus (01/22/2025 11:42 PM CDT) [facility] Phosphorus, pl 2.4 2.3 - 4.5 mg/dL Blood 01/22/2025 11:4 2 PM CDT 01/23/2025 12:29 AM CDT Christiano Ibrahim ZOO CARETAKER LAB BLOOD ORDERABLES F inal Result Performing Organization Address City/[facility] Co de Phone Number [facility] Department [place] [address] * Magnesium (01/22/2025 11:42 PM CDT) [facility] Magnesium 2.1 1.4 - 2.5 mg/dL Blood 01/22/2025 11:4 2 PM CDT 01/23/2025 12:29 AM CDT Christiano Ibrahim ZOO CARETAKER LAB BLOOD ORDERABLES F inal Result Performing Organization Address City/[facility]/ZIP Co de Phone Number [facility] [place] [address] * (ABNORMAL) Comprehensive metabolic panel (01/22/2025 11:42 PM CDT) Sodium 139 135 - 145 mmol/L Potassium, pl 4.3 3.3 - 4.9 mmol/L [facility] Chloride 94(L) 97 - 110 mmol/L [facility] CO2 39(H) 22 - 32 mmol/L [facility] Anion gap 6 2 - 15 mmol/L [facility] BUN 30(H) 6 - 25 mg/dL [facility] Creatinine 0.86 0.80 - 1.30 mg/dL [facility] Glucose 171 70 - 199 mg/dL [facility] Comment: Interpretive Data Fasting glucose >/= 126 [...] 2022. Calcium 8.6 8.5 - 10.3 mg/dL [facility] Bilirubin, total 0.5 0.1 - 1.2 mg/dL [facility] Protein, pl 6.3(L) 6.5 - 8.5 g/dL [facility] Albumin 3.0(L) 3.5 - 5.0 g/dL [facility] Alk phos 105 40 - 130 Units/L [facility] ALT 50 7 - 55 Units/L [facility] AST 60(H) 10 - 50 Units/L [facility] Blood 01/22/2025 11:4 2 PM CDT 01/23/2025 12:29 AM CDT us Agustin Okeefe MD LAB BLOOD ORDERABLES Natividad madrid Result [facility] One [facility] Department [place] [address] * XR Tibia Fibula Right 1 View [...] kyphosis, similar to prior. Procedure Note Chao Menard DO - 01/22/2025 EXAMINATION: XR SPINE CERVICAL 2 [...] plan with the ICU team and other medical/business info consultant staff, making frequent assessments and decisions [...] PCO2, Venous 60(H) 40 - 50 mmHg [facility] PO2, Venous 50 mmHg [facility] Comment: Interpretive Data No Reference Range Established Current Interpretive Data was last revised on 2018. HCO3 Venous, Calculated 40(H) 20 - 30 mmol/L [facility] BE, venous 12 mmol/L [facility] Comment: Interpretive Data No Reference Range Established Current Interpretive Data was last revised on 2018. Blood 01/22/2025 8:52 AM CDT 01/22/2025 9:05 AM CDT us Avtar Castellon MD LAB BLOOD ORDERABLE S Final Result [facility] One [facility] [place] [address] * POCT glucose (01/22/2025 3:20 AM CDT) Glucose, POC 148 70 - 199 mg/dL Blood 01/22/2025 3:20 AM CDT 01/22/2025 3:20 AM CDT Agustin Okeefe MD LAB POCT ORDERABLES - DEV ICE Final Result Performing Organization Address [facility] de Phone Number [facility] Department [place] [address] * eGFR (01/21/2025 8:44 PM CDT) Pathologist [facility] [place] eGFR >90 >=60 mL/min/1. 73 m2 Comment: [...] ORDERABLES Natividad l Result Performing Organization Address [facility] Co de Phone Number [facility] Department [place] [address] * (ABNORMAL) CBC without differential (01/21/2025 8:44 PM CDT) Pathologist [facility] [place] WBC 14.55(H) 3.80 - 9.90 K/cumm Hgb 11.7(L) 13.0 - 17.5 g/dL [facility] Hct 36.6(L) 38.9 - 50.3 % [facility] Plt 294 150 - 400 K/cumm [facility] MPV 10.5 9.1 - 12.3 fL [facility] RBC 4.33 4.30 - 5.80 M/cumm [facility] MCV 84.5 81.3 - 96.4 fL [facility] MCH 27.0(L) 27.1 - 33.3 pg [facility] MCHC 32.0(L) 32.3 - 35.7 g/dL [facility] RDW CV 18.3(H) 11.1 - 14.9 % [facility] RDW SD 57.1(H) 35.7 - 48.1 fL [facility] NRBC abs 0.00 0.00 - 0.01 K/cumm [facility] Blood 01/21/2025 8:44 PM CDT 01/21/2025 9:56 PM CDT Christiano Ibrahim ZOO CARETAKER LAB BLOOD ORDERABLES F inal Result Performing Organization Address City/[facility] de Phone Number [facility] Department [place] [address] * (ABNORMAL) Phosphorus (01/21/2025 8:44 PM CDT) Pathologist [facility] [place] Phosphorus, pl 1.9(L) 2.3 - 4.5 mg/dL Blood 01/21/2025 8:44 PM CDT 01/21/2025 9:50 PM CDT Christiano Ibrahim ZOO CARETAKER LAB BLOOD ORDERABLES F inal Result [facility] Department of [employer] [place] [address] * Magnesium (01/21/2025 8:44 PM CDT) [facility] Magnesium 1.9 1.4 - 2.5 mg/dL Blood 01/21/2025 8:44 PM CDT 01/21/2025 9:50 PM CDT Christiano Ibrahim ZOO CARETAKER LAB BLOOD ORDERABLES F inal Result [facility] One [facility] Department [place] [address] * (ABNORMAL) Comprehensive metabolic panel (01/21/2025 8:44 PM CDT) Sodium 136 135 - 145 mmol/L Potassium, pl 4.1 3.3 - 4.9 mmol/L [facility] Chloride 91(L) 97 - 110 mmol/L [facility] CO2 35(H) 22 - 32 mmol/L [facility] Anion gap 10 2 - 15 mmol/L [facility] BUN 24 6 - 25 mg/dL [facility] Creatinine 0.81 0.80 - 1.30 mg/dL [facility] Glucose 211(H) 70 - 199 mg/dL [facility] Comment: Interpretive Data Fasting glucose >/= 126 [...] 2022. Calcium 8.7 8.5 - 10.3 mg/dL [facility] Bilirubin, total 0.7 0.1 - 1.2 mg/dL [facility] Protein, pl 6.7 6.5 - 8.5 g/dL [facility] Albumin 2.8(L) 3.5 - 5.0 g/dL [facility] Alk phos 115 40 - 130 Units/L [facility] ALT 62(H) 7 - 55 Units/L [facility] AST 98(H) 10 - 50 Units/L [facility] Blood 01/21/2025 8:44 PM CDT 01/21/2025 9:50 PM CDT us Agustin Okeefe MD LAB BLOOD ORDERABLES Natividad madrid Result [facility] [facility] Department [place] [address] * Critical Care (01/21/2025 6:32 PM CDT) [...] plan with the ICU team and other medical/business info consultant staff, making frequent assessments and decisions [...] us Ezequiel Fonseca MD IN CLINIC/BEDSIDE CODY RAYO Final Result * Respiratory pathogen panel Nasopharyngeal (01/21/2025 4:57 PM CDT) Pathologist [facility] [place] Influenza A RNA Not Detected Not Detected Influenza B RNA Not Detected Not Detected [facility] RSV RNA Not Detected Not Detected [facility] COVID-19 RNA Not Detected Not Detected [facility] Coronavirus 229E RNA Not Detected Not Detected [facility] Coronavirus HKU1 RNA Not Detected Not Detected [facility] Coronavirus NL63 RNA Not Detected Not Detected [facility] Coronavirus OC43 RNA Not Detected Not Detected [facility] Adenovirus DNA Not Detected Not Detected [facility] Metapneumovirus RNA Not Detected Not Detected [facility] Rhinovirus/Enterov irus RNA Not Detected Not Detected [facility] Parainfluenza 1 RNA Not Detected Not Detected [facility] Parainfluenza 2 RNA Not Detected Not Detected [facility] Parainfluenza 3 RNA Not Detected Not Detected [facility] Parainfluenza 4 RNA Not Detected Not Detected [facility] B. pertussis DNA Not Detected Not Detected [facility] B. parapertussis DNA Not Detected Not Detected [facility] C. pneumoniae DNA Not Detected Not Detected [facility] M. pneumoniae DNA Not Detected Not Detected [facility] Nasopharyngeal 01/21/2025 4: 57 PM CDT 01/21/2025 5:12 PM CDT Narrative [facility] - 01/21/2025 6:18 PM CDT Is the Patient experiencing symptoms consistent with COVID?->No Surveillance testing for transplant patient?->No Interpretive Data The Quantine FilmArray Respiratory Panel (RP2.1) assay is a [...] assay has FDA clearance for testing of ZOO CARETAKER swabs. The performance of additional specimen types has been assessed by the performing laboratory. The performance characteristics of this assay have been determined by [facility] Molecular Infectious Disease Laboratory. Current interpretive data was last revised on 22. us Agustin Okeefe MD LAB MICROBIOLOGY - GENERA L ORDERABLES Final Result [facility] Department [place] [address] * Critical Care (01/21/2025 8:31 AM CDT) Narrative Mik Hearn MD - 01/21/2025 8:31 AM CDT Mik [...] plan with the ICU team and other medical/business info consultant staff, making frequent assessments and decisions [...] POCT ORDERABLES - D EVICE Final Result [facility] Department [place] [address] * eGFR (01/20/2025 8:11 PM CDT) eGFR >90 >=60 mL/min/1. 73 [...] CDT 01/20/2025 8:20 PM CDT Christiano Ibrahim ZOO CARETAKER LAB BLOOD ORDERABLES F inal Result Performing Organization Address City/[facility]/ZIP Co de Phone Number [facility] Department [place] [address] * (ABNORMAL) CBC without differential (01/20/2025 8:11 PM CDT) WBC 12.1(H) 3.8 - 9.9 K/cumm Hgb 11.5(L) 13.0 - 17.5 g/dL [facility] Hct 36.1(L) 38.9 - 50.3 % [facility] Plt 275 150 - 400 K/cumm [facility] MPV 10.4 9.1 - 12.3 fL [facility] RBC 4.28(L) 4.30 - 5.80 M/cumm [facility] MCV 84.3 81.3 - 96.4 fL [facility] MCH 26.9(L) 27.1 - 33.3 pg [facility] MCHC 31.9(L) 32.3 - 35.7 g/dL [facility] RDW CV 19.0(H) 11.1 - 14.9 % [facility] RDW SD 57.2(H) 35.7 - 48.1 fL [facility] NRBC abs 0.00 0.00 - 0.01 K/cumm [facility] Blood 01/20/2025 8:11 PM CDT 01/20/2025 8:20 PM CDT Christiano Ibrahim NP LAB BLOOD ORDERABLES F inal Result Performing Organization Address [facility]/ZIP Co de Phone Number [facility] [place] [address] * Phosphorus (01/20/2025 8:11 PM CDT) Phosphorus, pl 2.5 2.3 - 4.5 mg/dL Blood 01/20/2025 8:11 PM CDT 01/20/2025 8:20 PM CDT Christiano Ibrahim ZOO CARETAKER LAB BLOOD ORDERABLES F inal Result Performing Organization Address City/[facility] [place] [address] * Magnesium (01/20/2025 8:11 PM CDT) Pathologist [facility] [place] Magnesium 2.2 1.4 - 2.5 mg/dL Blood 01/20/2025 8:11 PM CDT 01/20/2025 8:20 PM CDT Christiano Ibrahim ZOO CARETAKER LAB BLOOD ORDERABLES F inal Result Performing Organization Address City/[facility] de Phone Number [facility] Department [place] [address] * (ABNORMAL) Lipid panel (01/20/2025 8:11 PM CDT) Pathologist [facility] [place] Cholesterol 158 30 - 199 mg/dL Comment: [...] revised on 2018. Triglycerides 100 <=149 mg/dL [facility] Comment: Interpretive Data Ages < or = [...] revised on 2018. HDL 24(L) >=40 mg/dL [facility] Comment: Interpretive Data Ages < or = [...] on 2018. LDL, calculated 115 <=129 mg/dL [facility] Comment: Interpretive Data Ages < or = [...] NCEP Expert Panel. Circulation 2004;110:227 3. Esa Davis al. [facility] Cardiol. 2020 February 20;5(5):540-548. doi: 10.1001/jamacardio.2020.0013 Current Interpretive Data was last revised on 2024. Non-HDL Cholesterol 134 mg/dL [facility] Comment: Interpretive Data Ages < or = [...] last revised on 2018. Chol/HDL ratio 7 [facility] Blood 01/20/2025 8:11 PM CDT 01/20/2025 8:20 PM CDT Agustin Okeefe MD LAB BLOOD ORDERABLES Natividad Result [facility] Department [place] [address] * (ABNORMAL) Basic metabolic panel (01/20/2025 8:11 PM CDT) Sodium 136 135 - 145 mmol/L Potassium, pl 4.5 3.3 - 4.9 mmol/L [facility] Comment:Hemolyzed; Potassium value may be falsely elevated by as much as 1.1-1.6 mmol/L. Suggest redraw and reanalysis. Chloride 91(L) 97 - 110 mmol/L [facility] CO2 38(H) 22 - 32 mmol/L [facility] Anion gap 7 2 - 15 mmol/L [facility] BUN 21 6 - 25 mg/dL [facility] Creatinine 0.67(L) 0.80 - 1.30 mg/dL [facility] Glucose 159 70 - 199 mg/dL [facility] Comment: Interpretive Data Fasting glucose >/= 126 [...] 2022. Calcium 8.9 8.5 - 10.3 mg/dL [facility]SM[facility] Blood 01/20/2025 8:11 PM CDT 01/20/2025 8:20 PM CDT us Christiano Ibrahim ZOO CARETAKER LAB BLOOD ORDERABLES F inal Result [facility] Department [place] [address] * Critical Care (01/20/2025 7:42 PM CDT) [...] plan with the ICU team and other medical/business info consultant staff, making frequent assessments and decisions [...] us Ezequiel Fonseca MD IN CLINIC/BEDSIDE CODY RAYO Final Result * POCT glucose (01/20/2025 7:22 PM CDT) Glucose, POC 136 70 - 199 mg/dL Blood 01/20/2025 7:22 PM CDT 01/20/2025 7:22 PM CDT Agustin Okeefe MD LAB POCT ORDERABLES - DEV ICE Final Result [facility] OSM[facility] Department [place] [address] * XR Chest 1 View (01/20/2025 6:47 [...] DEV ICE Final Result Performing Organization Address [facility] de Phone Number [facility] [employer] [place] [address] * (ABNORMAL) Blood gas, venous (01/20/2025 1:18 PM CDT) pH, Venous 7.40 7.32 - 7.43 PCO2, Venous 61(H) 40 - 50 mmHg [facility] PO2, Venous 41 mmHg [facility] Comment: Interpretive Data No Reference Range Established Current Interpretive Data was last revised on 2018. HCO3 Venous, Calculated 39(H) 20 - 30 mmol/L [facility] BE, venous 10 mmol/L [facility] Comment: Interpretive Data No Reference Range Established Current Interpretive Data was last revised on 2018. Blood 01/20/2025 1:18 PM CDT 01/20/2025 1:23 PM CDT Agustin Okeefe MD LAB BLOOD ORDERABLES Natividad l Result Performing Organization Address [facility] de Phone Number [facility] [employer] [place] [address] * POCT glucose (01/20/2025 11:27 AM CDT) Glucose, POC 110 70 - 199 mg/dL Blood 01/20/2025 11:2 7 AM CDT 01/20/2025 11:27 AM CDT us Agustin Okeefe MD LAB POCT ORDERABLES - DEV ICE Final Result [facility] Department [place] [address] * Critical Care (01/20/2025 8:12 AM CDT) Narrative Mik Hearn MD - 01/20/2025 8:12 AM CDT Mik Hearn MD 01/20/2025 4:25 PM Critical Care Performed by: Mik Hearn [...] plan with the ICU team and other medical/business info consultant staff, making frequent assessments and decisions [...] abs 0.0 0.0 - 0.1 K/cumm [facility] Neutrophil pct 78.0 % [facility] Comment: Interpretive Data Percent cell count reference ranges are not reported, since discordance with absolute values may lead to misinterpretation of CBC data. Current Interpretive Data was last revised on 2018. Imm gran pct 0.7 % [facility] Comment: Interpretive Data Percent cell count reference ranges are not reported, since discordance with absolute values may lead to misinterpretation of CBC data. Current Interpretive Data was last revised on 2018. Lymphocyte pct 12.7 % [facility] Comment: Interpretive Data Percent cell count reference ranges are not reported, since discordance with absolute values may lead to misinterpretation of CBC data. Current Interpretive Data was last revised on 2018. Monocyte pct 7.7 % [facility] Comment: Interpretive Data Percent cell count reference ranges are not reported, since discordance with absolute values may lead to misinterpretation of CBC data. Current Interpretive Data was last revised on 2018. Eosinophil pct 0.6 % [facility] Comment: Interpretive Data Percent cell count reference ranges are not reported, since discordance with absolute values may lead to misinterpretation of CBC data. Current Interpretive Data was last revised on 2018. Basophil pct 0.3 % [facility] Comment: Interpretive Data Percent cell count reference ranges are not reported, since discordance with absolute values may lead to misinterpretation of CBC data. Current Interpretive Data was last revised on 2018. Blood 01/20/2025 8:07 AM CDT 01/20/2025 8:15 AM CDT Agustin Okeefe MD LAB BLOOD ORDERABLES Natividad madrid Result Performing Organization Address [facility] de Phone Number [facility] Department [place] [address] * (ABNORMAL) CBC with auto differential (01/20/2025 8:07 AM CDT) [facility] WBC 11.6(H) 3.8 - 9.9 K/cumm Hgb 10.8(L) 13.0 - 17.5 g/dL [facility] Hct 33.6(L) 38.9 - 50.3 % [facility] Plt 242 150 - 400 K/cumm [facility] MPV 9.8 9.1 - 12.3 fL [facility] RBC 3.98(L) 4.30 - 5.80 M/cumm [facility] MCV 84.4 81.3 - 96.4 fL [facility] MCH 27.1 27.1 - 33.3 pg [facility] MCHC 32.1(L) 32.3 - 35.7 g/dL [facility] RDW CV 18.7(H) 11.1 - 14.9 % [facility] RDW SD 57.3(H) 35.7 - 48.1 fL [facility] NRBC abs 0.00 0.00 - 0.01 K/cumm [facility] Blood 01/20/2025 8:07 AM CDT 01/20/2025 8:15 AM CDT Agustin Okeefe MD LAB BLOOD ORDERABLES Natividad mercy Result Performing Organization Address City/[facility] Co de Phone Number [facility] Department [place] [address] * POCT glucose (01/20/2025 7:10 AM CDT) Glucose, POC 118 70 - 199 mg/dL Blood 01/20/2025 7:10 AM CDT 01/20/2025 7:10 AM CDT Agustin Okeefe MD LAB POCT ORDERABLES - DEV ICE Final Result [facility] Department [place] [address] * XR Outside Reference (01/20/2025 3:58 AM CDT) Impressions [facility] - 01/20/2025 3:58 AM CDT These images are for Reference purposes only and have not been reviewed by [facility]. There will be no report generated by a [facility] Radiologist. Narrative [facility] - 01/20/2025 3:58 AM CDT EXAMINATION: Images For Reference Purposes Only Herrera Keys MD IMG XR PROCEDURES Final Result Performing Organization Address [facility] Co de Phone Number [email or web address] * CT Body Outside Consult (01/20/2025 3:55 [...] images may or may not represent the [place] source data set and thus may contain [...] IMAGING STUDY STUDY INITIALLY PERFORMED: [facility] at [facility] TYPE OF STUDY: Multiple CT images of [...] IMAGING STUDY STUDY INITIALLY PERFORMED: 01/19/2025 at [facility] TYPE OF STUDY: Multiple CT images of [...] images may or may not represent the [place] source data set and thus may contain changes that may lower the accuracy of this second-opinion interpretation. Dictated by: Isac Ruiz M.D. The radiology attending physician has personally reviewed this study, and had reviewed and/or edited this written report and agrees with it. Electronically signed by: José José MD, PHD Herrera Keys MD IMG CT PROCEDURES Final Result * Check Sample (01/20/2025 3:29 AM CDT) ABO Rh B Positive [facility] HC[facility] OTHER 01/20/2025 3:29 AM CDT 01/20/2025 3:43 AM CDT Agustin Okeefe MD LAB BLOOD ORDERABLES Natividad l Result Performing Organization Address [facility] Co de Phone Number [facility] Department [place] [employer] [place] [address] BJ * Lactate (01/20/2025 2:37 AM CDT) Lactate 0.8 0.7 - 2.0 mmol/L Blood 01/20/2025 2:37 AM CDT 01/20/2025 2:52 AM CDT Agustin Okeefe MD LAB BLOOD ORDERABLES Natividad l Result Performing Organization Address [facility]/ZIP Co de Phone Number [facility] Department [place] [address] * eGFR (01/20/2025 2:37 AM CDT) Pathologist [facility] [place] eGFR >90 >=60 mL/min/1. 73 m2 Comment: [...] MD LAB BLOOD ORDERABLES Natividad madrid Result [facility] Department [place] [address] * (ABNORMAL) Differential, auto (01/20/2025 2:37 AM CDT) Pathologist [facility] [place] Neutrophil abs 10.4(H) 1.5 - 6.5 K/cumm Imm gran abs 0.1 0.0 - 0.1 K/cumm [facility] Lymphocyte abs 1.4 0.8 - 3.3 K/cumm [facility] Monocyte abs 1.0(H) 0.2 - 0.8 K/cumm [facility] Eosinophil abs 0.1 0.0 - 0.5 K/cumm [facility] Basophil abs 0.0 0.0 - 0.1 K/cumm [facility] Neutrophil pct 79.9 % [facility] Comment: Interpretive Data Percent cell count reference ranges are not reported, since discordance with absolute values may lead to misinterpretation of CBC data. Current Interpretive Data was last revised on 2018. Imm gran pct 1.0 % [facility] Comment: Interpretive Data Percent cell count reference ranges are not reported, since discordance with absolute values may lead to misinterpretation of CBC data. Current Interpretive Data was last revised on 2018. Lymphocyte pct 10.6 % [facility] Comment: Interpretive Data Percent cell count reference ranges are not reported, since discordance with absolute values may lead to misinterpretation of CBC data. Current Interpretive Data was last revised on 2018. Monocyte pct 7.7 % [facility] Comment: Interpretive Data Percent cell count reference ranges are not reported, since discordance with absolute values may lead to misinterpretation of CBC data. Current Interpretive Data was last revised on 2018. Eosinophil pct 0.6 % [facility] Comment: Interpretive Data Percent cell count reference ranges are not reported, since discordance with absolute values may lead to misinterpretation of CBC data. Current Interpretive Data was last revised on 2018. Basophil pct 0.2 % [facility] Comment: Interpretive Data Percent cell count reference ranges are not reported, since discordance with absolute values may lead to misinterpretation of CBC data. Current Interpretive Data was last revised on 2018. Blood 01/20/2025 2:37 AM CDT 01/20/2025 2:52 AM CDT Agustin Okeefe MD LAB BLOOD ORDERABLES Natividad l Result [facility] [place] [address] * Critical Result Callback Hematology (01/20/2025 2:37 AM CDT) Date Notified [id number] Time Notified 503 [facility]DEEP OSMAN TestName Anti Factor Xa [facility]DEEP STEWART Called/Read Back Ban OSMAN Credentials RN [facility]KHDEEP OSMAN Called By eva OSMAN Blood 01/20/2025 2:37 AM CDT 01/20/2025 2:53 AM CDT Agustin Okeefe MD LAB BLOOD ORDERABLES Natividad l Result Performing Organization Address [facility] Co de Phone Number [facility] Department [place] [address] * (ABNORMAL) Heparin anti factor Xa activity (01/20/2025 2:37 AM CDT) Anti Factor Xa >2.00(C) IUnits/mL Comment: No clot detected in sample Repeated and verified - [id number] - 01/20/25, 5:00 AM Interpretive Data Enoxaparin [...] ORDERABLES Natividad l Result Performing Organization Address [facility] Co de Phone Number [facility] Department [place] [address] * (ABNORMAL) CBC with auto differential (01/20/2025 2:37 AM CDT) [facility] WBC 13.0(H) 3.8 - 9.9 K/cumm Hgb 11.6(L) 13.0 - 17.5 g/dL [facility] Hct 35.4(L) 38.9 - 50.3 % [facility] Plt 285 150 - 400 K/cumm [facility] MPV 10.6 9.1 - 12.3 fL [facility] RBC 4.26(L) 4.30 - 5.80 M/cumm [facility] MCV 83.1 81.3 - 96.4 fL [facility] MCH 27.2 27.1 - 33.3 pg [facility] MCHC 32.8 32.3 - 35.7 g/dL [facility] RDW CV 18.6(H) 11.1 - 14.9 % [facility] RDW SD 55.4(H) 35.7 - 48.1 fL [facility] NRBC abs 0.00 0.00 - 0.01 K/cumm [facility] Blood 01/20/2025 2:37 AM CDT 01/20/2025 2:52 AM CDT Agustin Okeefe MD LAB BLOOD ORDERABLES Natividad l Result [facility] Department [place] [address] * aPTT (01/20/2025 2:37 AM CDT) [facility] aPTT 36 28 - 38 sec Comment: Interpretive Data Heparin therapeutic range: 66.0 - 100.0 seconds. Range based on correlation with therapeutic heparin activity range of 0.3 - 0.7 Units/mL. Current interpretive data was last revised on 2023. Blood 01/20/2025 2:37 AM CDT 01/20/2025 2:53 AM CDT Agustin Okeefe MD LAB BLOOD ORDERABLES Natividad l Result Performing Organization Address [facility] Co de Phone Number [facility] [place] [address] * (ABNORMAL) Protime-INR (01/20/2025 2:37 AM CDT) Pathologist [facility] [place] PT 27.0(H) 9.7 - 13.0 sec INR 2.45(H) 0.90 - 1.20 [facility] Comment: Interpretive data Oral anticoagulant therapeutic ranges: Venous thromboembolism prophylaxis or treatment: 2.0-3.0 CARDIOLOGY Standard range: 2.0-3.0 High-intensity range: 2.5-3.5 Refer to indication-specific guidelines for appropriate target ranges for prosthetic heart valve replacement. Current interpretive data was last revised on 2019. Blood 01/20/2025 2:37 AM CDT 01/20/2025 2:53 AM CDT Agustin Okeefe MD LAB BLOOD ORDERABLES Natividad l Result Performing Organization Address [facility] de Phone Number [facility] [place] [address] * Type and screen (01/20/2025 2:37 AM CDT) Pathologist [facility] [place] Heather, indirect Negative ABO Rh B Positive [facility] Blood 01/20/2025 2:37 AM CDT 01/20/2025 2:58 AM CDT Narrative [facility] - 01/20/2025 4:09 AM CDT Has the patient had Daratumumab or Isatuximab in the past 6 months?->Unknown Agustin Okeefe MD LAB BLOOD BANK TEST ORDER STEFANIE Final Result Performing Organization Address City/[facility] Co de Phone Number CERNER [facility] [place] [address] * Phosphorus (01/20/2025 2:37 AM CDT) [facility] Phosphorus, pl 3.2 2.3 - 4.5 mg/dL Blood 01/20/2025 2:37 AM CDT 01/20/2025 2:52 AM CDT Agustin Okeefe MD LAB BLOOD ORDERABLES Natividad l Result Performing Organization Address City/[facility]/[place] [address] * Magnesium (01/20/2025 2:37 AM CDT) [facility] Magnesium 2.2 1.4 - 2.5 mg/dL Blood 01/20/2025 2:37 AM CDT 01/20/2025 2:52 AM CDT Agustin Okeefe MD LAB BLOOD ORDERABLES Natividad l Result Performing Organization Address [facility] [place] [address] * (ABNORMAL) Comprehensive metabolic panel (01/20/2025 2:37 AM CDT) [facility] Sodium 137 135 - 145 mmol/L Potassium, pl 3.4 3.3 - 4.9 mmol/L [facility] Chloride 94(L) 97 - 110 mmol/L [facility] CO2 35(H) 22 - 32 mmol/L [facility] Anion gap 8 2 - 15 mmol/L [facility] BUN 38(H) 6 - 25 mg/dL [facility] Creatinine 0.89 0.80 - 1.30 mg/dL [facility] Glucose 118 70 - 199 mg/dL [facility] Comment: Interpretive Data Fasting glucose >/= 126 [...] 2022. Calcium 9.0 8.5 - 10.3 mg/dL [facility] Bilirubin, total 1.4(H) 0.1 - 1.2 mg/dL [facility] Protein, pl 7.0 6.5 - 8.5 g/dL [facility] Albumin 3.5 3.5 - 5.0 g/dL [facility] Alk phos 92 40 - 130 Units/L [facility] ALT 55 7 - 55 Units/L [facility] AST 96(H) 10 - 50 Units/L [facility] Blood 01/20/2025 2:37 AM CDT 01/20/2025 2:52 AM CDT Agustin Okeefe MD LAB BLOOD ORDERABLES Natividad l Result Performing Organization Address City/[facility]/ZIP Co de Phone Number [facility] [employer] [place] [address] * POCT glucose (01/20/2025 2:15 AM CDT) [facility] Signature Glucose, POC 124 70 - 199 mg/dL Blood 01/20/2025 2:15 AM CDT 01/20/2025 2:15 AM CDT Agustin Okeefe MD LAB POCT ORDERABLES - DEV ICE Final Result Performing Organization Address [facility] Co de Phone Number [facility] [place] [address] from Last 3 Months Insurance [employer] MED[employer]ARE MED[employer] Advance Directives For more information, please contact: [phone] * Full Code (Latest Code Status on File) Date Activated Date Inactivated Comments 01/20/2025 2:31 AM 01/24/2025 9:36 PM Care Teams Senior Web Engineer Relationship Specialty Start Date End Date Des Dupont MD [address] [place] [address] PCP - General Family Medicine 04/23/24 Stephanie Villarreal MD PhD [address] [place] [address] Consulting Physician Medical Oncology 01/23/25
--- OUTSIDE RECORDS SUMMARY | 2025-02-01 13:29 | XMS_ITS | Clinical Summary ---
Author Organization [facility] Address [address] [facility] [place] [address] Phone Care Team Providers Care Special Education Math Teacher Name Role Phone Des Dupont MD Primary Care Provider Allergies No known active allergies Medications albuterol [...] topic Insurance MEDICARE [employer] Care Teams Special Education Math Teacher Relationship Specialty Start Date End Date Des Dupont MD [address] [address] PCP - General Family Medicine 05/07/20
--- OUTSIDE RECORDS SUMMARY | 2025-02-01 13:29 | XMS_ITS | Clinical Summary ---
Author Organization [facility] Address [address] [place] [address] Care Team Providers Care Banking Attorney Name Role Phone Des Dupont MD Primary Care Provider [phone] Allergies No known active allergies Medications rivaroxaban [...] - 01/17/2025 11:59 PM CDT Hospital Encounter [facility] Pulmonary Function [facility] [place] [address] [facility] [place] [place] [address] Kenny Khalil MD Discharge Disposition: Home or Self Care 01/14/2025 9:30 AM CDT Office Visit [facility] Oncology and Hematology [facility] [address] [place] [phone] Kenny Khalil MD Malignant neoplasm of upper lobe of left lung (CMS/HCC) (Primary Dx) 01/07/2025 External Device Data STL ABSTRACTION Provider, Abstract 01/07/2025 Chart Note [facility] Oncology Patient Navigation [address] [place] [address] Meg Ridley RN Nurse Navigation (Establish Care) 01/02/2025 9:01 AM CDT - 01/02/2025 1:53 PM CDT [facility] [address] [place] [address] Robinson De Dios NP 6, 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 Gender Identity Not on file Sexual Orientation [...] 01/14/2025 9:35 AM CDT Plan of Treatment Health Maintenance [...] (#1) 2024 , 08/15/2020, 09/05/2018 COVID-19 Vaccine (2023-2 5 season) 2024 07/10/2022, 01/25/2022, 09/04/2021, Additional history exists PNEUMOCOCCAL VACCINE 50+ YEARS Completed 08/15/2020 , 09/05/2018 ZOSTER VACCINE Completed 09/06/2022, 06/02/2022 Procedures Procedure Name Priority Date/Time Associated Diagnosis Comments PULMONARY FUNCTION TEST Routine 01/17/2025 8:11 AM CDT XR CHEST PA OR AP 1 VW Routine 01/02/2025 1:[address] BIOPSY LUNG LEFT Routine 01/02/2025 1 1:28 AM CDT Lung mass PATHOLOGY Pathology 01/02/2025 11:19 AM CDT CBC WITH DIFFERENTIAL Routine 01/02/2025 9:20 AM CDT from Last 3 Months Results * PULMONARY FUNCTION TEST (01/17/2025 8:11 AM CDT) 01/17/2025 8:11 AM CDT Narrative INTERFACE SYSTEM - 01/21/2025 12:06 PM CDT [facility] [address] [facility], [place] [address] Test Date: 2025-01-17 Pat Name: KUSHAL FERNANDEZ Department: Room: Gender: Male Excellence Coach: : 1950 Requested By: KENNY Eric Order Number: [id number] Reading MD: Jocelin Daigle Interpretive Statements The patient is a 74 year old Male, height 178 cm. and weight of 268 lbs. The indication for the pulmonary function test is Neoplasm ULL. SPIROMETRY revealed an FVC of 3.89 Liters, 93 % of predicted. The FEV1 is 1.99 Liters, 63 % of predicted, the FEV1/FVC ratio is 51 %. Post bronchodilator, FVC is 3.69 Liters, a change of -5 %. The FEV1 is 1.93 Liters,change of -3 %. FEV1/FVC ratio is 52 %. LUNG VOLUMES reveal a total lung capacity (TLC) of 6.29 Liters, 88 % pred. Residual volume (RV) is 2.40 Liters, 89 % of predicted, RV/TLC ratio is 38 %. AIRWAY RESISTANCE measurements demonstrate a pre bronchodilator (BD) airway resistance (RAW) of 2.29 cmH2O/L/sec, 150 % of reference, and specific conductance (sGAW) of 0.089 L/s/cmH2O/L, 42 % predicted. DIFFUSION CAPACITY for carbon monoxide (DLCO) is 17.4 mL/min/mmHg, 68 % pred. IMPRESSION:Testing was acceptable and reproducible. Flow-volume loop suggestive of obstruction. PFT demonstrated moderate obstructive ventilatory impairment without significant bronchodilator response. Lung volumes were within normal limits and diffusion capacity was mildly decreased. Electronically Signed On 01-21-2025 12:06:42 CDT by Jocelin Daigle Procedure Note Provider, Historical - 01/21/2025 [facility] [address] , [place] [address] Test Date: 2025-01-17 Pat Name: KUSHAL FERNANDEZ Department: Room: Gender: Male Excellence Coach: : 1950 Requested By: KENNY Eric Order Number: [id number] Reading MD: Jocelin Daigle Interpretive Statements The patient is a 74 year old Male, height 178 cm. and weight of268 lbs. The indication for the pulmonary function test is Neoplasm ULL. SPIROMETRY revealed an FVC of 3.89 Liters, 93 % of predicted. The FEV1 is 1.99 Liters, 63 % of predicted, the FEV1/FVC ratio is 51 %. Post bronchodilator, FVC is 3.69 Liters, a change of -5 %. The FEV1 is1.93 Liters,change of -3 %. FEV1/FVC ratio is 52 %. LUNG VOLUMES reveal a total lung capacity (TLC) of 6.29 Liters, 88 % pred. Residual volume (RV) is 2.40 Liters, 89 % of predicted, RV/TLC ratio is 38 %. AIRWAY RESISTANCE measurements demonstrate a pre bronchodilator (BD)airway resistance (RAW) of 2.29 cmH2O/L/sec, 150 % of reference, and specific conductance (sGAW) of 0.089 L/s/cmH2O/L, 42 % predicted. DIFFUSION CAPACITY for carbon monoxide (DLCO) is 17.4 mL/min/mmHg, 68 %pred. IMPRESSION:Testing was acceptable and reproducible. Flow-volume loop suggestive of obstruction. PFT demonstrated moderate obstructiveventilatory impairment without significant bronchodilator response. Lung volumes were within normal limits and diffusion capacity was mildly decreased. Electronically Signed On 01-21-2025 12:06:42 CDT by Jocelin Daigle us Kenny Khalil MD PFT ORDERABLES Final Result INTERFACE SYSTEM Refer to clinic/hospital department * XR CHEST PA OR AP 1 VW (01/02/2025 1:48 PM CDT) Anatomical Region Laterality Modality Chest Computed Radiogr aphy 01/02/2025 1:48 PM CDT Impressions 01/02/2025 1:55 PM CDT IMPRESSION: 1. No pneumothorax. 2. Left upper lobe lung mass with adjacent small amount of postbiopsy hemorrhage. DICTATION LOCATION: Location [address] [place] [address] Narrative 01/02/2025 1:55 PM CDT EXAM: XR [...] amount of postbiopsy hemorrhage. DICTATION LOCATION: Location [address] [place] [address] Kushal Dominguez MD DIAGNOSTIC IMAGING ORDERABLES F inal Result * CT BIOPSY LUNG LEFT (01/02/2025 11:28 AM CDT) Anatomical Region Laterality Modality Chest Computed Tomogra phy 01/02/2025 11:0 3 AM CDT Impressions 01/02/2025 4:10 PM CDT Impression: CT-guided biopsy of a left upper lobe lung mass, as described above. DICTATION LOCATION: [address] Narrative 01/02/2025 4:10 PM CDT Procedure: CT-guided [...] above. DICTATION LOCATION: Location 1 - [facility] Robinson De Dios NP CT ORDERABLES Final Result * PATHOLOGY (01/02/2025 11:19 AM CDT) CASE REPORT Surgical Pathology Report Case: [id number] Authorizing Provider: Kushal Dominguez MD Collected: 01/02/2025 11:19 AM Ordering Location: [facility] Received: 01/02/2025 01:07 PM Francis Pathologist: Ashley Cho MD Specimen: Lung, left 5:17 PM T [facility] [facility] ADDENDUM 1 A request for PD-L1 testing was received 01/28/[address] Stephanie Villarreal. This test was performed on tissue from case [id number]. The case report, slides, and blocks for this case were retrieved from archives. The pathologist reviewed the original pathology report, examined candidate slides, and selected the most appropriate block(s). This selected material was forwarded to [employer] where the test was performed. This addendum is issued to report the results of PD-L1 22C3 FDA for NSCLC (see hyperlink below for scan of outside report). 5:17 PM CDT [facility] [facility] Addendum electronically signed by Ashley Cho MD on 01/31/2025 at 1717 CDT FINAL DIAGNOSIS Lung, left lung mass, biopsy: - Non-small cell carcinoma, poorly differentiated, favor squamous cell carcinoma. 5 5:17 PM CDT [facility] [facility] at 1641 CDT DIAGNOSIS COMMENT Ancillary testing will be performed upon request. 5:17 PM T [facility] [employer] [facility] GROSS DESCRIPTION Received in one container labeled Kushal Fernandez and left lung are 9 pieces of pink-feng tissue ranging from 0.1 to 0.5 cm in length and each measuring less than 0.1 cm in diameter. The tissue is entirely submitted in cassettes A1 and A2. [facility] 5:17 PM CDT [facility] [facility] MICROSCOPIC DESCRIPTION The slides are labeled [id number] and Kushal Fernandez. Sections of the left [...] The immunohistochemical profile supports the above diagnosis. 5:17 PM CDT [facility] CLINICAL INFORMATION No Dx found. 5:17 PM CDT [facility] COMMENT Special stain, immunohistochemical, and/or in situ hybridization results are interpreted with controls that demonstrate appropriate staining reactions. Note on use of immunohistochemistry reagents and in situ hybridization probes: These tests were developed and their performance characteristics determined by [facility] Department of Laboratory Medicine. It has not [...] or completely in the following laboratories: [facility], [place] #[id number] [address] [place] [address] [facility], [place] #[id number] [address] [place] [address] [facility], [place] #[id number] [address] [place] [address] This report was created with the Nanole[employer] voice-activated dictation system. Inherent to this system is the possibility of syntax, grammar, punctuation and other errors that could impact the interpretation of the report. If there are interpretative questions about aspects of this report, please contact the performing pathologist. 5:17 PM CDT [facility] Tissue SPECIMEN FROM LUNG / Unknown Collection / Unknown 01/02/2025 11:19 AM CDT 01/02/2025 1:07 PM CDT us Kushal Dominguez MD PATHOLOGY/CYTOLOGY ORDERABLES E dited Result - Final [facility] - [facility] CLIA# [id number] [address] [place] [address] * (ABNORMAL) CBC WITH DIFFERENTIAL (01/02/2025 9:20 AM CDT) WBC 10.3(H) 4.0 - 9.8 K/uL 01/02/2025 9:57 AM CDT [facility] RBC 6.27(H) 4.50 - 5.40 M/uL 01/02/2025 9:57 AM CDT [facility] - . [facility] HEMOGLOBIN 17.3(H) 13.6 - 16.5 g/dL 01/02/2025 9:57 AM CDT [facility] - . [facility] HEMATOCRIT 54.2(H) 40.0 - 48.0 % 01/02/2025 9:57 AM CDT [facility] - . [facility] MCV 86.4 82.0 - 99.0 fL 01/02/2025 9:57 AM CDT [facility] - . [facility] MCH 27.6 27.2 - 32.6 pg 01/02/2025 9:57 AM CDT [facility] - . [facility] MCHC 31.9 31.5 - 35.5 g/dL 01/02/2025 9:57 AM CDT [facility] - . [facility] RDW 19.2(H) 11.5 - 14.5 % 01/02/2025 9:57 AM CDT [facility] - . [facility] RDW-STDEV 56.7(H) 37.1 - 48.7 fL 01/02/2025 9:57 AM CDT [facility] PLATELETS 207 140 - 350 K/uL 01/02/2025 9:57 AM CDT [facility] . [facility] MPV 10.2 9.3 - 12.4 fL 01/02/2025 9:57 AM CDT [facility] NEUTROPHILS 67 % 01/02/2025 9:57 AM CDT [facility] LYMPHOCYTES 23 % 01/02/2025 9:57 AM CDT [facility] - . [facility] MONOCYTES 8 % 01/02/2025 9:57 AM CDT [facility] EOSINOPHILS 1 % 01/02/2025 9:57 AM CDT [facility] - . [facility] BASOPHILS 1 % 01/02/2025 9:57 AM CDT [facility] - . [facility] IMMATURE GRANULOCYTES 1 % 01/02/2025 9:57 AM CDT [facility] - . [facility] Comment:IG (Immature Granulo cyte) count includes Metamyelocytes, Myelocytes, and Promyelocytes NEUTROPHIL ABSOLUTE 6.93 1.90 - 7.00 K/uL 01/02/2025 9:57 AM CDT [facility] - . [facility] LYMPHOCYTE ABSOLUTE 2.34 0.70 - 4.50 K/uL 01/02/2025 9:57 AM CDT [facility] - . [facility] MONOCYTE ABSOLUTE 0.82 0.10 - 1.30 K/uL 01/02/2025 9:57 AM CDT [facility] - . [facility] EOSINOPHIL ABSOLUTE 0.09 0.00 - 0.70 K/uL 01/02/2025 9:57 AM CDT [facility] - . [facility] BASOPHILS ABSOLUTE 0.06 0.00 - 0.20 K/uL 01/02/2025 9:57 AM CDT [facility] - . [facility] IMMATURE GRANULOCYTES ABSOLUTE 0.06(H) 0.00 - 0.03 K/uL 01/02/2025 9:57 AM CDT [facility] - . [facility] Blood Venipuncture / Unknown 01/02/2025 9:20 AM CDT 01/02/2025 9:38 AM CDT us Anthony Fraser MD HEMATOLOGY ORDERABLES F inal Result [facility] - [facility] CLIA# [id number] [address] [place] [address] from Last 3 Months Insurance MEDICARE PART A AND B GENERIC PAYOR MEDICARE PART A AND B GENERIC PAYOR MEDICARE PART A AND B GENERIC PAYOR Care Teams Banking Attorney Relationship Specialty Start Date End Date Des Dupont MD [address] [place] [address] PCP - General Family Practice 01/14/25
--- OUTSIDE RECORDS SUMMARY | 2025-02-01 13:29 | XMS_ITS | Encounter Summary ---
Author Organization [facility] Address [address] [place] [address] Care Team Providers Care Piano Technician Name Role Phone Unavailable Primary Care Provider Unavailabl e Encounter Details Date Type Department Care Team (Late st Contact Info) Description 08/29/2023 Lab Requisition [facility] - DermPath Lab [address] [facility] [place] [id number] Naga Boswell MD [address] [place] [address] Social History Tobacco Use Types Packs/Day Years [...] Comments DERMATOPATHOLOGY Routine 08/29/2023 12:0 0 AM WELFARE ELIGIBILITY INTERVIEWER documented in this encounter Results * DERMATOPATHOLOGY (08/29/2023 12:00 AM WELFARE ELIGIBILITY INTERVIEWER) Case Report Dermatopathology Report Case: [id number] Authorizing Provider: Naga Boswell MD Collected: 08/29/2023 12:00 AM Ordering Location: [facility] DermPath Lab Received: 08/30/2023 07:05 AM Pathologist: Hernesto Sargent MD Specimen: Skin, right thigh 3 3:45 PM WELFARE ELIGIBILITY INTERVIEWER DERMATOPATHOLOGY LABORATORY Final Diagnosis Specimen A. SKIN, right thigh: BENIGN VERRUCOUS KERATOSIS, INFLAMED (L82.1) 3 3:45 PM WELFARE ELIGIBILITY INTERVIEWER DERMATOPATHOLOGY LABORATORY Clinical History Prurigo vs BCC vs SCC. Path#[id number] 3:45 PM [facility] DERMATOPATHOLOGY LABORATORY Gross Description Specimen A: Received is one formalin filled container labeled with the patient's name and designated right thigh. The specimen consists of a shave biopsy measuring 7x6x1 mm. Jar 0. 3:45 PM [facility] DERMATOPATHOLOGY LABORATORY Microscopic Description Specimen A. SKIN, right thigh: Sections show hyperkeratosis, papillomatosis, hypergranulosis, and acanthosis. Inflammatory cells are present within the dermis. These histological findings can be seen in a verruca vulgaris or a seborrheic keratosis. 3:45 PM [facility] DERMATOPATHOLOGY LABORATORY Disclaimer An external and internal positive and negative controls are appropriate for the histochemical, immunohistochemical and immunofluorescence stain(s) in this case (if any), except where stated explicitly. The performance characteristics of the stain(s) cited in this report were developed and its performance characteristic determined by the Dermatopathology Laboratory at [facility], directed by Dr. Hodan Sargent. These tests need not be, and therefore are not, approved by the [place] Food and Drug Administration. The tests are used for clinical purposes. Billing Codes Specimen Charges Stain Charges 05433 1 3:45 PM [facility] DERMATOPATHOLOGY LABORATORY Embedded Images 3:45 PM [facility] DERMATOPATHOLOGY LABORATORY Pathology/Cytolog y TISSUE SPECIMEN FROM SKIN / Unknown 08/29/2023 08/30/2023 7:05 AM WELFARE ELIGIBILITY INTERVIEWER Naga Boswell MD LAB - PATHOLOGY/CYTOLOGY ORDER STEFANIE Final Result DERMATOPATHOLOGY LABORATORY [facility] - Department of Dermatology [address] [place] [address], [facility] [phone] documented in this encounter Visit Diagnoses Not on filedocumented in this encounter
--- OUTSIDE RECORDS SUMMARY | 2025-02-01 13:29 | XMS_ITS | Clinical Summary ---
Author Organization [facility] Address [address] [place] [address] Care Team Providers Care Pipe Stem Sawyer Name Role Phone Unavailable Primary Care Provider Unavailabl e Source Comments [facility],non-owned Affiliates and Associated Physician Practices is amultiple site organization consisting of ambulatory clinics and hospital sitesin [place], [place], [place] and [place]. This disclosure is being madepursuant to the Care Everywhere program and may not contain all information available regarding this patient. Last updated 18.[facility] Social History Tobacco Use Types Packs/Day Years [...] VACCINE ( - 2023-2 5 season) 2024 DEPRESSION SCREENING 10/23/2024 INFLUENZA VACCINE (Season Ended) 2025 Respiratory Syncytial Virus (RSV) Vaccine Pt: or [...] age to complete this topic Insurance MEDICARE [facility] MEDICARE [employer]
[2025-02-01 13:35] VITALS: BP 91/77; PULSE 75; RESP 95; TEMP 36.9; O2SAT 95
--- NOTE | 2025-02-01 13:46 | PC.NURSE ---
RLE lara: swelling, skin tight, skin is dusky and red, blister about the size of a baseball to lara, clear fluid draining with a yellow tinge. R. foot: pitting edema to foot. foot is hot to touch. LLE lara: swelling, skin tight, skin is dusky and red. L. foot: red and tight. foot is hot to touch. Quarter sized ulcer to sole of foot, just under great toe. Pt. states it is being treated by a industrial safety and health specialist at the [place] and it looks a lot better.
[2025-02-01 13:56] VITALS: BP 117/63; PULSE 64; RESP 18; O2SAT 91
--- OUTSIDE RECORDS SUMMARY | 2025-02-01 14:16 | XMS_ITS | Encounter Summary ---
Author Organization [facility] Address [address] [place] [address] Care Team Providers Care Title Insurance Agent Name Role Phone Des Dupont MD Primary Care Provider [phone] Stephanie Villarreal MD PhD Unavailable [phone] Encounter Details Date Type Department Care Team (Late st Contact Info) Description 01/30/2025 Telephone [facility] Medical Group Cardiology [address] [place] [address] Bartolo Morillo MD [address] [phone] Social History Tobacco Use Types Packs/Day Years [...] started at and then [facility] to [facility] while at [facility] they changed his medications and took him off metOLazone (ZAROXOLYN) tablet 2.5 mg and furosemide (LASIX) tablet 40 mg which he said is causinghis legs to swell badly. Please advise. Thank you. Contact: documented in this encounter Plan of Treatment Not on file documented as of this encounter Visit Diagnoses Not on filedocumented in this encounter Care Teams Title Insurance Agent Relationship Specialty Start Date End Date Des Dupont MD [address] [place] [address] PCP - General Family Medicine 04/23/24 Stephanie Villarreal MD PhD [address] [facility] [address] IM MEDICAL ONCOLOGY, [address] [place] [address] Consulting Physician Medical Oncology 01/23/25 documented as of this encounter
--- OUTSIDE RECORDS SUMMARY | 2025-02-01 14:16 | XMS_ITS | CONTINUITY OF CARE DOCUMENT ---
Author Name austyn zaman Address Unknown Organization [facility] Address [address] [address] Phone [phone] Care Team Providers Care Veneer Joiner Name Role Phone Johanne LEYVA, Angel Unavailable Jagjit Romero DPM Unavailable LOLA LEYVA, ROCÍO Christel Unavailable [phone] PROBLEMS Condition Status Date Provider Notes Cardiology examination active Angel Whiting MD AFIB active Angel Whiting MD Venous insufficiency, chronic active Angel Whiting MD Foot pain, left active Angel Whiting MD ENCOUNTERS Date Type Provider Location Encounter Diag nosis - In-person encounter Office Visit Angel Whiting MD [facility] Cardiology examinationAFIBVenous insufficiency, chronicFoot pain, left [...] Payer name Policy type / Coverage type [place] red [employer] Other 1 [id number] [place] MED[place] Medicare [id number] ADVANCE DIRECTIVES Name Date DISCUSSED - NO DECISION MADE TREATMENT PLAN Date Name Performer [id number],S, Angel Whiting MD [id number],C,Manage by Dr. Morillo. Angel Whiting MD [id number],C,W ill check YAJAIRA, Sensil[employer], for the obvious [...]
--- OUTSIDE RECORDS SUMMARY | 2025-02-01 14:16 | XMS_ITS | Clinical Summary ---
Author Organization [facility] Address [address] [facility] [place] [address] Phone Care Team Providers Care Director Of Purchasing Name Role Phone Des Dupont MD Primary Care Provider [phone] Allergies No known active allergies Medications albuterol [...] topic Insurance MEDICARE [employer] Care Teams Director Of Purchasing Relationship Specialty Start Date End Date Des Dupont MD [address] [address] PCP - General Family Medicine 05/07/20
--- OUTSIDE RECORDS SUMMARY | 2025-02-01 14:16 | XMS_ITS | Encounter Summary ---
Author Organization [facility] Address [address] [place] [address] Care Team Providers Care Pelt Grader Name Role Phone Des Dupont MD Primary Care Provider [phone] Tessa Pantoja MD Primary Care Provider [phone] Des Dupont MD Primary Care Provider [phone] Stephanie Villarreal MD PhD Unavailable [phone] Lisa Barrow RN Unavailable [phone] Encounter Details Date Type Department Care Team (Late st Contact Info) Description 12/30/2017 Orders Only [facility] Health Information Management [address] [place] [address] Scanning, Provider Social History Tobacco Use [...] Comments SCAN - LABS 12/30/2017 1:20 AM TICKET DISPENSER CHANGER documented in this encounter Results * SCAN - LABS (12/30/2017 1:20 AM TICKET DISPENSER CHANGER) us Provider Scanning Final Result documented in [...] documented as of this encounter Care Teams Pelt Grader Relationship Specialty Start Date End Date Des Dupont MD PCP - General Family Medicine 07/13/17 08/17/23 Tessa Pantoja MD [address] [place] [address] PCP - General Family Medicine 08/18/23 04/22/24 Des Dupont MD [address] [place] [address] PCP - General Family Medicine 04/23/24 Stephanie Villarreal MD PhD [address] [facility] IM MEDICAL ONCOLOGY, [address] [place] [address] Consulting Physician Medical Oncology 01/23/25 Lisa Barrow, RN [address] [place] [address] [facility]OP Outpatient Real Time Operator 01/27/25 01/29/25 documented as of this encounter
--- OUTSIDE RECORDS SUMMARY | 2025-02-01 14:16 | XMS_ITS | Encounter Summary ---
Author Organization [facility] Address [address] [place] [address] Care Team Providers Care Temple Marker Name Role Phone Unavailable Primary Care Provider Unavailabl e Encounter Details Date Type Department Care Team (Late st Contact Info) Description 08/29/2023 Lab Requisition [facility] - DermPath Lab [address] [place] [id number] Naga Boswell MD [address] [place] [address] Social History Tobacco Use Types Packs/Day Years [...] Comments DERMATOPATHOLOGY Routine 08/29/2023 12:0 0 AM FURNACE BUILDER documented in this encounter Results * DERMATOPATHOLOGY (08/29/2023 12:00 AM FURNACE BUILDER) Case Report Dermatopathology Report Case: [id number] Authorizing Provider: Naga Boswell MD Collected: 08/29/2023 12:00 AM Ordering Location: [facility] DermPath Lab Received: 08/30/2023 07:05 AM Pathologist: Hernesto Sargent MD Specimen: Skin, right thigh 3 3:45 PM [facility]NACE BUILDER DERMATOPATHOLOGY LABORATORY Final Diagnosis Specimen A. SKIN, right thigh: BENIGN VERRUCOUS KERATOSIS, INFLAMED (L82.1) 3 3:45 PM [facility] BU[facility] DERMATOPATHOLOGY LABORATORY Clinical History Prurigo vs BCC vs SCC. Path#[id number] 3:[address] [facility] DERMATOPATHOLOGY LABORATORY Gross Description Specimen A: Received is one formalin filled container labeled with the patient's name and designated right thigh. The specimen consists of a shave biopsy measuring 7x6x1 mm. Jar 0. 3:[address] [facility] DERMATOPATHOLOGY LABORATORY Microscopic Description Specimen A. SKIN, right thigh: Sections show hyperkeratosis, papillomatosis, hypergranulosis, and acanthosis. Inflammatory cells are present within the dermis. These histological findings can be seen in a verruca vulgaris or a seborrheic keratosis. 3:[address] [facility] DERMATOPATHOLOGY LABORATORY Disclaimer An external and internal positive and negative controls are appropriate for the histochemical, immunohistochemical and immunofluorescence stain(s) in this case (if any), except where stated explicitly. The performance characteristics of the stain(s) cited in this report were developed and its performance characteristic determined by the Dermatopathology Laboratory at [facility], directed by Dr. Hodan Sargent. These tests need not be, and therefore are not, approved by the [place] Food and Drug Administration. The tests are used for clinical purposes. Billing Codes Specimen Charges Stain Charges 41259 1 3:[address] [facility] DERMATOPATHOLOGY LABORATORY Embedded Images 3:[address] [facility] DERMATOPATHOLOGY LABORATORY Pathology/Cytolog y TISSUE SPECIMEN FROM SKIN / Unknown 08/29/2023 08/30/2023 7:05 AM FURNACE BUILDER Naga oBswell MD LAB - PATHOLOGY/CYTOLOGY ORDER STEFANIE Final Result DERMATOPATHOLOGY LABORATORY [facility] - Department of Dermatology [address] [place] [address], [facility] [phone] documented in this encounter Visit Diagnoses Not on filedocumented in this encounter
--- OUTSIDE RECORDS SUMMARY | 2025-02-01 14:16 | XMS_ITS | Encounter Summary ---
Author Organization [facility] Address [address] [place] [address] Phone Care Team Providers Care Gas Refrigerator Servicer Name Role Phone Des Dupont MD Primary Care Provider [phone] Stephanie Villarreal MD PhD Unavailable [phone] Lisa Barrow RN Unavailable [phone] Encounter Details Date Type Department Care Team (Late st Contact Info) Description 01/28/2025 Orders Only [facility] Oncology [address] [place] [address] Stephanie Villarreal MD PhD [address] [place] [address] Lung cancer, primary, 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 [place] [address] Consulting Physician Medical Oncology 01/23/25 Lisa Barrow, YAMIL [address] [place] [address] [facility] Outpatient Fixed Wing Pilot 01/27/25 01/29/25 documented as of this encounter
--- OUTSIDE RECORDS SUMMARY | 2025-02-01 14:16 | XMS_ITS | Clinical Summary ---
Author Organization [facility] [address] Address [address] [place] [address] Care Team Providers Care Spanish Interpreter/Translator Name Role Phone Des Dupont MD Primary Care Provider + [phone] Stephanie Villarreal MD PhD Unavailable [phone] Allergies No known active allergies Medications [...] 2.5 mg tabletIndication s:PAF (paroxysmal atrial fibrillation) ([facility]) TAKE 1 TABLET BY MOUTH [...] 24 hr capsuleIndicatio ns:PAF (paroxysmal atrial fibrillation) ([facility]) TAKE 1 CAPSULE BY MOUTH [...] CDT): Had been getting workup at OSH ([facility] Would like to transfer care to [facility] system. Metastatic disease to liver. -MRI brain [...] H/H - Pain contro as followsl: - [place] 10-325 q4 PRN (with additional dose available [...] (02/28/2019): Added automatically from request for surgery [id number] PAF (paroxysmal atrial fibrillation) 10/25/2017 Assessment & [...] Department Care Team Description 01/31/2025 Orders Only [facility] [address] [place] [address] Floor 5 [place] [address] Stephanie Villarreal MD PhD 01/30/2025 SHOP/CHAP Initial Outreach [facility] OP CASE MANAGEMENT 1 [place] [address] Lisa Barrow, YAMIL 01/30/2025 Telephone [facility] [address] [place] [address] Ynes Hurd RN 01/30/2025 Telephone [facility] Medical Group Cardiology [address] [place] [address] Bartolo Morillo MD 01/28/2025 12:15 PM CDT Lab Research [facility] - Lab Collection [address] [place] [address] Floor 5 [place] [address] Lung cancer, primary, 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, left (HCC) 01/28/2025 10:00 AM CDT Office Visit [facility] [address] [place] [address] 5 [place] [address] Stephanie Villarreal MD PhD Lung cancer, primary, 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, left (HCC) (Primary Dx); Cancer related pain 01/28/2025 Documentation [facility] [address] [place] [address] 5 [place] [address] Edith Aguilar CMA 01/28/2025 Orders Only [facility] [address] [place] [address] Floor 5 [place] [address] Stephanie Villarreal MD PhD Lung cancer, primary, 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, left (HCC) (Primary Dx) 01/28/2025 SHOP/CHAP Initial Outreach [facility] OP CASE MANAGEMENT 1 [place] [address] Lisa Barrow, YAMIL 01/27/2025 Orders Only [facility] [address] [facility] [address] [place] [address] [place] [address] Arnol Lira MD COPD exacerbation (HCC) (Primary Dx) 01/27/2025 SHOP/CHAP Initial Outreach [facility] OP CASE MANAGEMENT [address] [place] [address] Lisa Barrow, YAMIL 01/27/2025 SHOP/CHAP Initial Eligibility Review [facility] OP CASE MANAGEMENT 1 [place] [address] Lisa Barrow, YAMIL 01/27/2025 Orders Only [facility] [address] [facility] [address] [place] [address] [place] [address] Jt Meredith MD COPD exacerbation (HCC) (Primary Dx) 01/27/2025 Orders Only [facility] [address] [facility] [address]th [place] [address] [place] [address] Phillip Nick 01/20/2025 1:57 AM CDT - 01/24/2025 5:31 PM CDT Hospital Encounter [facility] 1 [place] [address] Agustin Okeefe MD Knittel, MD Bhavesh Saunders, Martha Ragland MD Lung cancer, primary, 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, left (HCC) (Primary Dx); PAF (paroxysmal atrial fibrillation) (HCC) Discharge Disposition: Discharge to home or self care 12/27/2024 Telephone [facility] Medical Group Cardiology [address] [place] [address] Batrolo Morillo MD from Last 3 Months Immunizations [...] MD PhD LAB BLOOD ORDERABLES Final Result [facility] One [facility] Department [place] [address] * (ABNORMAL) Comprehensive metabolic panel (01/28/2025 12:19 PM CDT) Sodium 138 135 - 145 mmol/L Potassium, pl 4.3 3.3 - 4.9 mmol/L [facility] Chloride 99 97 - 110 mmol/L [facility] CO2 32 22 - 32 mmol/L [facility] Anion gap 7 2 - 15 mmol/L [facility] BUN 22 6 - 25 mg/dL [facility] Creatinine 0.76(L) 0.80 - 1.30 mg/dL [facility] Glucose 102 70 - 199 mg/dL [facility] Comment: Interpretive Data Fasting glucose >/= 126 [...] 2022. Calcium 9.3 8.5 - 10.3 mg/dL [facility] Bilirubin, total 0.6 0.1 - 1.2 mg/dL [facility] Protein, pl 6.6 6.5 - 8.5 g/dL [facility] Albumin 3.2(L) 3.5 - 5.0 g/dL [facility] Alk phos 101 40 - 130 Units/L [facility] ALT 19 7 - 55 Units/L [facility] AST 29 10 - 50 Units/L [facility] Blood 01/28/2025 12:1 9 PM CDT 01/28/2025 12:25 PM CDT Stephanie Villarreal MD PhD LAB BLOOD ORDERABLES Final Result [facility] One [facility] Department [place] [address] * (ABNORMAL) Differential, auto (01/28/2025 12:09 PM CDT) Neutrophil abs 12.01(H) 1.50 - 6.50 K/cumm Comment:Testing performed by : [facility]e [facility], [address] [place] [address] Lymphocyte abs 2.50 0.80 - 3.30 K/cumm [facility]ER [facility] Comment:Testing performed by : [facility], [address] [place] [address] Monocyte abs 1.10(H) 0.20 - 0.80 K/cumm [facility]ERNER [facility] Comment:Testing performed by : [facility], [address] [place] [address] Eosinophil abs 0.18 0.00 - 0.50 K/cumm [facility]ER [facility] Comment:Testing performed by : [facility], [address] [place] [address] Basophil abs 0.10 0.00 - 0.10 K/cumm CERNER [facility] Comment:Testing performed by : [facility], [address] [place] [address] Neutrophil pct 75.6 % [facility] Comment: Interpretive Data Percent cell count reference ranges are not reported, since discordance with absolute values may lead to misinterpretation of CBC data. Current Interpretive Data was last revised on 2018. Testing performed by: [facility], [address] [place], [place] [id number] Lymphocyte pct 15.7 % CERSU[facility]Y [facility] Comment: Interpretive Data Percent cell count reference ranges are not reported, since discordance with absolute values may lead to misinterpretation of CBC data. Current Interpretive Data was last revised on 2018. Testing performed by: [facility], [address] [place] [phone] Monocyte pct 6.9 % [facility]ERS[facility] Comment: Interpretive Data Percent cell count reference ranges are not reported, since discordance with absolute values may lead to misinterpretation of CBC data. Current Interpretive Data was last revised on 2018. Testing performed by: [facility], [address] [place] [phone] Eosinophil pct 1.1 % [facility] Comment: Interpretive Data Percent cell count reference ranges are not reported, since discordance with absolute values may lead to misinterpretation of CBC data. Current Interpretive Data was last revised on 2018. Testing performed by: [facility], [address] [place] [phone] Basophil pct 0.6 % [facility] Comment: Interpretive Data Percent cell count reference ranges are not reported, since discordance with absolute values may lead to misinterpretation of CBC data. Current Interpretive Data was last revised on 2018. Testing performed by: [facility], [address] [place] [phone] Blood 01/28/2025 12:0 9 PM CDT 01/28/2025 12:23 PM CDT us Stephanie Villarreal MD PhD LAB BLOOD ORDERABLES Final Result [facility] Department [place] [address] * (ABNORMAL) CBC with auto differential (01/28/2025 12:09 PM CDT) WBC 15.89(H) 3.80 - 9.90 K/cumm Comment:Testing performed by : [facility], [address] [place] [phone] Hgb 12.4(L) 13.0 - 17.5 g/dL [facility]ER [facility]J Comment:Testing performed by : [facility], [address] [place], [place] [phone] Hct 39.0 38.9 - 50.3 % [facility] Comment:Testing performed by : [facility], [address] [place], [place] [phone] Plt 409(H) 150 - 400 K/cumm [facility] Comment:Testing performed by : [facility], [address] [place], [place] [phone] MPV 8.0 6.8 - 10.4 fL [facility] Comment:Testing performed by : [facility], [address] [place], [place] [phone] RBC 4.70 4.30 - 5.80 M/cumm [facility] Comment:Testing performed by : [facility], [address] [place], [place] [phone] MCV 83.0 81.3 - 96.4 fL [facility] Comment:Testing performed by : [facility], [address] [place], [place] [phone] MCH 26.5(L) 27.1 - 33.3 pg [facility] Comment:Testing performed by : [facility], [address] [place] [address] MCHC 31.9(L) 32.3 - 35.7 g/dL [facility] Comment:Testing performed by : [facility], [address] [place], [place] [phone] RDW CV 20.0(H) 11.1 - 14.9 % [facility] Comment:Testing performed by : [facility], [address] [place], [place] [phone] NRBC abs 0.00 0.00 - 0.01 K/cumm [facility] Comment:Testing performed by : [facility], [address] [place] [address] Blood 01/28/2025 12:0 9 PM CDT 01/28/2025 12:23 PM CDT us Stephanie Villarreal MD PhD LAB BLOOD ORDERABLES Final Result [facility] Reilly [facility] Department [place] [address] * PET/CT FDG Whole Body (01/24/2025 11:14 [...] FDG-PET/CT IMAGING DATE OF STUDY: 01/24/2025 SCANNER: [facility] N PET Vision (NV1). This is [...] obtained. The study was interpreted on the Embedster workstation. The mean liver SUV (reported for corporate quality engineer purposes) is 2.6. The total [...] FDG-PET/CT IMAGING DATE OF STUDY: 01/24/2025 SCANNER: [facility] [employer] (NV1). This is a high-resolution scanner, which [...] obtained. The study was interpreted on the Embedster workstation. The mean liver SUV (reported for corporate quality engineer purposes) is 2.6. The total [...] MD LAB BLOOD ORDERABLES Natividad madrid Result [facility] Department [place] [address] * (ABNORMAL) CBC without differential (01/23/2025 8:45 PM CDT) WBC 14.68(H) 3.80 - 9.90 K/cumm Hgb 11.9(L) 13.0 - 17.5 g/dL [facility] Hct 38.6(L) 38.9 - 50.3 % [facility] Plt 381 150 - 400 K/cumm [facility] MPV 10.4 9.1 - 12.3 fL [facility] RBC 4.46 4.30 - 5.80 M/cumm [facility] MCV 86.5 81.3 - 96.4 fL [facility] MCH 26.7(L) 27.1 - 33.3 pg [facility] MCHC 30.8(L) 32.3 - 35.7 g/dL [facility] RDW CV 18.7(H) 11.1 - 14.9 % [facility] RDW SD 58.8(H) 35.7 - 48.1 fL [facility] NRBC abs 0.00 0.00 - 0.01 K/cumm [facility] Blood 01/23/2025 8:45 PM CDT 01/23/2025 9:20 PM CDT Christiano Ibrahim MERCHANDISING EXECUTION MANAGER LAB BLOOD ORDERABLES F inal Result Performing Organization Address [facility] de Phone Number [facility] [place] [address] * Phosphorus (01/23/2025 8:45 PM CDT) [facility] Phosphorus, pl 2.3 2.3 - 4.5 mg/dL Blood 01/23/2025 8:45 PM CDT 01/23/2025 9:22 PM CDT Christiano Ibrahim MERCHANDISING EXECUTION MANAGER LAB BLOOD ORDERABLES F inal Result Performing Organization Address [facility] de Phone Number [facility] Department [place] [address] * Magnesium (01/23/2025 8:45 PM CDT) [facility] Magnesium 2.0 1.4 - 2.5 mg/dL Blood 01/23/2025 8:45 PM CDT 01/23/2025 9:22 PM CDT Christiano Ibrahim MERCHANDISING EXECUTION MANAGER LAB BLOOD ORDERABLES F inal Result Performing Organization Address [facility] [place] [address] * (ABNORMAL) Comprehensive metabolic panel (01/23/2025 8:45 PM CDT) [facility] Sodium 141 135 - 145 mmol/L Potassium, pl 4.8 3.3 - 4.9 mmol/L [facility] Chloride 94(L) 97 - 110 mmol/L [facility] CO2 37(H) 22 - 32 mmol/L [facility] Anion gap 10 2 - 15 mmol/L [facility] BUN 30(H) 6 - 25 mg/dL [facility] Creatinine 1.02 0.80 - 1.30 mg/dL [facility] Glucose 130 70 - 199 mg/dL [facility] Comment: Interpretive Data Fasting glucose >/= 126 [...] 2022. Calcium 9.2 8.5 - 10.3 mg/dL [facility] Bilirubin, total 0.6 0.1 - 1.2 mg/dL [facility] Protein, pl 6.9 6.5 - 8.5 g/dL [facility] Albumin 3.1(L) 3.5 - 5.0 g/dL [facility] Alk phos 109 40 - 130 Units/L [facility] ALT 52 7 - 55 Units/L [facility] AST 55(H) 10 - 50 Units/L [facility] Blood 01/23/2025 8:45 PM CDT 01/23/2025 9:22 PM CDT Agustin Okeefe MD LAB BLOOD ORDERABLES Natividad madrid Result [facility] [place] [address] * MRI Brain W WO Contrast (01/23/2025 [...] Cleopatra auris DNA Not Detected Not Detected [facility] Comment: Interpretive Data Testing performed by [facility] using the [employer] ange 6800 Cleopatra auris assay. This assay detects DNA from Cleopatra auris using Real-Time PCR. This assay is laboratory developed and is not cleared by the [facility] Food and Drug Administration. The performance characteristics have been verified by the [facility]. Axilla/Groin 01/23/2025 1:17 PM CDT 01/23/2025 2:12 PM CDT Leonel Kwon MD LAB MICROBIOLOGY - GENERAL ORDER STEFANIE Final Result [facility] One [facility] Department [place] [address] [facility] * eGFR (01/22/2025 11:42 PM CDT) [...] ORDERABLES Natividad l Result Performing Organization Address [facility] Co de Phone Number [facility] Department [place] [address] * (ABNORMAL) CBC without differential (01/22/2025 11:42 PM CDT) WBC 16.16(H) 3.80 - 9.90 K/cumm Hgb 10.7(L) 13.0 - 17.5 g/dL [facility] Hct 34.4(L) 38.9 - 50.3 % [facility] Plt 301 150 - 400 K/cumm [facility] MPV 10.2 9.1 - 12.3 fL [facility] RBC 4.04(L) 4.30 - 5.80 M/cumm [facility] MCV 85.1 81.3 - 96.4 fL [facility] MCH 26.5(L) 27.1 - 33.3 pg [facility] MCHC 31.1(L) 32.3 - 35.7 g/dL [facility] RDW CV 18.6(H) 11.1 - 14.9 % [facility] RDW SD 57.8(H) 35.7 - 48.1 fL [facility] NRBC abs 0.00 0.00 - 0.01 K/cumm [facility] Blood 01/22/2025 11:4 2 PM CDT 01/23/2025 12:21 AM CDT Christiano Ibrahim NP LAB BLOOD ORDERABLES F inal Result Performing Organization Address [facility]/ZIP Co de Phone Number [facility] [place] [address] * Type and screen (01/22/2025 11:42 PM CDT) ABO Rh B Positive Heather, indirect Negative [facility] Blood 01/22/2025 11:4 2 PM CDT 01/23/2025 12:23 AM CDT Narrative [facility] - 01/23/2025 1:07 AM CDT Has the patient had Daratumumab or Isatuximab in the past 6 months?->Unknown Agustin Okeefe MD LAB BLOOD BANK TEST ORDER STEFANIE Final Result [facility] Department [place] [address] * Phosphorus (01/22/2025 11:42 PM CDT) [facility] Phosphorus, pl 2.4 2.3 - 4.5 mg/dL Blood 01/22/2025 11:4 2 PM CDT 01/23/2025 12:29 AM CDT Christiano Ibrahim MERCHANDISING EXECUTION MANAGER LAB BLOOD ORDERABLES F inal Result Performing Organization Address City/[facility] Co de Phone Number [facility] Department [place] [address] * Magnesium (01/22/2025 11:42 PM CDT) [facility] Magnesium 2.1 1.4 - 2.5 mg/dL Blood 01/22/2025 11:4 2 PM CDT 01/23/2025 12:29 AM CDT Christiano Ibrahim MERCHANDISING EXECUTION MANAGER LAB BLOOD ORDERABLES F inal Result Performing Organization Address City/[facility]/ZIP Co de Phone Number [facility] [place] [address] * (ABNORMAL) Comprehensive metabolic panel (01/22/2025 11:42 PM CDT) Sodium 139 135 - 145 mmol/L Potassium, pl 4.3 3.3 - 4.9 mmol/L [facility] Chloride 94(L) 97 - 110 mmol/L [facility] CO2 39(H) 22 - 32 mmol/L [facility] Anion gap 6 2 - 15 mmol/L [facility] BUN 30(H) 6 - 25 mg/dL [facility] Creatinine 0.86 0.80 - 1.30 mg/dL [facility] Glucose 171 70 - 199 mg/dL [facility] Comment: Interpretive Data Fasting glucose >/= 126 [...] 2022. Calcium 8.6 8.5 - 10.3 mg/dL [facility] Bilirubin, total 0.5 0.1 - 1.2 mg/dL [facility] Protein, pl 6.3(L) 6.5 - 8.5 g/dL [facility] Albumin 3.0(L) 3.5 - 5.0 g/dL [facility] Alk phos 105 40 - 130 Units/L [facility] ALT 50 7 - 55 Units/L [facility] AST 60(H) 10 - 50 Units/L [facility] Blood 01/22/2025 11:4 2 PM CDT 01/23/2025 12:29 AM CDT us Agustin Okeefe MD LAB BLOOD ORDERABLES Natividad madrid Result [facility] One [facility] [place] [address] * XR Tibia Fibula Right 1 View [...] plan with the ICU team and other medical/telecommunications consultant staff, making frequent assessments and decisions [...] PCO2, Venous 60(H) 40 - 50 mmHg [facility] PO2, Venous 50 mmHg [facility] Comment: Interpretive Data No Reference Range Established Current Interpretive Data was last revised on 2018. HCO3 Venous, Calculated 40(H) 20 - 30 mmol/L [facility] BE, venous 12 mmol/L [facility] Comment: Interpretive Data No Reference Range Established Current Interpretive Data was last revised on 2018. Blood 01/22/2025 8:52 AM CDT 01/22/2025 9:05 AM CDT us Avtar Castellon MD LAB BLOOD ORDERABLE S Final Result [facility] One [facility] [place] [address] * POCT glucose (01/22/2025 3:20 AM CDT) Glucose, POC 148 70 - 199 mg/dL Blood 01/22/2025 3:20 AM CDT 01/22/2025 3:20 AM CDT Agustin Okeefe MD LAB POCT ORDERABLES - DEV ICE Final Result Performing Organization Address [facility] de Phone Number [facility] Department [place] [address] * eGFR (01/21/2025 8:44 PM CDT) Pathologist [facility] eGFR >90 >=60 mL/min/1. 73 m2 Comment: [...] ORDERABLES Natividad l Result Performing Organization Address [facility] Co de Phone Number [facility] Department [place] [address] * (ABNORMAL) CBC without differential (01/21/2025 8:44 PM CDT) Pathologist [facility] WBC 14.55(H) 3.80 - 9.90 K/cumm Hgb 11.7(L) 13.0 - 17.5 g/dL [facility] Hct 36.6(L) 38.9 - 50.3 % [facility] Plt 294 150 - 400 K/cumm [facility] MPV 10.5 9.1 - 12.3 fL [facility] RBC 4.33 4.30 - 5.80 M/cumm [facility] MCV 84.5 81.3 - 96.4 fL [facility] MCH 27.0(L) 27.1 - 33.3 pg [facility] MCHC 32.0(L) 32.3 - 35.7 g/dL [facility] RDW CV 18.3(H) 11.1 - 14.9 % [facility] RDW SD 57.1(H) 35.7 - 48.1 fL [facility] NRBC abs 0.00 0.00 - 0.01 K/cumm [facility] Blood 01/21/2025 8:44 PM CDT 01/21/2025 9:56 PM CDT Christiano Ibrahim MERCHANDISING EXECUTION MANAGER LAB BLOOD ORDERABLES F inal Result Performing Organization Address City/[facility] de Phone Number [facility] Department [place] [address] * (ABNORMAL) Phosphorus (01/21/2025 8:44 PM CDT) Pathologist [facility] Phosphorus, pl 1.9(L) 2.3 - 4.5 mg/dL Blood 01/21/2025 8:44 PM CDT 01/21/2025 9:50 PM CDT Christiano Ibrahim MERCHANDISING EXECUTION MANAGER LAB BLOOD ORDERABLES F inal Result [facility] [place] [address] * Magnesium (01/21/2025 8:44 PM CDT) [facility] Magnesium 1.9 1.4 - 2.5 mg/dL Blood 01/21/2025 8:44 PM CDT 01/21/2025 9:50 PM CDT Christiano Ibrahim MERCHANDISING EXECUTION MANAGER LAB BLOOD ORDERABLES F inal Result [facility] One [facility] Department [place] [address] * (ABNORMAL) Comprehensive metabolic panel (01/21/2025 8:44 PM CDT) Sodium 136 135 - 145 mmol/L Potassium, pl 4.1 3.3 - 4.9 mmol/[facility] Chloride 91(L) 97 - 110 mmol/L [facility] CO2 35(H) 22 - 32 mmol/L [facility] Anion gap 10 2 - 15 mmol/L [facility] BUN 24 6 - 25 mg/dL [facility] Creatinine 0.81 0.80 - 1.30 mg/dL [facility] Glucose 211(H) 70 - 199 mg/dL [facility] Comment: Interpretive Data Fasting glucose >/= 126 [...] 2022. Calcium 8.7 8.5 - 10.3 mg/dL [facility] Bilirubin, total 0.7 0.1 - 1.2 mg/dL [facility] Protein, pl 6.7 6.5 - 8.5 g/dL [facility] Albumin 2.8(L) 3.5 - 5.0 g/dL [facility] Alk phos 115 40 - 130 Units/L [facility] ALT 62(H) 7 - 55 Units/L [facility] AST 98(H) 10 - 50 Units/L [facility] Blood 01/21/2025 8:44 PM CDT 01/21/2025 9:50 PM CDT us Agustin Okeefe MD LAB BLOOD ORDERABLES Natividad madrid Result [facility]EP [facility] Department [place] [address] * Critical Care (01/21/2025 6:32 PM CDT) [...] plan with the ICU team and other medical/telecommunications consultant staff, making frequent assessments and decisions [...] panel Nasopharyngeal (01/21/2025 4:57 PM CDT) Pathologist [facility] Influenza A RNA Not Detected Not Detected Influenza B RNA Not Detected Not Detected [facility] RSV RNA Not Detected Not Detected [facility] COVID-19 RNA Not Detected Not Detected [facility] Coronavirus 229E RNA Not Detected Not Detected [facility] Coronavirus HKU1 RNA Not Detected Not Detected [facility] Coronavirus NL63 RNA Not Detected Not Detected [facility] Coronavirus OC43 RNA Not Detected Not Detected [facility] Adenovirus DNA Not Detected Not Detected [facility] Metapneumovirus RNA Not Detected Not Detected [facility] Rhinovirus/Enterov irus RNA Not Detected Not Detected [facility] Parainfluenza 1 RNA Not Detected Not Detected [facility] Parainfluenza 2 RNA Not Detected Not Detected [facility] Parainfluenza 3 RNA Not Detected Not Detected [facility] Parainfluenza 4 RNA Not Detected Not Detected [facility] B. pertussis DNA Not Detected Not Detected [facility] B. parapertussis DNA Not Detected Not Detected [facility] C. pneumoniae DNA Not Detected Not Detected [facility] M. pneumoniae DNA Not Detected Not Detected [facility] Nasopharyngeal 01/21/2025 4: 57 PM CDT 01/21/2025 5:12 PM CDT Narrative [facility] - 01/21/2025 6:18 PM CDT Is the Patient experiencing symptoms consistent with COVID?->No Surveillance testing for transplant patient?->No Interpretive Data The LED [employer] FilmArray Respiratory Panel (RP2.1) assay is a [...] assay has FDA clearance for testing of MERCHANDISING EXECUTION MANAGER swabs. The performance of additional specimen types has been assessed by the performing laboratory. The performance characteristics of this assay have been determined by [facility] Molecular Infectious Disease Laboratory. Current interpretive data was last revised on 22. us Agustin Okeefe MD LAB MICROBIOLOGY - GENERA L ORDERABLES Final Result [facility] Department [place] [address] * Critical Care (01/21/2025 8:31 AM CDT) [...] plan with the ICU team and other medical/telecommunications consultant staff, making frequent assessments and decisions [...] POCT ORDERABLES - D EVICE Final Result [facility] [place] [address] * eGFR (01/20/2025 8:11 PM CDT) eGFR [...] CDT 01/20/2025 8:20 PM CDT Christiano Ibrahim MERCHANDISING EXECUTION MANAGER LAB BLOOD ORDERABLES F inal Result Performing Organization Address City/[facility]/ZIP Co de Phone Number [facility] Department [place] [address] * (ABNORMAL) CBC without differential (01/20/2025 8:11 PM CDT) WBC 12.1(H) 3.8 - 9.9 K/cumm Hgb 11.5(L) 13.0 - 17.5 g/dL [facility] Hct 36.1(L) 38.9 - 50.3 % [facility] Plt 275 150 - 400 K/cumm [facility] MPV 10.4 9.1 - 12.3 fL [facility] RBC 4.28(L) 4.30 - 5.80 M/cumm [facility] MCV 84.3 81.3 - 96.4 fL [facility] MCH 26.9(L) 27.1 - 33.3 pg [facility] MCHC 31.9(L) 32.3 - 35.7 g/dL [facility] RDW CV 19.0(H) 11.1 - 14.9 % [facility] RDW SD 57.2(H) 35.7 - 48.1 fL [facility] NRBC abs 0.00 0.00 - 0.01 K/cumm [facility] Blood 01/20/2025 8:11 PM CDT 01/20/2025 8:20 PM CDT Christiano Ibrahim NP LAB BLOOD ORDERABLES F inal Result Performing Organization Address [facility]/ZIP Co de Phone Number [facility] [place] [address] * Phosphorus (01/20/2025 8:11 PM CDT) Phosphorus, pl 2.5 2.3 - 4.5 mg/dL Blood 01/20/2025 8:11 PM CDT 01/20/2025 8:20 PM CDT Christiano Ibrahim MERCHANDISING EXECUTION MANAGER LAB BLOOD ORDERABLES F inal Result Performing Organization Address City/[facility] [place] [address] * Magnesium (01/20/2025 8:11 PM CDT) Pathologist [facility] Magnesium 2.2 1.4 - 2.5 mg/dL Blood 01/20/2025 8:11 PM CDT 01/20/2025 8:20 PM CDT Christiano Ibrahim MERCHANDISING EXECUTION MANAGER LAB BLOOD ORDERABLES F inal Result Performing Organization Address City/[facility] de Phone Number [facility] Department [place] [address] * (ABNORMAL) Lipid panel (01/20/2025 8:11 PM CDT) Pathologist [facility] Cholesterol 158 30 - 199 mg/dL Comment: [...] revised on 2018. Triglycerides 100 <=149 mg/dL [facility] Comment: Interpretive Data Ages < or = [...] revised on 2024. Non-HDL Cholesterol 134 mg/dL [facility] Comment: Interpretive Data Ages < or = [...] last revised on 2018. Chol/HDL ratio 7 [facility] Blood 01/20/2025 8:11 PM CDT 01/20/2025 8:20 PM CDT Agustin Okeefe MD LAB BLOOD ORDERABLES Natividad Result [facility] Department [place] [address] * (ABNORMAL) Basic metabolic panel (01/20/2025 8:11 PM CDT) Sodium 136 135 - 145 mmol/L Potassium, pl 4.5 3.3 - 4.9 mmol/L [facility] Comment:Hemolyzed; Potassium value may be falsely elevated by as much as 1.1-1.6 mmol/L. Suggest redraw and reanalysis. Chloride 91(L) 97 - 110 mmol/L [facility] CO2 38(H) 22 - 32 mmol/L [facility] Anion gap 7 2 - 15 mmol/L [facility] BUN 21 6 - 25 mg/dL [facility] Creatinine 0.67(L) 0.80 - 1.30 mg/dL [facility] Glucose 159 70 - 199 mg/dL [facility] Comment: Interpretive Data Fasting glucose >/= 126 [...] 01/20/2025 8:20 PM CDT us Christiano Ibrahim MERCHANDISING EXECUTION MANAGER LAB BLOOD ORDERABLES F inal Result [facility] Department [place] [address] * Critical Care (01/20/2025 7:42 PM CDT) [...] plan with the ICU team and other medical/telecommunications consultant staff, making frequent assessments and decisions [...] DEV ICE Final Result SU[facility]DEEP OSMAN Reilly [facility] Department [place] [address] * XR Chest 1 View (01/20/2025 6:47 [...] DEV ICE Final Result Performing Organization Address [facility] de Phone Number [facility] [place] [address] * (ABNORMAL) Blood gas, venous (01/20/2025 1:18 PM CDT) pH, Venous 7.40 7.32 - 7.43 PCO2, Venous 61(H) 40 - 50 mmHg [facility] PO2, Venous 41 mmHg [facility] Comment: Interpretive Data No Reference Range Established Current Interpretive Data was last revised on 2018. HCO3 Venous, Calculated 39(H) 20 - 30 mmol/L [facility] BE, venous 10 mmol/L [facility] Comment: Interpretive Data No Reference Range Established Current Interpretive Data was last revised on 2018. Blood 01/20/2025 1:18 PM CDT 01/20/2025 1:23 PM CDT Agustin Okeefe MD LAB BLOOD ORDERABLES Natividad l Result Performing Organization Address [facility] de Phone Number [facility] [place] [address] * POCT glucose (01/20/2025 11:27 AM CDT) Glucose, POC 110 70 - 199 mg/dL Blood 01/20/2025 11:2 7 AM CDT 01/20/2025 11:27 AM CDT us Agustin Okeefe MD LAB POCT ORDERABLES - DEV ICE Final Result [facility] Department [place] [address] * Critical Care (01/20/2025 8:12 AM CDT) [...] plan with the ICU team and other medical/telecommunications consultant staff, making frequent assessments and decisions [...] ORDERABLES Natividad madrid Result Performing Organization Address [facility] de Phone Number [facility] Department [place] [address] * (ABNORMAL) CBC with auto differential (01/20/2025 8:07 AM CDT) [facility] WBC 11.6(H) 3.8 - 9.9 K/cumm Hgb 10.8(L) 13.0 - 17.5 g/dL [facility] Hct 33.6(L) 38.9 - 50.3 % [facility] Plt 242 150 - 400 K/cumm [facility] MPV 9.8 9.1 - 12.3 fL [facility] RBC 3.98(L) 4.30 - 5.80 M/cumm [facility] MCV 84.4 81.3 - 96.4 fL [facility] MCH 27.1 27.1 - 33.3 pg [facility] MCHC 32.1(L) 32.3 - 35.7 g/dL [facility] RDW CV 18.7(H) 11.1 - 14.9 % [facility] RDW SD 57.3(H) 35.7 - 48.1 fL [facility] NRBC abs 0.00 0.00 - 0.01 K/cumm [facility] Blood 01/20/2025 8:07 AM CDT 01/20/2025 8:15 AM CDT Agustin Okeefe MD LAB BLOOD ORDERABLES Natividad mercy Result Performing Organization Address City/[facility] Co de Phone Number [facility] Department [place] [address] * POCT glucose (01/20/2025 7:10 AM CDT) Glucose, POC 118 70 - 199 mg/dL Blood 01/20/2025 7:10 AM CDT 01/20/2025 7:10 AM CDT Agustin Okeefe MD LAB POCT ORDERABLES - DEV ICE Final Result [facility] Department [place] [address] * XR Outside Reference (01/20/2025 3:58 AM CDT) Impressions RAD_PACS_[facility] - 01/20/2025 3:58 AM CDT These images are for Reference purposes only and have not been reviewed by [facility]. There will be no report generated by a [facility] Radiologist. Narrative [facility] - 01/20/2025 3:58 AM CDT EXAMINATION: Images For Reference Purposes Only Herrera Keys MD IMG XR PROCEDURES Final Result Performing Organization Address [facility] Co de Phone Number [email or web address] * [...] images may or may not represent the [place] source data set and thus may contain [...] IMAGING STUDY STUDY INITIALLY PERFORMED: 01/19/2025 at [facility]. TYPE OF STUDY: Multiple CT images [...] IMAGING STUDY STUDY INITIALLY PERFORMED: 01/19/2025 at [facility]. TYPE OF STUDY: Multiple CT images [...] images may or may not represent the [place] source data set and thus may contain [...] 3:29 AM CDT) ABO Rh B Positive [facility] HCLL OTHER 01/20/2025 3:29 AM CDT 01/20/2025 3:43 AM CDT Agustin Okeefe MD LAB BLOOD ORDERABLES Natividad l Result Performing Organization Address [facility] Co de Phone Number [facility] [place] [address] BJ * Lactate (01/20/2025 2:37 AM CDT) Lactate 0.8 0.7 - 2.0 mmol/L Blood 01/20/2025 2:37 AM CDT 01/20/2025 2:52 AM CDT Agustin Okeefe MD LAB BLOOD ORDERABLES Natividad l Result Performing Organization Address [facility]/ZIP Co de Phone Number [facility] Department [place] [address] * eGFR (01/20/2025 2:37 AM CDT) Pathologist [facility] eGFR >90 >=60 mL/min/1. 73 m2 Comment: [...] MD LAB BLOOD ORDERABLES Natividad madrid Result [facility] Department [place] [address] * (ABNORMAL) Differential, auto (01/20/2025 2:37 AM CDT) Pathologist [facility] Neutrophil abs 10.4(H) 1.5 - 6.5 K/cumm Imm gran abs 0.1 0.0 - 0.1 K/cumm [facility] Lymphocyte abs 1.4 0.8 - 3.3 K/cumm [facility] Monocyte abs 1.0(H) 0.2 - 0.8 K/cumm [facility] Eosinophil abs 0.1 0.0 - 0.5 K/cumm [facility] Basophil abs 0.0 0.0 - 0.1 K/cumm [facility] Neutrophil pct 79.9 % [facility] Comment: Interpretive Data Percent cell count reference ranges are not reported, since discordance with absolute values may lead to misinterpretation of CBC data. Current Interpretive Data was last revised on 2018. Imm gran pct 1.0 % [facility] Comment: Interpretive Data Percent cell count [...] on 2018. Monocyte pct 7.7 % [facility] Comment: Interpretive Data Percent cell count [...] on 2018. Basophil pct 0.2 % [facility] Comment: Interpretive Data Percent cell count reference ranges are not reported, since discordance with absolute values may lead to misinterpretation of CBC data. Current Interpretive Data was last revised on 2018. Blood 01/20/2025 2:37 AM CDT 01/20/2025 2:52 AM CDT Agustin Okeefe MD LAB BLOOD ORDERABLES Natividad l Result [facility] [place] [address] * Critical Result Callback Hematology (01/20/2025 2:37 AM CDT) Date Notified [id number] Time Notified 503 SUKHDEEP OSMAN TestName Anti Factor Xa SUKHDEEP STEWART Called/Read Back Ban OSMAN Credentials RN SUKHDEEP OSMAN Called By eva OSMAN Blood 01/20/2025 2:37 AM CDT 01/20/2025 2:53 AM CDT Agustin Okeefe MD LAB BLOOD ORDERABLES Natividad l Result Performing Organization Address [facility] Co de Phone Number [facility] Department [place] [address] * (ABNORMAL) Heparin anti factor Xa activity (01/20/2025 2:37 AM CDT) Anti Factor Xa >2.00(C) IUnits/mL Comment: No clot detected in sample Repeated and verified - [id number] - 01/20/25, 5:00 AM Interpretive Data Enoxaparin [...] ORDERABLES Natividad l Result Performing Organization Address [facility] Co de Phone Number [facility] Department [place] [address] * (ABNORMAL) CBC with auto differential (01/20/2025 2:37 AM CDT) [facility] WBC 13.0(H) 3.8 - 9.9 K/cumm Hgb 11.6(L) 13.0 - 17.5 g/dL [facility] Hct 35.4(L) 38.9 - 50.3 % [facility] Plt 285 150 - 400 K/cumm [facility] MPV 10.6 9.1 - 12.3 fL [facility] RBC 4.26(L) 4.30 - 5.80 M/cumm [facility] MCV 83.1 81.3 - 96.4 fL [facility] MCH 27.2 27.1 - 33.3 pg [facility] MCHC 32.8 32.3 - 35.7 g/dL [facility] RDW CV 18.6(H) 11.1 - 14.9 % [facility] RDW SD 55.4(H) 35.7 - 48.1 fL [facility] NRBC abs 0.00 0.00 - 0.01 K/cumm [facility] Blood 01/20/2025 2:37 AM CDT 01/20/2025 2:52 AM CDT Agustin Okeefe MD LAB BLOOD ORDERABLES Natividad l Result [facility] Department [place] [address] * aPTT (01/20/2025 2:37 AM CDT) [facility] aPTT 36 28 - 38 sec Comment: Interpretive Data Heparin therapeutic range: 66.0 - 100.0 seconds. Range based on correlation with therapeutic heparin activity range of 0.3 - 0.7 Units/mL. Current interpretive data was last revised on 2023. Blood 01/20/2025 2:37 AM CDT 01/20/2025 2:53 AM CDT Agustin Okeefe MD LAB BLOOD ORDERABLES Natividad l Result Performing Organization Address [facility] Co de Phone Number [facility] [place] [address] * (ABNORMAL) Protime-INR (01/20/2025 2:37 AM CDT) Pathologist [facility] PT 27.0(H) 9.7 - 13.0 sec INR 2.45(H) 0.90 - 1.20 [facility] Comment: Interpretive data Oral anticoagulant therapeutic ranges: Venous thromboembolism prophylaxis or treatment: 2.0-3.0 CARDIOLOGY Standard range: 2.0-3.0 High-intensity range: 2.5-3.5 Refer to indication-specific guidelines for appropriate target ranges for prosthetic heart valve replacement. Current interpretive data was last revised on 2019. Blood 01/20/2025 2:37 AM CDT 01/20/2025 2:53 AM CDT Agustin Okeefe MD LAB BLOOD ORDERABLES Natividad l Result Performing Organization Address [facility] de Phone Number [facility] [place] [address] * Type and screen (01/20/2025 2:37 AM CDT) Pathologist [facility] Heather, indirect Negative ABO Rh B Positive [facility] Blood 01/20/2025 2:37 AM CDT 01/20/2025 2:58 AM CDT Narrative [facility] - 01/20/2025 4:09 AM CDT Has the patient had Daratumumab or Isatuximab in the past 6 months?->Unknown Agustin Okeefe MD LAB BLOOD BANK TEST ORDER STEFANIE Final Result Performing Organization Address City/[facility] Co de Phone Number [facility]ERNER [facility] [place] [address] * Phosphorus (01/20/2025 2:37 AM CDT) [facility] Phosphorus, pl 3.2 2.3 - 4.5 mg/dL Blood 01/20/2025 2:37 AM CDT 01/20/2025 2:52 AM CDT Agustin Okeefe MD LAB BLOOD ORDERABLES Natividad l Result Performing Organization Address City/[facility]/[place] [address] * Magnesium (01/20/2025 2:37 AM CDT) [facility] Magnesium 2.2 1.4 - 2.5 mg/dL Blood 01/20/2025 2:37 AM CDT 01/20/2025 2:52 AM CDT Agustin Okeefe MD LAB BLOOD ORDERABLES Natividad l Result Performing Organization Address [facility] [place] [address] * (ABNORMAL) Comprehensive metabolic panel (01/20/2025 2:37 AM CDT) [facility] Sodium 137 135 - 145 mmol/L Potassium, pl 3.4 3.3 - 4.9 mmol/L [facility] Chloride 94(L) 97 - 110 mmol/L [facility] CO2 35(H) 22 - 32 mmol/L [facility] Anion gap 8 2 - 15 mmol/L [facility] BUN 38(H) 6 - 25 mg/dL [facility] Creatinine 0.89 0.80 - 1.30 mg/dL [facility] Glucose 118 70 - 199 mg/dL [facility] Comment: Interpretive Data Fasting glucose >/= 126 [...] ORDERABLES Natividad l Result Performing Organization Address City/[facility]/ZIP Co de Phone Number [facility] [place] [address] * POCT glucose (01/20/2025 2:15 AM CDT) [facility] Signature Glucose, POC 124 70 - 199 mg/dL Blood 01/20/2025 2:15 AM CDT 01/20/2025 2:15 AM CDT Agustin Okeefe MD LAB POCT ORDERABLES - DEV ICE Final Result Performing Organization Address [facility] Co de Phone Number [facility] [place] [address] from Last 3 Months Insurance [employer] MED[employer]ARE MED[employer] Advance Directives For more information, please contact: [phone] * Full Code (Latest Code Status on File) Date Activated Date Inactivated Comments 01/20/2025 2:31 AM 01/24/2025 9:36 PM Care Teams Spanish Interpreter/Translator Relationship Specialty Start Date End Date Des Dupont MD [address] [place] [address] PCP - General Family Medicine 04/23/24 Stephanie Villarreal MD PhD [id number], [address] [place] [address] Consulting Physician Medical Oncology 01/23/25
--- OUTSIDE RECORDS SUMMARY | 2025-02-01 14:16 | XMS_ITS ---
Author Organization [facility] [address] Address [address] [place] [address] Care Team Providers Care Electric Plater Name Role Phone Des Dupont MD Primary Care Provider + [phone] Stephanie Villarreal MD PhD Unavailable [phone] Active Problems Problem Noted Date Diagnosed Date [...] CDT): Had been getting workup at OSH ([facility]). Would like to transfer care to [facility] system. Metastatic disease to liver. -MRI brain [...] H/H - Pain contro as followsl: - [place] 10-325 q4 PRN (with additional dose available [...] (02/28/2019): Added automatically from request for surgery [id number] PAF (paroxysmal atrial fibrillation) 10/25/2017 Assessment & [...]
--- OUTSIDE RECORDS SUMMARY | 2025-02-01 14:16 | XMS_ITS | Encounter Summary ---
Author Organization [facility] Address [address] [place] [address] Phone Care Team Providers Care Cotton Machine Operator Name Role Phone Des Dupont MD Primary Care Provider + [phone] Stephanie Villarreal MD PhD Unavailable [phone] Lisa Barrow RN Unavailable [phone] Encounter Details Date Type Department Care Team (Late st Contact Info) Description 01/27/2025 Orders Only [facility] Pulmonary [address] [facility] Medicine 8th [place] [address] [place] [address] Phillip Nick Social History Tobacco [...] on filedocumented in this encounter Care Teams Cotton Machine Operator Relationship Specialty Start Date End Date Des Dupont MD [address] [place] [address] PCP - General Family Medicine 04/23/24 Stephanie Villarreal MD PhD [address] [facility], [address] [place] [address] Consulting Physician Medical Oncology 01/23/25 Lisa Barrow, RN [address] [facility] [address] [place] [address] SHOP Outpatient Cat Swamper 01/27/25 01/29/25 documented as of this encounter
--- OUTSIDE RECORDS SUMMARY | 2025-02-01 14:16 | XMS_ITS | Encounter Summary ---
Author Organization [facility] Address [address] [facility] [place] [address] Care Team Providers Care Trader Name Role Phone Unavailable Primary Care Provider Unavailabl e Encounter Details Date Type Department Care Team (Late st Contact Info) Description 07/20/2020 Lab Requisition [facility] DermPath Lab [address] [facility] [place] [id number] Naga Boswell MD [address] [address] Social History Tobacco Use Types [...] AM CDT) Case Report Dermatopathology Report Case: [id number] Authorizing Provider: Naga Boswell MD Collected: 07/16/2020 12:00 AM Ordering Location: [facility] Derm[facility] Lab Received: 07/20/2020 06:35 AM [...] specimen consists of a shave biopsy measuring [id number]. Jar 0. 0 1:38 PM CDT DERMATOPATHOLOGY [...] determined by the Dermatopathology Laboratory at [facility], directed by Dr. Hodan Sargent. These tests need not be, and therefore are not, approved by the [place] Food and Drug Administration. The tests are used for clinical purposes. Billing Codes Specimen Charges Stain Charges 62688 1 0 1:38 PM CDT DERMATOPATHOLOGY LABORATORY Embedded Images 0 1:38 PM CDT DERMATOPATHOLOGY LABORATORY Pathology/Cytolog y TISSUE SPECIMEN FROM SKIN / Unknown 07/16/2020 07/20/2020 6:35 AM CDT Naga Boswell MD LAB - PATHOLOGY/CYTOLOGY ORDER STEFANIE Final Result DERMATOPATHOLOGY LABORATORY [facility] - Department of Dermatology [address], [address] [phone] documented in this encounter Visit Diagnoses Not on filedocumented in this encounter
--- OUTSIDE RECORDS SUMMARY | 2025-02-01 14:16 | XMS_ITS | Referral Summary ---
Author Organization [facility] [address] Address [address] [place] [address] Care Team Providers Care Char Conveyor Tender Cellar Name Role Phone Des Dupont MD Primary Care Provider [phone] Stephanie Villarreal MD PhD Unavailable [phone] Encounters Date Type Department Care Team Description 01/31/2025 Orders Only [facility] [address] [facility] Floor 5 [place] [address] Stephanie Villarreal MD PhD 01/30/2025 SHOP/CHAP Initial Outreach [facility] OP CASE MANAGEMENT 1 [place] [id number] Lisa Barrow RN 01/30/2025 Telephone [facility] [address] [place] [phone] Ynes Hurd, YAMIL 01/30/2025 Telephone [facility] [address] [place] [address] Bartolo Morillo MD 01/28/2025 Documentation [facility] [address] [facility] Floor 5 [place] [address] Edith Aguilar CMA 01/28/2025 Orders Only [facility] [address] [facility] Floor 5 [place] [address] Stephanie Villarreal MD PhD Lung cancer, primary, 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, left (HCC) (Primary Dx) 01/28/2025 SHOP/CHAP Initial Outreach [facility] OP CASE MANAGEMENT 1 [place] [address] Lisa Barrow RN 01/28/2025 12:15 PM CDT Lab [facility] - Lab Collection [address] [facility] Floor 5 [place] [address] Lung cancer, primary, 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, left (HCC) 01/28/2025 10:00 AM CDT Office Visit [facility] [address] [facility] Floor 5 [place] [phone] Stephanie Villarreal MD PhD Lung cancer, primary, 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, left (HCC) (Primary Dx); Cancer related pain 01/27/2025 Orders Only [facility] [address] [place] [address] 8th [place] [address] [place] [address] Arnol Lira MD COPD exacerbation (HCC) (Primary Dx) 01/27/2025 SHOP/CHAP Initial Outreach [facility] OP CASE MANAGEMENT 1 [place] [address] Lisa Barrow RN 01/27/2025 SHOP/CHAP Initial Eligibility Review [facility] OP CASE MANAGEMENT 1 [place] [address] Lisa Barrow RN 01/27/2025 Orders Only [facility] 8th [place] [address] [place] [address] Jt Meredith MD COPD exacerbation (HCC) (Primary Dx) 01/27/2025 Orders Only [facility] 8th [place] [address] [place] [address] Phillip Nick 01/20/2025 1:57 AM CDT - 01/24/2025 5:31 PM CDT Hospital Encounter [facility] 1 [place] [address] Agustin Okeefe MD Knittel, MD Bhavesh Saunders, Martha Ragland MD Lung cancer, primary, 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, left (HCC) (Primary Dx); PAF (paroxysmal atrial fibrillation) (HCC) Discharge Disposition: Discharge to home or self care 12/27/2024 Telephone [facility] [address] [place] [address] Bartolo Morillo MD from Last [...] tabletIndication s:PAF (paroxysmal atrial fibrillation) ([facility] [...] CDT): Had been getting workup at OSH ([facility]). Would like to transfer care to [facility] system. Metastatic disease to liver. -MRI brain [...] H/H - Pain contro as followsl: - [place] 10-325 q4 PRN (with additional dose available [...] (02/28/2019): Added automatically from request for surgery [id number] PAF (paroxysmal atrial fibrillation) 10/25/2017 Assessment & [...] MD PhD LAB BLOOD ORDERABLES Final Result [facility] Department [place] [address] * (ABNORMAL) Comprehensive metabolic panel (01/28/2025 12:19 PM CDT) Sodium 138 135 - 145 mmol/L Potassium, pl 4.3 3.3 - 4.9 mmol/L [facility] Chloride 99 97 - 110 mmol/L [facility] CO2 32 22 - 32 mmol/L [facility] Anion gap 7 2 - 15 mmol/L [facility] BUN 22 6 - 25 mg/dL [facility] Creatinine 0.76(L) 0.80 - 1.30 mg/dL [facility] Glucose 102 70 - 199 mg/dL [facility] Comment: Interpretive Data Fasting glucose >/= [...] 2022. Calcium 9.3 8.5 - 10.3 mg/dL [facility] Bilirubin, total 0.6 0.1 - 1.2 mg/dL [facility] Protein, pl 6.6 6.5 - 8.5 g/dL [facility] Albumin 3.2(L) 3.5 - 5.0 g/dL [facility] Alk phos 101 40 - 130 Units/L [facility] ALT 19 7 - 55 Units/L [facility] AST 29 10 - 50 Units/L [facility] Blood 01/28/2025 12:1 9 PM CDT 01/28/2025 12:25 PM CDT us Stephanie Villarreal MD PhD LAB BLOOD ORDERABLES Final Result [facility] Department [place] [address] * (ABNORMAL) Differential, auto (01/28/2025 12:09 PM CDT) Neutrophil abs 12.01(H) 1.50 - 6.50 K/cumm Comment:Testing performed by : [facility], [address] [place] [phone] Lymphocyte abs 2.50 0.80 - 3.30 K/cumm [facility] Comment:Testing performed by : [facility], [address] [place] [phone] Monocyte abs 1.10(H) 0.20 - 0.80 K/cumm [facility] Comment:Testing performed by : [facility], [address] [place] [phone] Eosinophil abs 0.18 0.00 - 0.50 K/cumm [facility] Comment:Testing performed by : [facility], [address] [place] [phone] Basophil abs 0.10 0.00 - 0.10 K/cumm [facility] Comment:Testing performed by : [facility], [address] [place] [phone] Neutrophil pct 75.6 % [facility] Comment: Interpretive Data Percent cell count reference ranges are not reported, since discordance with absolute values may lead to misinterpretation of CBC data. Current Interpretive Data was last revised on 2018. Testing performed by: [facility], [address] [place] [phone] Lymphocyte pct 15.7 % [facility] Comment: Interpretive Data Percent cell count reference ranges are not reported, since discordance with absolute values may lead to misinterpretation of CBC data. Current Interpretive Data was last revised on 2018. Testing performed by: [facility], [address] [place] [phone] Monocyte pct 6.9 % [facility] Comment: Interpretive Data Percent cell count reference ranges are not reported, since discordance with absolute values may lead to misinterpretation of CBC data. Current Interpretive Data was last revised on 2018. Testing performed by: [facility], [address] [place] [phone] Eosinophil pct 1.1 % [facility] Comment: Interpretive Data Percent cell count reference ranges are not reported, since discordance with absolute values may lead to misinterpretation of CBC data. Current Interpretive Data was last revised on 2018. Testing performed by: [facility], [address] [place] [phone] Basophil pct 0.6 % [facility] Comment: Interpretive Data Percent cell count reference ranges are not reported, since discordance with absolute values may lead to misinterpretation of CBC data. Current Interpretive Data was last revised on 2018. Testing performed by: [facility], [address] [place] [address] Blood 01/28/2025 12:0 9 PM CDT 01/28/2025 12:23 PM CDT us Stephanie Villarreal MD PhD LAB BLOOD ORDERABLES Final Result [facility] Department [place] [address] * (ABNORMAL) CBC with auto differential (01/28/2025 12:09 PM CDT) WBC 15.89(H) 3.80 - 9.90 K/cumm Comment:Testing performed by : [facility], [address] [place] [address] Hgb 12.4(L) 13.0 - 17.5 g/dL [facility] Comment:Testing performed by : [facility], [address] [place] [address] Hct 39.0 38.9 - 50.3 % [facility] Comment:Testing performed by : [facility], [address] [place] [address] Plt 409(H) 150 - 400 K/cumm [facility] Comment:Testing performed by : [facility], [address] [place] [address] MPV 8.0 6.8 - 10.4 fL [facility] Comment:Testing performed by : [facility], [address] [place] [address] RBC 4.70 4.30 - 5.80 M/cumm [facility] Comment:Testing performed by : [facility], [address] [place] [address] MCV 83.0 81.3 - 96.4 fL [facility] Comment:Testing performed by : [facility], [address] [place] [phone] MCH 26.5(L) 27.1 - 33.3 pg SUKHDEEP OSMAN Comment:Testing performed by : [facility], [address] [place], [place] [phone] MCHC 31.9(L) 32.3 - 35.7 g/dL SUKHDEEP OSMAN Comment:Testing performed by : [facility], [address] [place], [place] [phone] RDW CV 20.0(H) 11.1 - 14.9 % SUKHDEEP [facility] Comment:Testing performed by : [facility], [address] [place], [place] [phone] NRBC abs 0.00 0.00 - 0.01 K/cumm SUKHDEEP OSMAN Comment:Testing performed by : [facility], [address] [place], [place] [phone] Blood 01/28/2025 12:0 9 PM CDT 01/28/2025 12:23 PM CDT us Stephanie Villarreal MD PhD LAB BLOOD ORDERABLES Final Result SUKHDEEP [facility] Department [place] [address] * PET/CT FDG Whole Body (01/24/2025 11:14 [...] FDG-PET/CT IMAGING DATE OF STUDY: 01/24/2025 SCANNER: [facility] nuevoStage (NV1). This is a high-resolution scanner, which [...] obtained. The study was interpreted on the 10sec workstation. The mean liver SUV (reported for quality audit representative purposes) is 2.6. The total scanned area [...] IMAGING DATE OF STUDY: 01/24/2025 SCANNER: [facility] Taomee (NV1). This is a high-resolution scanner, which [...] obtained. The study was interpreted on the 10sec workstation. The mean liver SUV (reported for quality audit representative purposes) is 2.6. The total scanned area [...] ORDERABLES Natividad madrid Result SUKHDEEP OSMAN [facility] Department [place] [address] * (ABNORMAL) CBC without differential (01/23/2025 8:45 PM CDT) WBC 14.68(H) 3.80 - 9.90 K/cumm Hgb 11.9(L) 13.0 - 17.5 g/dL [facility] Hct 38.6(L) 38.9 - 50.3 % [facility] Plt 381 150 - 400 K/cumm [facility] MPV 10.4 9.1 - 12.3 fL [facility] RBC 4.46 4.30 - 5.80 M/cumm [facility] MCV 86.5 81.3 - 96.4 fL [facility] MCH 26.7(L) 27.1 - 33.3 pg [facility] MCHC 30.8(L) 32.3 - 35.7 g/dL [facility] RDW CV 18.7(H) 11.1 - 14.9 % [facility] RDW SD 58.8(H) 35.7 - 48.1 fL [facility] NRBC abs 0.00 0.00 - 0.01 K/cumm [facility] Blood 01/23/2025 8:45 PM CDT 01/23/2025 9:20 PM CDT Christiano Ibrahim CAKE WRINGER LAB BLOOD ORDERABLES F inal Result Performing Organization Address City/[facility]/ZIP Co de Phone Number [facility] Department [place] [employer] [place] [address] * Phosphorus (01/23/2025 8:45 PM CDT) Pathologist [facility] Phosphorus, pl 2.3 2.3 - 4.5 mg/dL Blood 01/23/2025 8:45 PM CDT 01/23/2025 9:22 PM CDT Christiano Ibrahim CAKE WRINGER LAB BLOOD ORDERABLES F inal Result [facility] [place] [employer] [place] [address] * Magnesium (01/23/2025 8:45 PM CDT) [facility] Magnesium 2.0 1.4 - 2.5 mg/dL Blood 01/23/2025 8:45 PM CDT 01/23/2025 9:22 PM CDT Christiano Ibrahim CAKE WRINGER LAB BLOOD ORDERABLES F inal Result [facility] Department [place] [address] * (ABNORMAL) Comprehensive metabolic panel (01/23/2025 8:45 PM CDT) Pathologist [facility] Sodium 141 135 - 145 mmol/L Potassium, pl 4.8 3.3 - 4.9 mmol/L [facility] Chloride 94(L) 97 - 110 mmol/L [facility] CO2 37(H) 22 - 32 mmol/L [facility] Anion gap 10 2 - 15 mmol/L [facility] BUN 30(H) 6 - 25 mg/dL [facility] Creatinine 1.02 0.80 - 1.30 mg/dL [facility] Glucose 130 70 - 199 mg/dL [facility] Comment: Interpretive Data Fasting glucose >/= [...] 2022. Calcium 9.2 8.5 - 10.3 mg/dL [facility] Bilirubin, total 0.6 0.1 - 1.2 mg/dL [facility] Protein, pl 6.9 6.5 - 8.5 g/dL [facility] Albumin 3.1(L) 3.5 - 5.0 g/dL [facility] Alk phos 109 40 - 130 Units/L [facility] ALT 52 7 - 55 Units/L [facility] AST 55(H) 10 - 50 Units/L [facility] Blood 01/23/2025 8:45 PM CDT 01/23/2025 9:22 PM CDT Agustin Okeefe MD LAB BLOOD ORDERABLES Natividad l Result [facility] Department [place] [address] * MRI Brain W WO Contrast (01/23/2025 [...] Cleopatra auris DNA Not Detected Not Detected [facility] Comment: Interpretive Data Testing performed by [facility] Molecular Infectious Disease Laboratory using the [employer] ange 6800 Cleopatra auris assay. This assay detects DNA from Cleopatra auris using Real-Time PCR. This assay is laboratory developed and is not cleared by the [place] Food and Drug Administration. The performance characteristics have been verified by the [facility] Molecular Infectious Disease Laboratory. Axilla/Groin 01/23/2025 1:17 PM CDT 01/23/2025 2:12 PM CDT Leonel Kwon MD LAB MICROBIOLOGY - GENERAL ORDER STEFANIE Final Result SUKHDEEP [facility] Department [place] [address] [facility] * eGFR (01/22/2025 11:42 PM CDT) [facility] eGFR >90 >=60 mL/min/1. 73 m2 Comment: [...] MD LAB BLOOD ORDERABLES Natividad madrid Result [facility] Department [place] [address] * (ABNORMAL) CBC without differential (01/22/2025 11:42 PM CDT) [facility] WBC 16.16(H) 3.80 - 9.90 K/cumm Hgb 10.7(L) 13.0 - 17.5 g/dL [facility] Hct 34.4(L) 38.9 - 50.3 % [facility] Plt 301 150 - 400 K/cumm [facility] MPV 10.2 9.1 - 12.3 fL [facility] RBC 4.04(L) 4.30 - 5.80 M/cumm [facility] MCV 85.1 81.3 - 96.4 fL [facility] MCH 26.5(L) 27.1 - 33.3 pg [facility] MCHC 31.1(L) 32.3 - 35.7 g/dL [facility] RDW CV 18.6(H) 11.1 - 14.9 % [facility] RDW SD 57.8(H) 35.7 - 48.1 fL [facility] NRBC abs 0.00 0.00 - 0.01 K/cumm [facility] Blood 01/22/2025 11:4 2 PM CDT 01/23/2025 12:21 AM CDT Christiano Ibrahim CAKE WRINGER LAB BLOOD ORDERABLES F inal Result Performing Organization Address [facility] Co de Phone Number [facility] Department [place] [address] * Type and screen (01/22/2025 11:42 PM CDT) ABO Rh B Positive Heather, indirect Negative [facility] Blood 01/22/2025 11:4 2 PM CDT 01/23/2025 12:23 AM CDT Narrative [facility] - 01/23/2025 1:07 AM CDT Has the patient had Daratumumab or Isatuximab in the past 6 months?->Unknown Agustin Okeefe MD LAB BLOOD BANK TEST ORDER STEFANIE Final Result Performing Organization Address [facility] Co de Phone Number [facility] Department [place] [address] * Phosphorus (01/22/2025 11:42 PM CDT) Phosphorus, pl 2.4 2.3 - 4.5 mg/dL Blood 01/22/2025 11:4 2 PM CDT 01/23/2025 12:29 AM CDT Christiano Ibrahim CAKE WRINGER LAB BLOOD ORDERABLES F inal Result Performing Organization Address [facility] Co de Phone Number [facility] Department [place] [address] * Magnesium (01/22/2025 11:42 PM CDT) [facility] Magnesium 2.1 1.4 - 2.5 mg/dL Blood 01/22/2025 11:4 2 PM CDT 01/23/2025 12:29 AM CDT Christiano Ibrahim NP LAB BLOOD ORDERABLES F inal Result Performing Organization Address [facility] Co de Phone Number [facility] [place] [address] * (ABNORMAL) Comprehensive metabolic panel (01/22/2025 11:42 PM CDT) [facility] Sodium 139 135 - 145 mmol/L Potassium, pl 4.3 3.3 - 4.9 mmol/L [facility] Chloride 94(L) 97 - 110 mmol/L [facility] CO2 39(H) 22 - 32 mmol/L [facility] Anion gap 6 2 - 15 mmol/L [facility] BUN 30(H) 6 - 25 mg/dL [facility] Creatinine 0.86 0.80 - 1.30 mg/dL [facility] Glucose 171 70 - 199 mg/dL [facility] Comment: Interpretive Data Fasting glucose >/= [...] 2022. Calcium 8.6 8.5 - 10.3 mg/dL [facility] Bilirubin, total 0.5 0.1 - 1.2 mg/dL [facility] Protein, pl 6.3(L) 6.5 - 8.5 g/dL [facility] Albumin 3.0(L) 3.5 - 5.0 g/dL [facility] Alk phos 105 40 - 130 Units/L [facility] ALT 50 7 - 55 Units/L [facility] AST 60(H) 10 - 50 Units/L [facility] Blood 01/22/2025 11:4 2 PM CDT 01/23/2025 12:29 AM CDT us Agustin Okeefe MD LAB BLOOD ORDERABLES Natividad madrid Result [facility] Department [place] [address] * XR Tibia Fibula Right 1 View [...] plan with the ICU team and other medical/senior health consultant staff, making frequent assessments and decisions [...] Venous 60(H) 40 - 50 mmHg SUKHDEEP [facility] PO2, Venous 50 mmHg SUKHDEEP [facility] Comment: Interpretive Data No Reference [...] ORDERABLE S Final Result Performing Organization Address [facility] Co de Phone Number [facility] Department [place] [address] * POCT glucose (01/22/2025 3:20 AM CDT) Glucose, POC 148 70 - 199 mg/dL Blood 01/22/2025 3:20 AM CDT 01/22/2025 3:20 AM CDT Agustin Okeefe MD LAB POCT ORDERABLES - DEV ICE Final Result Performing Organization Address [facility] de Phone Number [facility] Department [place] [address] * eGFR (01/21/2025 8:44 PM CDT) eGFR [...] ORDERABLES Natividad l Result Performing Organization Address [facility] Co de Phone Number [facility] [place] [address] * (ABNORMAL) CBC without differential (01/21/2025 8:44 PM CDT) WBC 14.55(H) 3.80 - 9.90 K/cumm Hgb 11.7(L) 13.0 - 17.5 g/dL [facility] Hct 36.6(L) 38.9 - 50.3 % [facility] Plt 294 150 - 400 K/cumm [facility] MPV 10.5 9.1 - 12.3 fL [facility] RBC 4.33 4.30 - 5.80 M/cumm [facility] MCV 84.5 81.3 - 96.4 fL [facility] MCH 27.0(L) 27.1 - 33.3 pg [facility] MCHC 32.0(L) 32.3 - 35.7 g/dL [facility] RDW CV 18.3(H) 11.1 - 14.9 % [facility] RDW SD 57.1(H) 35.7 - 48.1 fL [facility] NRBC abs 0.00 0.00 - 0.01 K/cumm [facility] Blood 01/21/2025 8:44 PM CDT 01/21/2025 9:56 PM CDT Christiano Ibrahim NP LAB BLOOD ORDERABLES F inal Result Performing Organization Address [facility] Co de Phone Number [facility] [place] [address] * (ABNORMAL) Phosphorus (01/21/2025 8:44 PM CDT) [facility] Phosphorus, pl 1.9(L) 2.3 - 4.5 mg/dL Blood 01/21/2025 8:44 PM CDT 01/21/2025 9:50 PM CDT Christiano Ibrahim CAKE WRINGER LAB BLOOD ORDERABLES F inal Result Performing Organization Address [facility] de Phone Number [facility] Department [place] [address] * Magnesium (01/21/2025 8:44 PM CDT) [facility] Magnesium 1.9 1.4 - 2.5 mg/dL Blood 01/21/2025 8:44 PM CDT 01/21/2025 9:50 PM CDT Christiano Ibrahim CAKE WRINGER LAB BLOOD ORDERABLES F inal Result Performing Organization Address [facility] de Phone Number [facility] [place] [employer] [place] [address] * (ABNORMAL) Comprehensive metabolic panel (01/21/2025 8:44 PM CDT) [facility] Sodium 136 135 - 145 mmol/L Potassium, pl 4.1 3.3 - 4.9 mmol/L [facility] Chloride 91(L) 97 - 110 mmol/L [facility] CO2 35(H) 22 - 32 mmol/L [facility] Anion gap 10 2 - 15 mmol/L [facility] BUN 24 6 - 25 mg/dL [facility] Creatinine 0.81 0.80 - 1.30 mg/dL [facility] Glucose 211(H) 70 - 199 mg/dL [facility] Comment: Interpretive Data Fasting glucose >/= [...] AST 98(H) 10 - 50 Units/L [facility]ER [facility] Blood 01/21/2025 8:44 PM CDT 01/21/2025 9:50 PM CDT Agustin Okeefe MD LAB BLOOD ORDERABLES Natividad l Result [facility] Department [place] [address] * Critical Care (01/21/2025 6:32 PM CDT) [...] plan with the ICU team and other medical/senior health consultant staff, making frequent assessments and decisions [...] panel Nasopharyngeal (01/21/2025 4:57 PM CDT) Pathologist [facility] Influenza A RNA Not Detected Not Detected Influenza B RNA Not Detected Not Detected [facility] RSV RNA Not Detected Not Detected [facility] COVID-19 RNA Not Detected Not Detected [facility] Coronavirus 229E RNA Not Detected Not Detected [facility] Coronavirus HKU1 RNA Not Detected Not Detected [facility] Coronavirus NL63 RNA Not Detected Not Detected [facility] Coronavirus OC43 RNA Not Detected Not Detected [facility] Adenovirus DNA Not Detected Not Detected [facility] Metapneumovirus RNA Not Detected Not Detected [facility] Rhinovirus/Enterov irus RNA Not Detected Not Detected [facility] Parainfluenza 1 RNA Not Detected Not Detected [facility] [facility] Parainfluenza 2 RNA Not Detected Not Detected [facility] Parainfluenza 3 RNA Not Detected Not Detected [facility] Parainfluenza 4 RNA Not Detected Not Detected [facility] B. pertussis DNA Not Detected Not Detected [facility] B. parapertussis DNA Not Detected Not Detected [facility] C. pneumoniae DNA Not Detected Not Detected [facility] M. pneumoniae DNA Not Detected Not Detected [facility] Nasopharyngeal 01/21/2025 4: 57 PM CDT 01/21/2025 5:12 PM CDT Narrative [facility] - 01/21/2025 6:18 PM CDT Is the Patient experiencing symptoms consistent with COVID?->No Surveillance testing for transplant patient?->No Interpretive Data The [employer] FilmArray Respiratory Panel (RP2.1) assay is a [...] assay has FDA clearance for testing of CAKE [employer]INGER swabs. The performance of additional specimen types has been assessed by the performing laboratory. The performance characteristics of this assay have been determined by [facility] Molecular Infectious Disease Laboratory. Current interpretive data was last revised on 22. us Agustin Okeefe MD LAB MICROBIOLOGY - GENERA L ORDERABLES Final Result SUKHDEEP [facility] Department [place] [address] * Critical Care (01/21/2025 8:31 AM CDT) [...] plan with the ICU team and other medical/senior health consultant staff, making frequent assessments and decisions [...] POCT ORDERABLES - D EVICE Final Result [facility] Department [place] [address] * eGFR (01/20/2025 8:11 PM CDT) [facility] eGFR >90 >=60 mL/min/1. 73 m2 Comment: [...] ORDERABLES F inal Result SUKHDEEP OSMAN [facility] Department [place] [address] * (ABNORMAL) CBC without differential (01/20/2025 8:11 PM CDT) [facility] WBC 12.1(H) 3.8 - 9.9 K/cumm Hgb 11.5(L) 13.0 - 17.5 g/dL [facility] Hct 36.1(L) 38.9 - 50.3 % [facility] Plt 275 150 - 400 K/cumm [facility] MPV 10.4 9.1 - 12.3 fL [facility] RBC 4.28(L) 4.30 - 5.80 M/cumm [facility] MCV 84.3 81.3 - 96.4 fL [facility] MCH 26.9(L) 27.1 - 33.3 pg [facility] MCHC 31.9(L) 32.3 - 35.7 g/dL [facility] RDW CV 19.0(H) 11.1 - 14.9 % [facility] RDW SD 57.2(H) 35.7 - 48.1 fL [facility] NRBC abs 0.00 0.00 - 0.01 K/cumm [facility] Blood 01/20/2025 8:11 PM CDT 01/20/2025 8:20 PM CDT Christiano Ibrahim CAKE [employer]INGER LAB BLOOD ORDERABLES F inal Result Performing Organization Address [facility] de Phone Number [facility] Department [place] [address] * Phosphorus (01/20/2025 8:11 PM CDT) Phosphorus, pl 2.5 2.3 - 4.5 mg/dL Blood 01/20/2025 8:11 PM CDT 01/20/2025 8:20 PM CDT Christiano Ibrahim CAKE [employer]INGER LAB BLOOD ORDERABLES F inal Result Performing Organization Address City/[facility] de Phone Number [facility] Department [place] [address] * Magnesium (01/20/2025 8:11 PM CDT) Magnesium 2.2 1.4 - 2.5 mg/dL Blood 01/20/2025 8:11 PM CDT 01/20/2025 8:20 PM CDT Christiano Ibrahim CA[employer] LAB BLOOD ORDERABLES F inal Result SUKHDEEP OSMAN [facility] Department [place] [address] * (ABNORMAL) Lipid panel (01/20/2025 8:11 PM [...] on 2018. Triglycerides 100 <=149 mg/dL SUKHDEEP [facility] Comment: Interpretive Data Ages < [...] revised on 2018. HDL 24(L) >=40 mg/dL [facility] Comment: Interpretive Data Ages < or [...] on 2018. LDL, calculated 115 <=129 mg/dL [facility] Comment: Interpretive Data Ages < or [...] revised on 2024. Non-HDL Cholesterol 134 mg/dL [facility] Comment: Interpretive Data Ages < or [...] last revised on 2018. Chol/HDL ratio 7 [facility] Blood 01/20/2025 8:11 PM CDT 01/20/2025 8:20 PM CDT us Agustin Okeefe MD LAB BLOOD ORDERABLES Natividad madrid Result [facility] Department [place] [address] * (ABNORMAL) Basic metabolic panel (01/20/2025 8:11 PM CDT) Sodium 136 135 - 145 mmol/L Potassium, pl 4.5 3.3 - 4.9 mmol/L [facility] Comment:Hemolyzed; Potassium value may be falsely elevated by as much as 1.1-1.6 mmol/L. Suggest redraw and reanalysis. Chloride 91(L) 97 - 110 mmol/L [facility] CO2 38(H) 22 - 32 mmol/L [facility] Anion gap 7 2 - 15 mmol/L [facility] BUN 21 6 - 25 mg/dL [facility] Creatinine 0.67(L) 0.80 - 1.30 mg/dL [facility] Glucose 159 70 - 199 mg/dL [facility] Comment: Interpretive Data Fasting glucose >/= [...] 2022. Calcium 8.9 8.5 - 10.3 mg/dL [facility] Blood 01/20/2025 8:11 PM CDT 01/20/2025 8:20 PM CDT Christiano Ibrahim CAKE [employer]ING[employer] LAB BLOOD ORDERABLES F inal Result [facility] Department [place] [address] * Critical Care (01/20/2025 7:42 PM CDT) [...] plan with the ICU team and other medical/senior health consultant staff, making frequent assessments and decisions [...] DEV ICE Final Result CERNER BJ [facility] Department [place] [address] * XR Chest 1 View (01/20/2025 6:47 [...] DEV ICE Final Result SUKHDEEP STEWART [facility] Department [place] [address] * (ABNORMAL) Blood gas, venous (01/20/2025 1:18 PM CDT) pH, Venous 7.40 7.32 - 7.43 PCO2, Venous 61(H) 40 - 50 mmHg [facility] PO2, Venous 41 mmHg [facility] Comment: Interpretive Data No Reference Range Established Current Interpretive Data was last revised on 2018. HCO3 Venous, Calculated 39(H) 20 - 30 mmol/L [facility] BE, venous 10 mmol/L [facility] Comment: Interpretive Data No Reference Range Established Current Interpretive Data was last revised on 2018. Blood 01/20/2025 1:18 PM CDT 01/20/2025 1:23 PM CDT Agustin Okeefe MD LAB BLOOD ORDERABLES Natividad l Result Performing Organization Address City/[facility]/ZIP Co de Phone Number [facility] Department [place] [address] * POCT glucose (01/20/2025 11:27 AM CDT) Glucose, POC 110 70 - 199 mg/dL Blood 01/20/2025 11:2 7 AM CDT 01/20/2025 11:27 AM CDT Agustin Okeefe MD LAB POCT ORDERABLES - DEV ICE Final Result Performing Organization Address [facility] Co de Phone Number [facility] Department [place] [address] * Critical Care (01/20/2025 8:12 AM CDT) [...] plan with the ICU team and other medical/senior health consultant staff, making frequent assessments and decisions [...] CERNER BJ Neutrophil pct 78.0 % CERNER [facility] Comment: Interpretive Data Percent cell count reference ranges are not reported, since discordance with absolute values may lead to misinterpretation of CBC data. Current Interpretive Data was last revised on 2018. Imm gran pct 0.7 % CERNER [facility] Comment: Interpretive Data Percent cell count reference ranges are not reported, since discordance with absolute values may lead to misinterpretation of CBC data. Current Interpretive Data was last revised on 2018. Lymphocyte pct 12.7 % [facility] Comment: Interpretive Data Percent cell count reference ranges are not reported, since discordance with absolute values may lead to misinterpretation of CBC data. Current Interpretive Data was last revised on 2018. Monocyte pct 7.7 % [facility] Comment: Interpretive Data Percent cell count reference ranges are not reported, since discordance with absolute values may lead to misinterpretation of CBC data. Current Interpretive Data was last revised on 2018. Eosinophil pct 0.6 % [facility] Comment: Interpretive Data Percent cell count reference ranges are not reported, since discordance with absolute values may lead to misinterpretation of CBC data. Current Interpretive Data was last revised on 2018. Basophil pct 0.3 % [facility] Comment: Interpretive Data Percent cell count reference ranges are not reported, since discordance with absolute values may lead to misinterpretation of CBC data. Current Interpretive Data was last revised on 2018. Blood 01/20/2025 8:07 AM CDT 01/20/2025 8:15 AM CDT Agustin Okeefe MD LAB BLOOD ORDERABLES Natividad madrid Result [facility] Department [place] [address] * (ABNORMAL) CBC with auto differential (01/20/2025 8:07 AM CDT) WBC 11.6(H) 3.8 - 9.9 K/cumm Hgb 10.8(L) 13.0 - 17.5 g/dL [facility] Hct 33.6(L) 38.9 - 50.3 % [facility] Plt 242 150 - 400 K/cumm [facility] MPV 9.8 9.1 - 12.3 fL [facility] RBC 3.98(L) 4.30 - 5.80 M/cumm [facility] MCV 84.4 81.3 - 96.4 fL [facility] MCH 27.1 27.1 - 33.3 pg [facility] MCHC 32.1(L) 32.3 - 35.7 g/dL [facility] RDW CV 18.7(H) 11.1 - 14.9 % [facility] RDW SD 57.3(H) 35.7 - 48.1 fL [facility] NRBC abs 0.00 0.00 - 0.01 K/cumm [facility] Blood 01/20/2025 8:07 AM CDT 01/20/2025 8:15 AM CDT Agustin Okeefe MD LAB BLOOD ORDERABLES Natividad l Result Performing Organization Address [facility] Co de Phone Number [facility] Department [place] [address] * POCT glucose (01/20/2025 7:10 AM CDT) [facility] Signature Glucose, POC 118 70 - 199 mg/dL Blood 01/20/2025 7:10 AM CDT 01/20/2025 7:10 AM CDT Agustin Okeefe MD LAB POCT ORDERABLES - DEV ICE Final Result Performing Organization Address [facility] de Phone Number [facility] Department [place] [address] * XR Outside Reference (01/20/2025 3:58 AM CDT) Impressions RAD_PACS_[facility] - 01/20/2025 3:58 AM CDT These images are for Reference purposes only and have not been reviewed by [facility]. There will be no report generated by a [facility]iologist. Narrative RAD_PACS_[facility] - 01/20/2025 3:58 AM CDT EXAMINATION: Images For Reference Purposes Only Herrera Keys MD IMG XR PROCEDURES Final Result Performing Organization Address [facility] Co de Phone Number [facility]_PACS_[facility] * CT Body Outside Consult [...] images may or may not represent the [employer] source data set and thus may contain [...] IMAGING STUDY STUDY INITIALLY PERFORMED: 01/19/2025 at [facility]. TYPE OF STUDY: Multiple CT images [...] IMAGING STUDY STUDY INITIALLY PERFORMED: 01/19/2025 at [facility]. TYPE OF STUDY: Multiple CT images [...] images may or may not represent the [employer] source data set and thus may contain changes that may lower the accuracy of this second-opinion interpretation. Dictated by: Isac Ruiz M.D. The radiology attending physician has personally reviewed this study, and had reviewed and/or edited this written report and agrees with it. Electronically signed by: José José MD, PHD Herrera Keys MD [facility] [place] PROCEDURES Final Result * Check Sample (01/20/2025 3:29 AM CDT) ABO Rh B Positive BJ HCLL OTHER 01/20/2025 3:29 AM CDT 01/20/2025 3:43 AM CDT Agustin Okeefe MD LAB BLOOD ORDERABLES Natividad l Result [facility] [place] [address] [facility] * Lactate (01/20/2025 2:37 AM CDT) Lactate 0.8 0.7 - 2.0 mmol/L Blood 01/20/2025 2:37 AM CDT 01/20/2025 2:52 AM CDT Agustin Okeefe MD LAB BLOOD ORDERABLES Natividad l Result Performing Organization Address [facility] de Phone Number [facility] [place] [address] * eGFR (01/20/2025 2:37 AM CDT) eGFR [...] MD LAB BLOOD ORDERABLES Natividad madrid Result [facility] [place] [address] * (ABNORMAL) Differential, auto (01/20/2025 2:37 AM CDT) Neutrophil abs 10.4(H) 1.5 - 6.5 K/cumm Imm gran abs 0.1 0.0 - 0.1 K/cumm CERNER BJ Lymphocyte abs 1.4 0.8 - 3.3 K/cumm [facility] Monocyte abs 1.0(H) 0.2 - 0.8 K/cumm [facility] Eosinophil abs 0.1 0.0 - 0.5 K/cumm [facility] Basophil abs 0.0 0.0 - 0.1 K/cumm [facility] Neutrophil pct 79.9 % [facility] Comment: Interpretive Data Percent cell count reference ranges are not reported, since discordance with absolute values may lead to misinterpretation of CBC data. Current Interpretive Data was last revised on 2018. Imm gran pct 1.0 % [facility] Comment: Interpretive Data Percent cell count reference ranges are not reported, since discordance with absolute values may lead to misinterpretation of CBC data. Current Interpretive Data was last revised on 2018. Lymphocyte pct 10.6 % [facility] Comment: Interpretive Data Percent cell count reference ranges are not reported, since discordance with absolute values may lead to misinterpretation of CBC data. Current Interpretive Data was last revised on 2018. Monocyte pct 7.7 % [facility] Comment: Interpretive Data Percent cell count reference ranges are not reported, since discordance with absolute values may lead to misinterpretation of CBC data. Current Interpretive Data was last revised on 2018. Eosinophil pct 0.6 % [facility] Comment: Interpretive Data Percent cell count reference ranges are not reported, since discordance with absolute values may lead to misinterpretation of CBC data. Current Interpretive Data was last revised on 2018. Basophil pct 0.2 % [facility] Comment: Interpretive Data Percent cell count reference ranges are not reported, since discordance with absolute values may lead to misinterpretation of CBC data. Current Interpretive Data was last revised on 2018. Blood 01/20/2025 2:37 AM CDT 01/20/2025 2:52 AM CDT Agustin Okeefe MD LAB BLOOD ORDERABLES Natividad l Result Performing Organization Address [facility] de Phone Number [facility] Department [place] [address] * Critical Result Callback Hematology (01/20/2025 2:37 AM CDT) Date Notified [id number] Time Notified 503 SUKHDEEP [facility] TestName Anti Factor Xa SUKHDEEP OSMAN Called/Read Back Ban TARANGO [facility] Credentials RN SUKHDEEP [facility] Called By SUKHDEEP [facility] Blood 01/20/2025 2:37 AM CDT 01/20/2025 2:53 AM CDT Agustin Okeefe MD LAB BLOOD ORDERABLES Natividad l Result Performing Organization Address [facility] de Phone Number [facility] [place] [address] * (ABNORMAL) Heparin anti factor Xa activity (01/20/2025 2:37 AM CDT) Anti Factor Xa >2.00(C) IUnits/mL Comment: No clot detected in sample Repeated and verified - [id number] - 01/20/25, 5:00 AM Interpretive Data Enoxaparin [...] MD LAB BLOOD ORDERABLES Natividad madrid Result [facility] [place] [address] * (ABNORMAL) CBC with auto differential (01/20/2025 2:37 AM CDT) WBC 13.0(H) 3.8 - 9.9 K/cumm Hgb 11.6(L) 13.0 - 17.5 g/dL [facility] Hct 35.4(L) 38.9 - 50.3 % [facility] Plt 285 150 - 400 K/cumm [facility] MPV 10.6 9.1 - 12.3 fL [facility] RBC 4.26(L) 4.30 - 5.80 M/cumm [facility] MCV 83.1 81.3 - 96.4 fL [facility] MCH 27.2 27.1 - 33.3 pg [facility] MCHC 32.8 32.3 - 35.7 g/dL [facility] RDW CV 18.6(H) 11.1 - 14.9 % [facility] RDW SD 55.4(H) 35.7 - 48.1 fL [facility] NRBC abs 0.00 0.00 - 0.01 K/cumm [facility] Blood 01/20/2025 2:37 AM CDT 01/20/2025 2:52 AM CDT Result [facility] Agustin Okeefe MD LAB BLOOD ORDERABLES Natividad l Result Performing Organization Address [facility] Co de Phone Number [facility] [place] [address] * aPTT (01/20/2025 2:37 AM CDT) aPTT 36 28 - 38 sec Comment: Interpretive Data Heparin therapeutic range: 66.0 - 100.0 seconds. Range based on correlation with therapeutic heparin activity range of 0.3 - 0.7 Units/mL. Current interpretive data was last revised on 2023. Blood 01/20/2025 2:37 AM CDT 01/20/2025 2:53 AM CDT Result [facility] Agustin Okeefe MD LAB BLOOD ORDERABLES Natividad l Result Performing Organization Address [facility] [place] [address] * (ABNORMAL) Protime-INR (01/20/2025 2:37 AM CDT) PT 27.0(H) 9.7 - 13.0 sec INR 2.45(H) 0.90 - 1.20 [facility] Comment: Interpretive data Oral anticoagulant therapeutic ranges: Venous thromboembolism prophylaxis or treatment: 2.0-3.0 CARDIOLOGY Standard range: 2.0-3.0 High-intensity range: 2.5-3.5 Refer to indication-specific guidelines for appropriate target ranges for prosthetic heart valve replacement. Current interpretive data was last revised on 2019. Blood 01/20/2025 2:37 AM CDT 01/20/2025 2:53 AM CDT Result [facility] Agustin Okeefe MD LAB BLOOD ORDERABLES Natividad l Result Performing Organization Address [facility] [place] [address] * Type and screen (01/20/2025 2:37 AM CDT) Heather, indirect Negative ABO Rh B Positive [facility] Blood 01/20/2025 2:37 AM CDT 01/20/2025 2:58 AM CDT Narrative [facility] - 01/20/2025 4:09 AM CDT Has the patient had Daratumumab or Isatuximab in the past 6 months?->Unknown Agustin Okeefe MD LAB BLOOD BANK TEST ORDER STEFANIE Final Result Performing Organization Address [facility] [place] [address] * Phosphorus (01/20/2025 2:37 AM CDT) Phosphorus, pl 3.2 2.3 - 4.5 mg/dL Blood 01/20/2025 2:37 AM CDT 01/20/2025 2:52 AM CDT Agustin Okeefe MD LAB BLOOD ORDERABLES Natividad l Result Performing Organization Address [facility] [place] [address] * Magnesium (01/20/2025 2:37 AM CDT) Pathologist [facility] Magnesium 2.2 1.4 - 2.5 mg/dL Blood 01/20/2025 2:37 AM CDT 01/20/2025 2:52 AM CDT Agustin Okeefe MD LAB BLOOD ORDERABLES Natividad l Result [facility] Department [place] [address] * (ABNORMAL) Comprehensive metabolic panel (01/20/2025 2:37 AM CDT) Sodium 137 135 - 145 mmol/L Potassium, pl 3.4 3.3 - 4.9 mmol/L [facility] Chloride 94(L) 97 - 110 mmol/L [facility] CO2 35(H) 22 - 32 mmol/L [facility] Anion gap 8 2 - 15 mmol/L [facility] BUN 38(H) 6 - 25 mg/dL [facility] Creatinine 0.89 0.80 - 1.30 mg/dL [facility] Glucose 118 70 - 199 mg/dL [facility] Comment: Interpretive Data Fasting glucose >/= [...] 2022. Calcium 9.0 8.5 - 10.3 mg/dL [facility] Bilirubin, total 1.4(H) 0.1 - 1.2 mg/dL [facility] Protein, pl 7.0 6.5 - 8.5 g/dL [facility] Albumin 3.5 3.5 - 5.0 g/dL [facility] Alk phos 92 40 - 130 Units/L CERNER [facility] ALT 55 7 - 55 Units/L [facility] AST 96(H) 10 - 50 Units/L [facility] Blood 01/20/2025 2:37 AM CDT 01/20/2025 2:52 AM CDT Agustin Okeefe MD LAB BLOOD ORDERABLES Natividad l Result SUKHDEEP OSMAN [facility] [place] [address] * POCT glucose (01/20/2025 2:15 AM CDT) Glucose, POC 124 70 - 199 mg/dL Blood 01/20/2025 2:15 AM CDT 01/20/2025 2:15 AM CDT us Agustin Okeefe MD LAB POCT ORDERABLES - DEV ICE Final Result Performing Organization Address City/[facility] Co de Phone Number SUKHDEEP [facility] [place] [address] from Last 3 Months Insurance [employer] [facility] [employer] MEDICARE MEDICARE [employer] MED[employer] Advance Directives For more information, please contact: [phone] * Full Code (Latest Code Status on File) Date Activated Date Inactivated Comments 01/20/2025 2:31 AM 01/24/2025 9:36 PM Care Teams Char Conveyor Tender Cellar Relationship Specialty Start Date End Date Des Dupont MD [address] [place] [address] PCP - General Family Medicine 04/23/24 Stephanie Villarreal MD PhD [address] [place] [address] DIV MEDICAL ONCOLOGY, [facility] [address] [place] [address] Consulting Physician Medical Oncology 01/23/25
--- OUTSIDE RECORDS SUMMARY | 2025-02-01 14:16 | XMS_ITS | Clinical Summary ---
Author Organization [facility] Address [address] [place] [address] Care Team Providers Care Fashion Buying Internship Name Role Phone Des Dupont MD Primary Care Provider [phone] Allergies No known active allergies Medications rivaroxaban [...] - 01/17/2025 11:59 PM CDT Hospital Encounter [facility] Pulmonary Function [facility] [place] [address] [facility] [place] [address] [place] [phone] Kenny Khalil MD Discharge Disposition: Home or Self Care 01/14/2025 9:30 AM CDT Office Visit [facility] Oncology and Hematology [facility] [address] [place] [phone] Kenny Khalil MD Malignant neoplasm of upper lobe of left lung (CMS/HCC) (Primary Dx) 01/07/2025 External Device Data ST[facility] ABSTRACTION Provider, Abstract 01/07/2025 Chart Note [facility] Oncology Patient Navigation [address] [place] [address] Meg Ridley RN Nurse Navigation (Establish Care) 01/02/2025 9:01 AM CDT - 01/02/2025 1:53 PM CDT [facility] [address] [place] [address] Robinson De Dios NP 6, [facility] Lung mass Discharge Disposition: Home or [...] on file 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 Gender Identity Not on file Sexual Orientation [...] INTERFACE SYSTEM - 01/21/2025 12:06 PM CDT [facility] [address] [facility], [place] [address] Test Date: 2025-01-17 Pat Name: KUSHAL FERNANDEZ Department: Room: Gender: Male 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 DICTATION LOCATION: Location [address] [place] [address] Narrative 01/02/2025 1:55 PM CDT EXAM: XR [...] amount of postbiopsy hemorrhage. DICTATION LOCATION: Location [address] [place] [address] Kushal Dominguez MD DIAGNOSTIC IMAGING ORDERABLES F inal Result * CT BIOPSY LUNG LEFT (01/02/2025 11:28 AM CDT) Anatomical Region Laterality Modality Chest Computed Tomogra phy 01/02/2025 11:0 3 AM CDT Impressions 01/02/2025 4:10 PM CDT Impression: CT-guided biopsy of a left upper lobe lung mass, as described above. DICTATION LOCATION: [address] Narrative 01/02/2025 4:10 PM CDT Procedure: [...] described above. DICTATION LOCATION: Location 1 - [facility] Robinson De Dios NP CT ORDERABLES Final Result * PATHOLOGY (01/02/2025 11:19 AM CDT) CASE REPORT Surgical Pathology Report Case: [id number] Authorizing Provider: Kushal Dominguez MD Collected: 01/02/2025 11:19 AM Ordering Location: [facility] Received: 01/02/2025 01:07 PM Francis Pathologist: Ashley Cho MD Specimen: Lung, left 5:17 PM T [facility] ADDENDUM 1 A request for PD-L1 testing was received 01/28/[address] Stephanie Villarreal. This test was performed on tissue from case [id number]. The case report, slides, and blocks for this case were retrieved from archives. The pathologist reviewed the original pathology report, examined candidate slides, and selected the most appropriate block(s). This selected material was forwarded to [facility] where the test was performed. This addendum is issued to report the results of PD-L1 22C3 FDA for NSCLC (see hyperlink below for scan of outside report). 5:17 PM CDT [facility] Addendum electronically signed by Ashley Cho MD on 01/31/2025 at 1717 CDT FINAL DIAGNOSIS Lung, left lung mass, biopsy: - Non-small cell carcinoma, poorly differentiated, favor squamous cell carcinoma. 5 5:17 PM CDT [facility] at 1641 CDT DIAGNOSIS COMMENT Ancillary testing will be performed upon request. 5:17 PM T [facility] GROSS DESCRIPTION Received in one container labeled Kushal Fernandez and left lung are 9 pieces of pink-feng tissue ranging from 0.1 to 0.5 cm in length and each measuring less than 0.1 cm in diameter. The tissue is entirely submitted in cassettes A1 and A2. [facility] 5:17 PM CDT [facility] MICROSCOPIC DESCRIPTION The slides are labeled [id number] and Kushal Fernandez. Sections of the left [...] supports the above diagnosis. 5:17 PM CDT [facility] CLINICAL INFORMATION No Dx found. 5:17 PM CDT [facility] COMMENT Special stain, immunohistochemical, and/or in [...] part or completely in the following laboratories: [facility], [place] #[id number] [address] [place] [address] [facility], [place] #[id number] [address] [place] [address] [facility], [place] #[id number] [address] [place] [address] This report was created with the [employer] voice-activated dictation system. Inherent to this system is the possibility of syntax, grammar, punctuation and other errors that could impact the interpretation of the report. If there are interpretative questions about aspects of this report, please contact the performing pathologist. 5:17 PM CDT [facility] Tissue SPECIMEN FROM LUNG / Unknown Collection / Unknown 01/02/2025 11:19 AM CDT 01/02/2025 1:07 PM CDT us Kushal Dominguez MD PATHOLOGY/CYTOLOGY ORDERABLES E dited Result - Final [facility] - [facility] CLIA# [id number] [address] [place] [address] * (ABNORMAL) CBC WITH DIFFERENTIAL (01/02/2025 9:20 AM CDT) WBC 10.3(H) 4.0 - 9.8 K/uL 01/02/2025 9:57 AM CDT [facility] - . [facility] RBC 6.27(H) 4.50 - 5.40 M/uL 01/02/2025 9:57 AM CDT [facility] - . [facility] HEMOGLOBIN 17.3(H) 13.6 - 16.5 g/dL 01/02/2025 9:57 AM CDT [facility] - . [facility] HEMATOCRIT 54.2(H) 40.0 - 48.0 % 01/02/2025 9:57 AM CDT [facility] - . [facility] MCV 86.4 82.0 - 99.0 fL 01/02/2025 9:57 AM CDT [facility] - . [facility] MCH 27.6 27.2 - 32.6 pg 01/02/2025 9:57 AM CDT [facility] - . [facility] MCHC 31.9 31.5 - 35.5 g/dL 01/02/2025 9:57 AM CDT [facility] - . [facility] RDW 19.2(H) 11.5 - 14.5 % 01/02/2025 9:57 AM CDT [facility] - . [facility] RDW-STDEV 56.7(H) 37.1 - 48.7 fL 01/02/2025 9:57 AM CDT [facility] - . [facility] PLATELETS 207 140 - 350 K/uL 01/02/2025 9:57 AM CDT [facility] - . [facility] MPV 10.2 9.3 - 12.4 fL 01/02/2025 9:57 AM CDT [facility] - . [facility] NEUTROPHILS 67 % 01/02/2025 9:57 AM CDT [facility] LYMPHOCYTES 23 % 01/02/2025 9:57 AM CDT [facility] - . [facility] MONOCYTES 8 % 01/02/2025 9:57 AM CDT [facility] EOSINOPHILS 1 % 01/02/2025 9:57 AM CDT [facility] - . [facility] BASOPHILS 1 % 01/02/2025 9:57 AM CDT [facility] - . [facility] IMMATURE GRANULOCYTES 1 % 01/02/2025 9:57 AM CDT [facility] - . [facility] Comment:IG (Immature Granulo cyte) count includes Metamyelocytes, Myelocytes, and Promyelocytes NEUTROPHIL ABSOLUTE 6.93 1.90 - 7.00 K/uL 01/02/2025 9:57 AM CDT [facility] - . [facility] LYMPHOCYTE ABSOLUTE 2.34 0.70 - 4.50 K/uL 01/02/2025 9:57 AM CDT [facility] - . [facility] MONOCYTE ABSOLUTE 0.82 0.10 - 1.30 K/uL 01/02/2025 9:57 AM CDT [facility] - . [facility] EOSINOPHIL ABSOLUTE 0.09 0.00 - 0.70 K/uL 01/02/2025 9:57 AM CDT [facility] - . [facility] BASOPHILS ABSOLUTE 0.06 0.00 - 0.20 K/uL 01/02/2025 9:57 AM CDT [facility] - . [facility] IMMATURE GRANULOCYTES ABSOLUTE 0.06(H) 0.00 - 0.03 K/uL 01/02/2025 9:57 AM CDT [facility] - . [facility] Blood Venipuncture / Unknown 01/02/2025 9:20 AM CDT 01/02/2025 9:38 AM CDT us Anthony Fraser MD HEMATOLOGY ORDERABLES F inal Result [facility] - [facility] CLIA# [id number] [address] [place] [address] from Last 3 Months Insurance MEDICARE PART A AND B GENERIC PAYOR MEDICARE PART A AND B GENERIC PAYOR MEDICARE PART A AND B GENERIC PAYOR Care Teams Fashion Buying Internship Relationship Specialty Start Date End Date Des Dupont MD [address] [place] [address] PCP - General Family Practice 01/14/25
--- OUTSIDE RECORDS SUMMARY | 2025-02-01 14:16 | XMS_ITS | Encounter Summary ---
Author Organization [facility] Address [address] [place] [address] Phone Care Team Providers Care Net Developer Consultant Name Role Phone Des Dupont MD Primary Care Provider [phone] Stephanie Villarreal MD PhD Unavailable [phone] Encounter Details Date Type Department Care Team (Late st Contact Info) Description 01/31/2025 Orders Only [facility] [address] [place] [address] Stephanie Villarreal MD PhD [address] [place] [address] Social History Tobacco Use Types Packs/Day Years [...] on filedocumented in this encounter Care Teams Net Developer Consultant Relationship Specialty Start Date End Date Des Dupont MD [address] [place] [address] PCP - General Family Medicine 04/23/24 Stephanie Villarreal MD PhD [address] [facility], [facility] [address] [place] [address] Consulting Physician Medical Oncology 01/23/25 documented as of this encounter
--- OUTSIDE RECORDS SUMMARY | 2025-02-01 14:16 | XMS_ITS | Clinical Summary ---
Author Organization [facility] Address [address] [place] [address] Care Team Providers Care Recoverer Name Role Phone Unavailable Primary Care Provider Unavailabl e Source Comments [facility] [employer],non-owned Affiliates and Associated Physician Practices is amultiple site organization consisting of ambulatory clinics and hospital sitesin [place], [place], [place] and [place]. This disclosure is being madepursuant to the Care Everywhere program and may not contain all information available regarding this patient. Last updated 18.[facility] [employer] Social History Tobacco Use Types Packs/Day Years [...] age to complete this topic Insurance MEDICARE [facility] MEDICARE [employer]
--- OUTSIDE RECORDS SUMMARY | 2025-02-01 14:16 | XMS_ITS | Encounter Summary ---
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 Name Role Phone Unavailable Primary Care Provider Unavailabl e Encounter Details Date Type Department Care Team (Late st Contact Info) Description 09/25/2020 Lab Requisition [facility] D[facility] [address], [place] [phone] Naga Boswell MD [address] [place] [address] Social History Tobacco Use Types [...] Comments DERMATOPATHOLOGY Routine 09/24/2020 12:0 0 AM ASSISTANT SCIENTIST documented in this encounter Results * DERMATOPATHOLOGY (09/24/2020 12:00 AM ASSISTANT SCIENTIST) Case Report Dermatopathology Report Case: [id number] Authorizing Provider: Naga Boswell MD Collected: 09/24/2020 12:00 AM Ordering Location: [facility] Received: 09/25/2020 06:41 AM Pathologist: Manju Figueroa MD Specimens: A) - Skin, right upper post auricular B) - Skin, right lower post auricular 0 1:35 PM ASSISTANT SCIENTIST DERMATOPATHOLOGY LABORATORY Final Diagnosis Specimen A. SKIN, right upper post auricular: EPIDERMOID CYST (L72.0) NOT PRESENT AT SAMPLED MARGIN Specimen B. SKIN, right lower post auricular: EPIDERMOID CYST (L72.0) NOT PRESENT AT SAMPLED MARGIN 0 1:35 PM ASSISTANT SCIENTIST DERMATOPATHOLOGY LABORATORY Clinical History A: E cyst. Path # [id number]. Check margins. B: E cyst. Path # [id number]. 0 1:35 PM [facility] DERMATOPATHOLOGY LABORATORY Gross Description Specimen A: Received is one formalin filled container labeled with the patient's name and designated right upper post auricular. The specimen consists of a [id number] excision, bisected. The margin is inked green. Jar 0. Specimen B: Received is one formalin filled container labeled with the patient's name and designated right lower post auricular. The specimen consists of a [id number] excision, bisected. The margin is inked green. Jar 0. 0 1:35 PM [facility] DERMATOPATHOLOGY LABORATORY Microscopic Description Specimen [...] margin of the specimen. 0 1:35 PM [facility] DERMATOPATHOLOGY LABORATORY Disclaimer An external and internal positive and negative controls are appropriate for the histochemical, immunohistochemical and immunofluorescence stain(s) in this case (if any), except where stated explicitly. The performance characteristics of the stain(s) cited in this report were developed and its performance characteristic determined by the Dermatopathology Laboratory at [facility], directed by Dr. Hodan Sargent. These tests need not be, and therefore are not, approved by the [place] Food and Drug Administration. The tests are used for clinical purposes. Billing Codes Specimen Charges Stain Charges 66533 42705 1 1 0 1:35 PM [facility] DERMATOPATHOLOGY LABORATORY Embedded Images 0 1:35 PM [facility] DERMATOPATHOLOGY LABORATORY Pathology/Cytology TISSUE SPECIMEN FROM SKIN / Unknown 09/24/2020 09/25/2020 6:41 AM [facility] Miscellaneous samples (specimen) TISSUE SPECIMEN FROM SKIN / Unknown 09/24/2020 09/25/2020 6:41 AM ASSISTANT SCIENTIST us Naga Boswell MD LAB - PATHOLOGY/CYTOLOGY ORDER STEFANIE Final Result DERMATOPATHOLOGY LABORATORY [facility] - Department of Dermatology [facility] Medicine [address] [place] [address], [address] Floor [address] [phone] documented in this encounter Visit Diagnoses Not on filedocumented in this encounter
--- NOTE | 2025-02-01 14:22 | ED.GENADULT ---
HPI - General Adult General Chief complaint: Extremity Problem,Nontraumatic Stated complaint: R leg swelling and weeping Time Seen by Provider: 02/01/25 14:00 History of Present Illness HPI narrative: This is a 74-year-old male history of stage IV lung cancer, venous insufficiency the lower extremities presenting for increased swelling. Recently admitted the [facility] for a bleeding met in his liver. When he was discharged changed his diuretic regimen from 40 mg Lasix p.o. b.i.d. with metolazone every other day to just Lasix 40 mg b.i.d.. Since then he has had increased swelling of his legs and they started weeping this morning. He does not have any fevers, shortness of breath, chest pain, abdominal pain, urinary symptoms. The patient has tried to reach his pet supplies salesperson to see if he could go back to his old regimen but they were unavailable so he came to the ED for evaluation. Related Data Home Medications ?Medication ?Instructions ?Recorded ?Confirmed ?Last Taken ?Type rivaroxaban 20 mg tablet (Xarelto) 20 mg PO DAILY 11/13/19 12/19/24 04/16/23 History morphine 15 mg immediate release 15 mg PO QID PRN Breakthrough Pain 11/15/19 12/19/24 04/16/23 History tablet furosemide 40 mg tablet 40 mg PO BID 05/15/20 12/19/24 04/16/23 History gabapentin 300 mg capsule 300 mg PO TID 05/15/20 12/19/24 04/16/23 History ascorbic acid (vitamin C) 1,000 mg 1 g PO BID 07/09/20 12/19/24 04/16/23 History tablet wbfjhzqo-flr-ncbmc acid 0.4 1 tablet PO DAILY 07/09/20 12/19/24 04/16/23 History mg-lycopene 300 mcg-lutein 250 mcg tablet (Centrum Silver) metoprolol tartrate 25 mg tablet 25 mg PO BID 11/23/20 12/19/24 04/16/23 History metolazone 5 mg tablet See Rx Instructions .Route .COMPLEX 02/25/22 12/19/24 04/16/23 History potassium chloride 20 mEq 20 meq PO BID 09/05/22 12/19/24 04/16/23 History tablet,extended release(part/cryst) (Klor-Con M) diltiazem HCl 360 mg capsule,24 360 mg PO DAILY 04/16/23 12/19/24 04/16/23 History hr,extended release (Tiadylt ER) morphine 15 mg tablet,extended 15 mg PO TID 04/16/23 12/19/24 04/16/23 History release tadalafil 20 mg tablet (Cialis) 100 mg PO DAILY PRN sexual activity 04/16/23 12/19/24 Unknown History glucosamine HCl 1,500 mg tablet 1,500 mg PO DAILY 11/14/24 12/19/24 Unknown History tizanidine 4 mg tablet 4 mg PO TID 11/14/24 12/19/24 Unknown History Allergies Allergy/AdvReac Type Severity Reaction Status Date / Time No Known Allergies Allergy Verified 02/01/25 13:43 [facility], [facility] Past Medical History Medical History Degenerative disk disease Screening for prostate cancer Fatigue Erectile dysfunction Hyperlipidemia Changing skin lesion Constipation due to opioid therapy Erectile dysfunction Degenerative, intervertebral disc, cervical Afib Benign hypertension Chronic obstructive pulmonary disease Chronically O2 dependent 5 L Hypersomnia Hypoxemia JULIANNA (obstructive sleep apnea) Tobacco abuse Surgical History Surgical History History of tonsillectomy and adenoidectomy H/O cervical spine surgery Family History Family History Mother Depression COVID-19 Sibling Intestinal cancer Thyroid disorder Sibling Depression Heart problem Father No problems noted. Social History Social History Social History: Smokes 4-5 [employer] Sweets/day. Quit cigarettes 2016. He is and lives with his . 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 His is the durable power city attorney for healthcare. Code status full code Years smoked: 45 Smoking status: Current some day smoker Tobacco type: cigars (occasional) Second hand tobacco smoke exposure: No Alcohol intake: current Alcohol use details: socially Substance use: never Substance use type: does not use Last use: 10/23/2016 Lack of Transportation: No Lack of Food: Never True Current Housing: I Have Housing Concerned About Future Housing: No Difficulty Paying Gas/Electric Bills: No Difficulty Paying for Meds: Decline to Answer Currently Unemployed: No Education: Master's Degree or Higher Difficulty w/ Childcare or Family Care: No Living arrangements: with family Occupation/Education: retired 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 Head: atraumatic. EYES: EOMI, NOSE: Atraumatic NECK: Trachea midline RESPIRATORY: No increased rate of breathing clear to auscultation CARDIOVASCULAR: RRR, ABDOMINAL: Non-distended soft nontender MUSCULOSKELETAl: No obvious deformities NEURO: Alert. Moving 01/24 extremities SKIN:: Severe lipodermatosclerosis of the lower extremities, edematous and weeping with a ruptured blister on the right anterior lara, no purulent discharge or evidence of infection at this time PSYCHIATRIC: Normal affect Course Vital Signs Vital signs: Vital Signs Temperature 98.5 F 02/01/25 13:35 Pulse Rate 75 02/01/25 13:35 Respiratory Rate 95 H 02/01/25 13:35 Blood Pressure 91/77 L 02/01/25 13:35 Pulse Oximetry 95 02/01/25 13:35 Oxygen Delivery Nasal Cannula 02/01/25 13:35 Oxygen Flow Rate 2 02/01/25 13:35 Temperature 98.5 F 02/01/25 13:35 Pulse Rate 64 02/01/25 13:56 Respiratory Rate 18 02/01/25 13:56 Blood Pressure 117/63 02/01/25 13:56 Pulse Oximetry 91 02/01/25 13:56 Oxygen Delivery Nasal Cannula 02/01/25 13:35 Oxygen Flow Rate 2 02/01/25 13:35 Medical Decision Making MDM Narrative Medical decision making narrative: -Course: 74-year-old male metastatic lung cancer and severe lipodermatosclerosis/venous insufficiency of his lower extremities presenting for increased swelling/weeping. They do not appear infected. Patient does not have any respiratory distress or changes in his oxygen requirements. Patient's diuretic regimen was changed after his discharge [facility] and since then he has had slowly increasing swelling in his legs. Patient wants to go back to his old regimen which I think is reasonable. Discussed getting laboratory studies and a chest x-ray with the patient's family and they have declined. They obtained lab work 2 days ago which I reviewed and they have follow-up with their pet supplies salesperson in 2 days where they will get more labwork. Their goal for this visit was to make sure there would be no ill side effects of returning to the oral diuretic regimen. Patient has been given a dose of Bumex to help start diuresis. He has follow-up with Cardiology on Monday. Patient discharged with return precautions. -DDX includes but is not limited to: Fluid overload due to medication changes or diet, CHF, cellulitis Vital Signs Vital Signs: Vital Signs Temperature 98.5 F 02/01/25 13:35 Pulse Rate 75 02/01/25 13:35 Respiratory Rate 95 H 02/01/25 13:35 Blood Pressure 91/77 L 02/01/25 13:35 Pulse Oximetry 95 02/01/25 13:35 Oxygen Delivery Nasal Cannula 02/01/25 13:35 Oxygen Flow Rate 2 02/01/25 13:35 Temperature 98.5 F 02/01/25 13:35 Pulse Rate 64 02/01/25 13:56 Respiratory Rate 18 02/01/25 13:56 Blood Pressure 117/63 02/01/25 13:56 Pulse Oximetry 91 02/01/25 13:56 Oxygen Delivery Nasal Cannula 02/01/25 13:35 Oxygen Flow Rate 2 02/01/25 13:35 Discharge Plan Discharge Clinical Impression: Chronic venous insufficiency, Fluid overload Patient Disposition: Home Condition: Stable Instructions: Antibiotic Form, Leg Edema (ED) Additional Instructions: You were seen in the emergency department for leg swelling. Please return to your old diuretics schedule of lasix w/ metolazone. Please follow-up with your pet supplies salesperson on Monday. If you develop signs of infection in her legs such as fever fevers, pain, foul smell or purulent discharge please return to the ED. If you develop worsening respiratory status please return to ED for re-evaluation. Patient Language: Tajik Prescriptions: No Action Xarelto 20 mg tablet 20 mg PO DAILY Rx Instructions: must administer with evening meal morphine 15 mg tablet 15 mg PO QID PRN (Reason: Breakthrough Pain) furosemide 40 mg tablet 40 mg PO BID Rx Instructions: alternates every other day with metolazone. gabapentin 300 mg capsule 300 mg PO TID albuterol sulfate [Ventolin HFA] 90 mcg/actuation HFA aerosol inhaler 2 inh INHALATION Q4-6H PRN (Reason: shortness of breath or wheezing) Qty: 8.5 3RF potassium chloride [Klor-Con M20] 20 mEq tablet,ER particles/crystals 20 meq PO BID metoprolol tartrate 25 mg tablet 25 mg PO BID metolazone 5 mg tablet See Rx Instructions .ROUTE .COMPLEX Rx Instructions: 5 mg orally every other day Stiolto Respimat 2.5-2.5 mcg/actuation mist 2 puff inhalation DAILY Qty: 4 11RF albuterol sulfate 2.5 mg /3 mL (0.083 %) solution for nebulization 2.5 mg inhalation Q6H PRN (Reason: shortness of breath or wheezing) Qty: 360 5RF glucosamine HCl 1,500 mg tablet 1,500 mg PO DAILY Rx Instructions: administer with a meal tizanidine 4 mg tablet 4 mg PO TID ascorbic acid (vitamin C) 1,000 mg Tablet 1 g PO BID Centrum Silver 0.4-300-250 mg-mcg-mcg Tablet 1 tablet PO DAILY diltiazem HCl [Tiadylt ER] 360 mg capsule,extended release 24 hr 360 mg PO DAILY morphine 15 mg tablet extended release 15 mg PO TID tadalafil [Cialis] 20 mg tablet 100 mg PO DAILY PRN (Reason: sexual activity) Rx Instructions: administer approximately 30min before sexual activity; do not use more than 1 dose per 24hrs trazodone 100 mg tablet 100 mg PO QHS PRN (Reason: sleep) Qty: 90 1RF Follow-up/Referrals: Des Dupont MD [Primary Care Provider] -
[2025-02-01 14:30] VITALS: BP 125/61; PULSE 77; RESP 16; O2SAT 100
[2025-02-01] MEDS: BUMETANIDE INJ 1 MG/4 ML VIAL IV PUSH (14:30)
[2025-02-01 15:13] VITALS: BP 119/75; PULSE 75; RESP 16; O2SAT 92
== END 2025-02-01 15:18 | disposition home or self-care (01) ==
PROVIDERS: Emergency Provider Emergency Medicine; PCP Family Medicine
DX: I87.2 Venous insufficiency (chronic) (peripheral) (principal); E87.70 Fluid overload, unspecified; C34.90 Malignant neoplasm of unspecified part of unspecified bronchus or lung; C79.9 Secondary malignant neoplasm of unspecified site; I48.91 Unspecified atrial fibrillation; I10 Essential (primary) hypertension; E78.5 Hyperlipidemia, unspecified; G47.33 Obstructive sleep apnea (adult) (pediatric); F17.290 Nicotine dependence, other tobacco product, uncomplicated; Z79.01 Long term (current) use of anticoagulants; Z79.899 Other long term (current) drug therapy
CPT/HCPCS: 96374; 99284; J1939